=== PATIENT | female | born 1935 | race Asian ===

== ENCOUNTER 2016-04-20 20:03 | Inpatient (IN) | payer MEDICARE, OTHER ==
[~2016-04-20] VITALS: Ht 154.9 cm; Wt 69.8 kg
[~2016-04-20 20:03] MED LIST: ALLO100T PO; ASPI-664 PO; ATOR40TA68 PO; CALC667C PO; CARV25TA97 PO; DOXY100T2 PO; FURO-110 PO; ISOS30TA5 PO; LANT3I SC; LEVO250T35 PO; NIFE30TA60 PO
[2016-04-21] VITALS (13 sets, daily range): BP systolic 104–129; BP diastolic 53–80; PULSE 74–85; RESP 17–32; TEMP 98.5; Ht 154.9 cm; Wt 69.8 kg
[2016-04-21] MEDS ORDERED: ALBUTEROL 0.5% (NEB) 2.5 MG/0.5 ML AMP INH ONE (00:30)
[2016-04-21] MEDS ORDERED: IPRATROPIUM (NEB) 0.5 MG/2.5 ML AMP INH ONE (00:30)
--- NOTE | 2016-04-21 00:50 | RADRPT ---
PROCEDURE: XR Chest. CLINICAL INDICATION: Dyspnea. TECHNIQUE: Single frontal view of the chest was obtained COMPARISON: CT chest dated 01/10/2016 and plain film chest dated 01/09/2016. FINDINGS: Cardiomegaly with atherosclerotic calcifications in the thoracic aorta. New 38 mm mass density in the right mid lung with surrounding patchy air space disease, greater at t he right lung base. New bilateral small pleural effusions. Recommend CT examination of the chest for further evaluation, as findings are suspicious for interva l neoplasm. There is no pleural effusion or pneumothorax. IMPRESSION: 1. New 38 mm mass density in right mid lung is suspicious for neoplasm. 2. Recommend CT correlation. RPTAT: [facility] Physician Dory Date Time Electronically viewed and signed by Physician Dory on 04/21/2016 00:50 RS/
[2016-04-21 01:22] LABS: BASOPHILS % 0.2 % (0.0-2.0); EOSINOPHILS % 0.1 % (0.0-7.0); HEMOGLOBIN 9.6 g/dl (12.0-16.0); LYMPHOCYTES # 2.9 10^3/ul (0.8-2.9); LYMPHOCYTES % 19.7 % (15.0-51.0); MEAN CORPUSCULAR HEMOGLOBIN 30.3 pg (29.0-33.0); MEAN CORPUSCULAR HGB CONC 33.2 g/dl (32.0-37.0); MEAN CORPUSCULAR VOLUME 91.4 fl (82.0-101.0); MEAN PLATELET VOLUME 8.7 fl (7.4-10.4); MONOCYTE # 0.8 10^3/ul (0.3-0.9); MONOCYTES % 5.2 % (0.0-11.0); NEUTROPHILS % 74.8 % (39.0-77.0); PLATELET COUNT 255 10^3/UL (140-440); RED BLOOD COUNT 3.17 10^6/ul (4.20-5.40); RED CELL DISTRIBUTION WIDTH 17.1 % (11.5-14.5); UNCORRECTED WBC 14.8 10^3/ul (4.8-10.8); WHITE BLOOD COUNT 14.8 10^3/ul (4.8-10.8)
[2016-04-21 01:23] LABS: CONDITION 1; LH ANALYZER COMMENTS 1
[2016-04-21 01:26] LABS: ALBUMIN 4.4 g/dl (3.3-4.9); CHLORIDE 93 mmol/L (97-110)
[2016-04-21 01:27] LABS: POTASSIUM 4.2 mmol/L (3.5-5.1); SODIUM 132 mmol/L (135-144)
[2016-04-21 01:29] LABS: ANION GAP 23 (8-16); ASPARTATE AMINO TRANSFERASE 45 IU/L (15-46); BILIRUBIN,INDIRECT 0.4 mg/dl (0-1.1); BILIRUBIN,TOTAL 0.4 mg/dl (0.2-1.3); BLOOD UREA NITROGEN 52 mg/dl (7-20); CARBON DIOXIDE 20 mmol/L (21-31); CREATININE 4.39 mg/dl (0.44-1.00); TOTAL PROTEIN 8.4 g/dl (6.1-8.1)
[2016-04-21 01:30] LABS: ALANINE AMINOTRANSFERASE 52 IU/L (13-69); ALKALINE PHOSPHATASE 167 IU/L (42-121); CALCIUM 9.6 mg/dl (8.4-10.2); GLUCOSE 200 mg/dl (70-220)
[2016-04-21 01:38] LABS: B-TYPE NATRIURETIC PEPTIDE 7370 PG/ML (0-450)
[2016-04-21 01:47] LABS: TROPONIN-I < 0.012 ng/ml (0.00-0.12)
--- NOTE | 2016-04-21 02:24 | ERA ---
ER Documentation Chief Complaint Date/Time DATE: 04/21/16 TIME: 02:22 Chief Complaint shortness of breath x 2 days HPI This is a 81-year-old female comes in shortness of breath for 2 days. Shortness breath is progressively worse. No other current complaints. No nausea no vomiting. No other current complaints. No chest pain ROS All systems reviewed and are negative except as per history of present illness. Medications Home Meds Active Scripts Doxycycline* (Vibramycin*) 100 Mg Tab, 100 MG PO BID for 7 Days, #14 TAB Prov:TREMAINE RIOS MD 01/13/16 Levofloxacin* (Levaquin*) 250 Mg Tablet, 250 MG PO Q2D@06 for 7 Days, #4 TAB Prov:TREMAINE RIOS MD 01/13/16 Isosorbide Mononitrate* (Isosorbide Mononitrate*) 30 Mg Tab.er.24h, 30 MG PO DAILY for 30 Days, #30 TAB Prov:TREMAINE RIOS MD 01/13/16 Reported Medications Calcium Acetate* (Calcium Acetate*) 667 Mg Capsule, 667 MG PO WITH MEALS, #30 CAP 11/21/15 Nifedipine* (Nifedipine ER*) 30 Mg Tablet.sa, 30 MG PO DAILY, TAB.SA 11/21/15 Atorvastatin* (Atorvastatin*) 40 Mg Tablet, 40 MG PO QHS, #30 TAB 08/06/15 Aspirin* (Aspirin* EC) 81 Mg Tablet.dr, 81 MG PO DAILY, TAB 08/06/15 Insulin Glargine* (Lantus*) 100 Unit/Ml Soln, 10-12 UNIT SC QHS, #1 VIAL 08/06/15 Allopurinol* (Allopurinol*) 100 Mg Tablet, 100 MG PO QHS, TAB 04/27/14 Furosemide* (Lasix*) 20 Mg Tablet, 20 MG PO QAM, TAB 04/27/14 Carvedilol* (Coreg*) 25 Mg Tablet, 25 MG PO BID, TAB 04/27/14 Allergies Allergies: Coded Allergies: ranolazine (Verified Allergy, Intermediate, 01/08/16) entered as told by Dr. Olivares PMhx/Soc History of Surgery: Yes (Right kidney removal, bilateral cataract removal) Anesthesia Reaction: No Hx Neurological Disorder: No Hx Respiratory Disorders: Yes (Asthma) Hx Cardiac Disorders: Yes (CHF, cardiomegaly, HTN) Hx Psychiatric Problems: No Hx Miscellaneous Medical Probl: No Hx Alcohol Use: No Hx Substance Use: No Hx Tobacco Use: No Smoking Status: Never smoker Physical Exam Vitals Vital Signs Date Time Temp Pulse Resp B/P Pulse Ox O2 Delivery O2 Flow Rate FiO2 04/21/16 00:41 86 22 96 Nasal Cannula 3.0 04/21/16 00:31 68 19 124/66 99 Room Air 04/21/16 00:30 Nasal Cannula 2 04/20/16 20:12 99.3 89 20 124/57 90 Physical Exam Const: [] Head: Atraumatic Eyes: Normal Conjunctiva ENT: Normal External Ears, Nose and Mouth. Neck: Full range of motion..~ No meningismus. Resp: Clear to auscultation bilaterally Cardio: Regular rate and rhythm, no murmurs Abd: Soft, non tender, non distended. Normal bowel sounds Skin: No petechiae or rashes Back: No midline or flank tenderness Ext: No cyanosis, or edema Neur: Awake and alert Psych: Normal Mood and Affect Result Diagram: 04/21/162904/21/16 0030 Results 24 hrs Laboratory Tests Test 04/21/16 00:30 Alanine Aminotransferase (ALT/SGPT) 52IU/L Albumin 4.4g/dl Albumin/Globulin Ratio 1.10 Alkaline Phosphatase 167IU/L Anion Gap 23 Aspartate Amino Transf (AST/SGOT) 45IU/L B-Type Natriuretic Peptide 7370PG/ML Basophils # 0.010^3/ul Basophils % 0.2% Blood Morphology Comment Blood Urea Nitrogen 52mg/dl Calcium Level 9.6mg/dl Carbon Dioxide Level 20mmol/L Chloride Level 93mmol/L Creatinine 4.39mg/dl Direct Bilirubin 0.00mg/dl Eosinophils # 0.010^3/ul Eosinophils % 0.1% Globulin 4.00g/dl Glucose Level 200mg/dl Hematocrit 29.0% Hemoglobin 9.6g/dl Indirect Bilirubin 0.4mg/dl Lactic Acid Level 1.3mmol/L Lymphocytes # 2.910^3/ul Lymphocytes % 19.7% Mean Corpuscular Hemoglobin 30.3pg Mean Corpuscular Hemoglobin Concent 33.2g/dl Mean Corpuscular Volume 91.4fl Mean Platelet Volume 8.7fl Monocytes # 0.810^3/ul Monocytes % 5.2% Neutrophils # 11.010^3/ul Neutrophils % 74.8% Nucleated Red Blood Cells # 0.010^3/ul Nucleated Red Blood Cells % 0.0/100WBC Platelet Count 09312^3/UL Potassium Level 4.2mmol/L Red Blood Count 3.1710^6/ul Red Cell Distribution Width 17.1% Sodium Level 132mmol/L Total Bilirubin 0.4mg/dl Total Protein 8.4g/dl Troponin I < 0.012ng/ml White Blood Count 14.810^3/ul Current Medications Medications (Trade) Dose Ordered Sig/Nahun Route PRN Reason Start Time Stop Time Status Last Admin Dose Admin Albuterol (Proventil 0.5% (Neb)) 5 mg ONCE ONCE INH 04/21/16 00:30 04/21/16 00:31 DC 04/21/16 00:41 Ipratropium [place] (Atrovent 0.02% (Neb)) 0.5 mg ONCE ONCE INH 04/21/16 00:30 04/21/16 00:31 DC 04/21/16 00:41 Procedures/MDM EKG: Rate/Rhythm: Normal Sinus Rhythm QRS, ST, T-waves: No changes consistent w/ acute ischemia Impression: No evidence of ischemia or arrhythmia Chest x-ray reveals a new nodule. Please see radiology's full dictation for poor. Patient also has evidence of increase in interstitial fluid markings indicative of CHF. Patient's heart failure symptoms is concerning for acute decompensation and will require inpatient workup and monitoring. Further w/u for ischemia, arrhythmia, PE or dissection will be deferred to the inpatient team. Accepting Care Team: Current data and ongoing care discussed. Time: 220 Primary Provider: Patient will be admitted to Dr. Rowley per Dr. Lamas who is on-call for the patient's primary care physician Consulting: [XOXOXO] Outstanding Data: none Departure Diagnosis: Primary Impression: CHF (congestive heart failure) Qualified Code: I50.9 - Congestive heart failure, unspecified congestive heart failure chronicity, unspecified congestive heart failure type SAURAV SON Apr 21, 2016 02:24
[2016-04-21] MEDS ORDERED: GLUCAGON 1 MG INJ IM PRN (05:30)
[2016-04-21] MEDS ORDERED: GLUCOSE GEL 15 GRAM TUBE BUCCAL PRN (05:30)
[2016-04-21] MEDS ORDERED: DEXTROSE 50% 50 ML SYRINGE IV PRN ×2 (05:30)
[2016-04-21] MEDS ORDERED: GLUCOSE GEL 15 GRAM TUBE PO PRN ×2 (05:30)
[2016-04-21] MEDS: LEVALBUTEROL (NEB) 0.63 MG/3 ML AMP HHN PRN ×2 (05:38→08:54)
[2016-04-21] MEDS ORDERED: FUROSEMIDE 20 MG INJ IV SCH (06:00)
[2016-04-21] MEDS: DOXYCYCLINE 100 MG TAB PO SCH ×2 (06:22→17:20)
[2016-04-21] MEDS: ALBUTEROL/IPRATROPIUM (NEB) 3 ML AMP HHN SCH ×8 (07:00→21:00)
[2016-04-21] MEDS ORDERED: METHYLPREDNISOLONE 40 MG INJ IV SCH (07:00)
[2016-04-21 07:54] LABS: AADO2 Arterial 305.3 mmHg (7.0-24.0); Allen Test ACCEPTAB; Arterial Base Excess -5.4 mmol/L (-3.0-3); Arterial COHb 0.3 % (0.0-3.0); Arterial Fraction of Oxyhgb 96.2 % (93.0-99.0); Arterial HCO3 18.5 mmol/L (22.0-26.0); Arterial MetHb 0.4 % (0.0-1.5); Arterial Total Hemglobin 9.7 g/dl (12.0-18.0); MODE MASK - SIMPLE
[2016-04-21] MEDS ORDERED: LEVALBUTEROL (NEB) 0.63 MG/3 ML AMP HHN SCH (08:00)
--- NOTE | 2016-04-21 08:03 | RADRPT ---
PROCEDURE: XR Chest. CLINICAL INDICATION: SOB TECHNIQUE: Single portable view of the chest was obtained COMPARISON: Chest 04/21/2016 , 1231 hours. FINDINGS: Again noted is cardiomegaly. There is atherosclerosis of the aorta. In the mid to lower right chitra hilar region is a ill-defined globular area of increased density that may represent consolidation fr om atelectasis and/or pneumonia however an underlying mass in this region cannot be excluded. Remai nder lungs are clear. No evidence of pulmonary vascular congestion pleural effusions and pneumothor ax. IMPRESSION: 1. Cardiomegaly without definite congestive heart failure. 2. Broad globular area of increased density in the right perihilar region may represent atelectasis and/or pneumonia though underlying mass in this region cannot be excluded. Recommend continued fol low up. RPTAT:AAJJ Physician Oumar Date Time Electronically viewed and signed by Physician Oumar on 04/21/2016 08:03 /
[2016-04-21] MEDS: CALCIUM ACETATE 667 MG CAP PO SCH ×3 (08:49→17:19)
[2016-04-21] MEDS: ASPIRIN (EC) 81 MG TAB PO SCH (08:50)
[2016-04-21] MEDS: NIFEdipine (XL) 30 MG TAB PO SCH (08:50)
[2016-04-21] MEDS: ISOSORBIDE MONONITRATE(SR)30 MG TAB PO SCH (08:50)
[2016-04-21] MEDS ORDERED: ENOXAPARIN 40 MG/0.4 ML SYG SC SCH (09:00)
[2016-04-21] MEDS ORDERED: POTASSIUM CHLORIDE (SR) 20 MEQ TAB PO SCH (09:00)
[2016-04-21] MEDS ORDERED: DOXYCYCLINE 100 MG TAB PO SCH (09:00)
--- NOTE | 2016-04-21 10:20 | CONS ---
Date/Time of Note Date/Time of Note DATE: 04/21/16 TIME: 10:13 Assessment/Plan Assessment/Plan Additional Assessment/Plan Chest x-ray was reviewed from earlier today which is showing changes consistent with congestive heart failure with pulmonary edema. There is an infiltrate/ mass in the right upper lobe area. Next EKG was reviewed showing sinus rhythm without any ischemic findings. Next Labs were reviewed as well patient does have a significant elevation in BNP level. Next Assessment and recommendations; next 1. Patient admitted with progressive shortness of breath over the last few days due to underlying cardiomyopathy/congestive heart failure. Next 2. Wheezing is likely from fluid overload. Next 3. Stable hypertension. Next 4. Diabetes. Next 5. History of right nephrectomy. 6. Currently findings are not consistent with asthma. Next 7. Possibly superimposed bronchitis. Continue current treatment . Discontinue Solu-Medrol as it will lead to further fluid retention. Increase Lasix to 40 mg IV every 12 hours. Obtain a 2D echocardiogram. Also need to have a cardiology consult done. Obtain a follow- up chest x-ray in 48 hours. The patient may need to have a CT scan of chest done for evaluation of right upper lobe density. Consultation Date/Type/Reason Admit Date/Time Apr 21, 2016 at 02:22 Date of Consultation: Apr 21, 2016 Type of Consultation: Pulmonary Reason for Consultation Patient admitted with shortness of breath. Pulmonary consultations requested for evaluation of that. Next History of present illness; patient is a very pleasant 81-year-old oriented lady who came into the emergency room early this morning with a 2 day history of increasing shortness of breath. Patient also has been complaining of some wheezing for the last few days only. There is a scant cough with scant yellow sputum production. Denies any chest pain. Any nausea vomiting. Upon evaluation a chest x-ray was done which is consistent with findings of congestive heart failure. However there is a right upper lobe lung mass is also visualized on chest x-ray. Significance of this is unclear at this point. She still complains of shortness of breath. According to her she was fine until 2 days ago and the symptoms gradually started. She does complain of chronic dyspnea on exertion dating back several months. Next Past medical history; 1. History of diabetes. 2. History of hypertension. 3. History of gout. 4. History of right nephrectomy. 5. There is no known coronary artery disease. 6. Patient denies any history of asthma. Medications; were reviewed. Both inpatient and outpatient. Allergies; ranolazine. Social history; never smoked no stable or drug abuse. Family history she is , has 6 children. Various family members of diabetes hypertension in the family. Occupational history; patient has been a housewife. Review of systems; patient denies any headache, any visual changes. Denies any seizures. Any sinus symptoms. Any sore throat. Any fever chills. Denies any chest pain. Complain of wheezing and shortness of breath. Comes of cough without any hemoptysis. Denies any abdominal pain, nausea. Denies any abdominal pain. Any urinary symptoms. Does complain of mild orthopnea. Does complain of chronic dyspnea on exertion. With significant interval worsening over the last 2 days. Has any edema. Any weight change. General examination; elderly lady currently in no distress. Awake and alert. Past Surgical History Past Surgical Hx: other Social History Smoking Status: Never smoker Exam/Review of Systems Vital Signs Vitals Vital Signs Date Time Temp Pulse Resp B/P Pulse Ox O2 Delivery O2 Flow Rate FiO2 04/21/16 08:57 63 20 91 Simple Mask 10.0 04/21/16 07:23 98.2 125/60 Intake and Output 04/20/16 04/20/16 04/21/16 15:00 23:00 07:00 Intake Total 100 ml Balance 100 ml Exam HEENT examination; supple neck. Positive JVD. Pharynx is clear. Patient has a right surgical pupil. There is a cataract in the left eye. Patient wears partial dentures in the upper jaw. No neck masses. No thyromegaly. No neck bruits. Chest examination; diminished breath sound bilaterally with mild expiratory wheezing bilaterally. S1-S2 audible, regular rhythm. Abdomen examination; soft, nontender. No organomegaly. Bowel sounds audible. Extremity examination; no peripheral edema. Pulses 2+ bilaterally. ONLINE MERCHANDISING COORDINATOR examination; cranial nerves are grossly intact there is no motor deficit. Results Result Diagram: 04/21/160 04/21/16 0030 Results 24 hrs Laboratory Tests Test 04/21/16 00:30 04/21/16 02:15 04/21/16 06:56 04/21/16 07:47 Alanine Aminotransferase (ALT/SGPT) 52 Albumin 4.4 Albumin/Globulin Ratio 1.10 Alkaline Phosphatase 167 H Anion Gap 23 H Aspartate Amino Transf (AST/SGOT) 45 B-Type Natriuretic Peptide 7370 H Basophils # 0.0 Basophils % 0.2 Blood Morphology Comment Blood Urea Nitrogen 52 H Calcium Level 9.6 Carbon Dioxide Level 20 L Chloride Level 93 L Creatinine 4.39 H Direct Bilirubin 0.00 Eosinophils # 0.0 Eosinophils % 0.1 Globulin 4.00 H Glucose Level 200 Hematocrit 29.0 L Hemoglobin 9.6 L Indirect Bilirubin 0.4 Lactic Acid Level 1.3 0.8 0.7 Lymphocytes # 2.9 Lymphocytes % 19.7 Mean Corpuscular Hemoglobin 30.3 Mean Corpuscular Hemoglobin Concent 33.2 Mean Corpuscular Volume 91.4 Mean Platelet Volume 8.7 Monocytes # 0.8 Monocytes % 5.2 Neutrophils # 11.0 H Neutrophils % 74.8 Nucleated Red Blood Cells # 0.0 Nucleated Red Blood Cells % 0.0 Platelet Count 255 # Potassium Level 4.2 Red Blood Count 3.17 L Red Cell Distribution Width 17.1 H Sodium Level 132 L Total Bilirubin 0.4 Total Protein 8.4 H Troponin I < 0.012 White Blood Count 14.8 #H Arterial Blood HCO3 18.5 L Arterial Blood Base Excess -5.4 L Arterial Blood Oxygen Saturation 96.9 Marquez Test ACCEPTAB Arterial Blood Gas Puncture Site Right Radial Arterial Blood Carboxyhemoglobin 0.3 Arterial Blood Date Drawn 04/21/2016 7:26:54 AM Arterial Blood Methemoglobin 0.4 Arterial Blood pCO2 (Temp correct) 30.7 L Arterial Blood pH (Temp corrected) 7.399 Arterial Blood pO2 (Temp corrected) 95.9 H Blood Gas A-a O2 Differential 305.3 H Blood Gas Modality MASK - SIMPLE Blood Gas Notified Time 04/21/2016 7:49:29 AM Blood Gas Notified Whom JLD Blood Gas Specimen Source Blood arterial Blood Gas Temperature 37.0 FiO2 61.0 Oxyhemoglobin Percent 96.2 Total Hemoglobin 9.7 L Test 04/21/16 08:06 Bedside Glucose 205 Medications Medications Current Medications Allopurinol (Zyloprim) 100 mg QHS PO ; Start 04/21/16 at 21:00 Aspirin (Halfprin) 81 mg DAILY PO Last administered on 04/21/16t 08:50; Admin Dose 81 MG; Start 04/21/16 at 09:00 Atorvastatin Calcium (Lipitor) 40 mg QHS PO ; Start 04/21/16 at 21:00 Carvedilol (Coreg) 25 mg BID PO Last administered on 04/21/16 08:50; Admin Dose 25 MG; Start 04/21/16 at 09:00 Isosorbide Mononitrate (Imdur) 30 mg DAILY PO Last administered on 04/21/16 08 :50; Admin Dose 30 MG; Start 04/21/16 at 09:00 Levofloxacin (Levaquin) 250 mg Q2D@06 PO ; Start 04/21/16 at 06:00 Nifedipine (Procardia Xl) 30 mg DAILY PO Last administered on 04/21/16 08:50; Admin Dose 30 MG; Start 04/21/16 at 09:00 Enoxaparin Sodium (Lovenox) 40 mg DAILY SC Last administered on 04/21/16 08:49 ; Admin Dose 40 MG; Start 04/21/16 at 09:00 Potassium Chloride (Klor-Con 20) 20 meq DAILY PO Last administered on 08:50; Admin Dose 20 MEQ; Start 04/21/16 at 09:00 Insulin Glargine (Lantus) 10 unit HS SC ; Start 04/21/16 at 21:00 Diagnostic Test (Pha) (Accucheck) 1 ea 02 XX ; Start 04/22/16 at 02:00 Miscellaneous Information 1 ea NOTE XX ; Start 04/21/16 at 05:30 Glucose (Glutose) 15 gm Q15M PRN PO DECREASED GLUCOSE; Start 04/21/16 at 05:30 Glucose (Glutose) 22.5 gm Q15M PRN PO DECREASED GLUCOSE; Start 04/21/16 at 05: 30 Dextrose (D50w Syringe) 25 ml Q15M PRN IV DECREASED GLUCOSE; Start 04/21/16 at 05:30 Dextrose (D50w Syringe) 50 ml Q15M PRN IV DECREASED GLUCOSE; Start 04/21/16 at 05:30 Glucagon (Glucagen) 1 mg Q15M PRN IM DECREASED GLUCOSE; Start 04/21/16 at 05:30 Glucose (Glutose) 15 gm Q15M PRN BUCCAL DECREASED GLUCOSE; Start 04/21/16 at 05 :30 Doxycycline Hyclate (Vibramycin) 100 mg BID@06,18 PO Last administered on t 06:22; Admin Dose 100 MG; Start 04/21/16 at 06:00 KIMBERLI WORKMAN Apr 21, 2016 10:20
[2016-04-21] MEDS: LEVOFLOXACIN 250 MG TAB PO SCH (10:31)
[2016-04-21] MEDS: INSULIN ASPART [NOVOLOG] 3 ML PEN SC SCH ×4 (10:33→21:06)
[2016-04-21 12:13] LABS: EOSINOPHILS % 0.1 % (0.0-7.0); HEMATOCRIT 24.5 % (37.0-47.0); HEMOGLOBIN 8.4 g/dl (12.0-16.0); LYMPHOCYTES # 1.3 10^3/ul (0.8-2.9); LYMPHOCYTES % 10.2 % (15.0-51.0); MEAN CORPUSCULAR HEMOGLOBIN 31.5 pg (29.0-33.0); MEAN CORPUSCULAR HGB CONC 34.3 g/dl (32.0-37.0); MEAN CORPUSCULAR VOLUME 91.8 fl (82.0-101.0); MEAN PLATELET VOLUME 8.6 fl (7.4-10.4); MONOCYTE # 0.5 10^3/ul (0.3-0.9); NEUTROPHIL # 10.8 10^3/ul (1.6-7.5); NEUTROPHILS % 85.7 % (39.0-77.0); PLATELET COUNT 215 10^3/UL (140-440); RED BLOOD COUNT 2.67 10^6/ul (4.20-5.40); RED CELL DISTRIBUTION WIDTH 17.3 % (11.5-14.5); UNCORRECTED WBC 12.6 10^3/ul (4.8-10.8); WHITE BLOOD COUNT 12.6 10^3/ul (4.8-10.8)
[2016-04-21 12:23] LABS: POTASSIUM 4.4 mmol/L (3.5-5.1)
[2016-04-21 12:25] LABS: CONDITION 1; CREATININE 4.41 mg/dl (0.44-1.00); LH ANALYZER COMMENTS 1
[2016-04-21 12:26] LABS: CALCIUM 8.9 mg/dl (8.4-10.2)
[2016-04-21 12:27] LABS: CHOL/HDL RATIO 3.2 RATIO
--- NOTE | 2016-04-21 16:59 | HP ---
DATE OF ADMISSION: 04/21/2016 CHIEF COMPLAINT: Shortness of breath over the last 2 days. HISTORY OF PRESENT ILLNESS: The patient is an 81-year-old pleasant female with past medical h istory positive for congestive heart failure, hypertension, mitral regurgitation, chronic kidney dis ease, diabetes mellitus type 2, and hypercholesterolemia. The patient presented to the emergency ro om from home with complaint of 2 days of shortness of breath that gets worse. Yesterday, the patie nt stated that she became tachypneic. Patient denies any fever or chills. Denies any nausea, vomit ing, denies diarrhea, denies constipation, denies any chest pain. Patient underwent chest x-ray in the emergency room which revealed cardiomegaly, and a broad globular area of increased density in th e right preauricular region, which may represent atelectasis or pneumonia, though underlying mass in this region cannot be excluded. The patient also had a leukocytosis on admission with white blood cells elevated to 14.8. The patient's influenza swab was negative. Troponin was negative. BNP was elevated to 7370. The patient also had a creatinine of 4.36 and BUN is 52 on admission. The prev ious admission, the patient's creatinine runs about 3 which is probably her baseline. In the emerge ncy room, the patient underwent a 12-lead EKG which showed normal sinus rhythm with no changes consi stent with ischemia. Patient was getting breathing treatment and was admitted for further evaluatio n and management to telemetry floor. PAST MEDICAL HISTORY: Per HPI. PAST SURGICAL HISTORY: Status post right nephrectomy and status post bilateral cataract surgery. FAMILY HISTORY: Noncontributory. SOCIAL HISTORY: Patient lives at home with the family, patient denies any tobacco use, denies any i llicit drug use, denies any alcohol use. ALLERGIES: PATIENT HAS ALLERGY TO RANEXA. HOME MEDICATIONS: 1. Calcium acetate. 2. Nifedipine. 3. Atorvastatin. 4. Aspirin. 5. Lantus. 6. Allopurinol. 7. Lasix. 8. Coreg. REVIEW OF SYSTEMS: A 12-point review of systems is negative unless mentioned in the HPI. PHYSICAL ASSESSMENT: GENERAL: Well-developed, well-nourished female currently on supplemental oxygen via mask. The jamir ent is awake, alert. VITAL SIGNS: Temperature is 98.2, pulse is 80, blood pressure is 110/54, respiratory rate is 20, ox ygen saturation is 96% on 2 liters mask. HEENT: Head is atraumatic, normocephalic. Pupils equal, round, reactive to light and accommodation . PERRLA. Oral mucosa is pink and moist. NECK: Supple, no cervical lymphadenopathy, no thyromegaly. JVD is present. LUNGS: Diminished at the bases. There are no wheezes and rales noted. The patient has mild rhonch i. CARDIOVASCULAR: Normal S1, S2. No murmurs, gallops, clicks, rubs noted. ABDOMEN: Protuberant, soft, nondistended, nontender. Bowel sounds present. There is no tenderness . EXTREMITIES: The patient has trace edema. No clubbing, cyanosis. Pulses equal bilaterally 2+. SKIN: There is no rash, petechiae noted. NEUROLOGIC: Patient is awake, alert and oriented x4. No focal deficits noted. Motor strength 5/5 in all extremities. LABORATORY DATA: On admission, CBC: White blood cells 14.8, hemoglobin 9.6, hematocrit 29.0, plate lets 265. Chemistry: Sodium is 130, potassium 4.0, chloride 95, carbon dioxide 19, anion gap 20, B UN is 60, creatinine 4.41, glucose 210. Troponin is 0.012. ASSESSMENT AND PLAN: 1. Acute respiratory distress secondary to congestive heart failure exacerbation, possible bronchit is. 2. Congestive heart failure. Continue Lasix, monitor electrolytes. Dr. Juarez will be following t he patient in cardiology recommendations. 3. Possible bronchitis. ____ is following in pulmonology consultation. 4. A 38 mm mass density in the right mid lung. Continue to follow up pulmonology recommendations. 5. Chronic kidney disease status post right nephrectomy. Dr. Mo will be following patient i n nephrology consultation. Continue to monitor BUN and creatinine. 6. Rule out acute coronary syndrome. We will obtain troponins x3 and a 12-lead EKG. 7. Hypertension. Continue patient on Coreg, Imdur and Procardia. 8. Hyperlipidemia. Continue Lipitor. 9. Diabetes mellitus type 2. Continue patient on Lantus and NovoLog. 10. Continue Lovenox for deep venous thrombosis prophylaxis and Pepcid for peptic ulcer disease pro phylaxis. Further recommendations based on clinical course. Plan of care discussed with Dr. Julio manning. Dictated By: GILBERT SCHNEIDER WATERPROOF COATING MACHINE TENDER for DOMINIC ROSAS MD SR/NTS Conf#: [id number] DID#: [id number]
[2016-04-21] MEDS: FUROSEMIDE 40 MG INJ IV SCH (17:19)
--- NOTE | 2016-04-21 19:11 | CONS ---
Date/Time of Note Date/Time of Note DATE: 04/21/16 TIME: 19:06 Assessment/Plan Assessment/Plan Additional Assessment/Plan Acute decompensated diastolic congestive heart failure Possible lung mass Hypertension Acute on chronic kidney injury Diabetes -Patient's diuretics have been adjusted to 40 mg IV twice daily. Continue as long as renal function and blood pressure permits. Blood pressure has been on the lower end, would have holding parameters on antihypertensives. Undergoing workup for possible lung mass. Consultation Date/Type/Reason Admit Date/Time Apr 21, 2016 at 02:22 Type of Consultation: cv Reason for Consultation Shortness of breath Hx of Present Illness This is an 81-year-old female who presents with progressive worsening shortness of breath over the past 2-3 days. Symptoms are worse with exertion and lying down flat. Patient also with cough which has been wet and minimally productive. She denies any fevers, chills, dizziness, palpitations, chest pain. She denies any abdominal pain, nausea or vomiting. 12 point review of systems was performed with all pertinent positives and negatives mentioned above and all else is negative Past Medical History Medical History: coronary artery disease, high cholesterol, hypertension, renal disease Past Surgical History Past Surgical Hx: other Family History Significant Family History: no pertinent family hx Social History Smoking Status: Never smoker Exam/Review of Systems Vital Signs Vitals Vital Signs Date Time Temp Pulse Resp B/P Pulse Ox O2 Delivery O2 Flow Rate FiO2 04/21/16 16:25 74 04/21/16 15:58 20 97 Simple Mask 10.0 04/21/16 15:39 98.0 104/54 Intake and Output 04/20/16 04/20/16 04/21/16 15:00 23:00 07:00 Intake Total 100 ml Balance 100 ml Exam Mild dyspnea with extensively speaking Constitutional: alert, obese, oriented Head: normocephalic Neck: supple Respiratory: other (Coarse breath sounds bilaterally with scattered crackles, minimal and expiratory wheezing) Cardiovascular: other (S1-S2 heard), regular rate and rhythm Gastrointestinal: bowel sounds, non-tender, other (No guarding), soft Extremities: edema, other (No cyanosis) Results Result Diagram: 04/21/16 1136 04/21/16 1136 Results 24 hrs Laboratory Tests Test 04/21/16 00:30 04/21/16 02:15 04/21/16 06:56 04/21/16 07:47 Alanine Aminotransferase (ALT/SGPT) 52 Albumin 4.4 Albumin/Globulin Ratio 1.10 Alkaline Phosphatase 167 H Anion Gap 23 H Aspartate Amino Transf (AST/SGOT) 45 B-Type Natriuretic Peptide 7370 H Basophils # 0.0 Basophils % 0.2 Blood Morphology Comment Blood Urea Nitrogen 52 H Calcium Level 9.6 Carbon Dioxide Level 20 L Chloride Level 93 L Creatinine 4.39 H Direct Bilirubin 0.00 Eosinophils # 0.0 Eosinophils % 0.1 Globulin 4.00 H Glucose Level 200 Hematocrit 29.0 L Hemoglobin 9.6 L Indirect Bilirubin 0.4 Lactic Acid Level 1.3 0.8 0.7 Lymphocytes # 2.9 Lymphocytes % 19.7 Mean Corpuscular Hemoglobin 30.3 Mean Corpuscular Hemoglobin Concent 33.2 Mean Corpuscular Volume 91.4 Mean Platelet Volume 8.7 Monocytes # 0.8 Monocytes % 5.2 Neutrophils # 11.0 H Neutrophils % 74.8 Nucleated Red Blood Cells # 0.0 Nucleated Red Blood Cells % 0.0 Platelet Count 255 # Potassium Level 4.2 Red Blood Count 3.17 L Red Cell Distribution Width 17.1 H Sodium Level 132 L Total Bilirubin 0.4 Total Protein 8.4 H Troponin I < 0.012 White Blood Count 14.8 #H Arterial Blood HCO3 18.5 L Arterial Blood Base Excess -5.4 L Arterial Blood Oxygen Saturation 96.9 Marquez Test ACCEPTAB Arterial Blood Gas Puncture Site Right Radial Arterial Blood Carboxyhemoglobin 0.3 Arterial Blood Date Drawn 04/21/2016 7:26:54 AM Arterial Blood Methemoglobin 0.4 Arterial Blood pCO2 (Temp correct) 30.7 L Arterial Blood pH (Temp corrected) 7.399 Arterial Blood pO2 (Temp corrected) 95.9 H Blood Gas A-a O2 Differential 305.3 H Blood Gas Modality MASK - SIMPLE Blood Gas Notified Time 04/21/2016 7:49:29 AM Blood Gas Notified Whom JLD Blood Gas Specimen Source Blood arterial Blood Gas Temperature 37.0 FiO2 61.0 Oxyhemoglobin Percent 96.2 Total Hemoglobin 9.7 L Test 04/21/16 08:06 04/21/16 11:36 04/21/16 12:03 04/21/16 17:01 Bedside Glucose 205 208 143 Anion Gap 20 H Basophils # 0.0 Basophils % 0.0 Blood Morphology Comment Blood Urea Nitrogen 60 H Calcium Level 8.9 Carbon Dioxide Level 19 L Chloride Level 95 L Cholesterol Level 116 Cholesterol/HDL Ratio 3.2 Creatinine 4.41 H Eosinophils # 0.0 Eosinophils % 0.1 Glucose Level 210 HDL Cholesterol 36 Hematocrit 24.5 L Hemoglobin 8.4 L LDL Cholesterol, Calculated 62 Lymphocytes # 1.3 Lymphocytes % 10.2 L Mean Corpuscular Hemoglobin 31.5 Mean Corpuscular Hemoglobin Concent 34.3 Mean Corpuscular Volume 91.8 Mean Platelet Volume 8.6 Monocytes # 0.5 Monocytes % 4.0 Neutrophils # 10.8 H Neutrophils % 85.7 H Nucleated Red Blood Cells # 0.0 Nucleated Red Blood Cells % 0.0 Platelet Count 215 Potassium Level 4.4 Red Blood Count 2.67 L Red Cell Distribution Width 17.3 H Sodium Level 130 L Triglycerides Level 89 Troponin I 0.023 White Blood Count 12.6 H Medications Medications Current Medications Allopurinol (Zyloprim) 100 mg QHS PO ; Start 04/21/16 at 21:00 Aspirin (Halfprin) 81 mg DAILY PO Last administered on 04/21/16 08:50; Admin Dose 81 MG; Start 04/21/16 at 09:00 Atorvastatin Calcium (Lipitor) 40 mg QHS PO ; Start 04/21/16 at 21:00 Carvedilol (Coreg) 25 mg BID PO Last administered on 04/21/16 08:50; Admin Dose 25 MG; Start 04/21/16 at 09:00 Isosorbide Mononitrate (Imdur) 30 mg DAILY PO Last administered on 04/21/16 08 :50; Admin Dose 30 MG; Start 04/21/16 at 09:00 Levofloxacin (Levaquin) 250 mg Q2D@06 PO Last administered on 04/21/16 10:31; Admin Dose 250 MG; Start 04/21/16 at 06:00 Nifedipine (Procardia Xl) 30 mg DAILY PO Last administered on 04/21/16 08:50; Admin Dose 30 MG; Start 04/21/16 at 09:00 Insulin Glargine (Lantus) 10 unit HS SC ; Start 04/21/16 at 21:00 Diagnostic Test (Pha) (Accucheck) 1 ea 02 XX ; Start 04/22/16 at 02:00 Miscellaneous Information 1 ea NOTE XX ; Start 04/21/16 at 05:30 Glucose (Glutose) 15 gm Q15M PRN PO DECREASED GLUCOSE; Start 04/21/16 at 05:30 Glucose (Glutose) 22.5 gm Q15M PRN PO DECREASED GLUCOSE; Start 04/21/16 at 05: 30 Dextrose (D50w Syringe) 25 ml Q15M PRN IV DECREASED GLUCOSE; Start 04/21/16 at 05:30 Dextrose (D50w Syringe) 50 ml Q15M PRN IV DECREASED GLUCOSE; Start 04/21/16 at 05:30 Glucagon (Glucagen) 1 mg Q15M PRN IM DECREASED GLUCOSE; Start 04/21/16 at 05:30 Glucose (Glutose) 15 gm Q15M PRN BUCCAL DECREASED GLUCOSE; Start 04/21/16 at 05 :30 Doxycycline Hyclate (Vibramycin) 100 mg BID@06,18 PO Last administered on t 17:20; Admin Dose 100 MG; Start 04/21/16 at 06:00 Procedures Procedures ECG demonstrates sinus rhythm, QRS 68 ms, anterior Q waves, nonspecific STT wave abnormalities Dariel Juarez DO Apr 21, 2016 19:11
--- NOTE | 2016-04-21 20:35 | CONS ---
DATE OF ADMISSION: 04/21/2016 DATE OF CONSULTATION: TYPE OF CONSULTATION: Renal. Thank you, Dr. Espino and Dr. Gan, for asking me to participate in medical management of this pat ient. REASON FOR CONSULTATION: Chronic kidney disease. HISTORY OF PRESENT ILLNESS: This 81-year-old female is being seen now because of renal failure. Th is patient is well known to me. I have seen this patient previously, first in 07/2015 when I was as ked by Dr. Gan to see the patient because of renal failure. I have seen the patient in my office, and she was last seen on 02/12/2016. The patient does have chronic kidney disease. She has a histo ry of having a right nephrectomy. Her left kidney shows a thinned and echogenic renal cortex consis tent with chronic kidney disease. This last renal ultrasound was done in 07/2015. The patient, whe n she was last seen by me on 02/12/2016, had a serum creatinine of 2.6, BUN 39. Her hemoglobin was 10.3. The patient was getting Procrit in my office for anemia of chronic kidney disease. The patie nt does have a history of insulin-dependent diabetes mellitus. In addition to having an absent righ t kidney, I think that she does have diabetic nephropathy in the remaining left kidney. The patient was admitted this time because of several days of shortness of breath and was found to have congest laureen heart failure on her chest x-ray and also has a right perihilar density on chest x-ray which cou ld be atelectasis and/or pneumonia. It is also possible that this is an underlying mass; however, t his was not present on previous x-rays that were done on her last admission in 12/2015. The patient 's serum creatinine today was 4.41, BUN 60, and her hemoglobin was 8.4. PAST MEDICAL HISTORY: Remarkable for insulin-dependent diabetes mellitus, hypertension, hyperlipide saman, thyroid disease, gout, possible coronary artery disease. 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 FAMILY HISTORY: Father is from hypertension. Mother is from diabetes. Siblings . Brother had diabetes. SOCIAL HISTORY: The patient does not smoke nor drink alcohol. CURRENT MEDICATIONS: Include the followin. Allopurinol 100 mg a day. 2. Atorvastatin 40 mg a day. 3. Lantus insulin 10 units at bedtime. 4. Furosemide 40 mg IV twice a day. 5. Aspirin 81 mg a day. 6. Carvedilol 25 mg twice a day. 7. Isosorbide mononitrate 30 mg a day. 8. Nifedipine XL 30 mg a day. 9. Calcium acetate 667 mg 3 times a day with meals. 10. NovoLog insulin sliding scale. 11. DuoNeb respiratory therapy. 12. Levaquin 250 mg every other day. 13. Doxycycline 100 mg twice a day. 14. Lovenox 40 mg a day. 15. Potassium chloride 20 mEq a day. PHYSICAL EXAMINATION: GENERAL: At this time reveals a well-developed elderly female. No apparent distress. VITAL SIGNS: Temperature 98, pulse is 73, respirations 20, O2 saturation 97% on 10 L simple mask. HEAD: Normocephalic. EYES: Extraocular muscles intact. NOSE AND MOUTH: Normal. NECK: Supple. No neck vein distention. LUNGS: There were bibasilar rales, right greater than left. HEART: Regular rhythm. No murmurs, gallops or rubs. ABDOMEN: Soft, nontender. No masses or megaly. EXTREMITIES: +1 to +2 pretibial edema. LABORATORY TESTS: White blood count 12,600, hemoglobin 8.4, hematocrit 24.5. Sodium 130, potassium 4.4, chloride 95, CO2 19, BUN 60, creatinine 4.41. Urinalysis pending. IMPRESSION: This patient has chronic kidney disease with some component of acute renal failure. He r renal function has decreased from the last time I saw her. On 02/12/2016, her serum creatinine wa s 2.6. It has now risen to 4.41. She was on furosemide before admission, and this was something th at I had restarted on her when I last saw her in January of last year. At that time, I had increas ed her furosemide to 80 mg a day. I did this because of some weight gain and increasing leg edema. The patient has chronic kidney disease both from a right nephrectomy and diabetic nephropathy with proteinuria. Her renal function has decreased, and it will remain to be seen if she recovers renal function or if she is now left with decreased renal function. If she does not recover, then we will need to discuss other treatments such as dialysis. I did discuss this some with her granddaughter, who is a supervisor public health nursing and was visiting the patient. PLAN: 1. Discontinue Lovenox and potassium chloride. 2. Start heparin for DVT prophylaxis. 3. Order a urinalysis. 4. Follow renal function daily. 5. Continue current medication including furosemide. I will follow the patient along with you. Dictated By: HOPE DOW MD, ND/ELENI Conf#: [id number] DID#: [id number]
[2016-04-21] MEDS: ALLOPURINOL 100 MG TAB PO SCH (20:44)
[2016-04-21] MEDS: ATORVASTATIN 40 MG TAB PO SCH (20:44)
[2016-04-21] MEDS: HEPARIN 5,000 UNIT/0.5 ML SYG SC SCH (20:50)
[2016-04-21] MEDS: INSULIN GLARGINE [LANtus] 3 ML PEN SC SCH (20:51)
[2016-04-21 23:16] LABS: ADD UMIC YES; URINE BILIRUBIN (Dip) 1+ (NEGATIVE); URINE BLOOD (Dip) 3+ (NEGATIVE); URINE COLOR BROWN (YELLOW); URINE GLUCOSE (Dip) NEGATIVE (NEGATIVE); URINE KETONES (Dip) NEGATIVE (NEGATIVE); URINE LEUKOCYTE ESTERASE (Dip) 1+ (NEGATIVE); URINE NITRITE (Dip) NEGATIVE (NEGATIVE); URINE TOTAL PROTEIN (Dip) 2+ (NEGATIVE); URINE UROBILINOGEN (Dip) 0.2 E.U./dL (0.1-1.0)
[2016-04-21 23:27] LABS: BACTERIA,URINE FEW; SQUAMOUS EPITHELIAL CELL,UR FEW; URINE RBCS >200 /HPF (0)
[2016-04-21 23:28] LABS: ICTOTEST NEGATIVE (NEGATIVE)
[2016-04-22] VITALS (12 sets, daily range): BP systolic 113–124; BP diastolic 56–58; PULSE 71–81; RESP 15–18
[2016-04-22] MEDS: ALBUTEROL/IPRATROPIUM (NEB) 3 ML AMP HHN SCH ×12 (00:45→21:31)
[2016-04-22] MEDS: ACCUCHECK XX SCH (02:00)
[2016-04-22] MEDS: DOXYCYCLINE 100 MG TAB PO SCH ×2 (06:20→17:37)
[2016-04-22] MEDS: FUROSEMIDE 40 MG INJ IV SCH (06:21)
[2016-04-22 08:41] LABS: POTASSIUM 4.7 mmol/L (3.5-5.1)
[2016-04-22 08:43] LABS: ALBUMIN 3.5 g/dl (3.3-4.9)
[2016-04-22 08:44] LABS: CREATININE 4.68 mg/dl (0.44-1.00); POTASSIUM 4.4 mmol/L (3.5-5.1)
[2016-04-22 08:46] LABS: BILIRUBIN,INDIRECT 0.1 mg/dl (0-1.1); BILIRUBIN,TOTAL 0.1 mg/dl (0.2-1.3); CREATININE 4.92 mg/dl (0.44-1.00)
[2016-04-22 08:47] LABS: ALBUMIN/GLOBULIN RATIO 1.02; CALCIUM 9.1 mg/dl (8.4-10.2); MAGNESIUM 2.1 mg/dl (1.7-2.5); PHOSPHORUS 5.6 mg/dl (2.5-4.9); TOTAL PROTEIN 6.9 g/dl (6.1-8.1)
--- NOTE | 2016-04-22 08:55 | CONS ---
Date/Time of Note Date/Time of Note DATE: 04/22/16 TIME: 08:48 Assessment/Plan Assessment/Plan Chief Complaint/Hosp Course 1. ARF on CKD . labs are pending for today . Her urine output is low . If renal function continues to decrease , then may need to stop diuretics . 2. anemia , Epogen ordered , will add iron studies and check stool for OB . 3. CHF 4. ? mass on CXR , CT scan of chest ordered . 4. DM Problems: Consultation Date/Type/Reason Admit Date/Time Apr 21, 2016 at 02:22 Initial Consult Date 04/21/16 Type of Consultation: renal 24 HR Interval Summary Free Text/Dictation She feels weak and has a congested cough . Poor appetite . Exam/Review of Systems Vital Signs Vitals Vital Signs Date Time Temp Pulse Resp B/P Pulse Ox O2 Delivery O2 Flow Rate FiO2 04/22/16 08:07 76 04/22/16 08:05 98.0 18 117/58 98 04/22/16 04:43 8.0 04/22/16 04:30 Simple Mask Intake and Output 04/21/16 04/21/16 04/22/16 15:00 23:00 07:00 Intake Total 500 ml 300 ml Output Total 100 ml 250 ml Balance 400 ml 50 ml Exam Constitutional: alert Respiratory: congested cough, crackles/rales, diminished breath sounds Cardiovascular: regular rate and rhythm Gastrointestinal: soft Extremities: edema Results Result Diagram: 04/21/16 1136 04/22/16 0730 Results 24 hrs Laboratory Tests Test 04/21/16 11:36 04/21/16 12:03 04/21/16 17:01 04/21/16 20:38 Anion Gap 20 H Basophils # 0.0 Basophils % 0.0 Blood Morphology Comment Blood Urea Nitrogen 60 H Calcium Level 8.9 Carbon Dioxide Level 19 L Chloride Level 95 L Cholesterol Level 116 Cholesterol/HDL Ratio 3.2 Creatinine 4.41 H Eosinophils # 0.0 Eosinophils % 0.1 Glucose Level 210 HDL Cholesterol 36 Hematocrit 24.5 L Hemoglobin 8.4 L LDL Cholesterol, Calculated 62 Lymphocytes # 1.3 Lymphocytes % 10.2 L Mean Corpuscular Hemoglobin 31.5 Mean Corpuscular Hemoglobin Concent 34.3 Mean Corpuscular Volume 91.8 Mean Platelet Volume 8.6 Monocytes # 0.5 Monocytes % 4.0 Neutrophils # 10.8 H Neutrophils % 85.7 H Nucleated Red Blood Cells # 0.0 Nucleated Red Blood Cells % 0.0 Platelet Count 215 Potassium Level 4.4 Red Blood Count 2.67 L Red Cell Distribution Width 17.3 H Sodium Level 130 L Triglycerides Level 89 Troponin I 0.023 White Blood Count 12.6 H Bedside Glucose 208 143 213 Test 04/21/16 22:15 04/22/16 02:06 04/22/16 07:30 04/22/16 07:33 Urine Bacteria FEW Urine Bilirubin 1+ H Urine Clarity CLOUDY Urine Color BROWN Urine Glucose NEGATIVE Urine Hemoglobin 3+ H Urine Ictotest NEGATIVE Urine Ketones NEGATIVE Urine Leukocyte Esterase 1+ H Urine Microscopic RBC >200 Urine Microscopic WBC 2-5 Urine Nitrite NEGATIVE Urine Specific [place] 1.020 Urine Squamous Epithelial Cells FEW Urine Total Protein 2+ H Urine Urobilinogen 0.2 E.U./dL Urine pH 5.0 Bedside Glucose 159 150 Alanine Aminotransferase (ALT/SGPT) Pending Albumin 3.5 Albumin/Globulin Ratio Pending Alkaline Phosphatase Pending Anion Gap Pending Aspartate Amino Transf (AST/SGOT) Pending Blood Urea Nitrogen Pending Calcium Level Pending Carbon Dioxide Level Pending Chloride Level 93 L Creatinine Pending Direct Bilirubin Pending Globulin Pending Glucose Level Pending Hemoglobin A1c 7.7 H Indirect Bilirubin Pending Magnesium Level Pending Parathyroid Hormone (Intact) Pending Phosphorus Level Pending Potassium Level Pending Sodium Level Pending Thyroid Stimulating Hormone (TSH) Pending Total Bilirubin Pending Total Protein Pending Medications Medications Current Medications Allopurinol (Zyloprim) 100 mg QHS PO Last administered on 04/21/16 20:44; Admin Dose 100 MG; Start 04/21/16 at 21:00 Aspirin (Halfprin) 81 mg DAILY PO Last administered on 04/21/16 08:50; Admin Dose 81 MG; Start 04/21/16 at 09:00 Atorvastatin Calcium (Lipitor) 40 mg QHS PO Last administered on 04/21/16 20: 44; Admin Dose 40 MG; Start 04/21/16 at 21:00 Carvedilol (Coreg) 25 mg BID PO Last administered on 04/21/16 20:44; Admin Dose 25 MG; Start 04/21/16 at 09:00 Isosorbide Mononitrate (Imdur) 30 mg DAILY PO Last administered on 04/21/16 08 :50; Admin Dose 30 MG; Start 04/21/16 at 09:00 Levofloxacin (Levaquin) 250 mg Q2D@06 PO Last administered on 04/21/16 10:31; Admin Dose 250 MG; Start 04/21/16 at 06:00 Nifedipine (Procardia Xl) 30 mg DAILY PO Last administered on 04/21/16 08:50; Admin Dose 30 MG; Start 04/21/16 at 09:00 Insulin Glargine (Lantus) 10 unit HS SC Last administered on 04/21/16 20:51; Admin Dose 10 UNIT; Start 04/21/16 at 21:00 Diagnostic Test (Pha) (Accucheck) 1 ea 02 XX ; Start 04/22/16 at 02:00 Miscellaneous Information 1 ea NOTE XX ; Start 04/21/16 at 05:30 Glucose (Glutose) 15 gm Q15M PRN PO DECREASED GLUCOSE; Start 04/21/16 at 05:30 Glucose (Glutose) 22.5 gm Q15M PRN PO DECREASED GLUCOSE; Start 04/21/16 at 05: 30 Dextrose (D50w Syringe) 25 ml Q15M PRN IV DECREASED GLUCOSE; Start 04/21/16 at 05:30 Dextrose (D50w Syringe) 50 ml Q15M PRN IV DECREASED GLUCOSE; Start 04/21/16 at 05:30 Glucagon (Glucagen) 1 mg Q15M PRN IM DECREASED GLUCOSE; Start 04/21/16 at 05:30 Glucose (Glutose) 15 gm Q15M PRN BUCCAL DECREASED GLUCOSE; Start 04/21/16 at 05 :30 Doxycycline Hyclate (Vibramycin) 100 mg BID@,18 PO Last administered on 06:20; Admin Dose 100 MG; Start 04/21/16 at 06:00 Heparin Sodium (Porcine) (Heparin (5000 Units/0.5 ml)) 5,000 unit BID SC Last administered on 04/21/16 20:50; Admin Dose 5,000 UNIT; Start 04/21/16 at 21:00 Epoetin Viet (Epogen (Esrd)) 10,000 units MoWeFr@17 SC ; Start 04/22/16 at 17:00 HOPE DOW MD Apr 22, 2016 08:55
[2016-04-22] MEDS: INSULIN ASPART [NOVOLOG] 3 ML PEN SC SCH ×4 (09:01→21:07)
[2016-04-22] MEDS: HEPARIN 5,000 UNIT/0.5 ML SYG SC SCH ×2 (09:01→21:07)
[2016-04-22] MEDS: ISOSORBIDE MONONITRATE(SR)30 MG TAB PO SCH (09:02)
[2016-04-22] MEDS: ASPIRIN (EC) 81 MG TAB PO SCH (09:02)
[2016-04-22] MEDS: CALCIUM ACETATE 667 MG CAP PO SCH ×3 (09:02→17:24)
[2016-04-22] MEDS: NIFEdipine (XL) 30 MG TAB PO SCH (09:05)
[2016-04-22 09:10] LABS: BASOPHILS % 0.3 % (0.0-2.0); EOSINOPHILS # 0.1 10^3/ul (0.0-0.5); EOSINOPHILS % 1.1 % (0.0-7.0); HEMATOCRIT 23.4 % (37.0-47.0); LYMPHOCYTES # 2.1 10^3/ul (0.8-2.9); LYMPHOCYTES % 20.2 % (15.0-51.0); MEAN CORPUSCULAR HEMOGLOBIN 31.7 pg (29.0-33.0); MEAN CORPUSCULAR HGB CONC 34.4 g/dl (32.0-37.0); MEAN CORPUSCULAR VOLUME 92.2 fl (82.0-101.0); MEAN PLATELET VOLUME 8.7 fl (7.4-10.4); MONOCYTE # 0.8 10^3/ul (0.3-0.9); MONOCYTES % 7.5 % (0.0-11.0); NEUTROPHIL # 7.5 10^3/ul (1.6-7.5); NEUTROPHILS % 70.9 % (39.0-77.0); PLATELET COUNT 216 10^3/UL (140-440); RED BLOOD COUNT 2.53 10^6/ul (4.20-5.40); RED CELL DISTRIBUTION WIDTH 16.6 % (11.5-14.5); UNCORRECTED WBC 10.5 10^3/ul (4.8-10.8); WHITE BLOOD COUNT 10.5 10^3/ul (4.8-10.8)
[2016-04-22 09:14] LABS: CONDITION 1; LH ANALYZER COMMENTS 1
[2016-04-22 12:10] LABS: THYROID STIMULATING HORMONE 2.92 MIU/L (0.465-4.680)
--- NOTE | 2016-04-22 13:23 | PN ---
Date/Time of Note Date/Time of Note DATE: 04/22/16 TIME: 13:22 Assessment/Plan VTE Prophylaxis VTE Prophylaxis Intervention: SCD's Lines/Catheters IV Catheter Type (from Nrs): Saline Lock Urinary Cath still in place: Yes Reason Cath still needed: urinary retention Assessment/Plan Assessment/Plan Acute decompensated diastolic congestive heart failure Possible lung mass Hypertension Acute on chronic kidney injury Diabetes -Patient's diuretics have been adjusted to 40 mg IV twice daily. Continue as long as renal function and blood pressure permits. Blood pressure has been on the lower end, would have holding parameters on antihypertensives. Undergoing workup for possible lung mass. Subjective 24 Hr Interval Summary Free Text/Dictation The patinet with no cahnge Exam/Review of Systems Vital Signs Vitals Vital Signs Date Time Temp Pulse Resp B/P Pulse Ox O2 Delivery O2 Flow Rate FiO2 04/22/16 12:34 98.0 73 18 119/56 98 04/22/16 10:00 Simple Mask 10.0 Intake and Output 04/21/16 04/21/16 04/22/16 15:00 23:00 07:00 Intake Total 500 ml 300 ml Output Total 100 ml 250 ml Balance 400 ml 50 ml Results Result Diagram: 04/22/16 0730 04/22/16 0730 Results 24 hrs Laboratory Tests Test 04/21/16 17:01 04/21/16 20:38 04/21/16 22:15 04/22/16 02:06 Bedside Glucose 143 213 159 Urine Bacteria FEW Urine Bilirubin 1+ H Urine Clarity CLOUDY Urine Color BROWN Urine Glucose NEGATIVE Urine Hemoglobin 3+ H Urine Ictotest NEGATIVE Urine Ketones NEGATIVE Urine Leukocyte Esterase 1+ H Urine Microscopic RBC >200 Urine Microscopic WBC 2-5 Urine Nitrite NEGATIVE Urine Specific [place] 1.020 Urine Squamous Epithelial Cells FEW Urine Total Protein 2+ H Urine Urobilinogen 0.2 E.U./dL Urine pH 5.0 Test 04/22/16 07:30 04/22/16 07:33 04/22/16 11:59 Alanine Aminotransferase (ALT/SGPT) 52 Albumin 3.5 Albumin/Globulin Ratio 1.02 Alkaline Phosphatase 191 H Anion Gap 20 H Aspartate Amino Transf (AST/SGOT) 38 Basophils # 0.0 Basophils % 0.3 Blood Morphology Comment Blood Urea Nitrogen 69 H Calcium Level 9.1 Carbon Dioxide Level 19 L Chloride Level 93 L Creatinine 4.92 H Direct Bilirubin 0.00 Eosinophils # 0.1 Eosinophils % 1.1 Globulin 3.40 H Glucose Level 130 Hematocrit 23.4 L Hemoglobin 8.0 L Hemoglobin A1c 7.7 H Indirect Bilirubin 0.1 Lymphocytes # 2.1 Lymphocytes % 20.2 Magnesium Level 2.1 Mean Corpuscular Hemoglobin 31.7 Mean Corpuscular Hemoglobin Concent 34.4 Mean Corpuscular Volume 92.2 Mean Platelet Volume 8.7 Monocytes # 0.8 Monocytes % 7.5 Neutrophils # 7.5 Neutrophils % 70.9 Nucleated Red Blood Cells # 0.0 Nucleated Red Blood Cells % 0.0 Parathyroid Hormone (Intact) Phosphorus Level 5.6 H Platelet Count 216 Potassium Level 4.4 Red Blood Count 2.53 L Red Cell Distribution Width 16.6 H Sodium Level 128 L Thyroid Stimulating Hormone (TSH) 2.920 Total Bilirubin 0.1 L Total Protein 6.9 # White Blood Count 10.5 Bedside Glucose 150 195 Medications Medications Current Medications Allopurinol (Zyloprim) 100 mg QHS PO Last administered on 04/21/16 20:44; Admin Dose 100 MG; Start 04/21/16 at 21:00 Aspirin (Halfprin) 81 mg DAILY PO Last administered on 04/22/16 09:02; Admin Dose 81 MG; Start 04/21/16 at 09:00 Atorvastatin Calcium (Lipitor) 40 mg QHS PO Last administered on 04/21/16 20: 44; Admin Dose 40 MG; Start 04/21/16 at 21:00 Carvedilol (Coreg) 25 mg BID PO Last administered on 04/22/16 09:03; Admin Dose 25 MG; Start 04/21/16 at 09:00 Isosorbide Mononitrate (Imdur) 30 mg DAILY PO Last administered on 04/22/16 09 :02; Admin Dose 30 MG; Start 04/21/16 at 09:00 Levofloxacin (Levaquin) 250 mg Q2D@06 PO Last administered on 04/21/16 10:31; Admin Dose 250 MG; Start 04/21/16 at 06:00 Nifedipine (Procardia Xl) 30 mg DAILY PO Last administered on 04/22/16 09:05; Admin Dose 30 MG; Start 04/21/16 at 09:00 Insulin Glargine (Lantus) 10 unit HS SC Last administered on 04/21/16 20:51; Admin Dose 10 UNIT; Start 04/21/16 at 21:00 Diagnostic Test (Pha) (Accucheck) 1 ea 02 XX ; Start 04/22/16 at 02:00 Miscellaneous Information 1 ea NOTE XX ; Start 04/21/16 at 05:30 Glucose (Glutose) 15 gm Q15M PRN PO DECREASED GLUCOSE; Start 04/21/16 at 05:30 Glucose (Glutose) 22.5 gm Q15M PRN PO DECREASED GLUCOSE; Start 04/21/16 at 05: 30 Dextrose (D50w Syringe) 25 ml Q15M PRN IV DECREASED GLUCOSE; Start 04/21/16 at 05:30 Dextrose (D50w Syringe) 50 ml Q15M PRN IV DECREASED GLUCOSE; Start 04/21/16 at 05:30 Glucagon (Glucagen) 1 mg Q15M PRN IM DECREASED GLUCOSE; Start 04/21/16 at 05:30 Glucose (Glutose) 15 gm Q15M PRN BUCCAL DECREASED GLUCOSE; Start 04/21/16 at 05 :30 Doxycycline Hyclate (Vibramycin) 100 mg BID@06,18 PO Last administered on 06:20; Admin Dose 100 MG; Start 04/21/16 at 06:00 Heparin Sodium (Porcine) (Heparin (5000 Units/0.5 ml)) 5,000 unit BID SC Last administered on 04/22/16 09:01; Admin Dose 5,000 UNIT; Start 04/21/16 at 21:00 Epoetin Viet (Epogen (Esrd)) 10,000 units MoWeFr@17 SC ; Start 04/22/16 at 17:00 AROLDO SPAULDING MD Apr 22, 2016 13:23
[2016-04-22] MEDS ORDERED: ACETAMINOPHEN 500 MG TAB PO PRN (17:00)
[2016-04-22] MEDS ORDERED: DIPHENHYDRAMINE 25 MG CAP PO PRN (17:00)
[2016-04-22] MEDS: EPOETIN 10000 UNITS/1 ML INJ (ESRD) SC SCH (17:25)
--- NOTE | 2016-04-22 17:55 | PN ---
DATE: 04/22/2016 SUBJECTIVE: The patient still feels quite short of breath. OBJECTIVE: VITAL SIGNS: Temperature 98.2, blood pressure 113/56, pulse of 75, respiration rate 18, O2 saturation is 95% on 10 liters simple mask. HEENT: Pupils equally round, reactive to light. Oropharynx clear. CHEST: Bilateral inspiratory and expiratory wheezing and bilateral basilar crackles. CARDIAC: Regular rate and rhythm. ABDOMEN: Active bowel sounds, soft, nondistended, nontender. EXTREMITIES: Trace ankle edema. LABORATORY DATA: WBC 10.5, hemoglobin 8.0, hematocrit 23.4, platelet count 216, 000. Sodium is 128, potassium 4.4, chloride 93, carbon dioxide 19, BUN 69, creatinine 4.92. Hemoglobin A1c 7.7. Liver enzymes are notable for elevated alkaline phosphatase of 191. Accu-Chek has been 150 to 200 throughout the day. Chest x-ray shows a new 38 mm mass density in the right mid lung that is new compared to a chest CT dated 12/2015. ASSESSMENT AND PLAN: 1. Acute respiratory distress with some wheezing suggestive of bronchial airway obstruction. Will continue nebulizer machine treatment and consider steroids IV once tuberculosis and fungal infections have been ruled out. 2. New lung mass. Will have to consider neoplasm, but this is very rapid growth for a lung mass. So, we will need to rule out for other possible infectious causes of pulmonary nodules. I will consult infectious disease for antibiotic management as well as evaluation for tuberculosis and fungal causes of pulmonary nodule. 3. Congestive heart failure. May be exacerbated by her severe anemia. We will transfuse 2 units of packed red blood for now and diuresis after first unit if okay with nephrology. 4. Hyponatremia. 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 Will check urine sodium and start fluid restriction. Dictated By: TREMAINE RIOS MD DP/NTS Conf#: [id number] DID#: [id number] CC: DOMINIC ROSAS MD;*EndCC* MTDD
[2016-04-22] MEDS: ATORVASTATIN 40 MG TAB PO SCH (20:57)
[2016-04-22] MEDS: ALLOPURINOL 100 MG TAB PO SCH (20:58)
[2016-04-22] MEDS: INSULIN GLARGINE [LANtus] 3 ML PEN SC SCH (21:07)
[2016-04-22 22:06] LABS: TIME 2150
[2016-04-23] VITALS (12 sets, daily range): BP systolic 111–134; BP diastolic 50–61; PULSE 72–92; RESP 15–20
[2016-04-23] MEDS: ALBUTEROL/IPRATROPIUM (NEB) 3 ML AMP HHN SCH ×9 (00:21→21:13)
--- NOTE | 2016-04-23 00:46 | RADRPT ---
PROCEDURE: CT chest without contrast CLINICAL INDICATION: Lung mass TECHNIQUE: CT scan of the chest with contrast was performed without intravenous contrast. Coronal and sagittal images were reformatted. The CTDIvol = 11.14 mGy and DLP = 452.06 mGycm. COMPARISON: Chest x-ray 04/21/2016. Chest CT 01/10/2016 FINDINGS: Lungs, airway and pleura: The trachea and bronchi are patent as well as normal in caliber. Right l ower lobe infiltrate cannot exclude pneumonia with air bronchograms present. There is no evidence o f mass lesion, changes in the right upper lobe consistent with fibrotic scarring in the sequela of p rior atypical infection are not significantly different than the prior CT. The superior segment lef t lower lobe pulmonary nodule is slightly larger increased from 10 mm to a current 13 x 11 mm estima tion (series 4 image 48). No new nodules are present. Changes in the posterior left lower lobe are most compatible with subsegmental atelectasis. A small dependent right pleural effusion is present , no left pleural effusion is seen. Mediastinum, dania and cardiovascular: The heart is enlarged in size. There is no evidence for chitra cardial effusion. The thoracic aorta is normal in caliber with moderate atherosclerotic calcificati on. Prominent paratracheal and prevascular lymph nodes are present measuring up to 1 cm in short ax is. There is likely prominence of the hilar lymph nodes bilaterally suboptimally visualized because of the lack of contrast media. The esophagus is normal in caliber. Mild thyromegaly with the right lobe larger than the left is again noted Osseous structures and musculoskeletal findings: Demineralization with mild to moderate multilevel thoracic spondylosis is present. There is no acute osseous abnormality, lytic or blastic lesion. N o chest wall abnormalities are present. The axillary regions are unremarkable. Visualized upper abdomen: Cholelithiasis is again seen without evidence of cholecystitis. The righ t kidney is not visualized possibly surgically removed. The adrenal glands are normal bilaterally. RPTAT:HJJR IMPRESSION: 1. Right lower lobe infiltrate concerning for pneumonia with a parapneumonic right pleural effusion . 2. Superior segment left lower lobe pulmonary nodule has enlarged in size compared to 01/10/2016 no w measuring 1.3 x 1.1 cm. Follow-up evaluation should be based upon Fleischner criteria. 3. Sequela of prior atypical infection and parenchymal scarring in the right upper lobe not signifi cantly changed. 4. Reactive type 1 cm short axis mediastinal and likely left hilar adenopathy slightly more promine nt than on the prior CT and of uncertain significance. Consider follow-up evaluation. 5. Stable cardiomegaly without congestive heart failure pattern. 6. Cholelithiasis and probable right nephrectomy changes again noted. Vicente Dawson Physician Date Time Electronically viewed and signed by Vicente Dawson Physician on 04/23/2016 00:45 JR/
[2016-04-23] MEDS: ACCUCHECK XX SCH (02:16)
[2016-04-23] MEDS: LEVOFLOXACIN 250 MG TAB PO SCH (06:10)
[2016-04-23] MEDS: DOXYCYCLINE 100 MG TAB PO SCH ×2 (06:10→17:27)
[2016-04-23 07:23] LABS: POTASSIUM 4.6 mmol/L (3.5-5.1)
[2016-04-23 07:26] LABS: CREATININE 5.17 mg/dl (0.44-1.00)
[2016-04-23 07:27] LABS: CALCIUM 9.5 mg/dl (8.4-10.2)
[2016-04-23 08:02] LABS: BASOPHILS % 0.1 % (0.0-2.0); EOSINOPHILS # 0.1 10^3/ul (0.0-0.5); EOSINOPHILS % 1.2 % (0.0-7.0); HEMATOCRIT 21.4 % (37.0-47.0); HEMOGLOBIN 7.5 g/dl (12.0-16.0); LYMPHOCYTES # 1.8 10^3/ul (0.8-2.9); LYMPHOCYTES % 18.5 % (15.0-51.0); MEAN CORPUSCULAR HEMOGLOBIN 30.6 pg (29.0-33.0); MEAN CORPUSCULAR VOLUME 87.3 fl (82.0-101.0); MEAN PLATELET VOLUME 10.5 fl (7.4-10.4); MONOCYTE # 0.7 10^3/ul (0.3-0.9); MONOCYTES % 7.1 % (0.0-11.0); NEUTROPHIL # 7.1 10^3/ul (1.6-7.5); NEUTROPHILS % 72.2 % (39.0-77.0); NUCLEATED RED BLOOD CELLS% 0.4 /100WBC (0.0-0.0); PLATELET COUNT 236 10^3/UL (140-415); RED BLOOD COUNT 2.45 10^6/ul (4.20-5.40); RED CELL DISTRIBUTION WIDTH 14.4 % (11.5-14.5); WHITE BLOOD COUNT 9.8 10^3/ul (4.8-10.8)
[2016-04-23] MEDS: ASPIRIN (EC) 81 MG TAB PO SCH (08:36)
[2016-04-23] MEDS: CALCIUM ACETATE 667 MG CAP PO SCH ×3 (08:36→17:27)
[2016-04-23] MEDS: INSULIN ASPART [NOVOLOG] 3 ML PEN SC SCH ×5 (08:37→22:43)
[2016-04-23] MEDS: ISOSORBIDE MONONITRATE(SR)30 MG TAB PO SCH (08:37)
[2016-04-23] MEDS: NIFEdipine (XL) 30 MG TAB PO SCH (08:37)
[2016-04-23] MEDS: HEPARIN 5,000 UNIT/0.5 ML SYG SC SCH ×2 (08:38→21:14)
--- NOTE | 2016-04-23 08:44 | CONS ---
Date/Time of Note Date/Time of Note DATE: 04/23/16 TIME: 08:16 Assessment/Plan Assessment/Plan Chief Complaint/Hosp Course 1. ARF on CKD . Her urine output is increased ; however , renal function has decreased . If current trend continues then she will need dialysis . 2. anemia , Epogen given ; however her H/H is lower today . I agree with blood transfusion . I did discuss this with her daughter . 3. CHF , CT scan does not show CHF ; therefore , can leave off diuretics for now . 4. ? mass on CXR , CT scan of chest done and R lung mass more likely pneumonia . 4. DM Problems: Consultation Date/Type/Reason Admit Date/Time Apr 21, 2016 at 02:22 Initial Consult Date 04/21/16 Type of Consultation: renal 24 HR Interval Summary Free Text/Dictation Patient is awake and alert .She is still coughing . Constitutional: no complaints Exam/Review of Systems Vital Signs Vitals Vital Signs Date Time Temp Pulse Resp B/P Pulse Ox O2 Delivery O2 Flow Rate FiO2 04/23/16 08:13 78 04/23/16 07:58 Nasal Cannula 6.0 04/23/16 07:45 97.8 18 117/53 93 Intake and Output 04/22/16 04/22/16 04/23/16 15:00 23:00 07:00 Intake Total 700 ml 360 ml Output Total 900 ml 550 ml Balance -200 ml -190 ml Exam Constitutional: alert Psych: no complaints Respiratory: crackles/rales, diminished breath sounds Cardiovascular: regular rate and rhythm Gastrointestinal: soft Musculoskeletal: nl extremities to inspection Results Result Diagram: 04/23/16 0653 04/23/16 0653 Results 24 hrs Laboratory Tests Test 04/22/16 11:59 04/22/16 17:23 04/22/16 20:42 04/22/16 21:50 Bedside Glucose 195 209 227 H TB Skin Test Administer Date 04-22-2016 TB Skin Test Administer Time 0 TB Skin Test Induration Pending TB Skin Test Injection Site Left Upper Forearm Test 04/23/16 02:14 04/23/16 06:30 04/23/16 06:53 04/23/16 07:35 Bedside Glucose 144 149 Urine Random Sodium < 13 L Anion Gap 21 H Basophils # 0.0 Basophils % 0.1 Blood Urea Nitrogen 81 H Calcium Level 9.5 Carbon Dioxide Level 19 L Chloride Level 93 L Creatinine 5.17 H Eosinophils # 0.1 Eosinophils % 1.2 Glucose Level 138 Hematocrit 21.4 L Hemoglobin 7.5 L Lymphocytes # 1.8 Lymphocytes % 18.5 Mean Corpuscular Hemoglobin 30.6 Mean Corpuscular Hemoglobin Concent 35.0 Mean Corpuscular Volume 87.3 Mean Platelet Volume 10.5 #H Monocytes # 0.7 Monocytes % 7.1 Neutrophils # 7.1 Neutrophils % 72.2 Nucleated Red Blood Cells # 0.0 Nucleated Red Blood Cells % 0.4 H Platelet Count 236 Potassium Level 4.6 Red Blood Count 2.45 L Red Cell Distribution Width 14.4 Sodium Level 128 L White Blood Count 9.8 Medications Medications Current Medications Allopurinol (Zyloprim) 100 mg QHS PO Last administered on 04/22/16 20:58; Admin Dose 100 MG; Start 04/21/16 at 21:00 Aspirin (Halfprin) 81 mg DAILY PO Last administered on 04/22/16 09:02; Admin Dose 81 MG; Start 04/21/16 at 09:00 Atorvastatin Calcium (Lipitor) 40 mg QHS PO Last administered on 04/22/16 20: 57; Admin Dose 40 MG; Start 04/21/16 at 21:00 Carvedilol (Coreg) 25 mg BID PO Last administered on 04/22/16 20:59; Admin Dose 25 MG; Start 04/21/16 at 09:00 Isosorbide Mononitrate (Imdur) 30 mg DAILY PO Last administered on 04/22/16 09 :02; Admin Dose 30 MG; Start 04/21/16 at 09:00 Levofloxacin (Levaquin) 250 mg Q2D@06 PO Last administered on 04/23/16 06:10; Admin Dose 250 MG; Start 04/21/16 at 06:00 Nifedipine (Procardia Xl) 30 mg DAILY PO Last administered on 04/22/16 09:05; Admin Dose 30 MG; Start 04/21/16 at 09:00 Insulin Glargine (Lantus) 10 unit HS SC Last administered on 04/22/16 21:07; Admin Dose 10 UNIT; Start 04/21/16 at 21:00 Diagnostic Test (Pha) (Accucheck) 1 ea 02 XX Last administered on 04/23/16 02: 16; Admin Dose 1 EA; Start 04/22/16 at 02:00 Miscellaneous Information 1 ea NOTE XX ; Start 04/21/16 at 05:30 Glucose (Glutose) 15 gm Q15M PRN PO DECREASED GLUCOSE; Start 04/21/16 at 05:30 Glucose (Glutose) 22.5 gm Q15M PRN PO DECREASED GLUCOSE; Start 04/21/16 at 05: 30 Dextrose (D50w Syringe) 25 ml Q15M PRN IV DECREASED GLUCOSE; Start 04/21/16 at 05:30 Dextrose (D50w Syringe) 50 ml Q15M PRN IV DECREASED GLUCOSE; Start 04/21/16 at 05:30 Glucagon (Glucagen) 1 mg Q15M PRN IM DECREASED GLUCOSE; Start 04/21/16 at 05:30 Glucose (Glutose) 15 gm Q15M PRN BUCCAL DECREASED GLUCOSE; Start 04/21/16 at 05 :30 Doxycycline Hyclate (Vibramycin) 100 mg BID@18 PO Last administered on 06:10; Admin Dose 100 MG; Start 04/21/16 at 06:00 Heparin Sodium (Porcine) (Heparin (5000 Units/0.5 ml)) 5,000 unit BID SC Last administered on 04/22/16 21:07; Admin Dose 5,000 UNIT; Start 04/21/16 at 21:00 Epoetin Viet (Epogen (Esrd)) 10,000 units MoWeFr@17 SC Last administered on 17:25; Admin Dose 10,000 UNITS; Start 04/22/16 at 17:00 Acetaminophen (Tylenol Tab) 500 mg ONCE PRN PO before transfusion; Start at 17:00; Stop 04/23/16 at 16:59 Diphenhydramine HCl (Benadryl) 25 mg ONCE PRN PO before transfusion; Start at 17:00; Stop 04/23/16 at 16:59 HOPE DOW MD Apr 23, 2016 08:27
[2016-04-23 09:38] LABS: IRON 24 ug/dl (35-150)
[2016-04-23 09:47] LABS: TOTAL IRON BINDING CAPACITY 174 ug/dl (241-421)
--- NOTE | 2016-04-23 10:13 | RADRPT ---
PROCEDURE: XR Chest. CLINICAL INDICATION: Cough; CHF TECHNIQUE: Single frontal chest x-ray. COMPARISON: Chest x-ray dated 04/21/2016; CT scan chest dated 04/22/2016 FINDINGS: Dense opacification and consolidation is seen in the right mid to lower lung zone. This is stable w hen compared to the prior study. Small layering right pleural effusion is present as well, also sta ble. Benign chronic changes are seen elsewhere scattered throughout the lungs. Heart size is mildl y enlarged. Mediastinal silhouette is unremarkable. There is no pneumothorax and the surrounding o sseous structures are unremarkable. IMPRESSION: 1. Stable persistent dense opacification and consolidation in the right mid to lower lung zone. 2. Small layering right pleural effusion, also stable over time. RPTAT: HMJB .Sanjeev Espinal MD, Date Time Electronically viewed and signed by .Sanjeev Espinal MD, on 04/23/2016 10:13 .B/
--- NOTE | 2016-04-23 11:32 | CONS ---
Date/Time of Note Date/Time of Note DATE: 04/23/16 TIME: 11:29 Assessment/Plan Assessment/Plan Additional Assessment/Plan Chest x-ray was reviewed from today which is showing improvement in pulmonary edema. CT scan of chest was reviewed from yesterday which is showing what appears to be significant chronic fibronodular changes in lower lobes bilaterally more pronounced in the right lower lobe with pleural thickening. Superimposed mass lesion cannot be excluded. Assessment recommendations; 1. Patient admitted with congestive heart failure exacerbation and pleural effusion with significant clinical improvement after started on Lasix. 2. Possibly superimposed asthma. Next 3. Prior history of severe pneumonia with fibronodular changes in both lungs. Next 4. Superimposed mass lesion cannot be excluded in the right lower lobe area. 5. Hypertension. Next 6. Diabetes. Add Solu Medrol 40 mg every 6 hours at least for 4 doses. Meanwhile continue current antibiotic and bronchodilator regimen . Patient will need to have a PET scan done on an outpatient basis. Further workup to be done once the PET scan is done. Consultation Date/Type/Reason Admit Date/Time Apr 21, 2016 at 02:22 Initial Consult Date 04/21/16 Type of Consultation: Pulmonary 24 HR Interval Summary Free Text/Dictation Patient condition is stable. Shortness of breath has improved but the patient is still complaining of some wheezing. Denies any cough, chest pain, fever, chills or any sputum production. General examination; elderly lady, currently in no distress. Awake and alert. Exam/Review of Systems Vital Signs Vitals Vital Signs Date Time Temp Pulse Resp B/P Pulse Ox O2 Delivery O2 Flow Rate FiO2 04/23/16 09:59 91 5.0 04/23/16 09:54 95 26 Nasal Cannula 04/23/16 07:45 97.8 117/53 Intake and Output 04/22/16 04/22/16 04/23/16 15:00 23:00 07:00 Intake Total 700 ml 360 ml Output Total 900 ml 550 ml Balance -200 ml -190 ml Exam H EENT examination; supple neck, no JVD. No lymphadenopathy. Midline trachea. Pharynx is clear. Pupils are small bilaterally. No neck masses. Chest examination; diminished breath sounds bilaterally with mild expiratory wheezing. S1-S2 audible, no murmurs. Regular rhythm. Abdomen examination; soft, nondistended. Nontender. Bowel sounds audible. No organomegaly. Extremity examination; no peripheral edema. 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 Results Result Diagram: 04/23/16 0653 04/23/16 0653 Results 24 hrs Laboratory Tests Test 04/22/16 11:59 04/22/16 17:23 04/22/16 20:42 04/22/16 21:50 Bedside Glucose 195 209 227 H TB Skin Test Administer Date 04-22-2016 TB Skin Test Administer Time 2149 TB Skin Test Induration Pending TB Skin Test Injection Site Left Upper Forearm Test 04/23/16 02:14 04/23/16 06:30 04/23/16 06:53 04/23/16 07:35 Bedside Glucose 144 149 Urine Random Sodium < 13 L Anion Gap 21 H Basophils # 0.0 Basophils % 0.1 Blood Urea Nitrogen 81 H Calcium Level 9.5 Carbon Dioxide Level 19 L Chloride Level 93 L Creatinine 5.17 H Eosinophils # 0.1 Eosinophils % 1.2 Erythrocyte Sedimentation Rate 130.0 H Glucose Level 138 Hematocrit 21.4 L Hemoglobin 7.5 L Iron Level 24 L Lymphocytes # 1.8 Lymphocytes % 18.5 Mean Corpuscular Hemoglobin 30.6 Mean Corpuscular Hemoglobin Concent 35.0 Mean Corpuscular Volume 87.3 Mean Platelet Volume 10.5 #H Monocytes # 0.7 Monocytes % 7.1 Neutrophils # 7.1 Neutrophils % 72.2 Nucleated Red Blood Cells # 0.0 Nucleated Red Blood Cells % 0.4 H Percent Iron Saturation 14 L Platelet Count 236 Potassium Level 4.6 Red Blood Count 2.45 L Red Cell Distribution Width 14.4 Sodium Level 128 L Total Iron Binding Capacity 174 L White Blood Count 9.8 Medications Medications Current Medications Allopurinol (Zyloprim) 100 mg QHS PO Last administered on 04/22/16 20:58; Admin Dose 100 MG; Start 04/21/16 at 21:00 Aspirin (Halfprin) 81 mg DAILY PO Last administered on 04/23/16 08:36; Admin Dose 81 MG; Start 04/21/16 at 09:00 Atorvastatin Calcium (Lipitor) 40 mg QHS PO Last administered on 04/22/16 20: 57; Admin Dose 40 MG; Start 04/21/16 at 21:00 Carvedilol (Coreg) 25 mg BID PO Last administered on 04/23/16 08:43; Admin Dose 25 MG; Start 04/21/16 at 09:00 Isosorbide Mononitrate (Imdur) 30 mg DAILY PO Last administered on 04/23/16 08 :37; Admin Dose 30 MG; Start 04/21/16 at 09:00 Levofloxacin (Levaquin) 250 mg Q2D@06 PO Last administered on 04/23/16 06:10; Admin Dose 250 MG; Start 04/21/16 at 06:00 Nifedipine (Procardia Xl) 30 mg DAILY PO Last administered on 04/23/16 08:37; Admin Dose 30 MG; Start 04/21/16 at 09:00 Insulin Glargine (Lantus) 10 unit HS SC Last administered on 04/22/16 21:07; Admin Dose 10 UNIT; Start 04/21/16 at 21:00 Diagnostic Test (Pha) (Accucheck) 1 ea 02 XX Last administered on 04/23/16 02: 16; Admin Dose 1 EA; Start 04/22/16 at 02:00 Miscellaneous Information 1 ea NOTE XX ; Start 04/21/16 at 05:30 Glucose (Glutose) 15 gm Q15M PRN PO DECREASED GLUCOSE; Start 04/21/16 at 05:30 Glucose (Glutose) 22.5 gm Q15M PRN PO DECREASED GLUCOSE; Start 04/21/16 at 05: 30 Dextrose (D50w Syringe) 25 ml Q15M PRN IV DECREASED GLUCOSE; Start 04/21/16 at 05:30 Dextrose (D50w Syringe) 50 ml Q15M PRN IV DECREASED GLUCOSE; Start 04/21/16 at 05:30 Glucagon (Glucagen) 1 mg Q15M PRN IM DECREASED GLUCOSE; Start 04/21/16 at 05:30 Glucose (Glutose) 15 gm Q15M PRN BUCCAL DECREASED GLUCOSE; Start 04/21/16 at 05 :30 Doxycycline Hyclate (Vibramycin) 100 mg BID@,18 PO Last administered on 06:10; Admin Dose 100 MG; Start 04/21/16 at 06:00 Heparin Sodium (Porcine) (Heparin (5000 Units/0.5 ml)) 5,000 unit BID SC Last administered on 04/23/16 08:38; Admin Dose 5,000 UNIT; Start 04/21/16 at 21:00 Epoetin Viet (Epogen (Esrd)) 10,000 units MoWeFr@17 SC Last administered on t 17:25; Admin Dose 10,000 UNITS; Start 04/22/16 at 17:00 Acetaminophen (Tylenol Tab) 500 mg ONCE PRN PO before transfusion; Start at 17:00; Stop 04/23/16 at 16:59 Diphenhydramine HCl (Benadryl) 25 mg ONCE PRN PO before transfusion; Start at 17:00; Stop 04/23/16 at 16:59 KIMBERLI WORKMAN Apr 23, 2016 11:32
--- NOTE | 2016-04-23 12:17 | CONS ---
Date/Time of Note Date/Time of Note DATE: 04/23/16 TIME: 12:15 Assessment/Plan Assessment/Plan Additional Assessment/Plan Acute decompensated diastolic congestive heart failure Possible lung mass Hypertension Acute on chronic kidney injury Diabetes -Patient with worsening anemia. Plan for blood transfusion. Patient currently off diuretics, would give a dose in between the blood transfusions. Consultation Date/Type/Reason Admit Date/Time Apr 21, 2016 at 02:22 Initial Consult Date 04/21/16 Type of Consultation: Pulmonary 24 HR Interval Summary Free Text/Dictation Still with shortness of breath, slightly better Exam/Review of Systems Vital Signs Vitals Vital Signs Date Time Temp Pulse Resp B/P Pulse Ox O2 Delivery O2 Flow Rate FiO2 04/23/16 12:10 76 04/23/16 09:59 91 5.0 04/23/16 09:54 26 Nasal Cannula 04/23/16 07:45 97.8 117/53 Intake and Output 04/22/16 04/22/16 04/23/16 15:00 23:00 07:00 Intake Total 700 ml 360 ml Output Total 900 ml 550 ml Balance -200 ml -190 ml Exam No apparent distress Constitutional: alert, oriented Head: normocephalic Neck: supple Respiratory: other (Coarse breath sounds bilaterally, no wheezing) Cardiovascular: other (S1-S2 heard), regular rate and rhythm Gastrointestinal: bowel sounds, non-tender, soft Extremities: edema (X-rays) Results Result Diagram: 04/23/16 0653 04/23/16 0653 Results 24 hrs Laboratory Tests Test 04/22/16 17:23 04/22/16 20:42 04/22/16 21:50 04/23/16 02:14 Bedside Glucose 209 227 H 144 TB Skin Test Administer Date 04-22-2016 TB Skin Test Administer Time 0 TB Skin Test Induration Pending TB Skin Test Injection Site Left Upper Forearm Test 04/23/16 06:30 04/23/16 06:53 04/23/16 07:35 04/23/16 11:29 Urine Random Sodium < 13 L Anion Gap 21 H Basophils # 0.0 Basophils % 0.1 Blood Urea Nitrogen 81 H Calcium Level 9.5 Carbon Dioxide Level 19 L Chloride Level 93 L Creatinine 5.17 H Eosinophils # 0.1 Eosinophils % 1.2 Erythrocyte Sedimentation Rate 130.0 H Glucose Level 138 Hematocrit 21.4 L Hemoglobin 7.5 L Iron Level 24 L Lymphocytes # 1.8 Lymphocytes % 18.5 Mean Corpuscular Hemoglobin 30.6 Mean Corpuscular Hemoglobin Concent 35.0 Mean Corpuscular Volume 87.3 Mean Platelet Volume 10.5 #H Monocytes # 0.7 Monocytes % 7.1 Neutrophils # 7.1 Neutrophils % 72.2 Nucleated Red Blood Cells # 0.0 Nucleated Red Blood Cells % 0.4 H Percent Iron Saturation 14 L Platelet Count 236 Potassium Level 4.6 Red Blood Count 2.45 L Red Cell Distribution Width 14.4 Sodium Level 128 L Total Iron Binding Capacity 174 L White Blood Count 9.8 Bedside Glucose 149 184 Medications Medications Current Medications Allopurinol (Zyloprim) 100 mg QHS PO Last administered on 04/22/16 20:58; Admin Dose 100 MG; Start 04/21/16 at 21:00 Aspirin (Halfprin) 81 mg DAILY PO Last administered on 04/23/16 08:36; Admin Dose 81 MG; Start 04/21/16 at 09:00 Atorvastatin Calcium (Lipitor) 40 mg QHS PO Last administered on 04/22/16 20: 57; Admin Dose 40 MG; Start 04/21/16 at 21:00 Carvedilol (Coreg) 25 mg BID PO Last administered on 04/23/16 08:43; Admin Dose 25 MG; Start 04/21/16 at 09:00 Isosorbide Mononitrate (Imdur) 30 mg DAILY PO Last administered on 04/23/16 08 :37; Admin Dose 30 MG; Start 04/21/16 at 09:00 Levofloxacin (Levaquin) 250 mg Q2D@06 PO Last administered on 04/23/16 06:10; Admin Dose 250 MG; Start 04/21/16 at 06:00 Nifedipine (Procardia Xl) 30 mg DAILY PO Last administered on 04/23/16 08:37; Admin Dose 30 MG; Start 04/21/16 at 09:00 Insulin Glargine (Lantus) 10 unit HS SC Last administered on 04/22/16 21:07; Admin Dose 10 UNIT; Start 04/21/16 at 21:00 Diagnostic Test (Pha) (Accucheck) 1 ea 02 XX Last administered on 04/23/16 02: 16; Admin Dose 1 EA; Start 04/22/16 at 02:00 Miscellaneous Information 1 ea NOTE XX ; Start 04/21/16 at 05:30 Glucose (Glutose) 15 gm Q15M PRN PO DECREASED GLUCOSE; Start 04/21/16 at 05:30 Glucose (Glutose) 22.5 gm Q15M PRN PO DECREASED GLUCOSE; Start 04/21/16 at 05: 30 Dextrose (D50w Syringe) 25 ml Q15M PRN IV DECREASED GLUCOSE; Start 04/21/16 at 05:30 Dextrose (D50w Syringe) 50 ml Q15M PRN IV DECREASED GLUCOSE; Start 04/21/16 at 05:30 Glucagon (Glucagen) 1 mg Q15M PRN IM DECREASED GLUCOSE; Start 04/21/16 at 05:30 Glucose (Glutose) 15 gm Q15M PRN BUCCAL DECREASED GLUCOSE; Start 04/21/16 at 05 :30 Doxycycline Hyclate (Vibramycin) 100 mg BID@06,18 PO Last administered on 06:10; Admin Dose 100 MG; Start 04/21/16 at 06:00 Heparin Sodium (Porcine) (Heparin (5000 Units/0.5 ml)) 5,000 unit BID SC Last administered on 04/23/16 08:38; Admin Dose 5,000 UNIT; Start 04/21/16 at 21:00 Epoetin Viet (Epogen (Esrd)) 10,000 units MoWeFr@17 SC Last administered on 17:25; Admin Dose 10,000 UNITS; Start 04/22/16 at 17:00 Acetaminophen (Tylenol Tab) 500 mg ONCE PRN PO before transfusion; Start at 17:00; Stop 04/23/16 at 16:59 Diphenhydramine HCl (Benadryl) 25 mg ONCE PRN PO before transfusion; Start at 17:00; Stop 04/23/16 at 16:59 Methylprednisolone Sodium Succinate (Solu-Medrol) 40 mg Q6 IV ; Start 04/23/16 at 12:00 Dariel Juarez DO Apr 23, 2016 12:17
--- NOTE | 2016-04-23 13:12 | PN ---
DATE: 04/23/2016 SUBJECTIVE: The patient is lying comfortably in bed, complaining of short of breath. She is on 5 l iters nasal cannula, in no distress, afebrile. WBC 9.8 with platelets 236, no shift, no bands. BUN 81, creatinine 5.17. MICROBIOLOGY: Blood cultures have been negative. Influenza swab negative. Urine culture negative. DIAGNOSTICS: CT of the chest on admission revealed right lower lobe infiltrate concerning for pneum onia with parapneumonic right pleural effusion. She also has left lower pulmonary nodule, cholelith iasis, probable right nephrectomy changes noted. ANTIMICROBIALS: The patient is on Levaquin and doxycycline. PHYSICAL EXAMINATION: GENERAL: This is well-developed, fragile, elderly woman who is lying comfortably in bed. HEENT: Head atraumatic, normocephalic. Sclerae anicteric. Buccal mucosa dry. NECK: Supple, trachea midline. CHEST: Rise symmetrical. Breath sounds diminished to bases with expiratory wheezes. HEART: S1, S2. ABDOMEN: Soft. Bowel tones present. EXTREMITIES: Without cyanosis. ASSESSMENT: 1. Acute respiratory failure secondary to fluid overload and evidence of pneumonia per CT of the est that revealed right lower lobe infiltrate with parapneumonic effusion. 2. Acute on chronic kidney disease. 3. Congestive heart failure exacerbation. 4. Diabetes. 5. Hypertension. PLAN: The patient remains clinically stable. She is being seen by multiple consultants. She was s tarted on steroids today. There is no radiographic evidence of TB and also per discussion with Dr. Rose sanchez, we will continue treating her with current antimicrobials. Follow recommendations of naveed chery. Dictated By: LIZZY CARPENTER NP for CAPO MATIAS/ELENI Conf#: [id number] DID#: [id number]
[2016-04-23] MEDS: METHYLPREDNISOLONE 40 MG INJ IV SCH ×2 (13:28→20:56)
[2016-04-23] MEDS: FUROSEMIDE 20 MG INJ IV ONE ×2 (13:33→20:56)
[2016-04-23] MEDS ORDERED: FUROSEMIDE 40 MG INJ IV PRN ×2 (18:00)
--- NOTE | 2016-04-23 18:33 | PN ---
DATE: 04/23/2016 SUBJECTIVE: The patient feels a little bit better today but still short of breath. OBJECTIVE: VITAL SIGNS: Temperature 97.8, blood pressure 134/57, pulse of 75, respiration rate 18, O2 saturati on 91% to 94% on 5 L nasal cannula. INTAKE AND OUTPUT: Intake total of 1060, output total 1450 for a negative fluid balance of 390 mL. HEENT: Pupils equally round, reactive to light. Oropharynx clear. LUNGS: Bilateral end expiratory wheezing, bibasilar crackles. CARDIAC: Regular rate and rhythm. Normal S1, S2. ABDOMEN: Active bowel sounds. Soft, nondistended, nontender. EXTREMITIES: No clubbing, cyanosis or edema. LABORATORY DATA: WBC 9.8, hemoglobin 7.5, hematocrit 21.4, platelet count 236,000. ESR 130. Sodiu m 128, potassium 4.6, chloride 93, bicarbonate 19, BUN 81, creatinine 5.17. Iron is 24, TIBC 174, 1 4% saturation. Random urine sodium is less than 13. Blood cultures are negative after 2 days. Uri ne culture also no growth after 48 hours. IMAGING: Chest CT done yesterday showed right lower lobe infiltrate concerning for pneumonia with a parapneumonic right pleural effusion. There is also superior segment of the left lower lobe pulmon miller nodule which has enlarged in size compared to 12/2015 and now measuring 1.3 to 1.1 cm. There is reactive-type 1 cm mediastinal and left hilar adenopathy which is slightly more prominent on the pr ior CT. Also noted are cholelithiasis and changes of previous right nephrectomy. There are also se quelae of prior atypical infections and parenchymal scarring in the right upper lobe which have not changed since last CT scan. Chest x-ray today shows stable persistent dense opacification and consolidation in the right mid and lower lung zone and small layering right pleural effusion. ASSESSMENT AND PLAN: 1. Acute respiratory distress, most likely due to dense pneumonitis. The patient is currently on a ntibiotics with doxycycline oral and Levaquin oral. She has been started on Solu-Medrol in addition to the DuoNeb nebulizer treatment. She appears to be mildly improved from a respiratory point of v iew. Will continue current course of treatment. 2. Severe anemia. The rapid drop in hemoglobin, hematocrit is unusual, particularly since patient was supposed to have gotten 1 unit of packed red blood cells yesterday. I will go ahead and transfu se 2 more units of packed red blood cells and check the stool for any evidence of intestinal blood l oss. She could also use some iron supplements since her iron and percent saturation are low, althou gh the most likely cause of her anemia is still renal failure. 3. Acute on chronic renal failure. Appreciate nephrology consultation. Will continue to monitor h er BUN, creatinine and consider dialysis if needed. 4. Congestive heart failure. Will have to be very gentle with diuresis given her rising BUN and cr eatinine, but I will need to give her some IV Lasix after packed red blood cell transfusion. Dictated By: TREMAINE RIOS MD DP/NTS Conf#: [id number] DID#: [id number]
[2016-04-23] MEDS: ATORVASTATIN 40 MG TAB PO SCH (20:56)
[2016-04-23] MEDS: ALLOPURINOL 100 MG TAB PO SCH (21:02)
[2016-04-23] MEDS: INSULIN GLARGINE [LANtus] 3 ML PEN SC SCH (21:14)
[2016-04-24] VITALS (23 sets, daily range): BP systolic 122–150; BP diastolic 53–85; PULSE 76–89; RESP 16–22
[2016-04-24] MEDS: METHYLPREDNISOLONE 40 MG INJ IV SCH ×4 (00:59→18:00)
[2016-04-24] MEDS: ACETAMINOPHEN 325 MG TAB PO PRN (01:00)
[2016-04-24] MEDS: DIPHENHYDRAMINE 25 MG CAP PO PRN ×2 (01:00→21:35)
[2016-04-24] MEDS: ALBUTEROL/IPRATROPIUM (NEB) 3 ML AMP HHN SCH ×6 (01:36→21:45)
[2016-04-24] MEDS: ACCUCHECK XX SCH (02:13)
[2016-04-24] MEDS: DOXYCYCLINE 100 MG TAB PO SCH ×2 (05:36→18:00)
[2016-04-24 06:20] LABS: ADD SCAN DIFF NO
[2016-04-24 06:45] LABS: HEMATOCRIT 28.7 % (37.0-47.0); HEMOGLOBIN 10.2 g/dl (12.0-16.0); MEAN CORPUSCULAR HEMOGLOBIN 30.4 pg (29.0-33.0); MEAN CORPUSCULAR HGB CONC 35.5 g/dl (32.0-37.0); MEAN CORPUSCULAR VOLUME 85.4 fl (82.0-101.0); MEAN PLATELET VOLUME 10.8 fl (7.4-10.4); PLATELET COUNT 270 10^3/UL (140-415); RED BLOOD COUNT 3.36 10^6/ul (4.20-5.40); RED CELL DISTRIBUTION WIDTH 13.5 % (11.5-14.5)
[2016-04-24 06:49] LABS: ALBUMIN 3.8 g/dl (3.3-4.9)
[2016-04-24 06:52] LABS: BILIRUBIN,INDIRECT 0.1 mg/dl (0-1.1); BILIRUBIN,TOTAL 0.1 mg/dl (0.2-1.3); CREATININE 5.33 mg/dl (0.44-1.00)
[2016-04-24 06:53] LABS: ALBUMIN/GLOBULIN RATIO 1.15; MAGNESIUM 2.2 mg/dl (1.7-2.5); PHOSPHORUS 7.9 mg/dl (2.5-4.9); TOTAL PROTEIN 7.1 g/dl (6.1-8.1)
--- NOTE | 2016-04-24 08:04 | CONS ---
DATE OF ADMISSION: 04/23/2016 DATE OF CONSULTATION: 04/22/2016 TYPE OF CONSULTATION: Infectious Disease. REASON FOR CONSULTATION: Antibiotic management. HISTORY OF PRESENT ILLNESS: Estela Mason is an 81-year-old female who comes in with shortness of breath over the last 2 days. She is a pleasant 81-year-old, female with congestive heart padma lure, hypertension, mitral regurgitation, chronic renal disease, diabetes mellitus and hypercholeste rolemia. She presents to the emergency room with shortness of breath and tachypnea. She had no fev er or chills. A chest x-ray showed cardiomegaly with a broad globular area of increased density in the right preauricular region, which may represent atelectasis or pneumonia, though underlying mass in this region cannot be excluded. The patient had a white count of 14.8., influenzal swab was nega tive. She also had a BUN and creatinine of 52/4.36. She had normal sinus rhythm. PAST SURGICAL HISTORY: Status post right nephrectomy, status post bilateral cataract surgery. ALLERGIES: RANEXA. MEDICATIONS: Per chart. REVIEW OF SYSTEMS: As per HPI. PHYSICAL EXAMINATION GENERAL: The patient is a well-developed, well-nourished female who is awake, responsive, in no acu te distress. VITAL SIGNS: Stable. She is afebrile. SKIN: Without generalized rash. HEENT: Within normal limits. NECK: Supple. LYMPHATIC: Lymph nodes: None palpable. CHEST: Decreased breath sounds at the bases. HEART: Without murmur or gallop. ABDOMEN: Soft, nontender, without organosplenomegaly or masses. EXTREMITIES: Without cyanosis, clubbing, or edema. RECTAL: Deferred. GENITAL: Deferred. NEUROLOGIC: No focal neurological abnormality. ANCILLARY LABORATORY DATA: White count is 14.8; H and H 9.6 and 29; platelet count 265,000. BUN an d creatinine 60/4.41 consistent with renal failure. IMPRESSION AND PLAN: In summary, the patient comes in with acute respiratory distress secondary to congestive heart failure. Dr. Juarez was called for this. Dr. Mo was called for nephrology . Blood cultures so far are negative. Influenza A and B are negative. Urine culture is negative. Chest x-ray from today shows small persistent dense opacification/consolidation in the right mid to lower lung zone, small layering with right pleural effusion also stable over time. Patient was beg un on Levaquin. She is comfortable currently in bed. CT scan revealed right lower lobe infiltrate consistent with pneumonia and parapneumonic right pleural effusion. She has left lower lobe pulmona ry nodule, cholelithiasis, probable right nephrectomy. She is on Levaquin and also on doxycycline. We will continue her on this regimen. She has acute respiratory failure secondary to volume overlo ad. She has right lower lobe infiltrate and parapneumonic effusion. I will continue her on current therapy. She was started on steroids and no radiographic evidence of tuberculosis. We will contin ue to follow her while in the hospital. Dictated By: CAPO ORTEGA MD, JD/ELENI Conf#: [id number] DID#: [id number]
--- NOTE | 2016-04-24 08:18 | CONS ---
Date/Time of Note Date/Time of Note DATE: 04/24/16 TIME: 08:14 Assessment/Plan Assessment/Plan Chief Complaint/Hosp Course 1. ARF on CKD , renal function has decreased . I recommend that she have hemodialysis now to correct abnormal labs . I told patient this and I will speak to daughter . 2. anemia , Epogen given ; however her H/H is higher today after blood transfusion yesterday . 3. CHF , CT scan does not show CHF ; therefore , can leave off diuretics for now . 4. ? mass on CXR , CT scan of chest done and R lung mass more likely pneumonia . 4. DM Problems: Consultation Date/Type/Reason Admit Date/Time Apr 23, 2016 at 15:06 Initial Consult Date 04/21/16 Type of Consultation: Pulmonary 24 HR Interval Summary Free Text/Dictation She is awake and responsive . She seems to short of breath . Constitutional: no complaints Exam/Review of Systems Vital Signs Vitals Vital Signs Date Time Temp Pulse Resp B/P Pulse Ox O2 Delivery O2 Flow Rate FiO2 04/24/16 08:07 82 04/24/16 07:58 98.2 22 125/58 92 04/24/16 05:11 5.0 04/24/16 05:11 Nasal Cannula Intake and Output 04/23/16 04/23/16 04/24/16 15:00 23:00 07:00 Intake Total 400 ml 1100 ml Output Total 250 ml 400 ml Balance 150 ml 700 ml Exam Constitutional: alert, oriented Respiratory: congested cough, crackles/rales, diminished breath sounds Cardiovascular: regular rate and rhythm Gastrointestinal: soft Musculoskeletal: nl extremities to inspection Results Result Diagram: 04/24/16 0600 04/24/16 0600 Results 24 hrs Laboratory Tests Test 04/23/16 11:29 04/23/16 17:04 04/23/16 20:50 04/24/16 02:13 Bedside Glucose 184 221 H 272 H 243 H Test 04/24/16 06:00 04/24/16 07:37 Alanine Aminotransferase (ALT/SGPT) 55 Albumin 3.8 Albumin/Globulin Ratio 1.15 Alkaline Phosphatase 226 H Anion Gap 23 H Aspartate Amino Transf (AST/SGOT) 41 Blood Urea Nitrogen 98 H Calcium Level 10.0 Carbon Dioxide Level 19 L Chloride Level 92 L Creatinine 5.33 H Direct Bilirubin 0.00 Globulin 3.30 H Glucose Level 249 #H Hematocrit 28.7 #L Hemoglobin 10.2 #L Indirect Bilirubin 0.1 Lymphocytes # Lymphocytes % Magnesium Level 2.2 Mean Corpuscular Hemoglobin 30.4 Mean Corpuscular Hemoglobin Concent 35.5 Mean Corpuscular Volume 85.4 Mean Platelet Volume 10.8 H Monocytes # Monocytes % Neutrophils # Neutrophils % Phosphorus Level 7.9 #H Platelet Count 270 Potassium Level 5.0 Red Blood Count 3.36 #L Red Cell Distribution Width 13.5 Sodium Level 129 L Total Bilirubin 0.1 L Total Protein 7.1 White Blood Count 7.0 # Bedside Glucose 252 H Medications Medications Current Medications Allopurinol (Zyloprim) 100 mg QHS PO Last administered on 04/23/16 21:02; Admin Dose 100 MG; Start 04/21/16 at 21:00 Aspirin (Halfprin) 81 mg DAILY PO Last administered on 04/23/16 08:36; Admin Dose 81 MG; Start 04/21/16 at 09:00 Atorvastatin Calcium (Lipitor) 40 mg QHS PO Last administered on 04/23/16 20: 56; Admin Dose 40 MG; Start 04/21/16 at 21:00 Carvedilol (Coreg) 25 mg BID PO Last administered on 04/23/16 22:54; Admin Dose 25 MG; Start 04/21/16 at 09:00 Isosorbide Mononitrate (Imdur) 30 mg DAILY PO Last administered on 04/23/16 08 :37; Admin Dose 30 MG; Start 04/21/16 at 09:00 Levofloxacin (Levaquin) 250 mg Q2D@06 PO Last administered on 04/23/16 06:10; Admin Dose 250 MG; Start 04/21/16 at 06:00 Nifedipine (Procardia Xl) 30 mg DAILY PO Last administered on 04/23/16 08:37; Admin Dose 30 MG; Start 04/21/16 at 09:00 Insulin Glargine (Lantus) 10 unit HS SC Last administered on 04/23/16 21:14; Admin Dose 10 UNIT; Start 04/21/16 at 21:00 Diagnostic Test (Pha) (Accucheck) 1 ea 02 XX Last administered on 04/24/16 02: 13; Admin Dose 1 EA; Start 04/22/16 at 02:00 Miscellaneous Information 1 ea NOTE XX ; Start 04/21/16 at 05:30 Glucose (Glutose) 15 gm Q15M PRN PO DECREASED GLUCOSE; Start 04/21/16 at 05:30 Glucose (Glutose) 22.5 gm Q15M PRN PO DECREASED GLUCOSE; Start 04/21/16 at 05: 30 Dextrose (D50w Syringe) 25 ml Q15M PRN IV DECREASED GLUCOSE; Start 04/21/16 at 05:30 Dextrose (D50w Syringe) 50 ml Q15M PRN IV DECREASED GLUCOSE; Start 04/21/16 at 05:30 Glucagon (Glucagen) 1 mg Q15M PRN IM DECREASED GLUCOSE; Start 04/21/16 at 05:30 Glucose (Glutose) 15 gm Q15M PRN BUCCAL DECREASED GLUCOSE; Start 04/21/16 at 05 :30 Doxycycline Hyclate (Vibramycin) 100 mg BID@,18 PO Last administered on 05:36; Admin Dose 100 MG; Start 04/21/16 at 06:00 Heparin Sodium (Porcine) (Heparin (5000 Units/0.5 ml)) 5,000 unit BID SC Last administered on 04/23/16 21:14; Admin Dose 5,000 UNIT; Start 04/21/16 at 21:00 Epoetin Viet (Epogen (Esrd)) 10,000 units MoWeFr@17 SC Last administered on 17:25; Admin Dose 10,000 UNITS; Start 04/22/16 at 17:00 Methylprednisolone Sodium Succinate (Solu-Medrol) 40 mg Q6 IV Last administered on 04/24/16 05:36; Admin Dose 40 MG; Start 04/23/16 at 12:00 Diphenhydramine HCl (Benadryl) 25 mg Q6H PRN PO before each unit of prbc Last administered on 04/24/16 01:00; Admin Dose 25 MG; Start 04/23/16 at 18:00 Acetaminophen (Tylenol Tab) 325 mg Q6H PRN PO before each unit of prbc Last administered on 04/24/16 01:00; Admin Dose 325 MG; Start 04/23/16 at 18:00 Furosemide 40 mg 40 mg ONCE PRN IV after first unit of prbc; Start 04/23/16 at 18:00; Stop 04/30/16 at 17:59 Ferric Sodium Gluconate Complex/ Sodium Chloride (Ferrlecit/NS) 110 ml @ 110 mls/hr Q24H IVPB ; Start 04/24/16 at 10:00; Stop 04/28/16 at 10:59 HOPE DOW MD Apr 24, 2016 08:18
[2016-04-24] MEDS: CALCIUM ACETATE 667 MG CAP PO SCH ×3 (08:41→18:00)
[2016-04-24] MEDS: ASPIRIN (EC) 81 MG TAB PO SCH (08:43)
[2016-04-24] MEDS: NIFEdipine (XL) 30 MG TAB PO SCH (08:49)
[2016-04-24] MEDS: ISOSORBIDE MONONITRATE(SR)30 MG TAB PO SCH (08:49)
[2016-04-24] MEDS: INSULIN ASPART [NOVOLOG] 3 ML PEN SC SCH ×4 (08:54→21:36)
[2016-04-24] MEDS: HEPARIN 5,000 UNIT/0.5 ML SYG SC SCH (08:55)
[2016-04-24] MEDS ORDERED: FUROSEMIDE 40 MG INJ IV ONE (09:00)
[2016-04-24 10:06] LABS: LYMPHOCYTES # 1.5 10^3/ul (0.8-2.9); MONOCYTE # 0.2 10^3/ul (0.3-0.9); NEUTROPHIL # 5.3 10^3/ul (1.6-7.5)
[2016-04-24] MEDS: SOD FERRIC GLUC COMPLX 125 MG in SOD CHLORIDE 0.9% 100 ML IVPB SCH (10:57)
[2016-04-24] MEDS ORDERED: HEPARIN 1000 UNITS/ML 10 ML INJ ONE (13:54)
--- NOTE | 2016-04-24 13:58 | PN ---
DATE: 04/24/2016 SUBJECTIVE: No acute events overnight. The patient is alert. Still significantly hypoxemic and ta chypneic with conversation. She is on 6 liters nasal cannula, saturating 5 liters nasal cannula sat ting 94%. No fevers. WBC 7, no shift, no bands. BUN 98, creatinine 5.33. ANTIMICROBIALS: 1. Doxycycline. 2. Levaquin. PHYSICAL EXAMINATION: GENERAL: This is a fragile, elderly woman who is alert, in no distress. HEENT: Head atraumatic, normocephalic. Sclerae anicteric. Buccal mucosa dry. NECK: Supple, trachea midline. CHEST: Rise symmetrical. Breath sounds clear, with expiratory wheezes and diminished at the bases. HEART: S1, S2. ABDOMEN: Soft. Bowel tones present. EXTREMITIES: No cyanosis. ASSESSMENT: 1. Acute hypoxemic respiratory failure secondary to fluid overload and possible underlying pneumoni a. 2. Acute on chronic kidney disease. 3. Hypertension. 4. Diabetes. PLAN: The patient remains unchanged. She is being followed by multiple consultants, patient to be started on hemodialysis per nephrology recommendations. Dictated By: LIZZY CARPENTER FIELD RECRUITER for CAPO MATIAS/ELENI Conf#: [id number] DID#: [id number]
--- NOTE | 2016-04-24 15:27 | CONS ---
Date/Time of Note Date/Time of Note DATE: 04/24/16 TIME: 15:25 Assessment/Plan Assessment/Plan Additional Assessment/Plan Acute decompensated diastolic congestive heart failure Possible lung mass Hypertension Acute on chronic kidney injury Diabetes -Patient with worsening renal function, being considered by our nephrology colleagues for hemodialysis. Blood pressure trend remains stable. Consultation Date/Type/Reason Admit Date/Time Apr 23, 2016 at 15:06 Initial Consult Date 04/21/16 Type of Consultation: cv 24 HR Interval Summary Free Text/Dictation Denies shortness of breath, complaining of intermittent nausea Exam/Review of Systems Vital Signs Vitals Vital Signs Date Time Temp Pulse Resp B/P Pulse Ox O2 Delivery O2 Flow Rate FiO2 04/24/16 15:22 98.6 85 20 130/53 95 04/24/16 12:13 Nasal Cannula 5.0 Intake and Output 04/23/16 04/23/16 04/24/16 15:00 23:00 07:00 Intake Total 400 ml 1100 ml Output Total 250 ml 400 ml Balance 150 ml 700 ml Exam No apparent distress, alert, follows commands Head: normocephalic Neck: supple Respiratory: other (Coarse breath sounds bilaterally with minimal scattered crackles, no wheezing) Cardiovascular: other (S1-S2 heard), regular rate and rhythm Gastrointestinal: bowel sounds, non-tender, soft Extremities: edema Results Result Diagram: 04/24/16 0600 04/24/16 0600 Results 24 hrs Laboratory Tests Test 04/23/16 17:04 04/23/16 20:50 04/24/16 02:13 04/24/16 06:00 Bedside Glucose 221 H 272 H 243 H Alanine Aminotransferase (ALT/SGPT) 55 Albumin 3.8 Albumin/Globulin Ratio 1.15 Alkaline Phosphatase 226 H Anion Gap 23 H Aspartate Amino Transf (AST/SGOT) 41 Blood Urea Nitrogen 98 H Calcium Level 10.0 Carbon Dioxide Level 19 L Chloride Level 92 L Creatinine 5.33 H Direct Bilirubin 0.00 Globulin 3.30 H Glucose Level 249 #H Hematocrit 28.7 #L Hemoglobin 10.2 #L Indirect Bilirubin 0.1 Lymphocytes # 1.5 Lymphocytes % 21.0 Magnesium Level 2.2 Mean Corpuscular Hemoglobin 30.4 Mean Corpuscular Hemoglobin Concent 35.5 Mean Corpuscular Volume 85.4 Mean Platelet Volume 10.8 H Monocytes # 0.2 L Monocytes % 3.0 Neutrophils # 5.3 Neutrophils % 76.0 Nucleated Red Blood Cells % 1.0 H Phosphorus Level 7.9 #H Platelet Count 270 Potassium Level 5.0 Red Blood Count 3.36 #L Red Cell Distribution Width 13.5 Sodium Level 129 L Total Bilirubin 0.1 L Total Protein 7.1 White Blood Count 7.0 # Test 04/24/16 07:37 04/24/16 11:18 Bedside Glucose 252 H 245 H Medications Medications Current Medications Allopurinol (Zyloprim) 100 mg QHS PO Last administered on 04/23/16 21:02; Admin Dose 100 MG; Start 04/21/16 at 21:00 Aspirin (Halfprin) 81 mg DAILY PO Last administered on 04/24/16 08:43; Admin Dose 81 MG; Start 04/21/16 at 09:00 Atorvastatin Calcium (Lipitor) 40 mg QHS PO Last administered on 04/23/16 20: 56; Admin Dose 40 MG; Start 04/21/16 at 21:00 Carvedilol (Coreg) 25 mg BID PO Last administered on 04/24/16 08:42; Admin Dose 25 MG; Start 04/21/16 at 09:00 Isosorbide Mononitrate (Imdur) 30 mg DAILY PO Last administered on 04/24/16 08 :49; Admin Dose 30 MG; Start 04/21/16 at 09:00 Levofloxacin (Levaquin) 250 mg Q2D@06 PO Last administered on 04/23/16 06:10; Admin Dose 250 MG; Start 04/21/16 at 06:00 Nifedipine (Procardia Xl) 30 mg DAILY PO Last administered on 04/24/16 08:49; Admin Dose 30 MG; Start 04/21/16 at 09:00 Insulin Glargine (Lantus) 10 unit HS SC Last administered on 04/23/16 21:14; Admin Dose 10 UNIT; Start 04/21/16 at 21:00 Diagnostic Test (Pha) (Accucheck) 1 ea 02 XX Last administered on 04/24/16 02: 13; Admin Dose 1 EA; Start 04/22/16 at 02:00 Miscellaneous Information 1 ea NOTE XX ; Start 04/21/16 at 05:30 Glucose (Glutose) 15 gm Q15M PRN PO DECREASED GLUCOSE; Start 04/21/16 at 05:30 Glucose (Glutose) 22.5 gm Q15M PRN PO DECREASED GLUCOSE; Start 04/21/16 at 05: 30 Dextrose (D50w Syringe) 25 ml Q15M PRN IV DECREASED GLUCOSE; Start 04/21/16 at 05:30 Dextrose (D50w Syringe) 50 ml Q15M PRN IV DECREASED GLUCOSE; Start 04/21/16 at 05:30 Glucagon (Glucagen) 1 mg Q15M PRN IM DECREASED GLUCOSE; Start 04/21/16 at 05:30 Glucose (Glutose) 15 gm Q15M PRN BUCCAL DECREASED GLUCOSE; Start 04/21/16 at 05 :30 Doxycycline Hyclate (Vibramycin) 100 mg BID@06,18 PO Last administered on 05:36; Admin Dose 100 MG; Start 04/21/16 at 06:00 Heparin Sodium (Porcine) (Heparin (5000 Units/0.5 ml)) 5,000 unit BID SC Last administered on 04/24/16 08:55; Admin Dose 5,000 UNIT; Start 04/21/16 at 21:00 Epoetin Viet (Epogen (Esrd)) 10,000 units MoWeFr@17 SC Last administered on 17:25; Admin Dose 10,000 UNITS; Start 04/22/16 at 17:00 Methylprednisolone Sodium Succinate (Solu-Medrol) 40 mg Q6 IV Last administered on 04/24/16 11:27; Admin Dose 40 MG; Start 04/23/16 at 12:00 Diphenhydramine HCl (Benadryl) 25 mg Q6H PRN PO before each unit of prbc Last administered on 04/24/16 01:00; Admin Dose 25 MG; Start 04/23/16 at 18:00 Acetaminophen (Tylenol Tab) 325 mg Q6H PRN PO before each unit of prbc Last administered on 04/24/16 01:00; Admin Dose 325 MG; Start 04/23/16 at 18:00 Furosemide 40 mg 40 mg ONCE PRN IV after first unit of prbc; Start 04/23/16 at 18:00; Stop 04/30/16 at 17:59; Status Future Hold Ferric Sodium Gluconate Complex/ Sodium Chloride (Ferrlecit/NS) 110 ml @ 110 mls/hr Q24H IVPB Last administered on 04/24/16t 10:57; Admin Dose 110 MLS/HR; Start 04/24/16 at 10:00; Stop 04/28/16 at 10:59 Dariel Juarez DO Apr 24, 2016 15:27
--- NOTE | 2016-04-24 15:42 | SP ---
DATE OF PROCEDURE: PREOPERATIVE DIAGNOSIS: Renal failure. POSTOPERATIVE DIAGNOSIS: Renal failure. OPERATION PERFORMED: Right femoral hemodialysis catheter placement. SURGEON: Zhane Asher MD ANESTHESIA: Local. CONSENT: Risks, benefits, complications, alternative therapies explained to the patient, consent ob tained. OPERATIVE TECHNIQUE: The patient was placed in supine position, prepped and draped in usual sterile fashion, 1% lidocaine was used throughout the operation for local anesthesia. Access was gained in the right common femoral vein. Guidewire was advanced through without any difficulties. Guidewire was advanced through without any difficulties. Subcutaneous tissues were dilated. Dialysis cathet er 16 cm dialysis catheter advanced over guidewire, secured to skin using silk sutures. Both ports of the catheter were aspirated and injected using heparinized saline solution. Patient tolerated pr ocedure well. Dictated By: ZHANE HUGGINS/ELENI Conf#: [id number] DID#: [id number]
[2016-04-24 17:13] LABS: ADD UMIC YES; URINE BILIRUBIN (Dip) NEGATIVE (NEGATIVE); URINE BLOOD (Dip) 3+ (NEGATIVE); URINE COLOR RED (YELLOW); URINE GLUCOSE (Dip) NEGATIVE (NEGATIVE); URINE KETONES (Dip) NEGATIVE (NEGATIVE); URINE LEUKOCYTE ESTERASE (Dip) TRACE (NEGATIVE); URINE NITRITE (Dip) NEGATIVE (NEGATIVE); URINE TOTAL PROTEIN (Dip) 2+ (NEGATIVE); URINE UROBILINOGEN (Dip) 0.2 E.U./dL (0.1-1.0)
--- NOTE | 2016-04-24 17:30 | PN ---
DATE: 04/24/2016 SUBJECTIVE: The patient still feels short of breath, and appears to be inhaling and exhaling food while she was eating. OBJECTIVE: VITAL SIGNS: Temperature 98.6, blood pressure 130/53, pulse 85, respiration rate 20, O2 saturation 95% on 5 liters nasal cannula. I's and O's: Intake of 1500 mL, output of 650 mL for a fluid balance of positive 850 mL. HEENT: Pupils equally round, reactive to light. Oropharynx clear. LUNGS: Minimal expiratory wheezing, scattered right greater than left bilateral basilar crackles. CARDIAC: Regular rate and rhythm, normal S1, S2. ABDOMEN: Active bowel sounds, soft, nondistended, nontender. EXTREMITIES: No clubbing, cyanosis, or edema. LABORATORY DATA: WBC 7.0, hemoglobin 10.2, hematocrit 28.7, platelet count 270, 000. Sodium 129, potassium 5.0, chloride 92, bicarbonate 19, BUN 98, creatinine 5.33. Glucose has been running 243 to 272 all day. Liver enzymes within normal limits. ASSESSMENT AND PLAN: 1. Pneumonitis. Improving slowly on oral antibiotics, bronchodilator treatments and steroids. The patient was also admitted in December for bronchiolitis/bronchitis. We will obtain a video swallow study today to rule out possibility of recurrent aspiration bronchitis and pneumonitis. 2. Congestive heart failure/fluid overload. Agree with emergency dialysis per nephrology recommendation. 3. Anemia, mildly improved after 2 units of transfusion. Stool OB pending. Continue Procrit injections. 4. Diabetes, poorly controlled on Lantus 10 units. We will increase baseline Lantus to 12 units subcutaneous q.a.m. Dictated By: TREMAINE RIOS MD DP/ELENI Conf#: [id number] DID#: [id number]
[2016-04-24 17:38] LABS: URINE RBCS >200 /HPF (0)
[2016-04-24 17:39] LABS: BACTERIA,URINE MODERATE
[2016-04-24] MEDS: EPOETIN 10000 UNITS/1 ML INJ (ESRD) SC SCH (18:00)
[2016-04-24] MEDS: ATORVASTATIN 40 MG TAB PO SCH (21:34)
[2016-04-24] MEDS: ALLOPURINOL 100 MG TAB PO SCH (21:35)
[2016-04-24 22:43] LABS: FORTY EIGHT HOUR READING 0 mm (0-9)
[2016-04-25] VITALS (17 sets, daily range): BP systolic 117–138; BP diastolic 58–76; PULSE 77–86; RESP 15–20
[2016-04-25] MEDS: METHYLPREDNISOLONE 40 MG INJ IV SCH ×4 (01:57→17:47)
[2016-04-25] MEDS: ACETAMINOPHEN 325 MG TAB PO PRN ×2 (01:57→14:07)
[2016-04-25] MEDS: ACCUCHECK XX SCH (02:00)
[2016-04-25] MEDS: ALBUTEROL/IPRATROPIUM (NEB) 3 ML AMP HHN SCH ×6 (02:16→20:21)
[2016-04-25] MEDS: LEVOFLOXACIN 250 MG TAB PO SCH (05:53)
[2016-04-25] MEDS: DOXYCYCLINE 100 MG TAB PO SCH ×2 (05:53→17:47)
[2016-04-25 07:05] LABS: ADD SCAN DIFF NO
[2016-04-25 07:07] LABS: BASOPHILS % 0.1 % (0.0-2.0); HEMATOCRIT 28.9 % (37.0-47.0); HEMOGLOBIN 10.3 g/dl (12.0-16.0); LYMPHOCYTES # 1.2 10^3/ul (0.8-2.9); LYMPHOCYTES % 12.7 % (15.0-51.0); MEAN CORPUSCULAR HEMOGLOBIN 30.6 pg (29.0-33.0); MEAN CORPUSCULAR HGB CONC 35.6 g/dl (32.0-37.0); MEAN CORPUSCULAR VOLUME 85.8 fl (82.0-101.0); MEAN PLATELET VOLUME 10.4 fl (7.4-10.4); MONOCYTE # 0.1 10^3/ul (0.3-0.9); MONOCYTES % 1.5 % (0.0-11.0); NEUTROPHIL # 7.7 10^3/ul (1.6-7.5); NEUTROPHILS % 83.7 % (39.0-77.0); NUCLEATED RED BLOOD CELLS # 0.1 10^3/ul (0.0-0.0); NUCLEATED RED BLOOD CELLS% 0.9 /100WBC (0.0-0.0); PLATELET COUNT 291 10^3/UL (140-415); RED BLOOD COUNT 3.37 10^6/ul (4.20-5.40); RED CELL DISTRIBUTION WIDTH 14.3 % (11.5-14.5); WHITE BLOOD COUNT 9.2 10^3/ul (4.8-10.8)
--- NOTE | 2016-04-25 07:49 | CONS ---
Date/Time of Note Date/Time of Note DATE: 04/25/16 TIME: 07:45 Assessment/Plan Assessment/Plan Problems: (1) ESRD (end stage renal disease) on dialysis Comment: s/p HD last lupillo... unfortunately pulled out Irineo... will alert dr Wilder..await f/u labs this am (2) Anemia in chronic kidney disease Comment: on EPO (3) CHF (congestive heart failure) Status: Acute Comment: inactive now Qualifiers: Congestive heart failure type: unspecified congestive heart failure type Congestive heart failure chronicity: unspecified congestive heart failure chronicity Qualified Code: I50.9 - Congestive heart failure, unspecified congestive heart failure chronicity, unspecified congestive heart failure type Consultation Date/Type/Reason Admit Date/Time Apr 23, 2016 at 15:06 Initial Consult Date 04/21/16 Type of Consultation: neph 24 HR Interval Summary Free Text/Dictation pt pulled out Irineo cath post HD earlier this am Exam/Review of Systems Vital Signs Vitals Vital Signs Date Time Temp Pulse Resp B/P Pulse Ox O2 Delivery O2 Flow Rate FiO2 04/25/16 04:37 85 04/25/16 04:00 97.8 20 123/60 97 04/25/16 02:17 Nasal Cannula 6.0 Intake and Output 04/24/16 04/24/16 04/25/16 15:00 23:00 07:00 Intake Total 980 ml 200 ml Output Total 2900 ml 400 ml Balance -1920 ml -200 ml Exam Neck: supple Respiratory: clear to auscultation Extremities: normal pulses (sl confused... asking for her daughter) Results Result Diagram: 04/25/16 0608 04/24/16 0600 Results 24 hrs Laboratory Tests Test 04/24/16 11:18 04/24/16 16:20 04/24/16 18:03 04/24/16 21:15 Bedside Glucose 245 H 223 H 183 Urine Bacteria MODERATE Urine Bilirubin NEGATIVE Urine Clarity TURBID Urine Color RED Urine Epithelial Cells MODERATE Urine Glucose NEGATIVE Urine Hemoglobin 3+ H Urine Ketones NEGATIVE Urine Leukocyte Esterase TRACE H Urine Microscopic RBC >200 Urine Microscopic WBC 5-10 Urine Nitrite NEGATIVE Urine Specific [place] 1.015 Urine Total Protein 2+ H Urine Urobilinogen 0.2 E.U./dL Urine pH 5.0 Test 04/25/16 02:22 04/25/16 06:08 Bedside Glucose 212 Basophils # 0.0 Basophils % 0.1 Eosinophils # 0.0 Eosinophils % 0.0 Hematocrit 28.9 L Hemoglobin 10.3 L Lymphocytes # 1.2 Lymphocytes % 12.7 L Mean Corpuscular Hemoglobin 30.6 Mean Corpuscular Hemoglobin Concent 35.6 Mean Corpuscular Volume 85.8 Mean Platelet Volume 10.4 Monocytes # 0.1 L Monocytes % 1.5 Neutrophils # 7.7 H Neutrophils % 83.7 H Nucleated Red Blood Cells # 0.1 H Nucleated Red Blood Cells % 0.9 H Platelet Count 291 Red Blood Count 3.37 L Red Cell Distribution Width 14.3 White Blood Count 9.2 # Medications Medications Current Medications Allopurinol (Zyloprim) 100 mg QHS PO Last administered on 04/24/16 21:35; Admin Dose 100 MG; Start 04/21/16 at 21:00 Aspirin (Halfprin) 81 mg DAILY PO Last administered on 04/24/16 08:43; Admin Dose 81 MG; Start 04/21/16 at 09:00 Atorvastatin Calcium (Lipitor) 40 mg QHS PO Last administered on 04/24/16 21: 34; Admin Dose 40 MG; Start 04/21/16 at 21:00 Carvedilol (Coreg) 25 mg BID PO Last administered on 04/24/16 21:34; Admin Dose 25 MG; Start 04/21/16 at 09:00 Isosorbide Mononitrate (Imdur) 30 mg DAILY PO Last administered on 04/24/16 08 :49; Admin Dose 30 MG; Start 04/21/16 at 09:00 Levofloxacin (Levaquin) 250 mg Q2D@06 PO Last administered on 04/25/16 05:53; Admin Dose 250 MG; Start 04/21/16 at 06:00 Nifedipine (Procardia Xl) 30 mg DAILY PO Last administered on 04/24/16 08:49; Admin Dose 30 MG; Start 04/21/16 at 09:00 Diagnostic Test (Pha) (Accucheck) 1 ea 02 XX Last administered on 04/25/16 02: 00; Admin Dose 1 EA; Start 04/22/16 at 02:00 Miscellaneous Information 1 ea NOTE XX ; Start 04/21/16 at 05:30 Glucose (Glutose) 15 gm Q15M PRN PO DECREASED GLUCOSE; Start 04/21/16 at 05:30 Glucose (Glutose) 22.5 gm Q15M PRN PO DECREASED GLUCOSE; Start 04/21/16 at 05: 30 Dextrose (D50w Syringe) 25 ml Q15M PRN IV DECREASED GLUCOSE; Start 04/21/16 at 05:30 Dextrose (D50w Syringe) 50 ml Q15M PRN IV DECREASED GLUCOSE; Start 04/21/16 at 05:30 Glucagon (Glucagen) 1 mg Q15M PRN IM DECREASED GLUCOSE; Start 04/21/16 at 05:30 Glucose (Glutose) 15 gm Q15M PRN BUCCAL DECREASED GLUCOSE; Start 04/21/16 at 05 :30 Doxycycline Hyclate (Vibramycin) 100 mg BID@06,18 PO Last administered on 05:53; Admin Dose 100 MG; Start 04/21/16 at 06:00 Epoetin Viet (Epogen (Esrd)) 10,000 units MoWeFr@17 SC Last administered on 18:00; Admin Dose 10,000 UNITS; Start 04/22/16 at 17:00 Methylprednisolone Sodium Succinate (Solu-Medrol) 40 mg Q6 IV Last administered on 04/25/16 05:53; Admin Dose 40 MG; Start 04/23/16 at 12:00 Diphenhydramine HCl (Benadryl) 25 mg Q6H PRN PO before each unit of prbc Last administered on 04/24/16 21:35; Admin Dose 25 MG; Start 04/23/16 at 18:00 Acetaminophen (Tylenol Tab) 325 mg Q6H PRN PO before each unit of prbc Last administered on 04/25/16 01:57; Admin Dose 325 MG; Start 04/23/16 at 18:00 Furosemide 40 mg 40 mg ONCE PRN IV after first unit of prbc; Start 04/23/16 at 18:00; Stop 04/30/16 at 17:59; Status Future hold Ferric Sodium Gluconate Complex/ Sodium Chloride (Ferrlecit/NS) 110 ml @ 110 mls/hr Q24H IVPB Last administered on 04/24/16 10:57; Admin Dose 110 MLS/HR; Start 04/24/16 at 10:00; Stop 04/28/16 at 10:59 Insulin Glargine (Lantus) 12 unit AM SC ; Start 04/25/16 at 09:00 WAI HERNANDEZ MD Apr 25, 2016 07:49
[2016-04-25 08:07] LABS: ALBUMIN 3.7 g/dl (3.3-4.9)
[2016-04-25 08:08] LABS: POTASSIUM 4.4 mmol/L (3.5-5.1)
[2016-04-25 08:10] LABS: ALBUMIN/GLOBULIN RATIO 1.15; CREATININE 3.89 mg/dl (0.44-1.00); TOTAL PROTEIN 6.9 g/dl (6.1-8.1)
[2016-04-25 08:11] LABS: CALCIUM 9.5 mg/dl (8.4-10.2)
[2016-04-25] MEDS: CALCIUM ACETATE 667 MG CAP PO SCH ×3 (08:27→17:47)
[2016-04-25] MEDS: ASPIRIN (EC) 81 MG TAB PO SCH (08:27)
[2016-04-25] MEDS: NIFEdipine (XL) 30 MG TAB PO SCH (08:27)
[2016-04-25] MEDS: ISOSORBIDE MONONITRATE(SR)30 MG TAB PO SCH (08:27)
[2016-04-25] MEDS: INSULIN ASPART [NOVOLOG] 3 ML PEN SC SCH ×4 (08:35→21:49)
[2016-04-25] MEDS: INSULIN GLARGINE [LANtus] 3 ML PEN SC SCH (08:38)
--- NOTE | 2016-04-25 08:40 | CONS ---
Date/Time of Note Date/Time of Note DATE: 04/25/16 TIME: 08:40 Assessment/Plan Assessment/Plan Chief Complaint/Hosp Course D PROGRESS NOTE CURRENT ABX=> Doxy #5 + Levaquin #5 24H INTERVAL SUMMARY * Confused 81 yo F, pulled out new HD catheter -- now pending replacement new HD access * Afebrile, VSS, NAD * 03/23/16 CXR: IMPRESSION: 1. Stable persistent dense opacification and consolidation in the right mid to lower lung zone. 2. Small layering right pleural effusion, also stable over time. PHYSICAL EXAMINATION: GENERAL: VSS, NAD HEENT: Unremarkable -- supplemental O2 via NC NECK: Supple, trachea midline. CHEST: Rise symmetrical, without dyspnea on observation HEART: Pulse RRR ABDOMEN: Soft, benign EXTREMITIES: Warm ID ASSESSMENT 81 yo admit with: 1. Acute hypoxemic respiratory failure secondary to fluid overload and possible underlying pneumonia. * CT with RLL infiltrate and parapneumonic effusion * (-)Influenza A/B 2. Acute on chronic kidney disease=>Started on HD 3. Hypertension. 4. Diabetes. 5. Anemia ( )MRSA Nares INVASIVES: PIV, ABX ALLERGY: KNDA CURRENT ABX: => Doxy #5 + Levaquin #5 + Steroids s/p ID RECOMMENDATIONS 1. Continue current ABX 2. PPD reading pending -- pt in process new HD Line, was not able to view PPD placement site myself today . Problems: Consultation Date/Type/Reason Admit Date/Time Apr 23, 2016 at 15:06 Initial Consult Date 04/21/16 Type of Consultation: ID Exam/Review of Systems Vital Signs Vitals Vital Signs Date Time Temp Pulse Resp B/P Pulse Ox O2 Delivery O2 Flow Rate FiO2 04/25/16 08:15 82 20 92 Nasal Cannula 6.0 04/25/16 04:00 97.8 123/60 Intake and Output 04/24/16 04/24/16 04/25/16 15:00 23:00 07:00 Intake Total 980 ml 200 ml Output Total 2900 ml 400 ml Balance -1920 ml -200 ml Results Result Diagram: 04/25/16 0608 04/25/16 0608 Results 24 hrs Laboratory Tests Test 04/24/16 11:18 04/24/16 16:20 04/24/16 18:03 04/24/16 21:15 Bedside Glucose 245 H 223 H 183 Urine Bacteria MODERATE Urine Bilirubin NEGATIVE Urine Clarity TURBID Urine Color RED Urine Epithelial Cells MODERATE Urine Glucose NEGATIVE Urine Hemoglobin 3+ H Urine Ketones NEGATIVE Urine Leukocyte Esterase TRACE H Urine Microscopic RBC >200 Urine Microscopic WBC 5-10 Urine Nitrite NEGATIVE Urine Specific [place] 1.015 Urine Total Protein 2+ H Urine Urobilinogen 0.2 E.U./dL Urine pH 5.0 Test 04/25/16 02:22 04/25/16 06:08 04/25/16 08:06 Bedside Glucose 212 249 H Alanine Aminotransferase (ALT/SGPT) 52 Albumin 3.7 Albumin/Globulin Ratio 1.15 Alkaline Phosphatase 222 H Anion Gap 20 H Aspartate Amino Transf (AST/SGOT) 43 Basophils # 0.0 Basophils % 0.1 Blood Urea Nitrogen 76 H Calcium Level 9.5 Carbon Dioxide Level 22 Chloride Level 97 Creatinine 3.89 #H Direct Bilirubin 0.00 Eosinophils # 0.0 Eosinophils % 0.0 Globulin 3.20 Glucose Level 232 H Hematocrit 28.9 L Hemoglobin 10.3 L Indirect Bilirubin 0.0 Lymphocytes # 1.2 Lymphocytes % 12.7 L Mean Corpuscular Hemoglobin 30.6 Mean Corpuscular Hemoglobin Concent 35.6 Mean Corpuscular Volume 85.8 Mean Platelet Volume 10.4 Monocytes # 0.1 L Monocytes % 1.5 Neutrophils # 7.7 H Neutrophils % 83.7 H Nucleated Red Blood Cells # 0.1 H Nucleated Red Blood Cells % 0.9 H Platelet Count 291 Potassium Level 4.4 Red Blood Count 3.37 L Red Cell Distribution Width 14.3 Sodium Level 135 Total Bilirubin 0.0 L Total Protein 6.9 White Blood Count 9.2 # Medications Medications Current Medications Allopurinol (Zyloprim) 100 mg QHS PO Last administered on 04/24/16 21:35; Admin Dose 100 MG; Start 04/21/16 at 21:00 Aspirin (Halfprin) 81 mg DAILY PO Last administered on 04/24/16 08:43; Admin Dose 81 MG; Start 04/21/16 at 09:00 Atorvastatin Calcium (Lipitor) 40 mg QHS PO Last administered on 04/24/16 21: 34; Admin Dose 40 MG; Start 04/21/16 at 21:00 Carvedilol (Coreg) 25 mg BID PO Last administered on 04/24/16 21:34; Admin Dose 25 MG; Start 04/21/16 at 09:00 Isosorbide Mononitrate (Imdur) 30 mg DAILY PO Last administered on 04/24/16 08 :49; Admin Dose 30 MG; Start 04/21/16 at 09:00 Levofloxacin (Levaquin) 250 mg Q2D@06 PO Last administered on 04/25/16 05:53; Admin Dose 250 MG; Start 04/21/16 at 06:00 Nifedipine (Procardia Xl) 30 mg DAILY PO Last administered on 04/24/16 08:49; Admin Dose 30 MG; Start 04/21/16 at 09:00 Diagnostic Test (Pha) (Accucheck) 1 ea 02 XX Last administered on 04/25/16 02: 00; Admin Dose 1 EA; Start 04/22/16 at 02:00 Miscellaneous Information 1 ea NOTE XX ; Start 04/21/16 at 05:30 Glucose (Glutose) 15 gm Q15M PRN PO DECREASED GLUCOSE; Start 04/21/16 at 05:30 Glucose (Glutose) 22.5 gm Q15M PRN PO DECREASED GLUCOSE; Start 04/21/16 at 05: 30 Dextrose (D50w Syringe) 25 ml Q15M PRN IV DECREASED GLUCOSE; Start 04/21/16 at 05:30 Dextrose (D50w Syringe) 50 ml Q15M PRN IV DECREASED GLUCOSE; Start 04/21/16 at 05:30 Glucagon (Glucagen) 1 mg Q15M PRN IM DECREASED GLUCOSE; Start 04/21/16 at 05:30 Glucose (Glutose) 15 gm Q15M PRN BUCCAL DECREASED GLUCOSE; Start 04/21/16 at 05 :30 Doxycycline Hyclate (Vibramycin) 100 mg BID@,18 PO Last administered on 05:53; Admin Dose 100 MG; Start 04/21/16 at 06:00 Epoetin Viet (Epogen (Esrd)) 10,000 units MoWeFr@17 SC Last administered on 18:00; Admin Dose 10,000 UNITS; Start 04/22/16 at 17:00 Methylprednisolone Sodium Succinate (Solu-Medrol) 40 mg Q6 IV Last administered on 04/25/16 05:53; Admin Dose 40 MG; Start 04/23/16 at 12:00 Diphenhydramine HCl (Benadryl) 25 mg Q6H PRN PO before each unit of prbc Last administered on 04/24/16 21:35; Admin Dose 25 MG; Start 04/23/16 at 18:00 Acetaminophen (Tylenol Tab) 325 mg Q6H PRN PO before each unit of prbc Last administered on 04/25/16 01:57; Admin Dose 325 MG; Start 04/23/16 at 18:00 Furosemide 40 mg 40 mg ONCE PRN IV after first unit of prbc; Start 04/23/16 at 18:00; Stop 04/30/16 at 17:59; Status Future hold Ferric Sodium Gluconate Complex/ Sodium Chloride (Ferrlecit/NS) 110 ml @ 110 mls/hr Q24H IVPB Last administered on 04/24/16 10:57; Admin Dose 110 MLS/HR; Start 04/24/16 at 10:00; Stop 04/28/16 at 10:59 Insulin Glargine (Lantus) 12 unit AM SC ; Start 04/25/16 at 09:00 JAVAD MCDONALD NP Apr 25, 2016 08:40
--- NOTE | 2016-04-25 08:53 | CONS ---
Date/Time of Note Date/Time of Note DATE: 04/25/16 TIME: 08:50 Assessment/Plan Assessment/Plan Chief Complaint/Hosp Course Acute decompensated diastolic congestive heart failure Possible lung mass Hypertension Acute on chronic kidney injury Diabetes Problems: Additional Assessment/Plan 1) HD 2) continue current meds 3) may consider pulmonary jay Consultation Date/Type/Reason Admit Date/Time Apr 23, 2016 at 15:06 Initial Consult Date 04/21/16 Type of Consultation: cv 24 HR Interval Summary Free Text/Dictation weak, no chest pain, no sob, no palpitations Detailed Summary Respiratory: no complaints Cardiovascular: no complaints Gastrointestinal: no complaints Genitourinary: no complaints Musculoskeletal: no complaints Skin: no complaints Neurologic: no complaints Exam/Review of Systems Vital Signs Vitals Vital Signs Date Time Temp Pulse Resp B/P Pulse Ox O2 Delivery O2 Flow Rate FiO2 04/25/16 08:42 98.0 89 18 138/65 98 04/25/16 08:15 Nasal Cannula 6.0 Intake and Output 04/24/16 04/24/16 04/25/16 15:00 23:00 07:00 Intake Total 980 ml 200 ml Output Total 2900 ml 400 ml Balance -1920 ml -200 ml Exam Constitutional: alert, oriented Head: atraumatic, normocephalic Neck: jvd Respiratory: diminished breath sounds Cardiovascular: regular rate and rhythm Gastrointestinal: soft Musculoskeletal: nl extremities to inspection Results Result Diagram: 04/25/16 0608 04/25/16 0608 Results 24 hrs Laboratory Tests Test 04/24/16 11:18 04/24/16 16:20 04/24/16 18:03 04/24/16 21:15 Bedside Glucose 245 H 223 H 183 Urine Bacteria MODERATE Urine Bilirubin NEGATIVE Urine Clarity TURBID Urine Color RED Urine Epithelial Cells MODERATE Urine Glucose NEGATIVE Urine Hemoglobin 3+ H Urine Ketones NEGATIVE Urine Leukocyte Esterase TRACE H Urine Microscopic RBC >200 Urine Microscopic WBC 5-10 Urine Nitrite NEGATIVE Urine Specific [place] 1.015 Urine Total Protein 2+ H Urine Urobilinogen 0.2 E.U./dL Urine pH 5.0 Test 04/25/16 02:22 04/25/16 06:08 04/25/16 08:06 Bedside Glucose 212 249 H Alanine Aminotransferase (ALT/SGPT) 52 Albumin 3.7 Albumin/Globulin Ratio 1.15 Alkaline Phosphatase 222 H Anion Gap 20 H Aspartate Amino Transf (AST/SGOT) 43 Basophils # 0.0 Basophils % 0.1 Blood Urea Nitrogen 76 H Calcium Level 9.5 Carbon Dioxide Level 22 Chloride Level 97 Creatinine 3.89 #H Direct Bilirubin 0.00 Eosinophils # 0.0 Eosinophils % 0.0 Globulin 3.20 Glucose Level 232 H Hematocrit 28.9 L Hemoglobin 10.3 L Indirect Bilirubin 0.0 Lymphocytes # 1.2 Lymphocytes % 12.7 L Mean Corpuscular Hemoglobin 30.6 Mean Corpuscular Hemoglobin Concent 35.6 Mean Corpuscular Volume 85.8 Mean Platelet Volume 10.4 Monocytes # 0.1 L Monocytes % 1.5 Neutrophils # 7.7 H Neutrophils % 83.7 H Nucleated Red Blood Cells # 0.1 H Nucleated Red Blood Cells % 0.9 H Platelet Count 291 Potassium Level 4.4 Red Blood Count 3.37 L Red Cell Distribution Width 14.3 Sodium Level 135 Total Bilirubin 0.0 L Total Protein 6.9 White Blood Count 9.2 # Medications Medications Current Medications Allopurinol (Zyloprim) 100 mg QHS PO Last administered on 04/24/16 21:35; Admin Dose 100 MG; Start 04/21/16 at 21:00 Aspirin (Halfprin) 81 mg DAILY PO Last administered on 04/24/16 08:43; Admin Dose 81 MG; Start 04/21/16 at 09:00 Atorvastatin Calcium (Lipitor) 40 mg QHS PO Last administered on 04/24/16 21: 34; Admin Dose 40 MG; Start 04/21/16 at 21:00 Carvedilol (Coreg) 25 mg BID PO Last administered on 04/24/16 21:34; Admin Dose 25 MG; Start 04/21/16 at 09:00 Isosorbide Mononitrate (Imdur) 30 mg DAILY PO Last administered on 04/24/16 08 :49; Admin Dose 30 MG; Start 04/21/16 at 09:00 Levofloxacin (Levaquin) 250 mg Q2D@06 PO Last administered on 04/25/16 05:53; Admin Dose 250 MG; Start 04/21/16 at 06:00 Nifedipine (Procardia Xl) 30 mg DAILY PO Last administered on 04/24/16 08:49; Admin Dose 30 MG; Start 04/21/16 at 09:00 Diagnostic Test (Pha) (Accucheck) 1 ea 02 XX Last administered on 04/25/16 02: 00; Admin Dose 1 EA; Start 04/22/16 at 02:00 Miscellaneous Information 1 ea NOTE XX ; Start 04/21/16 at 05:30 Glucose (Glutose) 15 gm Q15M PRN PO DECREASED GLUCOSE; Start 04/21/16 at 05:30 Glucose (Glutose) 22.5 gm Q15M PRN PO DECREASED GLUCOSE; Start 04/21/16 at 05: 30 Dextrose (D50w Syringe) 25 ml Q15M PRN IV DECREASED GLUCOSE; Start 04/21/16 at 05:30 Dextrose (D50w Syringe) 50 ml Q15M PRN IV DECREASED GLUCOSE; Start 04/21/16 at 05:30 Glucagon (Glucagen) 1 mg Q15M PRN IM DECREASED GLUCOSE; Start 04/21/16 at 05:30 Glucose (Glutose) 15 gm Q15M PRN BUCCAL DECREASED GLUCOSE; Start 04/21/16 at 05 :30 Doxycycline Hyclate (Vibramycin) 100 mg BID@,18 PO Last administered on 05:53; Admin Dose 100 MG; Start 04/21/16 at 06:00 Epoetin Viet (Epogen (Esrd)) 10,000 units MoWeFr@17 SC Last administered on 18:00; Admin Dose 10,000 UNITS; Start 04/22/16 at 17:00 Methylprednisolone Sodium Succinate (Solu-Medrol) 40 mg Q6 IV Last administered on 04/25/16 05:53; Admin Dose 40 MG; Start 04/23/16 at 12:00 Diphenhydramine HCl (Benadryl) 25 mg Q6H PRN PO before each unit of prbc Last administered on 04/24/16 21:35; Admin Dose 25 MG; Start 04/23/16 at 18:00 Acetaminophen (Tylenol Tab) 325 mg Q6H PRN PO before each unit of prbc Last administered on 04/25/16 01:57; Admin Dose 325 MG; Start 04/23/16 at 18:00 Furosemide 40 mg 40 mg ONCE PRN IV after first unit of prbc; Start 04/23/16 at 18:00; Stop 04/30/16 at 17:59; Status Future hold Ferric Sodium Gluconate Complex/ Sodium Chloride (Ferrlecit/NS) 110 ml @ 110 mls/hr Q24H IVPB Last administered on 04/24/16t 10:57; Admin Dose 110 MLS/HR; Start 04/24/16 at 10:00; Stop 04/28/16 at 10:59 Insulin Glargine (Lantus) 12 unit AM SC ; Start 04/25/16 at 09:00 PRINCESS KNAPP MD Apr 25, 2016 08:53
[2016-04-25] MEDS: SOD FERRIC GLUC COMPLX 125 MG in SOD CHLORIDE 0.9% 100 ML IVPB SCH (09:17)
[2016-04-25] MEDS ORDERED: HEPARIN 1000 UNITS/ML 10 ML INJ CATHETER ONE (13:00)
--- NOTE | 2016-04-25 13:31 | OPR ---
DATE OF OPERATION: PREOPERATIVE DIAGNOSIS: Renal failure. POSTOPERATIVE DIAGNOSIS: Renal failure. OPERATION PERFORMED: Right femoral hemodialysis catheter placement. SURGEON: Zhane Asher MD ANESTHESIA: Local. CONSENT: Risks, benefits, complications, alternative therapies were explained to the patient and th e family, and consent obtained. OPERATIVE TECHNIQUE: The patient was placed in the supine position, prepped and draped in the usual sterile fashion. 1% lidocaine was used throughout the operation for local anesthesia. Access was g ained in the right femoral vein. The guidewire was advanced through without any difficulty. The sparks bcutaneous tissues were dilated. The 25 cm dialysis catheter was advanced over the guidewire, secur ed to the skin using silk sutures. All ports of the catheter were aspirated and injected using hepa rinized saline solution. The patient tolerated the procedure well. Dictated By: ZHANE HUGGINS/ELENI Conf#: [id number] DID#: [id number]
[2016-04-25] MEDS: ALLOPURINOL 100 MG TAB PO SCH (21:47)
[2016-04-25] MEDS: ATORVASTATIN 40 MG TAB PO SCH (21:48)
[2016-04-25 21:52] LABS: SEVENTY TWO HOUR READING 0 mm (0-9)
[2016-04-26] VITALS (12 sets, daily range): BP systolic 110–153; BP diastolic 69–83; PULSE 80–85; RESP 15–20
[2016-04-26] MEDS: ALBUTEROL/IPRATROPIUM (NEB) 3 ML AMP HHN SCH ×6 (01:16→21:54)
[2016-04-26] MEDS: ACCUCHECK XX SCH (02:00)
--- NOTE | 2016-04-26 03:41 | PN ---
DATE: 04/25/2016 SUBJECTIVE: Follow up on acute decompensated diastolic heart failure, questionable lung mass, hyper tension, acute on chronic kidney disease, and diabetes. The patient was slightly confused early thi s morning and pulled out his dialysis catheter. Denies any chest pain. The patient gets short of b reath with mild exertion. No active wheezing. No reported vomiting. No reported abdominal pain. The patient did not have any fever or chills. The patient has significant improvement in leg edema. No reported fever or chills. OBJECTIVE: GENERAL: The patient is conscious, awake, alert. VITAL SIGNS: Temperature is 98, pulse is 78, respirations 18, blood pressure 124/60, O2 saturation 98% on 6 liters nasal cannula. HEENT: Atraumatic, normocephalic. Conjunctivae and lids normal. Oropharynx clear. Nose and ears normal. NECK: Supple, no thyromegaly. CHEST: Revealed diminished air entry at bases. No use of accessory muscles. CARDIOVASCULAR: Regular rate and rhythm. S1, S2 normal. No murmur. ABDOMEN: Soft, nondistended, nontender. Bowel sounds present. EXTREMITIES: No leg edema. No clubbing or cyanosis. Pedal pulses palpable. SKIN: Without acute rash. NEUROLOGIC: The patient is awake, alert, fairly oriented with no gross focal deficit. LABORATORY DATA: WBC 9.2, hemoglobin 10.3, platelets 291. Sodium 130, potassium 4.4, BUN 70, creat inine 3.8. IMPRESSION: 1. Acute decompensated diastolic heart failure complicated by acute on chronic kidney disease. The patient was started on hemodialysis to remove fluid. Dr. Asher will be called to replace dialy sis catheter. 2. Hypertension. Blood pressure reasonably controlled with Coreg, Procardia, and Imdur. 3. Questionable pneumonia. Continue Levaquin and doxycycline. The patient was on those 2 antibiot ics prior to admission. 4. Diabetes. The patient has been started on Lantus. In addition, continue sliding scale insulin. Most likely the worsening of diabetes is due to IV steroids which will be reduced to 40 every day. 5. Anemia. Continue IV Ferrlecit. 6. Dyslipidemia. Continue Lipitor. 7. Anemia of chronic kidney disease. Continue Procrit. Plan of care discussed with nursing staff. Further recommendations will depend upon the patient's h ospital course and recommendations from palletizer and junior software developer. We will do followup labs. P shelby of care discussed with the patient's daughter. Dictated By: DOMINIC COOPER/ELENI Conf#: [id number] DID#: [id number]
[2016-04-26 06:17] LABS: ADD SCAN DIFF NO
[2016-04-26 06:21] LABS: BASOPHILS % 0.1 % (0.0-2.0); HEMATOCRIT 32.2 % (37.0-47.0); LYMPHOCYTES # 1.2 10^3/ul (0.8-2.9); LYMPHOCYTES % 8.6 % (15.0-51.0); MEAN CORPUSCULAR HEMOGLOBIN 29.8 pg (29.0-33.0); MEAN CORPUSCULAR HGB CONC 34.2 g/dl (32.0-37.0); MEAN CORPUSCULAR VOLUME 87.3 fl (82.0-101.0); MEAN PLATELET VOLUME 10.3 fl (7.4-10.4); MONOCYTE # 0.5 10^3/ul (0.3-0.9); NEUTROPHIL # 11.5 10^3/ul (1.6-7.5); NEUTROPHILS % 85.2 % (39.0-77.0); NUCLEATED RED BLOOD CELLS # 0.2 10^3/ul (0.0-0.0); NUCLEATED RED BLOOD CELLS% 1.6 /100WBC (0.0-0.0); PLATELET COUNT 287 10^3/UL (140-415); RED BLOOD COUNT 3.69 10^6/ul (4.20-5.40); RED CELL DISTRIBUTION WIDTH 14.2 % (11.5-14.5); WHITE BLOOD COUNT 13.5 10^3/ul (4.8-10.8)
[2016-04-26] MEDS: DOXYCYCLINE 100 MG TAB PO SCH ×2 (06:28→17:50)
[2016-04-26 06:39] LABS: POTASSIUM 4.7 mmol/L (3.5-5.1)
[2016-04-26 06:41] LABS: CREATININE 2.63 mg/dl (0.44-1.00)
[2016-04-26 06:42] LABS: CALCIUM 9.1 mg/dl (8.4-10.2)
--- NOTE | 2016-04-26 08:09 | CONS ---
Date/Time of Note Date/Time of Note DATE: 04/26/16 TIME: 08:07 Assessment/Plan Assessment/Plan Problems: (1) ESRD (end stage renal disease) on dialysis Comment: s/p placement of new Rt Irineo cath yesterday, with well [facility] dialysis.. will plan to do in am (2) Anemia in chronic kidney disease Comment: on Rx Consultation Date/Type/Reason Admit Date/Time Apr 23, 2016 at 15:06 Initial Consult Date 04/21/16 Type of Consultation: neph 24 HR Interval Summary Free Text/Dictation resting comfortably Exam/Review of Systems Vital Signs Vitals Vital Signs Date Time Temp Pulse Resp B/P Pulse Ox O2 Delivery O2 Flow Rate FiO2 04/26/16 07:47 97.6 87 18 148/72 98 04/26/16 01:19 Nasal Cannula 4.0 Intake and Output 04/25/16 04/25/16 04/26/16 15:00 23:00 07:00 Intake Total 1100 ml Output Total 3500 ml Balance -2400 ml Exam Head: atraumatic, normocephalic Neck: supple Respiratory: clear to auscultation Cardiovascular: regular rate and rhythm Extremities: normal pulses (new fem cath Rt groin) Results Result Diagram: 04/26/16 0550 04/26/16 0550 Results 24 hrs Laboratory Tests Test 04/25/16 11:25 04/25/16 20:45 04/26/16 02:01 04/26/16 05:50 Bedside Glucose 298 H 246 H 273 H Anion Gap 17 H Basophils # 0.0 Basophils % 0.1 Blood Urea Nitrogen 55 H Calcium Level 9.1 Carbon Dioxide Level 28 Chloride Level 98 Creatinine 2.63 #H Eosinophils # 0.0 Eosinophils % 0.0 Glucose Level 287 H Hematocrit 32.2 L Hemoglobin 11.0 L Lymphocytes # 1.2 Lymphocytes % 8.6 L Mean Corpuscular Hemoglobin 29.8 Mean Corpuscular Hemoglobin Concent 34.2 Mean Corpuscular Volume 87.3 Mean Platelet Volume 10.3 Monocytes # 0.5 Monocytes % 4.0 Neutrophils # 11.5 H Neutrophils % 85.2 H Nucleated Red Blood Cells # 0.2 H Nucleated Red Blood Cells % 1.6 H Platelet Count 287 Potassium Level 4.7 Red Blood Count 3.69 L Red Cell Distribution Width 14.2 Sodium Level 138 White Blood Count 13.5 #H Medications Medications Current Medications Allopurinol (Zyloprim) 100 mg QHS PO Last administered on 04/25/16 21:47; Admin Dose 100 MG; Start 04/21/16 at 21:00 Aspirin (Halfprin) 81 mg DAILY PO Last administered on 04/25/16 08:27; Admin Dose 81 MG; Start 04/21/16 at 09:00 Atorvastatin Calcium (Lipitor) 40 mg QHS PO Last administered on 04/25/16 21: 48; Admin Dose 40 MG; Start 04/21/16 at 21:00 Carvedilol (Coreg) 25 mg BID PO Last administered on 04/25/16 21:48; Admin Dose 25 MG; Start 04/21/16 at 09:00 Isosorbide Mononitrate (Imdur) 30 mg DAILY PO Last administered on 04/25/16 08 :27; Admin Dose 30 MG; Start 04/21/16 at 09:00 Levofloxacin (Levaquin) 250 mg Q2D@06 PO Last administered on 04/25/16 05:53; Admin Dose 250 MG; Start 04/21/16 at 06:00 Nifedipine (Procardia Xl) 30 mg DAILY PO Last administered on 04/25/16 08:27; Admin Dose 30 MG; Start 04/21/16 at 09:00 Diagnostic Test (Pha) (Accucheck) 1 ea 02 XX Last administered on 04/26/16 02: 00; Admin Dose 1 EA; Start 04/22/16 at 02:00 Miscellaneous Information 1 ea NOTE XX ; Start 04/21/16 at 05:30 Glucose (Glutose) 15 gm Q15M PRN PO DECREASED GLUCOSE; Start 04/21/16 at 05:30 Glucose (Glutose) 22.5 gm Q15M PRN PO DECREASED GLUCOSE; Start 04/21/16 at 05: 30 Dextrose (D50w Syringe) 25 ml Q15M PRN IV DECREASED GLUCOSE; Start 04/21/16 at 05:30 Dextrose (D50w Syringe) 50 ml Q15M PRN IV DECREASED GLUCOSE; Start 04/21/16 at 05:30 Glucagon (Glucagen) 1 mg Q15M PRN IM DECREASED GLUCOSE; Start 04/21/16 at 05:30 Glucose (Glutose) 15 gm Q15M PRN BUCCAL DECREASED GLUCOSE; Start 04/21/16 at 05 :30 Doxycycline Hyclate (Vibramycin) 100 mg BID@06,18 PO Last administered on 06:28; Admin Dose 100 MG; Start 04/21/16 at 06:00 Epoetin Viet (Epogen (Esrd)) 10,000 units MoWeFr@17 SC Last administered on 18:00; Admin Dose 10,000 UNITS; Start 04/22/16 at 17:00 Diphenhydramine HCl (Benadryl) 25 mg Q6H PRN PO before each unit of prbc Last administered on 04/24/16 21:35; Admin Dose 25 MG; Start 04/23/16 at 18:00 Acetaminophen (Tylenol Tab) 325 mg Q6H PRN PO before each unit of prbc Last administered on 04/25/16 14:07; Admin Dose 325 MG; Start 04/23/16 at 18:00 Furosemide 40 mg 40 mg ONCE PRN IV after first unit of prbc; Start 04/23/16 at 18:00; Stop 04/30/16 at 17:59; Status Future hold Ferric Sodium Gluconate Complex/ Sodium Chloride (Ferrlecit/NS) 110 ml @ 110 mls/hr Q24H IVPB Last administered on 04/25/16 09:17; Admin Dose 110 MLS/HR; Start 04/24/16 at 10:00; Stop 04/28/16 at 10:59 Insulin Glargine (Lantus) 12 unit AM SC Last administered on 04/25/16 08:38; Admin Dose 12 UNIT; Start 04/25/16 at 09:00 Methylprednisolone Sodium Succinate (Solu-Medrol) 40 mg QAM IV ; Start 04/26/16 at 09:00 WAI HERNANDEZ MD Apr 26, 2016 08:09
[2016-04-26] MEDS: ASPIRIN (EC) 81 MG TAB PO SCH (08:38)
[2016-04-26] MEDS: ISOSORBIDE MONONITRATE(SR)30 MG TAB PO SCH (08:38)
[2016-04-26] MEDS: CALCIUM ACETATE 667 MG CAP PO SCH ×3 (08:38→17:50)
[2016-04-26] MEDS: METHYLPREDNISOLONE 40 MG INJ IV SCH (08:39)
[2016-04-26] MEDS: NIFEdipine (XL) 30 MG TAB PO SCH (08:39)
[2016-04-26] MEDS: INSULIN ASPART [NOVOLOG] 3 ML PEN SC SCH ×5 (08:40→21:50)
[2016-04-26] MEDS: INSULIN GLARGINE [LANtus] 3 ML PEN SC SCH (08:52)
[2016-04-26] MEDS: SOD FERRIC GLUC COMPLX 125 MG in SOD CHLORIDE 0.9% 100 ML IVPB SCH (10:48)
--- NOTE | 2016-04-26 12:12 | RADRPT ---
PROCEDURE: XR Chest. CLINICAL INDICATION: Cough. TECHNIQUE: Two views. Frontal and lateral. COMPARISON: 04/23/2016. FINDINGS: Patchy air space disease in the right mid and lower lung zone is improved. There is mild left basil ar atelectasis. The lungs are otherwise clear. The heart is mildly enlarged. There is calcification in the aorta consistent with atherosclerosis. There is no pleural effusion. There is no pneumothorax. IMPRESSION: 1. Improved right mid and lower lung zone pneumonia. 2. Mild left basilar atelectasis. 3. Mild cardiomegaly and atherosclerosis. RPTAT: QQ .Soren Das MD, MD Date Time Electronically viewed and signed by .Soren Das MD, MD on 04/26/2016 12:12 .R/
--- NOTE | 2016-04-26 12:30 | CONS ---
Date/Time of Note Date/Time of Note DATE: 04/26/16 TIME: 12:29 Assessment/Plan Assessment/Plan Additional Assessment/Plan Acute decompensated diastolic congestive heart failure Possible lung mass Hypertension Acute on chronic kidney injury Diabetes -Patient with significant improvement in volume status after initiation of hemodialysis. Volume management via hemodialysis as per our nephrology colleagues. Blood pressure trend overall remained stable. Less pulmonary vascular congestion seen on chest x-ray today. Consultation Date/Type/Reason Admit Date/Time Apr 23, 2016 at 15:06 Initial Consult Date 04/21/16 Type of Consultation: cv 24 HR Interval Summary Free Text/Dictation Significant improvement in shortness of breath after initiation of hemodialysis , denies chest pain or palpitations Exam/Review of Systems Vital Signs Vitals Vital Signs Date Time Temp Pulse Resp B/P Pulse Ox O2 Delivery O2 Flow Rate FiO2 04/26/16 11:30 98.2 82 18 153/69 98 04/26/16 10:18 Nasal Cannula 4.0 Intake and Output 04/25/16 04/25/16 04/26/16 15:00 23:00 07:00 Intake Total 1100 ml Output Total 3500 ml Balance -2400 ml Exam No apparent distress Constitutional: alert, obese, oriented Head: normocephalic Neck: supple Respiratory: other (Coarse breath sounds bilaterally, no wheezing) Cardiovascular: other (S1-S2 heard), regular rate and rhythm Gastrointestinal: bowel sounds, non-tender, other (No guarding), soft Extremities: edema (Trace) Results Result Diagram: 04/26/16 0550 04/26/16 0550 Results 24 hrs Laboratory Tests Test 04/25/16 20:45 04/26/16 02:01 04/26/16 05:50 04/26/16 08:13 Bedside Glucose 246 H 273 H 294 H Anion Gap 17 H Basophils # 0.0 Basophils % 0.1 Blood Urea Nitrogen 55 H Calcium Level 9.1 Carbon Dioxide Level 28 Chloride Level 98 Creatinine 2.63 #H Eosinophils # 0.0 Eosinophils % 0.0 Glucose Level 287 H Hematocrit 32.2 L Hemoglobin 11.0 L Lymphocytes # 1.2 Lymphocytes % 8.6 L Mean Corpuscular Hemoglobin 29.8 Mean Corpuscular Hemoglobin Concent 34.2 Mean Corpuscular Volume 87.3 Mean Platelet Volume 10.3 Monocytes # 0.5 Monocytes % 4.0 Neutrophils # 11.5 H Neutrophils % 85.2 H Nucleated Red Blood Cells # 0.2 H Nucleated Red Blood Cells % 1.6 H Platelet Count 287 Potassium Level 4.7 Red Blood Count 3.69 L Red Cell Distribution Width 14.2 Sodium Level 138 White Blood Count 13.5 #H Medications Medications Current Medications Allopurinol (Zyloprim) 100 mg QHS PO Last administered on 04/25/16 21:47; Admin Dose 100 MG; Start 04/21/16 at 21:00 Aspirin (Halfprin) 81 mg DAILY PO Last administered on 04/26/16 08:38; Admin Dose 81 MG; Start 04/21/16 at 09:00 Atorvastatin Calcium (Lipitor) 40 mg QHS PO Last administered on 04/25/16 21: 48; Admin Dose 40 MG; Start 04/21/16 at 21:00 Carvedilol (Coreg) 25 mg BID PO Last administered on 04/26/16 08:38; Admin Dose 25 MG; Start 04/21/16 at 09:00 Isosorbide Mononitrate (Imdur) 30 mg DAILY PO Last administered on 04/26/16 08 :38; Admin Dose 30 MG; Start 04/21/16 at 09:00 Levofloxacin (Levaquin) 250 mg Q2D@06 PO Last administered on 04/25/16 05:53; Admin Dose 250 MG; Start 04/21/16 at 06:00 Nifedipine (Procardia Xl) 30 mg DAILY PO Last administered on 04/26/16 08:39; Admin Dose 30 MG; Start 04/21/16 at 09:00 Diagnostic Test (Pha) (Accucheck) 1 ea 02 XX Last administered on 04/26/16 02: 00; Admin Dose 1 EA; Start 04/22/16 at 02:00 Miscellaneous Information 1 ea NOTE XX ; Start 04/21/16 at 05:30 Glucose (Glutose) 15 gm Q15M PRN PO DECREASED GLUCOSE; Start 04/21/16 at 05:30 Glucose (Glutose) 22.5 gm Q15M PRN PO DECREASED GLUCOSE; Start 04/21/16 at 05: 30 Dextrose (D50w Syringe) 25 ml Q15M PRN IV DECREASED GLUCOSE; Start 04/21/16 at 05:30 Dextrose (D50w Syringe) 50 ml Q15M PRN IV DECREASED GLUCOSE; Start 04/21/16 at 05:30 Glucagon (Glucagen) 1 mg Q15M PRN IM DECREASED GLUCOSE; Start 04/21/16 at 05:30 Glucose (Glutose) 15 gm Q15M PRN BUCCAL DECREASED GLUCOSE; Start 04/21/16 at 05 :30 Doxycycline Hyclate (Vibramycin) 100 mg BID@06,18 PO Last administered on 06:28; Admin Dose 100 MG; Start 04/21/16 at 06:00 Epoetin Viet (Epogen (Esrd)) 10,000 units MoWeFr@17 SC Last administered on 18:00; Admin Dose 10,000 UNITS; Start 04/22/16 at 17:00 Diphenhydramine HCl (Benadryl) 25 mg Q6H PRN PO before each unit of prbc Last administered on 04/24/16 21:35; Admin Dose 25 MG; Start 04/23/16 at 18:00 Acetaminophen (Tylenol Tab) 325 mg Q6H PRN PO before each unit of prbc Last administered on 04/25/16 14:07; Admin Dose 325 MG; Start 04/23/16 at 18:00 Furosemide 40 mg 40 mg ONCE PRN IV after first unit of prbc; Start 04/23/16 at 18:00; Stop 04/30/16 at 17:59; Status Future hold Ferric Sodium Gluconate Complex/ Sodium Chloride (Ferrlecit/NS) 110 ml @ 110 mls/hr Q24H IVPB Last administered on 04/26/16 10:48; Admin Dose 110 MLS/HR; Start 04/24/16 at 10:00; Stop 04/28/16 at 10:59 Insulin Glargine (Lantus) 12 unit AM SC Last administered on 04/26/16 08:52; Admin Dose 12 UNIT; Start 04/25/16 at 09:00 Methylprednisolone Sodium Succinate (Solu-Medrol) 40 mg QAM IV Last administered on 04/26/16 08:39; Admin Dose 40 MG; Start 04/26/16 at 09:00 aDriel Juarez DO Apr 26, 2016 12:30
[2016-04-26] MEDS ORDERED: ENOXAPARIN 30 MG/0.3 ML SYG SC SCH (13:00)
[2016-04-26] MEDS: GUAIFENESIN/DM (SR) TAB PO SCH ×2 (14:27→21:43)
[2016-04-26] MEDS: HEPARIN 5,000 UNIT/0.5 ML SYG SC SCH ×2 (15:28→21:46)
--- NOTE | 2016-04-26 16:03 | PN ---
DATE: 04/26/2016 SUBJECTIVE: Follow up on acute decompensated diastolic heart failure, hypertension, possible lung m ass, acute on chronic kidney disease, and acute respiratory failure. The patient remains with adequ ate oxygenation on 4 liters nasal cannula. The patient underwent hemodialysis yesterday. No report ed chest pain. No reported fever or chills. Patient does have a dry cough and is unable to expecto rate. Patient has not had any bleeding from any site. No reported fever or chills. No reported an y focal weakness. PHYSICAL EXAMINATION: GENERAL: The patient is conscious, awake, alert. VITAL SIGNS: Temperature 98.2, pulse 81, respirations 18, blood pressure 153/69, O2 saturation 98% on 4 liters nasal cannula. HEENT: Atraumatic, normocephalic. Conjunctivae and lids normal. Oropharynx clear. NECK: No mass, no JVD. CHEST: Revealed diminished air entry at bases. No use of accessory muscles. CARDIOVASCULAR: S1, S2 normal. Irregular rate and rhythm. No murmur, gallop, or rub. ABDOMEN: Soft, nondistended, nontender. EXTREMITIES: No clubbing, cyanosis, or edema. NEUROLOGIC: The patient is awake, alert, fairly oriented with no gross focal deficit. LABORATORY DATA: Done this morning, WBC 13.5, hemoglobin 11, platelets 287. Sodium 138, potassium 4.7, BUN 55, creatinine 2.6, glucose 287. Chest x-ray done this morning revealed improved right mid and lower lung zone pneumonia,. IMPRESSION: 1. Acute respiratory failure due to acute decompensated diastolic heart failure as well as pneumoni a. Continue Levaquin and hemodialysis to remove fluid. 2. Iron deficiency anemia. The patient is currently getting IV Ferrlecit. 3. Diabetes. Continue Lantus. Blood sugars are not well controlled due to recent use of steroids, which has been tapered. Will add premeal insulin. 4. Acute on chronic kidney disease. Continue hemodialysis as per Nephrology. PLAN: Will add Lovenox for DVT prophylaxis. The patient does not have any history of active bleedi ng from any site. We will also add Mucinex and will request PT eval. Dictated By: DOMINIC COOPER/ELENI Conf#: [id number] DID#: [id number]
--- NOTE | 2016-04-26 16:40 | CONS ---
Date/Time of Note Date/Time of Note DATE: 04/26/16 TIME: 16:34 Assessment/Plan Assessment/Plan Chief Complaint/Hosp Course D PROGRESS NOTE CURRENT ABX=> Doxy #6 + Levaquin #6 24H INTERVAL SUMMARY * Clinically improved + radiographically improved HCAP * (-)PPD * WBC elevated today = reflecting IV Steroids demargination * Confused 81 yo F-> s/p new HD cath placed yesterday after she pulled out the 1st one * Afebrile, VSS, NAD * 03/26/16 CXR: IMPRESSION: 1. Improved right mid and lower lung zone pneumonia. 2. Mild left basilar atelectasis. 3. Mild cardiomegaly and atherosclerosis. PHYSICAL EXAMINATION: GENERAL: VSS, NAD HEENT: Unremarkable -- supplemental O2 via NC NECK: Supple, trachea midline. CHEST: Rise symmetrical, without dyspnea on observation HEART: Pulse RRR ABDOMEN: Soft, benign EXTREMITIES: Warm ID ASSESSMENT 81 yo admit with: 1. Acute hypoxemic respiratory failure secondary to fluid overload and possible underlying pneumonia=> MUCH IMPROVED * CT with RLL infiltrate and parapneumonic effusion on admission => CXR 04/26/16 much improved PNA * (-)Influenza A/B * (-)PPD screen 2. Acute on chronic kidney disease=>Started on HD 3. Hypertension. 4. Diabetes. 5. Anemia 6. Leukocytosis => reflecting IV Steroids demargination as clinically PNA has improved ( )MRSA Nares ?not screened INVASIVES: PIV, New HD-Irineo ABX ALLERGY: KNDA CURRENT ABX: => Doxy #6 + Levaquin #6 + Steroids s/p ID RECOMMENDATIONS 1. Continue current ABX total 7-10 days per clinical response 2. OK DC on PO ABX when cleared by primary and consultants . . Problems: Consultation Date/Type/Reason Admit Date/Time Apr 23, 2016 at 15:06 Initial Consult Date 04/21/16 Type of Consultation: ID Exam/Review of Systems Vital Signs Vitals Vital Signs Date Time Temp Pulse Resp B/P Pulse Ox O2 Delivery O2 Flow Rate FiO2 04/26/16 16:25 3.0 04/26/16 16:15 97.6 78 18 147/73 98 04/26/16 13:21 Nasal Cannula Intake and Output 04/25/16 04/25/16 04/26/16 15:00 23:00 07:00 Intake Total 1100 ml Output Total 3500 ml Balance -2400 ml Results Result Diagram: 04/26/16 0550 04/26/16 0550 Results 24 hrs Laboratory Tests Test 04/25/16 20:45 04/26/16 02:01 04/26/16 05:50 04/26/16 08:13 Bedside Glucose 246 H 273 H 294 H Anion Gap 17 H Basophils # 0.0 Basophils % 0.1 Blood Urea Nitrogen 55 H Calcium Level 9.1 Carbon Dioxide Level 28 Chloride Level 98 Creatinine 2.63 #H Eosinophils # 0.0 Eosinophils % 0.0 Glucose Level 287 H Hematocrit 32.2 L Hemoglobin 11.0 L Lymphocytes # 1.2 Lymphocytes % 8.6 L Mean Corpuscular Hemoglobin 29.8 Mean Corpuscular Hemoglobin Concent 34.2 Mean Corpuscular Volume 87.3 Mean Platelet Volume 10.3 Monocytes # 0.5 Monocytes % 4.0 Neutrophils # 11.5 H Neutrophils % 85.2 H Nucleated Red Blood Cells # 0.2 H Nucleated Red Blood Cells % 1.6 H Platelet Count 287 Potassium Level 4.7 Red Blood Count 3.69 L Red Cell Distribution Width 14.2 Sodium Level 138 White Blood Count 13.5 #H Test 04/26/16 12:36 Bedside Glucose 221 H Medications Medications Current Medications Allopurinol (Zyloprim) 100 mg QHS PO Last administered on 04/25/16 21:47; Admin Dose 100 MG; Start 04/21/16 at 21:00 Aspirin (Halfprin) 81 mg DAILY PO Last administered on 04/26/16 08:38; Admin Dose 81 MG; Start 04/21/16 at 09:00 Atorvastatin Calcium (Lipitor) 40 mg QHS PO Last administered on 04/25/16 21: 48; Admin Dose 40 MG; Start 04/21/16 at 21:00 Carvedilol (Coreg) 25 mg BID PO Last administered on 04/26/16 08:38; Admin Dose 25 MG; Start 04/21/16 at 09:00 Isosorbide Mononitrate (Imdur) 30 mg DAILY PO Last administered on 04/26/16 08 :38; Admin Dose 30 MG; Start 04/21/16 at 09:00 Levofloxacin (Levaquin) 250 mg Q2D@06 PO Last administered on 04/25/16 05:53; Admin Dose 250 MG; Start 04/21/16 at 06:00 Nifedipine (Procardia Xl) 30 mg DAILY PO Last administered on 04/26/16 08:39; Admin Dose 30 MG; Start 04/21/16 at 09:00 Diagnostic Test (Pha) (Accucheck) 1 ea 02 XX Last administered on 04/26/16 02: 00; Admin Dose 1 EA; Start 04/22/16 at 02:00 Miscellaneous Information 1 ea NOTE XX ; Start 04/21/16 at 05:30 Glucose (Glutose) 15 gm Q15M PRN PO DECREASED GLUCOSE; Start 04/21/16 at 05:30 Glucose (Glutose) 22.5 gm Q15M PRN PO DECREASED GLUCOSE; Start 04/21/16 at 05: 30 Dextrose (D50w Syringe) 25 ml Q15M PRN IV DECREASED GLUCOSE; Start 04/21/16 at 05:30 Dextrose (D50w Syringe) 50 ml Q15M PRN IV DECREASED GLUCOSE; Start 04/21/16 at 05:30 Glucagon (Glucagen) 1 mg Q15M PRN IM DECREASED GLUCOSE; Start 04/21/16 at 05:30 Glucose (Glutose) 15 gm Q15M PRN BUCCAL DECREASED GLUCOSE; Start 04/21/16 at 05 :30 Doxycycline Hyclate (Vibramycin) 100 mg BID@,18 PO Last administered on 06:28; Admin Dose 100 MG; Start 04/21/16 at 06:00 Epoetin Viet (Epogen (Esrd)) 10,000 units MoWeFr@17 SC Last administered on 18:00; Admin Dose 10,000 UNITS; Start 04/22/16 at 17:00 Diphenhydramine HCl (Benadryl) 25 mg Q6H PRN PO before each unit of prbc Last administered on 04/24/16 21:35; Admin Dose 25 MG; Start 04/23/16 at 18:00 Acetaminophen (Tylenol Tab) 325 mg Q6H PRN PO before each unit of prbc Last administered on 04/25/16 14:07; Admin Dose 325 MG; Start 04/23/16 at 18:00 Furosemide 40 mg 40 mg ONCE PRN IV after first unit of prbc; Start 04/23/16 at 18:00; Stop 04/30/16 at 17:59; Status Future hold Ferric Sodium Gluconate Complex/ Sodium Chloride (Ferrlecit/NS) 110 ml @ 110 mls/hr Q24H IVPB Last administered on 04/26/16 10:48; Admin Dose 110 MLS/HR; Start 04/24/16 at 10:00; Stop 04/28/16 at 10:59 Insulin Glargine (Lantus) 12 unit AM SC Last administered on 04/26/16 08:52; Admin Dose 12 UNIT; Start 04/25/16 at 09:00 Methylprednisolone Sodium Succinate (Solu-Medrol) 40 mg QAM IV Last administered on 04/26/16 08:39; Admin Dose 40 MG; Start 04/26/16 at 09:00 Guaifenesin/ Dextromethorphan (Mucinex Dm) 1 tab BID PO Last administered on 14:27; Admin Dose 1 TAB; Start 04/26/16 at 13:00 Heparin Sodium (Porcine) (Heparin (5000 Units/0.5 ml)) 5,000 unit Q12 SC Last administered on 04/26/16 15:28; Admin Dose 5,000 UNIT; Start 04/26/16 at 14:30 JAVAD MCDONALD RN ANGIOGRAPHY Apr 26, 2016 16:40
[2016-04-26] MEDS: ATORVASTATIN 40 MG TAB PO SCH (21:42)
[2016-04-26] MEDS: ALLOPURINOL 100 MG TAB PO SCH (21:43)
[2016-04-27] VITALS (20 sets, daily range): BP systolic 100–157; BP diastolic 50–75; PULSE 68–87; RESP 15–20
[2016-04-27] MEDS: ALBUTEROL/IPRATROPIUM (NEB) 3 ML AMP HHN SCH ×6 (01:26→20:49)
[2016-04-27] MEDS: ACCUCHECK XX SCH (02:00)
[2016-04-27] MEDS: DOXYCYCLINE 100 MG TAB PO SCH ×2 (05:55→18:01)
[2016-04-27 06:52] LABS: ADD SCAN DIFF NO
[2016-04-27 07:07] LABS: BASOPHILS % 0.1 % (0.0-2.0); HEMOGLOBIN 11.2 g/dl (12.0-16.0); LYMPHOCYTES # 1.7 10^3/ul (0.8-2.9); LYMPHOCYTES % 9.5 % (15.0-51.0); MEAN CORPUSCULAR HGB CONC 33.9 g/dl (32.0-37.0); MEAN CORPUSCULAR VOLUME 88.5 fl (82.0-101.0); MEAN PLATELET VOLUME 10.3 fl (7.4-10.4); MONOCYTE # 1.2 10^3/ul (0.3-0.9); MONOCYTES % 6.9 % (0.0-11.0); NEUTROPHIL # 14.2 10^3/ul (1.6-7.5); NEUTROPHILS % 80.8 % (39.0-77.0); NUCLEATED RED BLOOD CELLS # 0.3 10^3/ul (0.0-0.0); NUCLEATED RED BLOOD CELLS% 1.9 /100WBC (0.0-0.0); PLATELET COUNT 279 10^3/UL (140-415); RED BLOOD COUNT 3.73 10^6/ul (4.20-5.40); WHITE BLOOD COUNT 17.5 10^3/ul (4.8-10.8)
[2016-04-27 07:16] LABS: POTASSIUM 4.4 mmol/L (3.5-5.1)
[2016-04-27 07:18] LABS: CREATININE 2.65 mg/dl (0.44-1.00)
[2016-04-27 07:19] LABS: CALCIUM 8.9 mg/dl (8.4-10.2)
[2016-04-27] MEDS: INSULIN ASPART [NOVOLOG] 3 ML PEN SC SCH ×7 (07:55→21:00)
--- NOTE | 2016-04-27 08:23 | CONS ---
Date/Time of Note Date/Time of Note DATE: 04/27/16 TIME: 08:17 Assessment/Plan Assessment/Plan Chief Complaint/Hosp Course 1. ARF on CKD , she has had 2 hemodialysis treatments and is due for third treatment today .Check labs in am , monitor I & O 's 2. anemia , . 3. CHF , improved 4. Pneumonia , improved on CXR done yesterday . 4. DM Problems: Consultation Date/Type/Reason Admit Date/Time Apr 23, 2016 at 15:06 Initial Consult Date 04/21/16 Type of Consultation: renal 24 HR Interval Summary Free Text/Dictation She is feeling better since starting hemodialysis treatments . Constitutional: improved, no complaints Exam/Review of Systems Vital Signs Vitals Vital Signs Date Time Temp Pulse Resp B/P Pulse Ox O2 Delivery O2 Flow Rate FiO2 04/27/16 06:03 84 20 95 Nasal Cannula 04/27/16 04:00 98.3 138/67 04/27/16 01:29 3.0 Intake and Output 04/26/16 04/26/16 04/27/16 15:00 23:00 07:00 Intake Total 700 ml 300 ml Balance 700 ml 300 ml Exam Constitutional: alert, oriented Respiratory: clear to auscultation Cardiovascular: regular rate and rhythm Gastrointestinal: soft Musculoskeletal: nl extremities to inspection Results Result Diagram: 04/27/1615 04/27/1615 Results 24 hrs Laboratory Tests Test 04/26/16 12:36 04/26/16 17:48 04/26/16 21:08 04/27/16 06:15 Bedside Glucose 221 H 296 H 240 H Anion Gap 12 Basophils # 0.0 Basophils % 0.1 Blood Urea Nitrogen 65 H Calcium Level 8.9 Carbon Dioxide Level 29 Chloride Level 103 Creatinine 2.65 H Eosinophils # 0.0 Eosinophils % 0.0 Glucose Level 194 Hematocrit 33.0 L Hemoglobin 11.2 L Lymphocytes # 1.7 Lymphocytes % 9.5 L Mean Corpuscular Hemoglobin 30.0 Mean Corpuscular Hemoglobin Concent 33.9 Mean Corpuscular Volume 88.5 Mean Platelet Volume 10.3 Monocytes # 1.2 H Monocytes % 6.9 Neutrophils # 14.2 H Neutrophils % 80.8 H Nucleated Red Blood Cells # 0.3 H Nucleated Red Blood Cells % 1.9 H Platelet Count 279 Potassium Level 4.4 Red Blood Count 3.73 L Red Cell Distribution Width 14.0 Sodium Level 140 White Blood Count 17.5 #H Test 04/27/16 07:56 Bedside Glucose 186 Medications Medications Current Medications Allopurinol (Zyloprim) 100 mg QHS PO Last administered on 04/26/16 21:43; Admin Dose 100 MG; Start 04/21/16 at 21:00 Aspirin (Halfprin) 81 mg DAILY PO Last administered on 04/26/16 08:38; Admin Dose 81 MG; Start 04/21/16 at 09:00 Atorvastatin Calcium (Lipitor) 40 mg QHS PO Last administered on 04/26/16 21: 42; Admin Dose 40 MG; Start 04/21/16 at 21:00 Carvedilol (Coreg) 25 mg BID PO Last administered on 04/26/16 21:42; Admin Dose 25 MG; Start 04/21/16 at 09:00 Isosorbide Mononitrate (Imdur) 30 mg DAILY PO Last administered on 04/26/16 08 :38; Admin Dose 30 MG; Start 04/21/16 at 09:00 Levofloxacin (Levaquin) 250 mg Q2D@06 PO Last administered on 04/25/16 05:53; Admin Dose 250 MG; Start 04/21/16 at 06:00 Nifedipine (Procardia Xl) 30 mg DAILY PO Last administered on 04/26/16 08:39; Admin Dose 30 MG; Start 04/21/16 at 09:00 Diagnostic Test (Pha) (Accucheck) 1 ea 02 XX Last administered on 04/26/16 02: 00; Admin Dose 1 EA; Start 04/22/16 at 02:00 Miscellaneous Information 1 ea NOTE XX ; Start 04/21/16 at 05:30 Glucose (Glutose) 15 gm Q15M PRN PO DECREASED GLUCOSE; Start 04/21/16 at 05:30 Glucose (Glutose) 22.5 gm Q15M PRN PO DECREASED GLUCOSE; Start 04/21/16 at 05: 30 Dextrose (D50w Syringe) 25 ml Q15M PRN IV DECREASED GLUCOSE; Start 04/21/16 at 05:30 Dextrose (D50w Syringe) 50 ml Q15M PRN IV DECREASED GLUCOSE; Start 04/21/16 at 05:30 Glucagon (Glucagen) 1 mg Q15M PRN IM DECREASED GLUCOSE; Start 04/21/16 at 05:30 Glucose (Glutose) 15 gm Q15M PRN BUCCAL DECREASED GLUCOSE; Start 04/21/16 at 05 :30 Doxycycline Hyclate (Vibramycin) 100 mg BID@06,18 PO Last administered on 05:55; Admin Dose 100 MG; Start 04/21/16 at 06:00 Epoetin Viet (Epogen (Esrd)) 10,000 units MoWeFr@17 SC Last administered on 18:00; Admin Dose 10,000 UNITS; Start 04/22/16 at 17:00 Diphenhydramine HCl (Benadryl) 25 mg Q6H PRN PO before each unit of prbc Last administered on 04/24/16 21:35; Admin Dose 25 MG; Start 04/23/16 at 18:00 Acetaminophen (Tylenol Tab) 325 mg Q6H PRN PO before each unit of prbc Last administered on 04/25/16 14:07; Admin Dose 325 MG; Start 04/23/16 at 18:00 Furosemide 40 mg 40 mg ONCE PRN IV after first unit of prbc; Start 04/23/16 at 18:00; Stop 04/30/16 at 17:59; Status Future hold Ferric Sodium Gluconate Complex/ Sodium Chloride (Ferrlecit/NS) 110 ml @ 110 mls/hr Q24H IVPB Last administered on 04/26/16 10:48; Admin Dose 110 MLS/HR; Start 04/24/16 at 10:00; Stop 04/28/16 at 10:59 Insulin Glargine (Lantus) 12 unit AM SC Last administered on 04/26/16 08:52; Admin Dose 12 UNIT; Start 04/25/16 at 09:00 Methylprednisolone Sodium Succinate (Solu-Medrol) 40 mg QAM IV Last administered on 04/26/16 08:39; Admin Dose 40 MG; Start 04/26/16 at 09:00 Guaifenesin/ Dextromethorphan (Mucinex Dm) 1 tab BID PO Last administered on 21:43; Admin Dose 1 TAB; Start 04/26/16 at 13:00 Heparin Sodium (Porcine) (Heparin (5000 Units/0.5 ml)) 5,000 unit Q12 SC Last administered on 04/26/16t 21:46; Admin Dose 5,000 UNIT; Start 04/26/16 at 14:30 HOPE DOW MD Apr 27, 2016 08:23
[2016-04-27] MEDS: NIFEdipine (XL) 30 MG TAB PO SCH (09:02)
[2016-04-27] MEDS: CALCIUM ACETATE 667 MG CAP PO SCH ×3 (09:02→18:01)
[2016-04-27] MEDS: LEVOFLOXACIN 250 MG TAB PO SCH (09:02)
[2016-04-27] MEDS: ASPIRIN (EC) 81 MG TAB PO SCH (09:03)
[2016-04-27] MEDS: ISOSORBIDE MONONITRATE(SR)30 MG TAB PO SCH (09:03)
[2016-04-27] MEDS: INSULIN GLARGINE [LANtus] 3 ML PEN SC SCH (09:07)
[2016-04-27] MEDS: METHYLPREDNISOLONE 40 MG INJ IV SCH (11:14)
[2016-04-27] MEDS: HEPARIN 5,000 UNIT/0.5 ML SYG SC SCH ×2 (11:15→21:56)
[2016-04-27] MEDS: GUAIFENESIN/DM (SR) TAB PO SCH ×2 (12:55→20:29)
[2016-04-27] MEDS: SOD FERRIC GLUC COMPLX 125 MG in SOD CHLORIDE 0.9% 100 ML IVPB SCH (12:55)
--- NOTE | 2016-04-27 15:01 | CONS ---
Date/Time of Note Date/Time of Note DATE: 04/27/16 TIME: 14:58 Assessment/Plan Assessment/Plan Additional Assessment/Plan Acute decompensated diastolic congestive heart failure Hypertension Acute on chronic kidney injury Diabetes -Volume status continues to improve after initiation of hemodialysis. Occasional episodes of hypertension, if the trend of blood pressure remains elevated, would increase Procardia to twice daily Consultation Date/Type/Reason Admit Date/Time Apr 23, 2016 at 15:06 Initial Consult Date 04/21/16 Type of Consultation: cv 24 HR Interval Summary Free Text/Dictation Shortness of breath continues to improve, denies chest pain or palpitations Exam/Review of Systems Vital Signs Vitals Vital Signs Date Time Temp Pulse Resp B/P Pulse Ox O2 Delivery O2 Flow Rate FiO2 04/27/16 14:30 68 04/27/16 13:00 15 04/27/16 12:47 99 3.0 04/27/16 12:47 Nasal Cannula 04/27/16 12:05 98.6 157/72 Intake and Output 04/26/16 04/26/16 04/27/16 15:00 23:00 07:00 Intake Total 700 ml 300 ml Balance 700 ml 300 ml Exam No apparent distress Constitutional: alert, obese, oriented Head: normocephalic Neck: supple Respiratory: other (Course breath sounds bilaterally, no wheezing) Cardiovascular: other (S1-S2 heard), regular rate and rhythm Gastrointestinal: bowel sounds, non-tender, soft Extremities: edema Results Result Diagram: 04/27/1615 04/27/16 0615 Results 24 hrs Laboratory Tests Test 04/26/16 17:48 04/26/16 21:08 04/27/16 06:15 04/27/16 07:56 Bedside Glucose 296 H 240 H 186 Anion Gap 12 Basophils # 0.0 Basophils % 0.1 Blood Urea Nitrogen 65 H Calcium Level 8.9 Carbon Dioxide Level 29 Chloride Level 103 Creatinine 2.65 H Eosinophils # 0.0 Eosinophils % 0.0 Glucose Level 194 Hematocrit 33.0 L Hemoglobin 11.2 L Lymphocytes # 1.7 Lymphocytes % 9.5 L Mean Corpuscular Hemoglobin 30.0 Mean Corpuscular Hemoglobin Concent 33.9 Mean Corpuscular Volume 88.5 Mean Platelet Volume 10.3 Monocytes # 1.2 H Monocytes % 6.9 Neutrophils # 14.2 H Neutrophils % 80.8 H Nucleated Red Blood Cells # 0.3 H Nucleated Red Blood Cells % 1.9 H Platelet Count 279 Potassium Level 4.4 Red Blood Count 3.73 L Red Cell Distribution Width 14.0 Sodium Level 140 White Blood Count 17.5 #H Test 04/27/16 12:27 Bedside Glucose 237 H Medications Medications Current Medications Allopurinol (Zyloprim) 100 mg QHS PO Last administered on 04/26/16 21:43; Admin Dose 100 MG; Start 04/21/16 at 21:00 Aspirin (Halfprin) 81 mg DAILY PO Last administered on 04/27/16 09:03; Admin Dose 81 MG; Start 04/21/16 at 09:00 Atorvastatin Calcium (Lipitor) 40 mg QHS PO Last administered on 04/26/16 21: 42; Admin Dose 40 MG; Start 04/21/16 at 21:00 Carvedilol (Coreg) 25 mg BID PO Last administered on 04/27/16 09:03; Admin Dose 25 MG; Start 04/21/16 at 09:00 Isosorbide Mononitrate (Imdur) 30 mg DAILY PO Last administered on 04/27/16 09 :03; Admin Dose 30 MG; Start 04/21/16 at 09:00 Levofloxacin (Levaquin) 250 mg Q2D@06 PO Last administered on 04/27/16 09:02; Admin Dose 250 MG; Start 04/21/16 at 06:00 Nifedipine (Procardia Xl) 30 mg DAILY PO Last administered on 04/27/16 09:02; Admin Dose 30 MG; Start 04/21/16 at 09:00 Diagnostic Test (Pha) (Accucheck) 1 ea 02 XX Last administered on 04/26/16 02: 00; Admin Dose 1 EA; Start 04/22/16 at 02:00 Miscellaneous Information 1 ea NOTE XX ; Start 04/21/16 at 05:30 Glucose (Glutose) 15 gm Q15M PRN PO DECREASED GLUCOSE; Start 04/21/16 at 05:30 Glucose (Glutose) 22.5 gm Q15M PRN PO DECREASED GLUCOSE; Start 04/21/16 at 05: 30 Dextrose (D50w Syringe) 25 ml Q15M PRN IV DECREASED GLUCOSE; Start 04/21/16 at 05:30 Dextrose (D50w Syringe) 50 ml Q15M PRN IV DECREASED GLUCOSE; Start 04/21/16 at 05:30 Glucagon (Glucagen) 1 mg Q15M PRN IM DECREASED GLUCOSE; Start 04/21/16 at 05:30 Glucose (Glutose) 15 gm Q15M PRN BUCCAL DECREASED GLUCOSE; Start 04/21/16 at 05 :30 Doxycycline Hyclate (Vibramycin) 100 mg BID@06,18 PO Last administered on 05:55; Admin Dose 100 MG; Start 04/21/16 at 06:00 Epoetin Viet (Epogen (Esrd)) 10,000 units MoWeFr@17 SC Last administered on 18:00; Admin Dose 10,000 UNITS; Start 04/22/16 at 17:00 Diphenhydramine HCl (Benadryl) 25 mg Q6H PRN PO before each unit of prbc Last administered on 04/24/16 21:35; Admin Dose 25 MG; Start 04/23/16 at 18:00 Acetaminophen (Tylenol Tab) 325 mg Q6H PRN PO before each unit of prbc Last administered on 04/25/16 14:07; Admin Dose 325 MG; Start 04/23/16 at 18:00 Furosemide 40 mg 40 mg ONCE PRN IV after first unit of prbc; Start 04/23/16 at 18:00; Stop 04/30/16 at 17:59; Status Future hold Ferric Sodium Gluconate Complex/ Sodium Chloride (Ferrlecit/NS) 110 ml @ 110 mls/hr Q24H IVPB Last administered on 04/27/16 12:55; Admin Dose 110 MLS/HR; Start 04/24/16 at 10:00; Stop 04/28/16 at 10:59 Insulin Glargine (Lantus) 12 unit AM SC Last administered on 04/27/16 09:07; Admin Dose 12 UNIT; Start 04/25/16 at 09:00 Methylprednisolone Sodium Succinate (Solu-Medrol) 40 mg QAM IV Last administered on 04/27/16 11:14; Admin Dose 40 MG; Start 04/26/16 at 09:00 Guaifenesin/ Dextromethorphan (Mucinex Dm) 1 tab BID PO Last administered on 12:55; Admin Dose 1 TAB; Start 04/26/16 at 13:00 Heparin Sodium (Porcine) (Heparin (5000 Units/0.5 ml)) 5,000 unit Q12 SC Last administered on 04/27/16t 11:15; Admin Dose 5,000 UNIT; Start 04/26/16 at 14:30 Dariel Juarez DO Apr 27, 2016 15:01
--- NOTE | 2016-04-27 17:02 | PN ---
DATE: 04/27/2016 SUBJECTIVE: The patient is lying comfortably in bed. She is awake, feels better. No shortness of breath. She is comfortable on 3 liters nasal cannula. She has a right femoral Irineo catheter. W BC today 17.5, neutrophils 80.8, BUN 65, creatinine 2.65. ANTIMICROBIALS: Patient was started on Solu-Medrol. She is also on Levaquin and doxycycline day #7 . PHYSICAL EXAMINATION: GENERAL: This is a fragile, elderly [place] woman, who is alert, in no distress. HEENT: Head atraumatic, normocephalic. Sclerae anicteric. Buccal mucosa pink. NECK: Supple. Trachea midline. CHEST: Rise symmetrical. Breath sounds clear. Diminished to bases. HEART: S1, S2. ABDOMEN: Soft, bowel tones present. EXTREMITIES: Without cyanosis. ASSESSMENT: 1. Status post acute hypoxemic respiratory failure. 2. Congestive heart failure exacerbation. 3. Pneumonia. 4. Acute on chronic kidney disease, hemodialysis dependent. 5. Diabetes. 6. Hypertension. 7. Leukocytosis, steroid induced. PLAN: The patient remains stable, completing antibiotics. Continue present care, anti-aspiration m easures. Dictated By: LIZZY CARPENTER DIABETOLOGIST for CAPO ORTEGA MD NI/NTS Conf#: [id number] DID#: [id number]
[2016-04-27] MEDS: ATORVASTATIN 40 MG TAB PO SCH (20:29)
[2016-04-27] MEDS: ALLOPURINOL 100 MG TAB PO SCH (20:29)
[2016-04-27] MEDS: EPOETIN 10000 UNITS/1 ML INJ (ESRD) SC SCH (21:12)
--- NOTE | 2016-04-27 21:40 | PN ---
DATE: 04/27/2016 SUBJECTIVE: The patient reports feeling a little bit better but still very short of breath. OBJECTIVE: VITAL SIGNS: Temperature 98.0, blood pressure 115/56, pulse of 75, respiration rate 20, O2 saturation 97% on 2 L. HEENT: Pupils equally round, reactive to light. Oropharynx clear. CHEST: Bibasilar crackle jail up. CARDIAC: Distant heart sounds but regular rate and rhythm. ABDOMEN: Active bowel sounds. Soft, nondistended, nontender. EXTREMITIES: No clubbing, cyanosis or edema. LABORATORY DATA: WBC 17.5, hemoglobin 11.2, hematocrit 33.0, platelet count 279 ,000. Sodium 140, potassium 4.4, chloride 103, carbon dioxide 29, BUN 65, creatinine 2.65, glucose 194. IMAGING: Chest x-ray done yesterday showed improved right mid and lower lung zone pneumonia. There is mild left basilar atelectasis as well as mild cardiomegaly and atherosclerosis. ASSESSMENT AND PLAN: 1. Respiratory distress secondary to right lobe pneumonia, improving clinically on Levaquin and doxycycline as well as nebulizer treatments and Solu- Medrol. 2. Congestive heart failure and acute on chronic kidney disease, status post hemodialysis with improvement in BUN and creatinine as well as pulmonary edema. 3. Anemia, status post intravenous Ferrlecit and 2 units packed red blood cells with marked improvement in hemoglobin and hematocrit. 4. Diabetes. Continue Lantus but expect poor control due to Solu-Medrol, which should be tapering down at this time. We have already added premeal insulin. 5. Renal failure. Further treatment per Nephrology. Dictated By: TREMAINE RIOS MD DP/ELENI Conf#: [id number] DID#: [id number] MTDD
[2016-04-28] VITALS (11 sets, daily range): BP systolic 131–163; BP diastolic 61–74; PULSE 74–80; RESP 16–18
[2016-04-28] MEDS: ALBUTEROL/IPRATROPIUM (NEB) 3 ML AMP HHN SCH ×6 (01:39→19:59)
[2016-04-28] MEDS: ACCUCHECK XX SCH (02:00)
[2016-04-28] MEDS: DOXYCYCLINE 100 MG TAB PO SCH ×2 (05:55→17:52)
[2016-04-28 07:05] LABS: ADD SCAN DIFF NO
[2016-04-28 07:12] LABS: BASOPHILS % 0.2 % (0.0-2.0); HEMATOCRIT 32.5 % (37.0-47.0); HEMOGLOBIN 11.1 g/dl (12.0-16.0); LYMPHOCYTES # 1.5 10^3/ul (0.8-2.9); LYMPHOCYTES % 9.3 % (15.0-51.0); MEAN CORPUSCULAR HEMOGLOBIN 30.4 pg (29.0-33.0); MEAN CORPUSCULAR HGB CONC 34.2 g/dl (32.0-37.0); MEAN PLATELET VOLUME 10.5 fl (7.4-10.4); MONOCYTE # 0.7 10^3/ul (0.3-0.9); MONOCYTES % 4.6 % (0.0-11.0); NEUTROPHIL # 13.1 10^3/ul (1.6-7.5); NEUTROPHILS % 83.1 % (39.0-77.0); NUCLEATED RED BLOOD CELLS # 0.4 10^3/ul (0.0-0.0); NUCLEATED RED BLOOD CELLS% 2.3 /100WBC (0.0-0.0); PLATELET COUNT 246 10^3/UL (140-415); RED BLOOD COUNT 3.65 10^6/ul (4.20-5.40); RED CELL DISTRIBUTION WIDTH 14.1 % (11.5-14.5); WHITE BLOOD COUNT 15.7 10^3/ul (4.8-10.8)
[2016-04-28 07:25] LABS: CREATININE 1.92 mg/dl (0.44-1.00)
[2016-04-28 07:26] LABS: CALCIUM 8.5 mg/dl (8.4-10.2)
--- NOTE | 2016-04-28 08:22 | CONS ---
Date/Time of Note Date/Time of Note DATE: 04/28/16 TIME: 08:17 Assessment/Plan Assessment/Plan Chief Complaint/Hosp Course 1. ARF on CKD , she has had 3 hemodialysis treatments .Check labs in am , monitor I & O 's , will check labs in am to determine need for next dialysis . If she requires further dialysis then I would recommend placement of an IJ permacath . 2. anemia , . 3. CHF , improved 4. Pneumonia , improved on CXR done 04/26/16. 4. DM Problems: Consultation Date/Type/Reason Admit Date/Time Apr 23, 2016 at 15:06 Initial Consult Date 04/21/16 Type of Consultation: cv 24 HR Interval Summary Free Text/Dictation She is awake and responsive . No complaints . Constitutional: improved, no complaints Exam/Review of Systems Vital Signs Vitals Vital Signs Date Time Temp Pulse Resp B/P Pulse Ox O2 Delivery O2 Flow Rate FiO2 04/28/16 07:20 97.9 80 16 159/74 98 04/28/16 05:37 Nasal Cannula 2.0 Intake and Output 04/27/16 04/27/16 04/28/16 15:00 23:00 07:00 Intake Total 250 ml 500 ml Output Total 1500 ml Balance 250 ml -1000 ml Exam Constitutional: alert, oriented Respiratory: clear to auscultation, normal air movement Cardiovascular: regular rate and rhythm Gastrointestinal: soft Musculoskeletal: nl extremities to inspection Results Result Diagram: 04/28/16 0602 04/28/16 0602 Results 24 hrs Laboratory Tests Test 04/27/16 12:27 04/27/16 17:10 04/27/16 21:13 04/28/16 01:50 Bedside Glucose 237 H 165 209 186 Test 04/28/16 06:02 04/28/16 07:42 Anion Gap 12 Basophils # 0.0 Basophils % 0.2 Blood Urea Nitrogen 45 #H Calcium Level 8.5 Carbon Dioxide Level 30 Chloride Level 99 Creatinine 1.92 H Eosinophils # 0.0 Eosinophils % 0.0 Glucose Level 166 Hematocrit 32.5 L Hemoglobin 11.1 L Lymphocytes # 1.5 Lymphocytes % 9.3 L Mean Corpuscular Hemoglobin 30.4 Mean Corpuscular Hemoglobin Concent 34.2 Mean Corpuscular Volume 89.0 Mean Platelet Volume 10.5 H Monocytes # 0.7 Monocytes % 4.6 Neutrophils # 13.1 H Neutrophils % 83.1 H Nucleated Red Blood Cells # 0.4 H Nucleated Red Blood Cells % 2.3 H Platelet Count 246 Potassium Level 4.0 Red Blood Count 3.65 L Red Cell Distribution Width 14.1 Sodium Level 137 White Blood Count 15.7 H Bedside Glucose 162 Medications Medications Current Medications Allopurinol (Zyloprim) 100 mg QHS PO Last administered on 04/27/16 20:29; Admin Dose 100 MG; Start 04/21/16 at 21:00 Aspirin (Halfprin) 81 mg DAILY PO Last administered on 04/27/16 09:03; Admin Dose 81 MG; Start 04/21/16 at 09:00 Atorvastatin Calcium (Lipitor) 40 mg QHS PO Last administered on 04/27/16 20: 29; Admin Dose 40 MG; Start 04/21/16 at 21:00 Carvedilol (Coreg) 25 mg BID PO Last administered on 04/27/16 20:29; Admin Dose 25 MG; Start 04/21/16 at 09:00 Isosorbide Mononitrate (Imdur) 30 mg DAILY PO Last administered on 04/27/16 09 :03; Admin Dose 30 MG; Start 04/21/16 at 09:00 Levofloxacin (Levaquin) 250 mg Q2D@06 PO Last administered on 04/27/16 09:02; Admin Dose 250 MG; Start 04/21/16 at 06:00 Nifedipine (Procardia Xl) 30 mg DAILY PO Last administered on 04/27/16 09:02; Admin Dose 30 MG; Start 04/21/16 at 09:00 Diagnostic Test (Pha) (Accucheck) 1 ea 02 XX Last administered on 04/28/16 02: 00; Admin Dose 1 EA; Start 04/22/16 at 02:00 Miscellaneous Information 1 ea NOTE XX ; Start 04/21/16 at 05:30 Glucose (Glutose) 15 gm Q15M PRN PO DECREASED GLUCOSE; Start 04/21/16 at 05:30 Glucose (Glutose) 22.5 gm Q15M PRN PO DECREASED GLUCOSE; Start 04/21/16 at 05: 30 Dextrose (D50w Syringe) 25 ml Q15M PRN IV DECREASED GLUCOSE; Start 04/21/16 at 05:30 Dextrose (D50w Syringe) 50 ml Q15M PRN IV DECREASED GLUCOSE; Start 04/21/16 at 05:30 Glucagon (Glucagen) 1 mg Q15M PRN IM DECREASED GLUCOSE; Start 04/21/16 at 05:30 Glucose (Glutose) 15 gm Q15M PRN BUCCAL DECREASED GLUCOSE; Start 04/21/16 at 05 :30 Doxycycline Hyclate (Vibramycin) 100 mg BID@06,18 PO Last administered on 05:55; Admin Dose 100 MG; Start 04/21/16 at 06:00 Epoetin Viet (Epogen (Esrd)) 10,000 units MoWeFr@17 SC Last administered on 21:12; Admin Dose 10,000 UNITS; Start 04/22/16 at 17:00 Diphenhydramine HCl (Benadryl) 25 mg Q6H PRN PO before each unit of prbc Last administered on 04/24/16 21:35; Admin Dose 25 MG; Start 04/23/16 at 18:00 Acetaminophen (Tylenol Tab) 325 mg Q6H PRN PO before each unit of prbc Last administered on 04/25/16 14:07; Admin Dose 325 MG; Start 04/23/16 at 18:00 Furosemide 40 mg 40 mg ONCE PRN IV after first unit of prbc; Start 04/23/16 at 18:00; Stop 04/30/16 at 17:59; Status Future hold Ferric Sodium Gluconate Complex/ Sodium Chloride (Ferrlecit/NS) 110 ml @ 110 mls/hr Q24H IVPB Last administered on 04/27/16 12:55; Admin Dose 110 MLS/HR; Start 04/24/16 at 10:00; Stop 04/28/16 at 10:59 Methylprednisolone Sodium Succinate (Solu-Medrol) 40 mg QAM IV Last administered on 04/27/16 11:14; Admin Dose 40 MG; Start 04/26/16 at 09:00 Guaifenesin/ Dextromethorphan (Mucinex Dm) 1 tab BID PO Last administered on 20:29; Admin Dose 1 TAB; Start 04/26/16 at 13:00 Heparin Sodium (Porcine) (Heparin (5000 Units/0.5 ml)) 5,000 unit Q12 SC Last administered on 2/27/17at 21:56; Admin Dose 5,000 UNIT; Start 04/26/16 at 14:30 Insulin Glargine (Lantus) 15 unit AM SC ; Start 04/28/16 at 09:00 HOPE DOW MD Apr 28, 2016 08:22
[2016-04-28] MEDS: CALCIUM ACETATE 667 MG CAP PO SCH ×3 (09:52→17:52)
[2016-04-28] MEDS: ISOSORBIDE MONONITRATE(SR)30 MG TAB PO SCH (09:52)
[2016-04-28] MEDS: ASPIRIN (EC) 81 MG TAB PO SCH (09:52)
[2016-04-28] MEDS: GUAIFENESIN/DM (SR) TAB PO SCH ×2 (09:52→20:51)
[2016-04-28] MEDS: NIFEdipine (XL) 30 MG TAB PO SCH ×2 (09:53→20:51)
[2016-04-28] MEDS: METHYLPREDNISOLONE 40 MG INJ IV SCH (09:53)
[2016-04-28] MEDS: INSULIN ASPART [NOVOLOG] 3 ML PEN SC SCH ×7 (09:56→21:00)
[2016-04-28] MEDS: INSULIN GLARGINE [LANtus] 3 ML PEN SC SCH (09:56)
[2016-04-28] MEDS: HEPARIN 5,000 UNIT/0.5 ML SYG SC SCH ×2 (09:56→21:00)
[2016-04-28] MEDS: SOD FERRIC GLUC COMPLX 125 MG in SOD CHLORIDE 0.9% 100 ML IVPB SCH (11:14)
--- NOTE | 2016-04-28 13:37 | PN ---
DATE: 04/28/2016 SUBJECTIVE: No acute changes. The patient is resting comfortably on 1 liter nasal cannula. No manuel rtness of breath, no fevers. WBC today 15.7, platelets 246, neutrophils 83.1. INDWELLINGS: Right femoral Irineo. ANTIMICROBIALS: Doxycycline and Levaquin, day #8. PHYSICAL EXAMINATION: GENERAL: Fragile, elderly woman who is in no distress. HEENT: Head atraumatic, normocephalic. Sclerae anicteric. Buccal mucosa pink, dry. NECK: Supple. CHEST: Rise symmetrical. Breath sounds clear. HEART: S1, S2. ABDOMEN: Soft, bowel tones present. EXTREMITIES: Without cyanosis. ASSESSMENT: 1. Status post-acute hypoxemic respiratory failure secondary to fluid overload. 2. Resolving pneumonia. 3. Acute on chronic kidney disease, on hemodialysis. 4. Hypertension. 5. Diabetes. 6. Leukocytosis secondary to steroids. PLAN: The patient remains stable, overall improving. Continue on current antibiotics for a couple more days. Follow recommendations of consultants. Dictated By: LIZZY CARPENTER REED FIXER for CAPO MATIAS/ELENI Conf#: [id number] DID#: [id number]
--- NOTE | 2016-04-28 14:52 | CONS ---
Date/Time of Note Date/Time of Note DATE: 04/28/16 TIME: 14:50 Assessment/Plan Assessment/Plan Additional Assessment/Plan Acute decompensated diastolic congestive heart failure Hypertension Acute on chronic kidney injury Diabetes -Volume status continues to improve with hemodialysis. Blood pressure remains elevated, would increase Procardia to twice daily. Consultation Date/Type/Reason Admit Date/Time Apr 23, 2016 at 15:06 Initial Consult Date 04/21/16 Type of Consultation: cv 24 HR Interval Summary Free Text/Dictation Shortness of breath continues to improve, denies chest pain Exam/Review of Systems Vital Signs Vitals Vital Signs Date Time Temp Pulse Resp B/P Pulse Ox O2 Delivery O2 Flow Rate FiO2 04/28/16 12:22 76 16 96 Nasal Cannula 2.0 04/28/16 11:02 98.2 152/69 Intake and Output 04/27/16 04/27/16 04/28/16 15:00 23:00 07:00 Intake Total 250 ml 500 ml Output Total 1500 ml Balance 250 ml -1000 ml Exam No apparent distress, eating lunch Constitutional: alert, obese, oriented Head: normocephalic Neck: supple Respiratory: other (Coarse breath sounds bilaterally, no wheezing) Cardiovascular: other (S1-S2 heard), regular rate and rhythm Gastrointestinal: bowel sounds, non-tender, other (No guarding), soft Extremities: edema Results Result Diagram: 04/28/16 0602 04/28/16 0602 Results 24 hrs Laboratory Tests Test 04/27/16 17:10 04/27/16 21:13 04/28/16 01:50 04/28/16 06:02 Bedside Glucose 165 209 186 Anion Gap 12 Basophils # 0.0 Basophils % 0.2 Blood Urea Nitrogen 45 #H Calcium Level 8.5 Carbon Dioxide Level 30 Chloride Level 99 Creatinine 1.92 H Eosinophils # 0.0 Eosinophils % 0.0 Glucose Level 166 Hematocrit 32.5 L Hemoglobin 11.1 L Lymphocytes # 1.5 Lymphocytes % 9.3 L Mean Corpuscular Hemoglobin 30.4 Mean Corpuscular Hemoglobin Concent 34.2 Mean Corpuscular Volume 89.0 Mean Platelet Volume 10.5 H Monocytes # 0.7 Monocytes % 4.6 Neutrophils # 13.1 H Neutrophils % 83.1 H Nucleated Red Blood Cells # 0.4 H Nucleated Red Blood Cells % 2.3 H Platelet Count 246 Potassium Level 4.0 Red Blood Count 3.65 L Red Cell Distribution Width 14.1 Sodium Level 137 White Blood Count 15.7 H Test 04/28/16 07:42 04/28/16 08:27 04/28/16 11:40 Bedside Glucose 162 188 Lab Scanned Report REFERENCE LAB Medications Medications Current Medications Allopurinol (Zyloprim) 100 mg QHS PO Last administered on 04/27/16 20:29; Admin Dose 100 MG; Start 04/21/16 at 21:00 Aspirin (Halfprin) 81 mg DAILY PO Last administered on 04/28/16 09:52; Admin Dose 81 MG; Start 04/21/16 at 09:00 Atorvastatin Calcium (Lipitor) 40 mg QHS PO Last administered on 04/27/16 20: 29; Admin Dose 40 MG; Start 04/21/16 at 21:00 Carvedilol (Coreg) 25 mg BID PO Last administered on 04/28/16 09:52; Admin Dose 25 MG; Start 04/21/16 at 09:00 Isosorbide Mononitrate (Imdur) 30 mg DAILY PO Last administered on 04/28/16 09 :52; Admin Dose 30 MG; Start 04/21/16 at 09:00 Levofloxacin (Levaquin) 250 mg Q2D@06 PO Last administered on 04/27/16 09:02; Admin Dose 250 MG; Start 04/21/16 at 06:00 Nifedipine (Procardia Xl) 30 mg DAILY PO Last administered on 04/28/16 09:53; Admin Dose 30 MG; Start 04/21/16 at 09:00 Diagnostic Test (Pha) (Accucheck) 1 ea 02 XX Last administered on 04/28/16 02: 00; Admin Dose 1 EA; Start 04/22/16 at 02:00 Miscellaneous Information 1 ea NOTE XX ; Start 04/21/16 at 05:30 Glucose (Glutose) 15 gm Q15M PRN PO DECREASED GLUCOSE; Start 04/21/16 at 05:30 Glucose (Glutose) 22.5 gm Q15M PRN PO DECREASED GLUCOSE; Start 04/21/16 at 05: 30 Dextrose (D50w Syringe) 25 ml Q15M PRN IV DECREASED GLUCOSE; Start 04/21/16 at 05:30 Dextrose (D50w Syringe) 50 ml Q15M PRN IV DECREASED GLUCOSE; Start 04/21/16 at 05:30 Glucagon (Glucagen) 1 mg Q15M PRN IM DECREASED GLUCOSE; Start 04/21/16 at 05:30 Glucose (Glutose) 15 gm Q15M PRN BUCCAL DECREASED GLUCOSE; Start 04/21/16 at 05 :30 Doxycycline Hyclate (Vibramycin) 100 mg BID@06,18 PO Last administered on 05:55; Admin Dose 100 MG; Start 04/21/16 at 06:00 Epoetin Viet (Epogen (Esrd)) 10,000 units MoWeFr@17 SC Last administered on 21:12; Admin Dose 10,000 UNITS; Start 04/22/16 at 17:00 Diphenhydramine HCl (Benadryl) 25 mg Q6H PRN PO before each unit of prbc Last administered on 04/24/16 21:35; Admin Dose 25 MG; Start 04/23/16 at 18:00 Acetaminophen (Tylenol Tab) 325 mg Q6H PRN PO before each unit of prbc Last administered on 04/25/16 14:07; Admin Dose 325 MG; Start 04/23/16 at 18:00 Furosemide (Lasix) 40 mg ONCE PRN IV after first unit of prbc; Start 04/23/16 at 18:00; Stop 04/30/16 at 17:59; Status Future hold Methylprednisolone Sodium Succinate (Solu-Medrol) 40 mg QAM IV Last administered on 04/28/16 09:53; Admin Dose 40 MG; Start 04/26/16 at 09:00 Guaifenesin/ Dextromethorphan (Mucinex Dm) 1 tab BID PO Last administered on 09:52; Admin Dose 1 TAB; Start 04/26/16 at 13:00 Heparin Sodium (Porcine) (Heparin (5000 Units/0.5 ml)) 5,000 unit Q12 SC Last administered on 04/28/16 09:56; Admin Dose 5,000 UNIT; Start 04/26/16 at 14:30 Insulin Glargine (Lantus) 15 unit AM SC Last administered on 04/28/16 09:56; Admin Dose 15 UNIT; Start 04/28/16 at 09:00 Dariel Juarez 28, 2017 14:52
--- NOTE | 2016-04-28 19:03 | PN ---
DATE: 04/28/2016 SUBJECTIVE: Patient is awake, alert, appears much more comfortable on nasal cannula oxygen alone. OBJECTIVE: VITAL SIGNS: Temperature 98.4, blood pressure 137/63, pulse of 73, respiration rate 18, O2 saturati on 97% on 2 liter nasal cannula. HEENT: Pupils equally round, reactive to light. Oropharynx clear. CHEST: Bibasilar crackles, right greater than left. CARDIAC: Regular rate and rhythm, normal S1, S2. ABDOMEN: Active bowel sounds, soft, nondistended, nontender. EXTREMITIES: No clubbing, cyanosis, or edema. LABORATORY DATA: WBC 15.7, hemoglobin 11.1, hematocrit 32.5, platelet count 246,000. Sodium 137, p otassium 4.0, chloride 99, bicarbonate 30, BUN 45, creatinine 1.9, glucose 166. ASSESSMENT AND PLAN: 1. Acute respiratory distress due to left basilar pneumonia as well as fluid overload from CHF and renal failure. The patient is status post hemodialysis x3 and appears much better clinically. Cont inue current antibiotic and a slow taper down on the Solu-Medrol. Further nephrology intervention p er Dr. Mo. 2. Diabetes mellitus. Increase due to Solu-Medrol, but is relatively controlled on increased Lantu s dosing and pre-meal NovoLog. 3. Hypertension, controlled on nifedipine and carvedilol. 4. Anemia, stable on Epogen injections, status post 2 units packed blood cells. Dictated By: TREMAINE RIOS MD DP/NTS Conf#: [id number] DID#: [id number]
[2016-04-28] MEDS: ATORVASTATIN 40 MG TAB PO SCH (20:50)
[2016-04-28] MEDS: ALLOPURINOL 100 MG TAB PO SCH (20:50)
[2016-04-28] MEDS: SENNA TAB PO SCH (20:50)
[2016-04-28] MEDS: DOCUSATE SODIUM 100 MG CAP PO SCH (20:51)
[2016-04-29] VITALS (12 sets, daily range): BP systolic 125–153; BP diastolic 59–70; PULSE 73–82; RESP 18–19
[2016-04-29] MEDS: ACCUCHECK XX SCH (02:00)
[2016-04-29] MEDS: ALBUTEROL/IPRATROPIUM (NEB) 3 ML AMP HHN SCH ×6 (02:19→21:06)
[2016-04-29] MEDS: DOXYCYCLINE 100 MG TAB PO SCH (06:22)
[2016-04-29 07:32] LABS: ADD SCAN DIFF NO
[2016-04-29 07:43] LABS: BASOPHILS % 0.1 % (0.0-2.0); EOSINOPHILS % 0.1 % (0.0-7.0); HEMATOCRIT 33.1 % (37.0-47.0); LYMPHOCYTES # 2.4 10^3/ul (0.8-2.9); LYMPHOCYTES % 16.4 % (15.0-51.0); MEAN CORPUSCULAR HEMOGLOBIN 29.5 pg (29.0-33.0); MEAN CORPUSCULAR HGB CONC 33.2 g/dl (32.0-37.0); MEAN CORPUSCULAR VOLUME 88.7 fl (82.0-101.0); MEAN PLATELET VOLUME 10.2 fl (7.4-10.4); MONOCYTE # 0.8 10^3/ul (0.3-0.9); MONOCYTES % 5.3 % (0.0-11.0); NEUTROPHILS % 74.1 % (39.0-77.0); NUCLEATED RED BLOOD CELLS # 0.3 10^3/ul (0.0-0.0); NUCLEATED RED BLOOD CELLS% 2.2 /100WBC (0.0-0.0); PLATELET COUNT 246 10^3/UL (140-415); RED BLOOD COUNT 3.73 10^6/ul (4.20-5.40); RED CELL DISTRIBUTION WIDTH 14.3 % (11.5-14.5); WHITE BLOOD COUNT 14.9 10^3/ul (4.8-10.8)
[2016-04-29 07:49] LABS: BILIRUBIN,INDIRECT 0.2 mg/dl (0-1.1); BILIRUBIN,TOTAL 0.2 mg/dl (0.2-1.3); CREATININE 2.14 mg/dl (0.44-1.00)
[2016-04-29 07:50] LABS: ALBUMIN/GLOBULIN RATIO 0.83; TOTAL PROTEIN 6.6 g/dl (6.1-8.1)
[2016-04-29 07:51] LABS: CALCIUM 8.9 mg/dl (8.4-10.2)
[2016-04-29] MEDS: INSULIN ASPART [NOVOLOG] 3 ML PEN SC SCH ×7 (08:03→20:39)
[2016-04-29] MEDS: ASPIRIN (EC) 81 MG TAB PO SCH (08:25)
[2016-04-29] MEDS: SENNA TAB PO SCH ×2 (08:25→20:20)
[2016-04-29] MEDS: DOCUSATE SODIUM 100 MG CAP PO SCH ×2 (08:25→20:20)
[2016-04-29] MEDS: GUAIFENESIN/DM (SR) TAB PO SCH ×2 (08:25→20:22)
[2016-04-29] MEDS: ISOSORBIDE MONONITRATE(SR)30 MG TAB PO SCH (08:26)
[2016-04-29] MEDS: NIFEdipine (XL) 30 MG TAB PO SCH ×2 (08:26→20:21)
[2016-04-29] MEDS: CALCIUM ACETATE 667 MG CAP PO SCH ×3 (08:26→17:20)
[2016-04-29] MEDS: predniSONE 20 MG TAB PO SCH (08:26)
[2016-04-29] MEDS: INSULIN GLARGINE [LANtus] 3 ML PEN SC SCH (08:28)
[2016-04-29] MEDS: HEPARIN 5,000 UNIT/0.5 ML SYG SC SCH ×2 (08:28→20:40)
[2016-04-29] MEDS: LEVOFLOXACIN 250 MG TAB PO SCH (09:40)
--- NOTE | 2016-04-29 13:34 | CONS ---
Date/Time of Note Date/Time of Note DATE: 04/29/16 TIME: 13:31 Assessment/Plan Assessment/Plan Chief Complaint/Hosp Course 1. ARF on CKD , she has had 3 hemodialysis treatments . , will check labs in am to determine need for next dialysis . If she requires further dialysis then I would recommend placement of an IJ permacath . 2. anemia , improved 3. CHF , improved 4. Pneumonia , improved on CXR done 04/26/16. 4. DM Problems: Consultation Date/Type/Reason Admit Date/Time Apr 23, 2016 at 15:06 Initial Consult Date 04/21/16 Type of Consultation: renal 24 HR Interval Summary Free Text/Dictation she awake and responsive . she denies SOB . Constitutional: improved, no complaints Exam/Review of Systems Vital Signs Vitals Vital Signs Date Time Temp Pulse Resp B/P Pulse Ox O2 Delivery O2 Flow Rate FiO2 04/29/16 13:11 2.0 04/29/16 13:10 90 20 97 Nasal Cannula 04/29/16 11:07 98.2 125/60 Intake and Output 04/28/16 04/28/16 04/29/16 15:00 23:00 07:00 Intake Total 650 ml 300 ml Balance 650 ml 300 ml Exam Constitutional: alert, oriented Psych: no complaints Respiratory: clear to auscultation, normal air movement Cardiovascular: regular rate and rhythm Gastrointestinal: soft Musculoskeletal: nl extremities to inspection Results Result Diagram: 04/29/16 0710 04/29/16 0710 Results 24 hrs Laboratory Tests Test 04/28/16 16:55 04/28/16 20:34 04/29/16 03:38 04/29/16 07:10 Bedside Glucose 206 249 H 144 Alanine Aminotransferase (ALT/SGPT) 37 Albumin 3.0 L Albumin/Globulin Ratio 0.83 Alkaline Phosphatase 141 H Anion Gap 13 Aspartate Amino Transf (AST/SGOT) 25 Basophils # 0.0 Basophils % 0.1 Blood Urea Nitrogen 56 H Calcium Level 8.9 Carbon Dioxide Level 29 Chloride Level 100 Creatinine 2.14 H Direct Bilirubin 0.00 Eosinophils # 0.0 Eosinophils % 0.1 Globulin 3.60 H Glucose Level 154 Hematocrit 33.1 L Hemoglobin 11.0 L Indirect Bilirubin 0.2 Lymphocytes # 2.4 Lymphocytes % 16.4 Mean Corpuscular Hemoglobin 29.5 Mean Corpuscular Hemoglobin Concent 33.2 Mean Corpuscular Volume 88.7 Mean Platelet Volume 10.2 Monocytes # 0.8 Monocytes % 5.3 Neutrophils # 11.0 H Neutrophils % 74.1 Nucleated Red Blood Cells # 0.3 H Nucleated Red Blood Cells % 2.2 H Platelet Count 246 Potassium Level 4.0 Red Blood Count 3.73 L Red Cell Distribution Width 14.3 Sodium Level 138 Total Bilirubin 0.2 Total Protein 6.6 White Blood Count 14.9 H Test 04/29/16 07:57 04/29/16 11:54 Bedside Glucose 144 287 H Medications Medications Current Medications Allopurinol (Zyloprim) 100 mg QHS PO Last administered on 04/28/16 20:50; Admin Dose 100 MG; Start 04/21/16 at 21:00 Aspirin (Halfprin) 81 mg DAILY PO Last administered on 04/29/16 08:25; Admin Dose 81 MG; Start 04/21/16 at 09:00 Atorvastatin Calcium (Lipitor) 40 mg QHS PO Last administered on 04/28/16 20: 50; Admin Dose 40 MG; Start 04/21/16 at 21:00 Carvedilol (Coreg) 25 mg BID PO Last administered on 04/29/16 08:25; Admin Dose 25 MG; Start 04/21/16 at 09:00 Isosorbide Mononitrate (Imdur) 30 mg DAILY PO Last administered on 04/29/16 08: 26; Admin Dose 30 MG; Start 04/21/16 at 09:00 Levofloxacin (Levaquin) 250 mg Q2D@06 PO Last administered on 04/29/16 09:40; Admin Dose 250 MG; Start 04/21/16 at 06:00 Diagnostic Test (Pha) (Accucheck) 1 ea 02 XX Last administered on 04/29/16 02: 00; Admin Dose 1 EA; Start 04/22/16 at 02:00 Miscellaneous Information 1 ea NOTE XX ; Start 04/21/16 at 05:30 Glucose (Glutose) 15 gm Q15M PRN PO DECREASED GLUCOSE; Start 04/21/16 at 05:30 Glucose (Glutose) 22.5 gm Q15M PRN PO DECREASED GLUCOSE; Start 04/21/16 at 05: 30 Dextrose (D50w Syringe) 25 ml Q15M PRN IV DECREASED GLUCOSE; Start 04/21/16 at 05:30 Dextrose (D50w Syringe) 50 ml Q15M PRN IV DECREASED GLUCOSE; Start 04/21/16 at 05:30 Glucagon (Glucagen) 1 mg Q15M PRN IM DECREASED GLUCOSE; Start 04/21/16 at 05:30 Glucose (Glutose) 15 gm Q15M PRN BUCCAL DECREASED GLUCOSE; Start 04/21/16 at 05 :30 Doxycycline Hyclate (Vibramycin) 100 mg BID@06,18 PO Last administered on 06:22; Admin Dose 100 MG; Start 04/21/16 at 06:00 Epoetin Viet (Epogen (Esrd)) 10,000 units MoWeFr@17 SC Last administered on 21:12; Admin Dose 10,000 UNITS; Start 04/22/16 at 17:00 Diphenhydramine HCl (Benadryl) 25 mg Q6H PRN PO before each unit of prbc Last administered on 04/24/16 21:35; Admin Dose 25 MG; Start 04/23/16 at 18:00 Acetaminophen (Tylenol Tab) 325 mg Q6H PRN PO before each unit of prbc Last administered on 04/25/16 14:07; Admin Dose 325 MG; Start 04/23/16 at 18:00 Furosemide (Lasix) 40 mg ONCE PRN IV after first unit of prbc; Start 04/23/16 at 18:00; Stop 04/30/16 at 17:59; Status Future hold Guaifenesin/ Dextromethorphan (Mucinex Dm) 1 tab BID PO Last administered on 08:25; Admin Dose 1 TAB; Start 04/26/16 at 13:00 Heparin Sodium (Porcine) (Heparin (5000 Units/0.5 ml)) 5,000 unit Q12 SC Last administered on 04/29/16 08:28; Admin Dose 5,000 UNIT; Start 04/26/16 at 14:30 Insulin Glargine (Lantus) 15 unit AM SC Last administered on 04/29/16 08:28; Admin Dose 15 UNIT; Start 04/28/16 at 09:00 Nifedipine (Procardia Xl) 30 mg BID PO Last administered on 04/29/16 08:26; Admin Dose 30 MG; Start 04/28/16 at 21:00 Prednisone (Prednisone) 40 mg DAILY PO Last administered on 04/29/16 08:26; Admin Dose 40 MG; Start 04/29/16 at 09:00 Docusate Sodium (Colace) 100 mg BID PO Last administered on 04/29/16 08:25; Admin Dose 100 MG; Start 04/28/16 at 21:00 Senna (Senokot) 1 tab BID PO Last administered on 04/29/16 08:25; Admin Dose 1 TAB; Start 04/28/16 at 21:00 HOPE DOW MD Apr 29, 2016 13:34
--- NOTE | 2016-04-29 14:17 | CONS ---
Date/Time of Note Date/Time of Note DATE: 04/29/16 TIME: 14:15 Assessment/Plan Assessment/Plan Additional Assessment/Plan Acute decompensated diastolic congestive heart failure Hypertension Acute on chronic kidney injury Diabetes -Volume status continues to improve with hemodialysis. Blood pressure has improved since increasing frequency of Procardia. No new cardiac orders at the current time. Consultation Date/Type/Reason Admit Date/Time Apr 23, 2016 at 15:06 Initial Consult Date 04/21/16 Type of Consultation: cv 24 HR Interval Summary Free Text/Dictation Denies shortness of breath, chest pain or palpitations Exam/Review of Systems Vital Signs Vitals Vital Signs Date Time Temp Pulse Resp B/P Pulse Ox O2 Delivery O2 Flow Rate FiO2 04/29/16 13:11 2.0 04/29/16 13:10 90 20 97 Nasal Cannula 04/29/16 11:07 98.2 125/60 Intake and Output 04/28/16 04/28/16 04/29/16 15:00 23:00 07:00 Intake Total 650 ml 300 ml Balance 650 ml 300 ml Exam No apparent distress Constitutional: alert, obese, oriented Head: normocephalic Neck: supple Respiratory: other (Coarse breath sounds bilaterally, no wheezing) Cardiovascular: other (S1-S2 heard), regular rate and rhythm Gastrointestinal: bowel sounds, non-tender, other (No guarding), soft Extremities: edema (Trace) Results Result Diagram: 04/29/16 0710 04/29/16 0710 Results 24 hrs Laboratory Tests Test 04/28/16 16:55 04/28/16 20:34 04/29/16 03:38 04/29/16 07:10 Bedside Glucose 206 249 H 144 Alanine Aminotransferase (ALT/SGPT) 37 Albumin 3.0 L Albumin/Globulin Ratio 0.83 Alkaline Phosphatase 141 H Anion Gap 13 Aspartate Amino Transf (AST/SGOT) 25 Basophils # 0.0 Basophils % 0.1 Blood Urea Nitrogen 56 H Calcium Level 8.9 Carbon Dioxide Level 29 Chloride Level 100 Creatinine 2.14 H Direct Bilirubin 0.00 Eosinophils # 0.0 Eosinophils % 0.1 Globulin 3.60 H Glucose Level 154 Hematocrit 33.1 L Hemoglobin 11.0 L Indirect Bilirubin 0.2 Lymphocytes # 2.4 Lymphocytes % 16.4 Mean Corpuscular Hemoglobin 29.5 Mean Corpuscular Hemoglobin Concent 33.2 Mean Corpuscular Volume 88.7 Mean Platelet Volume 10.2 Monocytes # 0.8 Monocytes % 5.3 Neutrophils # 11.0 H Neutrophils % 74.1 Nucleated Red Blood Cells # 0.3 H Nucleated Red Blood Cells % 2.2 H Platelet Count 246 Potassium Level 4.0 Red Blood Count 3.73 L Red Cell Distribution Width 14.3 Sodium Level 138 Total Bilirubin 0.2 Total Protein 6.6 White Blood Count 14.9 H Test 04/29/16 07:57 04/29/16 11:54 Bedside Glucose 144 287 H Medications Medications Current Medications Allopurinol (Zyloprim) 100 mg QHS PO Last administered on 04/28/16 20:50; Admin Dose 100 MG; Start 04/21/16 at 21:00 Aspirin (Halfprin) 81 mg DAILY PO Last administered on 04/29/16 08:25; Admin Dose 81 MG; Start 04/21/16 at 09:00 Atorvastatin Calcium (Lipitor) 40 mg QHS PO Last administered on 04/28/16 20: 50; Admin Dose 40 MG; Start 04/21/16 at 21:00 Carvedilol (Coreg) 25 mg BID PO Last administered on 04/29/16 08:25; Admin Dose 25 MG; Start 04/21/16 at 09:00 Isosorbide Mononitrate (Imdur) 30 mg DAILY PO Last administered on 04/29/16 08: 26; Admin Dose 30 MG; Start 04/21/16 at 09:00 Levofloxacin (Levaquin) 250 mg Q2D@06 PO Last administered on 04/29/16 09:40; Admin Dose 250 MG; Start 04/21/16 at 06:00 Diagnostic Test (Pha) (Accucheck) 1 ea 02 XX Last administered on 04/29/16 02: 00; Admin Dose 1 EA; Start 04/22/16 at 02:00 Miscellaneous Information 1 ea NOTE XX ; Start 04/21/16 at 05:30 Glucose (Glutose) 15 gm Q15M PRN PO DECREASED GLUCOSE; Start 04/21/16 at 05:30 Glucose (Glutose) 22.5 gm Q15M PRN PO DECREASED GLUCOSE; Start 04/21/16 at 05: 30 Dextrose (D50w Syringe) 25 ml Q15M PRN IV DECREASED GLUCOSE; Start 04/21/16 at 05:30 Dextrose (D50w Syringe) 50 ml Q15M PRN IV DECREASED GLUCOSE; Start 04/21/16 at 05:30 Glucagon (Glucagen) 1 mg Q15M PRN IM DECREASED GLUCOSE; Start 04/21/16 at 05:30 Glucose (Glutose) 15 gm Q15M PRN BUCCAL DECREASED GLUCOSE; Start 04/21/16 at 05 :30 Doxycycline Hyclate (Vibramycin) 100 mg BID@06,18 PO Last administered on 06:22; Admin Dose 100 MG; Start 04/21/16 at 06:00 Epoetin Viet (Epogen (Esrd)) 10,000 units MoWeFr@17 SC Last administered on 21:12; Admin Dose 10,000 UNITS; Start 04/22/16 at 17:00 Diphenhydramine HCl (Benadryl) 25 mg Q6H PRN PO before each unit of prbc Last administered on 04/24/16 21:35; Admin Dose 25 MG; Start 04/23/16 at 18:00 Acetaminophen (Tylenol Tab) 325 mg Q6H PRN PO before each unit of prbc Last administered on 04/25/16 14:07; Admin Dose 325 MG; Start 04/23/16 at 18:00 Furosemide (Lasix) 40 mg ONCE PRN IV after first unit of prbc; Start 04/23/16 at 18:00; Stop 04/30/16 at 17:59; Status Future hold Guaifenesin/ Dextromethorphan (Mucinex Dm) 1 tab BID PO Last administered on 08:25; Admin Dose 1 TAB; Start 04/26/16 at 13:00 Heparin Sodium (Porcine) (Heparin (5000 Units/0.5 ml)) 5,000 unit Q12 SC Last administered on 04/29/16 08:28; Admin Dose 5,000 UNIT; Start 04/26/16 at 14:30 Insulin Glargine (Lantus) 15 unit AM SC Last administered on 04/29/16 08:28; Admin Dose 15 UNIT; Start 04/28/16 at 09:00 Nifedipine (Procardia Xl) 30 mg BID PO Last administered on 04/29/16 08:26; Admin Dose 30 MG; Start 04/28/16 at 21:00 Prednisone (Prednisone) 40 mg DAILY PO Last administered on 04/29/16 08:26; Admin Dose 40 MG; Start 04/29/16 at 09:00 Docusate Sodium (Colace) 100 mg BID PO Last administered on 04/29/16 08:25; Admin Dose 100 MG; Start 04/28/16 at 21:00 Senna (Senokot) 1 tab BID PO Last administered on 04/29/16 08:25; Admin Dose 1 TAB; Start 04/28/16 at 21:00 Dariel Juarez DO Apr 29, 2016 14:17
--- NOTE | 2016-04-29 16:08 | CONS ---
Date/Time of Note Date/Time of Note DATE: 04/29/16 TIME: 16:07 Assessment/Plan Assessment/Plan Chief Complaint/Hosp Course SUBJECTIVE: No acute changes. The patient is resting comfortably, no fevers. INDWELLINGS: Right femoral Irineo. ANTIMICROBIALS: Doxycycline and Levaquin, day #9. PHYSICAL EXAMINATION: GENERAL: Fragile, elderly woman who is in no distress. HEENT: Head atraumatic, normocephalic. Sclerae anicteric. Buccal mucosa pink , dry. NECK: Supple. CHEST: Rise symmetrical. Breath sounds clear. HEART: S1, S2. ABDOMEN: Soft, bowel tones present. EXTREMITIES: Without cyanosis. ASSESSMENT: 1. Status post-acute hypoxemic respiratory failure secondary to fluid overload. 2. Resolving pneumonia. 3. Acute on chronic kidney disease, on hemodialysis. 4. Hypertension. 5. Diabetes. 6. Leukocytosis secondary to steroids. PLAN: Improving, dc abx in am. Follow recommendations of consultants. DW staff/pt Problems: Consultation Date/Type/Reason Admit Date/Time Apr 23, 2016 at 15:06 Initial Consult Date 04/21/16 Type of Consultation: ID Exam/Review of Systems Vital Signs Vitals Vital Signs Date Time Temp Pulse Resp B/P Pulse Ox O2 Delivery O2 Flow Rate FiO2 04/29/16 15:13 98.2 77 18 140/67 98 04/29/16 13:11 2.0 04/29/16 13:10 Nasal Cannula Intake and Output 04/28/16 04/28/16 04/29/16 15:00 23:00 07:00 Intake Total 650 ml 300 ml Balance 650 ml 300 ml Results Result Diagram: 04/29/16 0710 04/29/16 0710 Results 24 hrs Laboratory Tests Test 04/28/16 16:55 04/28/16 20:34 04/29/16 03:38 04/29/16 07:10 Bedside Glucose 206 249 H 144 Alanine Aminotransferase (ALT/SGPT) 37 Albumin 3.0 L Albumin/Globulin Ratio 0.83 Alkaline Phosphatase 141 H Anion Gap 13 Aspartate Amino Transf (AST/SGOT) 25 Basophils # 0.0 Basophils % 0.1 Blood Urea Nitrogen 56 H Calcium Level 8.9 Carbon Dioxide Level 29 Chloride Level 100 Creatinine 2.14 H Direct Bilirubin 0.00 Eosinophils # 0.0 Eosinophils % 0.1 Globulin 3.60 H Glucose Level 154 Hematocrit 33.1 L Hemoglobin 11.0 L Indirect Bilirubin 0.2 Lymphocytes # 2.4 Lymphocytes % 16.4 Mean Corpuscular Hemoglobin 29.5 Mean Corpuscular Hemoglobin Concent 33.2 Mean Corpuscular Volume 88.7 Mean Platelet Volume 10.2 Monocytes # 0.8 Monocytes % 5.3 Neutrophils # 11.0 H Neutrophils % 74.1 Nucleated Red Blood Cells # 0.3 H Nucleated Red Blood Cells % 2.2 H Platelet Count 246 Potassium Level 4.0 Red Blood Count 3.73 L Red Cell Distribution Width 14.3 Sodium Level 138 Total Bilirubin 0.2 Total Protein 6.6 White Blood Count 14.9 H Test 04/29/16 07:57 04/29/16 11:54 Bedside Glucose 144 287 H Medications Medications Current Medications Allopurinol (Zyloprim) 100 mg QHS PO Last administered on 04/28/16 20:50; Admin Dose 100 MG; Start 04/21/16 at 21:00 Aspirin (Halfprin) 81 mg DAILY PO Last administered on 04/29/16 08:25; Admin Dose 81 MG; Start 04/21/16 at 09:00 Atorvastatin Calcium (Lipitor) 40 mg QHS PO Last administered on 04/28/16 20: 50; Admin Dose 40 MG; Start 04/21/16 at 21:00 Carvedilol (Coreg) 25 mg BID PO Last administered on 04/29/16 08:25; Admin Dose 25 MG; Start 04/21/16 at 09:00 Isosorbide Mononitrate (Imdur) 30 mg DAILY PO Last administered on 04/29/16 08: 26; Admin Dose 30 MG; Start 04/21/16 at 09:00 Levofloxacin (Levaquin) 250 mg Q2D@06 PO Last administered on 04/29/16 09:40; Admin Dose 250 MG; Start 04/21/16 at 06:00 Diagnostic Test (Pha) (Accucheck) 1 ea 02 XX Last administered on 04/29/16 02: 00; Admin Dose 1 EA; Start 04/22/16 at 02:00 Miscellaneous Information 1 ea NOTE XX ; Start 04/21/16 at 05:30 Glucose (Glutose) 15 gm Q15M PRN PO DECREASED GLUCOSE; Start 04/21/16 at 05:30 Glucose (Glutose) 22.5 gm Q15M PRN PO DECREASED GLUCOSE; Start 04/21/16 at 05: 30 Dextrose (D50w Syringe) 25 ml Q15M PRN IV DECREASED GLUCOSE; Start 04/21/16 at 05:30 Dextrose (D50w Syringe) 50 ml Q15M PRN IV DECREASED GLUCOSE; Start 04/21/16 at 05:30 Glucagon (Glucagen) 1 mg Q15M PRN IM DECREASED GLUCOSE; Start 04/21/16 at 05:30 Glucose (Glutose) 15 gm Q15M PRN BUCCAL DECREASED GLUCOSE; Start 04/21/16 at 05 :30 Doxycycline Hyclate (Vibramycin) 100 mg BID@06,18 PO Last administered on 06:22; Admin Dose 100 MG; Start 04/21/16 at 06:00 Epoetin Viet (Epogen (Esrd)) 10,000 units MoWeFr@17 SC Last administered on 21:12; Admin Dose 10,000 UNITS; Start 04/22/16 at 17:00 Diphenhydramine HCl (Benadryl) 25 mg Q6H PRN PO before each unit of prbc Last administered on 04/24/16 21:35; Admin Dose 25 MG; Start 04/23/16 at 18:00 Acetaminophen (Tylenol Tab) 325 mg Q6H PRN PO before each unit of prbc Last administered on 04/25/16 14:07; Admin Dose 325 MG; Start 04/23/16 at 18:00 Furosemide (Lasix) 40 mg ONCE PRN IV after first unit of prbc; Start 04/23/16 at 18:00; Stop 04/30/16 at 17:59; Status Future hold Guaifenesin/ Dextromethorphan (Mucinex Dm) 1 tab BID PO Last administered on 08:25; Admin Dose 1 TAB; Start 04/26/16 at 13:00 Heparin Sodium (Porcine) (Heparin (5000 Units/0.5 ml)) 5,000 unit Q12 SC Last administered on 04/29/16 08:28; Admin Dose 5,000 UNIT; Start 04/26/16 at 14:30 Insulin Glargine (Lantus) 15 unit AM SC Last administered on 04/29/16 08:28; Admin Dose 15 UNIT; Start 04/28/16 at 09:00 Nifedipine (Procardia Xl) 30 mg BID PO Last administered on 04/29/16 08:26; Admin Dose 30 MG; Start 04/28/16 at 21:00 Prednisone (Prednisone) 40 mg DAILY PO Last administered on 04/29/16 08:26; Admin Dose 40 MG; Start 04/29/16 at 09:00 Docusate Sodium (Colace) 100 mg BID PO Last administered on 04/29/16 08:25; Admin Dose 100 MG; Start 04/28/16 at 21:00 Senna (Senokot) 1 tab BID PO Last administered on 04/29/16 08:25; Admin Dose 1 TAB; Start 04/28/16 at 21:00 LIZZY CARPENTER NP Apr 29, 2016 16:08
--- NOTE | 2016-04-29 16:50 | PN ---
DATE: 04/29/2016 SUBJECTIVE: The patient is awake, alert and has no acute complaints. OBJECTIVE: VITAL SIGNS: Temperature 98.2, blood pressure 140/67, pulse of 77, respiration rate of 18, O2 saturation is 98% on 2 liter nasal cannula. HEENT: Pupils equally round, reactive to light. Oropharynx clear. LUNGS: Minimal right basilar crackles, left basilar crackles about a third way up. CARDIAC: Regular rate and rhythm, normal S1, S2. ABDOMEN: Active bowel sounds, soft, nondistended, nontender. EXTREMITIES: No clubbing, cyanosis, or edema. LABORATORY DATA: His WBC 14.9, hemoglobin 11.0, hematocrit 33.1, platelet count 246,000. Sodium 138, potassium 4.0, BUN 56, creatinine 2.14, glucose 154. ASSESSMENT AND PLAN: 1. Acute pneumonitis. The patient is improving very slowly with persistent elevated WBC. Will recheck chest x-ray for improvement radiologically. Her WBC is elevated due to steroid use. Will continue tapering steroids from current dose of 40 mg prednisone every day if chest x-ray shows improvement. 2. Congestive heart failure, improving clinically, especially after hemodialysis. 3. Acute on chronic renal failure. Discussed with Dr. Mo who feels that the patient will probably need to start on outpatient hemodialysis . I will discuss this with the patient's daughter. If this is agreeable with the family, we will request vascular consult for permanent dialysis catheter placement. Dictated By: TREMAINE RIOS MD DP/NTS Conf#: [id number] DID#: [id number] JHONATHAN
[2016-04-29] MEDS: EPOETIN 10000 UNITS/1 ML INJ (ESRD) SC SCH (17:40)
--- NOTE | 2016-04-29 19:25 | RADRPT ---
PROCEDURE: XR Chest. CLINICAL INDICATION: Pneumonia. TECHNIQUE: PA and Lateral views of the chest were obtained. COMPARISON: Chest x-ray 04/23/2078 09:10 a.m. FINDINGS: There is subsegmental atelectasis in the left lower lobe. The heart is improved in size. There are persistent areas of atelectasis and infiltrate lateral to the right hilum and in the right lower lo be which also show interval improvement. There are osteophytes in the thoracic spine. There are va scular calcifications in the aortic arch. The left costophrenic angle is blunted. IMPRESSION: 1. The heart is not upper limits of normal for size. 2. Atherosclerosis with ectasia of the thoracic aorta. 3. Interval improvement of the right perihilar and right lower lobe infiltrates previously identifi ed residual areas of atelectasis and infiltrate noted lateral to the right hilum and in the right lo wer lobe. 4. Interval development of bronchiolitis and atelectasis in the medial aspect of the left lower lob e since the prior exam. 5. Spondylosis of the thoracic spine. 6. Left pleural effusion. RPTAT:AAJJ Physician Paulino Date Time Electronically viewed and signed by Physician Paulino on 04/29/2016 19:25 CHRISTIANO/
[2016-04-29] MEDS: ATORVASTATIN 40 MG TAB PO SCH (20:22)
[2016-04-29] MEDS: ALLOPURINOL 100 MG TAB PO SCH (20:22)
[2016-04-30] VITALS (17 sets, daily range): BP systolic 109–152; BP diastolic 57–71; PULSE 16–81; RESP 17–19
[2016-04-30] MEDS: ALBUTEROL/IPRATROPIUM (NEB) 3 ML AMP HHN SCH ×6 (00:56→21:00)
[2016-04-30] MEDS: ACCUCHECK XX SCH (02:00)
[2016-04-30 07:41] LABS: ALBUMIN 2.9 g/dl (3.3-4.9)
[2016-04-30 07:42] LABS: POTASSIUM 4.5 mmol/L (3.5-5.1)
[2016-04-30 07:44] LABS: ALBUMIN/GLOBULIN RATIO 0.85; BILIRUBIN,INDIRECT 0.2 mg/dl (0-1.1); BILIRUBIN,TOTAL 0.2 mg/dl (0.2-1.3); CREATININE 2.19 mg/dl (0.44-1.00); TOTAL PROTEIN 6.3 g/dl (6.1-8.1)
[2016-04-30 07:45] LABS: CALCIUM 8.9 mg/dl (8.4-10.2)
[2016-04-30] MEDS: CALCIUM ACETATE 667 MG CAP PO SCH ×3 (08:45→17:33)
[2016-04-30] MEDS: GUAIFENESIN/DM (SR) TAB PO SCH ×2 (08:46→21:12)
[2016-04-30] MEDS: predniSONE 20 MG TAB PO SCH (08:47)
[2016-04-30] MEDS: DOCUSATE SODIUM 100 MG CAP PO SCH ×2 (08:47→21:12)
[2016-04-30] MEDS: SENNA TAB PO SCH ×2 (08:47→21:13)
[2016-04-30] MEDS: ASPIRIN (EC) 81 MG TAB PO SCH (08:47)
[2016-04-30] MEDS: ISOSORBIDE MONONITRATE(SR)30 MG TAB PO SCH (08:48)
[2016-04-30] MEDS: NIFEdipine (XL) 30 MG TAB PO SCH ×2 (08:49→21:13)
[2016-04-30] MEDS: HEPARIN 5,000 UNIT/0.5 ML SYG SC SCH ×2 (08:52→21:19)
[2016-04-30] MEDS: INSULIN ASPART [NOVOLOG] 3 ML PEN SC SCH ×7 (08:53→21:23)
[2016-04-30] MEDS: INSULIN GLARGINE [LANtus] 3 ML PEN SC SCH (08:54)
--- NOTE | 2016-04-30 10:42 | CONS ---
Date/Time of Note Date/Time of Note DATE: 04/30/16 TIME: 10:38 Assessment/Plan Assessment/Plan Chief Complaint/Hosp Course 1. ARF on CKD , she has had 3 hemodialysis treatments .She has a rising BUN and low urine output . I will dialyze her today and have placement of an IJ permacath tomorrow by Dr Asher . 2. anemia , improved 3. CHF , improved 4. Pneumonia , improved on CXR done 04/26/16. 4. DM Problems: Consultation Date/Type/Reason Admit Date/Time Apr 23, 2016 at 15:06 Initial Consult Date 04/21/16 Type of Consultation: ID [id number] HR Interval Summary Free Text/Dictation she is awake and alert . Constitutional: improved, no complaints Exam/Review of Systems Vital Signs Vitals Vital Signs Date Time Temp Pulse Resp B/P Pulse Ox O2 Delivery O2 Flow Rate FiO2 04/30/16 09:45 79 18 99 Nasal Cannula 2.0 04/30/16 07:52 98.0 128/64 Intake and Output 04/29/16 04/29/16 04/30/16 15:00 23:00 07:00 Intake Total 450 ml 300 ml Balance 450 ml 300 ml Exam Constitutional: alert Psych: no complaints Respiratory: clear to auscultation, normal air movement Cardiovascular: regular rate and rhythm Gastrointestinal: soft Musculoskeletal: nl extremities to inspection Results Result Diagram: 04/29/16 0710 04/30/16 0705 Results 24 hrs Laboratory Tests Test 04/29/16 11:54 04/29/16 17:15 04/29/16 20:07 04/30/16 03:46 Bedside Glucose 287 H 234 H 224 H 185 Test 04/30/16 07:05 04/30/16 07:47 Alanine Aminotransferase (ALT/SGPT) 40 Albumin 2.9 L Albumin/Globulin Ratio 0.85 Alkaline Phosphatase 128 H Anion Gap 14 Aspartate Amino Transf (AST/SGOT) 25 Blood Urea Nitrogen 63 H Calcium Level 8.9 Carbon Dioxide Level 28 Chloride Level 101 Creatinine 2.19 H Direct Bilirubin 0.00 Globulin 3.40 H Glucose Level 175 Indirect Bilirubin 0.2 Potassium Level 4.5 Sodium Level 138 Total Bilirubin 0.2 Total Protein 6.3 Bedside Glucose 175 Medications Medications Current Medications Allopurinol (Zyloprim) 100 mg QHS PO Last administered on 04/29/16 20:22; Admin Dose 100 MG; Start 04/21/16 at 21:00 Aspirin (Halfprin) 81 mg DAILY PO Last administered on 04/30/16 08:47; Admin Dose 81 MG; Start 04/21/16 at 09:00 Atorvastatin Calcium (Lipitor) 40 mg QHS PO Last administered on 04/29/16 20:22 ; Admin Dose 40 MG; Start 04/21/16 at 21:00 Carvedilol (Coreg) 25 mg BID PO Last administered on 04/30/16 08:48; Admin Dose 25 MG; Start 04/21/16 at 09:00 Isosorbide Mononitrate (Imdur) 30 mg DAILY PO Last administered on 04/30/16 08: 48; Admin Dose 30 MG; Start 04/21/16 at 09:00 Diagnostic Test (Pha) (Accucheck) 1 ea 02 XX Last administered on 04/29/16 02: 00; Admin Dose 1 EA; Start 04/22/16 at 02:00 Miscellaneous Information 1 ea NOTE XX ; Start 04/21/16 at 05:30 Glucose (Glutose) 15 gm Q15M PRN PO DECREASED GLUCOSE; Start 04/21/16 at 05:30 Glucose (Glutose) 22.5 gm Q15M PRN PO DECREASED GLUCOSE; Start 04/21/16 at 05: 30 Dextrose (D50w Syringe) 25 ml Q15M PRN IV DECREASED GLUCOSE; Start 04/21/16 at 05:30 Dextrose (D50w Syringe) 50 ml Q15M PRN IV DECREASED GLUCOSE; Start 04/21/16 at 05:30 Glucagon (Glucagen) 1 mg Q15M PRN IM DECREASED GLUCOSE; Start 04/21/16 at 05:30 Glucose (Glutose) 15 gm Q15M PRN BUCCAL DECREASED GLUCOSE; Start 04/21/16 at 05 :30 Epoetin Viet (Epogen (Esrd)) 10,000 units MoWeFr@17 SC Last administered on 04/29 17:40; Admin Dose 10,000 UNITS; Start 04/22/16 at 17:00 Diphenhydramine HCl (Benadryl) 25 mg Q6H PRN PO before each unit of prbc Last administered on 04/24/16 21:35; Admin Dose 25 MG; Start 04/23/16 at 18:00 Acetaminophen (Tylenol Tab) 325 mg Q6H PRN PO before each unit of prbc Last administered on 04/25/16 14:07; Admin Dose 325 MG; Start 04/23/16 at 18:00 Furosemide (Lasix) 40 mg ONCE PRN IV after first unit of prbc; Start 04/23/16 at 18:00; Stop 04/30/16 at 17:59; Status Future hold Guaifenesin/ Dextromethorphan (Mucinex Dm) 1 tab BID PO Last administered on 08:46; Admin Dose 1 TAB; Start 04/26/16 at 13:00 Heparin Sodium (Porcine) (Heparin (5000 Units/0.5 ml)) 5,000 unit Q12 SC Last administered on 04/30/16 08:52; Admin Dose 5,000 UNIT; Start 04/26/16 at 14:30 Insulin Glargine (Lantus) 15 unit AM SC Last administered on 04/30/16 08:54; Admin Dose 15 UNIT; Start 04/28/16 at 09:00 Nifedipine (Procardia Xl) 30 mg BID PO Last administered on 04/30/16 08:49; Admin Dose 30 MG; Start 04/28/16 at 21:00 Prednisone (Prednisone) 40 mg DAILY PO Last administered on 04/30/16 08:47; Admin Dose 40 MG; Start 04/29/16 at 09:00 Docusate Sodium (Colace) 100 mg BID PO Last administered on 04/30/16 08:47; Admin Dose 100 MG; Start 04/28/16 at 21:00 Senna (Senokot) 1 tab BID PO Last administered on 04/30/16 08:47; Admin Dose 1 TAB; Start 04/28/16 at 21:00 HOPE DOW MD Apr 30, 2016 10:41
--- NOTE | 2016-04-30 12:25 | CONS ---
Date/Time of Note Date/Time of Note DATE: 04/30/16 TIME: 12:23 Assessment/Plan Assessment/Plan Chief Complaint/Hosp Course SUBJECTIVE: No acute changes. The patient is comfortable on nc, no fevers. INDWELLINGS: Right femoral Irineo. PHYSICAL EXAMINATION: GENERAL: Fragile, elderly woman who is in no distress. HEENT: Head atraumatic, normocephalic. Sclerae anicteric. Buccal mucosa pink , dry. NECK: Supple. CHEST: Rise symmetrical. Breath sounds clear. HEART: S1, S2. ABDOMEN: Soft, bowel tones present. EXTREMITIES: Without cyanosis. ASSESSMENT: 1. Status post-acute hypoxemic respiratory failure secondary to fluid overload. 2. S/p pneumonia. 3. Acute on chronic kidney disease, on hemodialysis. 4. Hypertension. 5. Diabetes. 6. Leukocytosis==> s/p steroids. PLAN: Stable, abx dc'd, continue present care, encourage incentive spirometry. Follow recommendations of consultants. DW staff/pt Problems: Consultation Date/Type/Reason Admit Date/Time Apr 23, 2016 at 15:06 Initial Consult Date 04/21/16 Type of Consultation: ID Exam/Review of Systems Vital Signs Vitals Vital Signs Date Time Temp Pulse Resp B/P Pulse Ox O2 Delivery O2 Flow Rate FiO2 04/30/16 12:12 98.0 75 18 131/68 98 04/30/16 09:45 Nasal Cannula 2.0 Intake and Output 04/29/16 04/29/16 04/30/16 15:00 23:00 07:00 Intake Total 450 ml 300 ml Balance 450 ml 300 ml Results Result Diagram: 04/29/16 0710 04/30/16 0705 Results 24 hrs Laboratory Tests Test 04/29/16 17:15 04/29/16 20:07 04/30/16 03:46 04/30/16 07:05 Bedside Glucose 234 H 224 H 185 Alanine Aminotransferase (ALT/SGPT) 40 Albumin 2.9 L Albumin/Globulin Ratio 0.85 Alkaline Phosphatase 128 H Anion Gap 14 Aspartate Amino Transf (AST/SGOT) 25 Blood Urea Nitrogen 63 H Calcium Level 8.9 Carbon Dioxide Level 28 Chloride Level 101 Creatinine 2.19 H Direct Bilirubin 0.00 Globulin 3.40 H Glucose Level 175 Indirect Bilirubin 0.2 Potassium Level 4.5 Sodium Level 138 Total Bilirubin 0.2 Total Protein 6.3 Test 04/30/16 07:47 04/30/16 12:06 Bedside Glucose 175 195 Medications Medications Current Medications Allopurinol (Zyloprim) 100 mg QHS PO Last administered on 04/29/16 20:22; Admin Dose 100 MG; Start 04/21/16 at 21:00 Aspirin (Halfprin) 81 mg DAILY PO Last administered on 04/30/16 08:47; Admin Dose 81 MG; Start 04/21/16 at 09:00 Atorvastatin Calcium (Lipitor) 40 mg QHS PO Last administered on 04/29/16 20:22 ; Admin Dose 40 MG; Start 04/21/16 at 21:00 Carvedilol (Coreg) 25 mg BID PO Last administered on 04/30/16 08:48; Admin Dose 25 MG; Start 04/21/16 at 09:00 Isosorbide Mononitrate (Imdur) 30 mg DAILY PO Last administered on 04/30/16 08: 48; Admin Dose 30 MG; Start 04/21/16 at 09:00 Diagnostic Test (Pha) (Accucheck) 1 ea 02 XX Last administered on 04/29/16 02: 00; Admin Dose 1 EA; Start 04/22/16 at 02:00 Miscellaneous Information 1 ea NOTE XX ; Start 04/21/16 at 05:30 Glucose (Glutose) 15 gm Q15M PRN PO DECREASED GLUCOSE; Start 04/21/16 at 05:30 Glucose (Glutose) 22.5 gm Q15M PRN PO DECREASED GLUCOSE; Start 04/21/16 at 05: 30 Dextrose (D50w Syringe) 25 ml Q15M PRN IV DECREASED GLUCOSE; Start 04/21/16 at 05:30 Dextrose (D50w Syringe) 50 ml Q15M PRN IV DECREASED GLUCOSE; Start 04/21/16 at 05:30 Glucagon (Glucagen) 1 mg Q15M PRN IM DECREASED GLUCOSE; Start 04/21/16 at 05:30 Glucose (Glutose) 15 gm Q15M PRN BUCCAL DECREASED GLUCOSE; Start 04/21/16 at 05 :30 Epoetin Viet (Epogen (Esrd)) 10,000 units MoWeFr@17 SC Last administered on 04/29 17:40; Admin Dose 10,000 UNITS; Start 04/22/16 at 17:00 Diphenhydramine HCl (Benadryl) 25 mg Q6H PRN PO before each unit of prbc Last administered on 04/24/16 21:35; Admin Dose 25 MG; Start 04/23/16 at 18:00 Acetaminophen (Tylenol Tab) 325 mg Q6H PRN PO before each unit of prbc Last administered on 04/25/16 14:07; Admin Dose 325 MG; Start 04/23/16 at 18:00 Furosemide (Lasix) 40 mg ONCE PRN IV after first unit of prbc; Start 04/23/16 at 18:00; Stop 04/30/16 at 17:59; Status Future hold Guaifenesin/ Dextromethorphan (Mucinex Dm) 1 tab BID PO Last administered on 08:46; Admin Dose 1 TAB; Start 04/26/16 at 13:00 Heparin Sodium (Porcine) (Heparin (5000 Units/0.5 ml)) 5,000 unit Q12 SC Last administered on 04/30/16 08:52; Admin Dose 5,000 UNIT; Start 04/26/16 at 14:30 Insulin Glargine (Lantus) 15 unit AM SC Last administered on 04/30/16 08:54; Admin Dose 15 UNIT; Start 04/28/16 at 09:00 Nifedipine (Procardia Xl) 30 mg BID PO Last administered on 04/30/16 08:49; Admin Dose 30 MG; Start 04/28/16 at 21:00 Prednisone (Prednisone) 40 mg DAILY PO Last administered on 04/30/16 08:47; Admin Dose 40 MG; Start 04/29/16 at 09:00 Docusate Sodium (Colace) 100 mg BID PO Last administered on 04/30/16 08:47; Admin Dose 100 MG; Start 04/28/16 at 21:00 Senna (Senokot) 1 tab BID PO Last administered on 04/30/16 08:47; Admin Dose 1 TAB; Start 04/28/16 at 21:00 LIZZY CARPENTER NP Apr 30, 2016 12:25
--- NOTE | 2016-04-30 13:16 | CONS ---
Date/Time of Note Date/Time of Note DATE: 04/30/16 TIME: 13:14 Assessment/Plan Assessment/Plan Additional Assessment/Plan Acute decompensated diastolic congestive heart failure Hypertension Acute on chronic kidney injury, no hemodialysis Diabetes -Volume status continues to improve with hemodialysis. Blood pressure trend has remained stable. Fluid management via hemodialysis as per our nephrology colleagues. Consultation Date/Type/Reason Admit Date/Time Apr 23, 2016 at 15:06 Initial Consult Date 04/21/16 Type of Consultation: cv 24 HR Interval Summary Free Text/Dictation Denies shortness of breath, dizziness or chest pain. Undergoing hemodialysis Exam/Review of Systems Vital Signs Vitals Vital Signs Date Time Temp Pulse Resp B/P Pulse Ox O2 Delivery O2 Flow Rate FiO2 04/30/16 12:12 98.0 75 18 131/68 98 04/30/16 09:45 Nasal Cannula 2.0 Intake and Output 04/29/16 04/29/16 04/30/16 15:00 23:00 07:00 Intake Total 450 ml 300 ml Balance 450 ml 300 ml Exam No apparent distress Constitutional: alert, obese, oriented Head: normocephalic Neck: supple Respiratory: other (Coarse breath sounds bilaterally, no wheezing) Cardiovascular: other (S1-S2 heard), regular rate and rhythm Gastrointestinal: bowel sounds, non-tender, soft Extremities: edema Results Result Diagram: 04/29/16 0710 04/30/16 0705 Results 24 hrs Laboratory Tests Test 04/29/16 17:15 04/29/16 20:07 04/30/16 03:46 04/30/16 07:05 Bedside Glucose 234 H 224 H 185 Alanine Aminotransferase (ALT/SGPT) 40 Albumin 2.9 L Albumin/Globulin Ratio 0.85 Alkaline Phosphatase 128 H Anion Gap 14 Aspartate Amino Transf (AST/SGOT) 25 Blood Urea Nitrogen 63 H Calcium Level 8.9 Carbon Dioxide Level 28 Chloride Level 101 Creatinine 2.19 H Direct Bilirubin 0.00 Globulin 3.40 H Glucose Level 175 Indirect Bilirubin 0.2 Potassium Level 4.5 Sodium Level 138 Total Bilirubin 0.2 Total Protein 6.3 Test 04/30/16 07:47 04/30/16 12:06 Bedside Glucose 175 195 Medications Medications Current Medications Allopurinol (Zyloprim) 100 mg QHS PO Last administered on 04/29/16t 20:22; Admin Dose 100 MG; Start 04/21/16 at 21:00 Aspirin (Halfprin) 81 mg DAILY PO Last administered on 04/30/16 08:47; Admin Dose 81 MG; Start 04/21/16 at 09:00 Atorvastatin Calcium (Lipitor) 40 mg QHS PO Last administered on 04/29/16 20:22 ; Admin Dose 40 MG; Start 04/21/16 at 21:00 Carvedilol (Coreg) 25 mg BID PO Last administered on 04/30/16 08:48; Admin Dose 25 MG; Start 04/21/16 at 09:00 Isosorbide Mononitrate (Imdur) 30 mg DAILY PO Last administered on 04/30/16 08: 48; Admin Dose 30 MG; Start 04/21/16 at 09:00 Diagnostic Test (Pha) (Accucheck) 1 ea 02 XX Last administered on 04/29/16 02: 00; Admin Dose 1 EA; Start 04/22/16 at 02:00 Miscellaneous Information 1 ea NOTE XX ; Start 04/21/16 at 05:30 Glucose (Glutose) 15 gm Q15M PRN PO DECREASED GLUCOSE; Start 04/21/16 at 05:30 Glucose (Glutose) 22.5 gm Q15M PRN PO DECREASED GLUCOSE; Start 04/21/16 at 05: 30 Dextrose (D50w Syringe) 25 ml Q15M PRN IV DECREASED GLUCOSE; Start 04/21/16 at 05:30 Dextrose (D50w Syringe) 50 ml Q15M PRN IV DECREASED GLUCOSE; Start 04/21/16 at 05:30 Glucagon (Glucagen) 1 mg Q15M PRN IM DECREASED GLUCOSE; Start 04/21/16 at 05:30 Glucose (Glutose) 15 gm Q15M PRN BUCCAL DECREASED GLUCOSE; Start 04/21/16 at 05 :30 Epoetin Viet (Epogen (Esrd)) 10,000 units MoWeFr@17 SC Last administered on 04/29 17:40; Admin Dose 10,000 UNITS; Start 04/22/16 at 17:00 Diphenhydramine HCl (Benadryl) 25 mg Q6H PRN PO before each unit of prbc Last administered on 04/24/16 21:35; Admin Dose 25 MG; Start 04/23/16 at 18:00 Acetaminophen (Tylenol Tab) 325 mg Q6H PRN PO before each unit of prbc Last administered on 04/25/16 14:07; Admin Dose 325 MG; Start 04/23/16 at 18:00 Furosemide (Lasix) 40 mg ONCE PRN IV after first unit of prbc; Start 04/23/16 at 18:00; Stop 04/30/16 at 17:59; Status Future hold Guaifenesin/ Dextromethorphan (Mucinex Dm) 1 tab BID PO Last administered on 08:46; Admin Dose 1 TAB; Start 04/26/16 at 13:00 Heparin Sodium (Porcine) (Heparin (5000 Units/0.5 ml)) 5,000 unit Q12 SC Last administered on 04/30/16 08:52; Admin Dose 5,000 UNIT; Start 04/26/16 at 14:30 Insulin Glargine (Lantus) 15 unit AM SC Last administered on 04/30/16 08:54; Admin Dose 15 UNIT; Start 04/28/16 at 09:00 Nifedipine (Procardia Xl) 30 mg BID PO Last administered on 04/30/16 08:49; Admin Dose 30 MG; Start 04/28/16 at 21:00 Prednisone (Prednisone) 40 mg DAILY PO Last administered on 04/30/16 08:47; Admin Dose 40 MG; Start 04/29/16 at 09:00 Docusate Sodium (Colace) 100 mg BID PO Last administered on 04/30/16 08:47; Admin Dose 100 MG; Start 04/28/16 at 21:00 Senna (Senokot) 1 tab BID PO Last administered on 04/30/16 08:47; Admin Dose 1 TAB; Start 04/28/16 at 21:00 Dariel Juarez DO Apr 30, 2016 13:16
--- NOTE | 2016-04-30 15:57 | PN ---
Date/Time of Note Date/Time of Note DATE: 04/30/16 TIME: 15:57 Assessment/Plan Lines/Catheters IV Catheter Type (from Nrsg): Saline Lock Urinary Cath still in place: No Subjective 24 Hr Interval Summary Free Text/Dictation nad, for [facility] placement, dw staff Exam/Review of Systems Vital Signs Vitals Vital Signs Date Time Temp Pulse Resp B/P Pulse Ox O2 Delivery O2 Flow Rate FiO2 04/30/16 13:32 88 20 98 Nasal Cannula 2.0 04/30/16 12:12 98.0 131/68 Intake and Output 04/29/16 04/29/16 04/30/16 15:00 23:00 07:00 Intake Total 450 ml 300 ml Balance 450 ml 300 ml Results Result Diagram: 04/29/16 0710 04/30/16 0705 Results 24 hrs Laboratory Tests Test 04/29/16 17:15 04/29/16 20:07 04/30/16 03:46 04/30/16 07:05 Bedside Glucose 234 H 224 H 185 Alanine Aminotransferase (ALT/SGPT) 40 Albumin 2.9 L Albumin/Globulin Ratio 0.85 Alkaline Phosphatase 128 H Anion Gap 14 Aspartate Amino Transf (AST/SGOT) 25 Blood Urea Nitrogen 63 H Calcium Level 8.9 Carbon Dioxide Level 28 Chloride Level 101 Creatinine 2.19 H Direct Bilirubin 0.00 Globulin 3.40 H Glucose Level 175 Indirect Bilirubin 0.2 Potassium Level 4.5 Sodium Level 138 Total Bilirubin 0.2 Total Protein 6.3 Test 04/30/16 07:47 04/30/16 12:06 Bedside Glucose 175 195 Medications Medications Current Medications Allopurinol (Zyloprim) 100 mg QHS PO Last administered on 04/29/16 20:22; Admin Dose 100 MG; Start 04/21/16 at 21:00 Aspirin (Halfprin) 81 mg DAILY PO Last administered on 04/30/16 08:47; Admin Dose 81 MG; Start 04/21/16 at 09:00 Atorvastatin Calcium (Lipitor) 40 mg QHS PO Last administered on 04/29/16 20:22 ; Admin Dose 40 MG; Start 04/21/16 at 21:00 Carvedilol (Coreg) 25 mg BID PO Last administered on 04/30/16 08:48; Admin Dose 25 MG; Start 04/21/16 at 09:00 Isosorbide Mononitrate (Imdur) 30 mg DAILY PO Last administered on 04/30/16 08: 48; Admin Dose 30 MG; Start 04/21/16 at 09:00 Diagnostic Test (Pha) (Accucheck) 1 ea 02 XX Last administered on 04/29/16 02: 00; Admin Dose 1 EA; Start 04/22/16 at 02:00 Miscellaneous Information 1 ea NOTE XX ; Start 04/21/16 at 05:30 Glucose (Glutose) 15 gm Q15M PRN PO DECREASED GLUCOSE; Start 04/21/16 at 05:30 Glucose (Glutose) 22.5 gm Q15M PRN PO DECREASED GLUCOSE; Start 04/21/16 at 05: 30 Dextrose (D50w Syringe) 25 ml Q15M PRN IV DECREASED GLUCOSE; Start 04/21/16 at 05:30 Dextrose (D50w Syringe) 50 ml Q15M PRN IV DECREASED GLUCOSE; Start 04/21/16 at 05:30 Glucagon (Glucagen) 1 mg Q15M PRN IM DECREASED GLUCOSE; Start 04/21/16 at 05:30 Glucose (Glutose) 15 gm Q15M PRN BUCCAL DECREASED GLUCOSE; Start 04/21/16 at 05 :30 Epoetin Viet (Epogen (Esrd)) 10,000 units MoWeFr@17 SC Last administered on 04/29 17:40; Admin Dose 10,000 UNITS; Start 04/22/16 at 17:00 Diphenhydramine HCl (Benadryl) 25 mg Q6H PRN PO before each unit of prbc Last administered on 04/24/16 21:35; Admin Dose 25 MG; Start 04/23/16 at 18:00 Acetaminophen (Tylenol Tab) 325 mg Q6H PRN PO before each unit of prbc Last administered on 04/25/16 14:07; Admin Dose 325 MG; Start 04/23/16 at 18:00 Furosemide (Lasix) 40 mg ONCE PRN IV after first unit of prbc; Start 04/23/16 at 18:00; Stop 04/30/16 at 17:59; Status Future hold Guaifenesin/ Dextromethorphan (Mucinex Dm) 1 tab BID PO Last administered on 08:46; Admin Dose 1 TAB; Start 04/26/16 at 13:00 Heparin Sodium (Porcine) (Heparin (5000 Units/0.5 ml)) 5,000 unit Q12 SC Last administered on 04/30/16 08:52; Admin Dose 5,000 UNIT; Start 04/26/16 at 14:30 Insulin Glargine (Lantus) 15 unit AM SC Last administered on 04/30/16 08:54; Admin Dose 15 UNIT; Start 04/28/16 at 09:00 Nifedipine (Procardia Xl) 30 mg BID PO Last administered on 04/30/16 08:49; Admin Dose 30 MG; Start 04/28/16 at 21:00 Prednisone (Prednisone) 40 mg DAILY PO Last administered on 04/30/16 08:47; Admin Dose 40 MG; Start 04/29/16 at 09:00 Docusate Sodium (Colace) 100 mg BID PO Last administered on 04/30/16 08:47; Admin Dose 100 MG; Start 04/28/16 at 21:00 Senna (Senokot) 1 tab BID PO Last administered on 04/30/16 08:47; Admin Dose 1 TAB; Start 04/28/16 at 21:00 BARBIE ALEGRE Apr 30, 2016 15:57
--- NOTE | 2016-04-30 19:05 | PN ---
DATE: 04/30/2016 SUBJECTIVE: The patient awake, alert. Reports no more shortness of breath but still very tired, es pecially after dialysis. OBJECTIVE: VITAL SIGNS: Temperature 98.0, blood pressure 129/68, pulse of 81, respiration rate 18, O2 saturati on is 98% on 2 liters nasal cannula. HEENT: Pupils equally round, reactive to light. Oropharynx clear. LUNGS: Clear to auscultation anteriorly. Right-sided scattered crackles usp up. No wheezing. CARDIAC: Regular rate and rhythm, normal S1, S2. ABDOMEN: Active bowel sounds, soft, nondistended, nontender. EXTREMITIES: No clubbing, cyanosis, or edema. LABORATORY DATA: WBC 14.9, hemoglobin 11.0, hematocrit 33.1, platelet count 246,000. Sodium 138, p otassium 4.5, chloride 101, bicarbonate 28, BUN 63, creatinine 2.19, glucose 175. Chest x-ray done yesterday shows interval improvement of right perihilar and lower lobe infiltrates. There are resid ual areas of atelectasis and infiltrate noted lateral to the right hilum and in the right lower lobe . There is, however, some development of bronchiolitis and atelectasis in the medial aspect of the left lower lobe as well as some left pleural effusion. ASSESSMENT AND PLAN: 1. Pneumonitis. The patient is status post 10 days of doxycycline and Levaquin. Antibiotic is dis continued today. We are continuing steroid taper and follow patient clinically for further developm ent of any respiratory symptoms. 2. Chronic kidney disease status post hemodialysis with improvement in congestive heart failure sym ptoms. There are plans for placement of permanent dialysis catheter for continuation of outpatient hemodialysis per nephrology. 3. Diabetes, increase blood sugar due to steroid use. Continue steroid taper and insulin coverage. Dictated By: TREMAINE RIOS MD DP/NTS Conf#: [id number] DID#: [id number]
[2016-04-30] MEDS: ALLOPURINOL 100 MG TAB PO SCH (21:12)
[2016-04-30] MEDS: ATORVASTATIN 40 MG TAB PO SCH (21:13)
[2016-05-01] VITALS (11 sets, daily range): BP systolic 126–148; BP diastolic 63–71; PULSE 70–81; RESP 17–20
[2016-05-01] MEDS: ALBUTEROL/IPRATROPIUM (NEB) 3 ML AMP HHN SCH ×6 (01:49→20:41)
[2016-05-01] MEDS: ACCUCHECK XX SCH (02:00)
[2016-05-01 07:57] LABS: ADD SCAN DIFF NO
[2016-05-01 07:58] LABS: BASOPHILS % 0.1 % (0.0-2.0); EOSINOPHILS # 0.1 10^3/ul (0.0-0.5); EOSINOPHILS % 0.3 % (0.0-7.0); HEMATOCRIT 33.5 % (37.0-47.0); HEMOGLOBIN 10.9 g/dl (12.0-16.0); LYMPHOCYTES # 2.5 10^3/ul (0.8-2.9); LYMPHOCYTES % 15.8 % (15.0-51.0); MEAN CORPUSCULAR HEMOGLOBIN 29.9 pg (29.0-33.0); MEAN CORPUSCULAR HGB CONC 32.5 g/dl (32.0-37.0); MEAN CORPUSCULAR VOLUME 91.8 fl (82.0-101.0); MEAN PLATELET VOLUME 11.1 fl (7.4-10.4); MONOCYTE # 1.1 10^3/ul (0.3-0.9); MONOCYTES % 6.9 % (0.0-11.0); NEUTROPHIL # 11.7 10^3/ul (1.6-7.5); NEUTROPHILS % 74.2 % (39.0-77.0); NUCLEATED RED BLOOD CELLS # 0.2 10^3/ul (0.0-0.0); NUCLEATED RED BLOOD CELLS% 1.3 /100WBC (0.0-0.0); PLATELET COUNT 200 10^3/UL (140-415); RED BLOOD COUNT 3.65 10^6/ul (4.20-5.40); RED CELL DISTRIBUTION WIDTH 15.4 % (11.5-14.5); WHITE BLOOD COUNT 15.7 10^3/ul (4.8-10.8)
[2016-05-01] MEDS: DOCUSATE SODIUM 100 MG CAP PO SCH ×2 (08:11→20:42)
[2016-05-01] MEDS: SENNA TAB PO SCH ×2 (08:11→20:43)
[2016-05-01] MEDS: GUAIFENESIN/DM (SR) TAB PO SCH ×2 (08:11→20:43)
[2016-05-01] MEDS: CALCIUM ACETATE 667 MG CAP PO SCH ×3 (08:11→17:07)
[2016-05-01] MEDS: ASPIRIN (EC) 81 MG TAB PO SCH (08:11)
[2016-05-01] MEDS: NIFEdipine (XL) 30 MG TAB PO SCH ×2 (08:12→20:43)
[2016-05-01] MEDS: HEPARIN 5,000 UNIT/0.5 ML SYG SC SCH ×2 (08:16→20:56)
[2016-05-01] MEDS: INSULIN ASPART [NOVOLOG] 3 ML PEN SC SCH ×7 (08:17→20:56)
[2016-05-01] MEDS: INSULIN GLARGINE [LANtus] 3 ML PEN SC SCH (08:19)
[2016-05-01] MEDS: ISOSORBIDE MONONITRATE(SR)30 MG TAB PO SCH (08:26)
[2016-05-01 08:47] LABS: POTASSIUM 4.1 mmol/L (3.5-5.1)
[2016-05-01 08:50] LABS: CREATININE 2.04 mg/dl (0.44-1.00)
[2016-05-01 08:51] LABS: CALCIUM 8.8 mg/dl (8.4-10.2)
[2016-05-01] MEDS ORDERED: predniSONE 20 MG TAB PO SCH (09:00)
--- NOTE | 2016-05-01 09:30 | CONS ---
Date/Time of Note Date/Time of Note DATE: 05/01/16 TIME: 09:25 Assessment/Plan Assessment/Plan Chief Complaint/Hosp Course 1. ARF on CKD , she had a hemodialysis treatment yesterday . She will have placement of an IJ permacath today by Dr Asher . will need to arrange hemodialysis for out patient . Probably will start with dialysis 2 days a week . 2. anemia , improved 3. CHF , improved 4. Pneumonia , improved on CXR done 04/26/16. 4. DM Problems: Consultation Date/Type/Reason Admit Date/Time Apr 23, 2016 at 15:06 Initial Consult Date 04/21/16 Type of Consultation: renal 24 HR Interval Summary Constitutional: improved, no complaints Exam/Review of Systems Vital Signs Vitals Vital Signs Date Time Temp Pulse Resp B/P Pulse Ox O2 Delivery O2 Flow Rate FiO2 05/01/16 08:35 70 05/01/16 07:44 98.5 20 133/64 98 05/01/16 05:51 Nasal Cannula 2.0 04/30/16 17:09 97 Intake and Output 04/30/16 04/30/16 05/01/16 15:00 23:00 07:00 Intake Total 200 ml 700 ml 350 ml Output Total 1200 ml Balance -1000 ml 700 ml 350 ml Exam Constitutional: alert, well developed Respiratory: clear to auscultation, normal air movement Cardiovascular: regular rate and rhythm Gastrointestinal: soft Musculoskeletal: nl extremities to inspection Results Result Diagram: 05/01/16 0645 05/01/16 0645 Results 24 hrs Laboratory Tests Test 04/30/16 12:06 04/30/16 17:02 04/30/16 21:11 05/01/16 05:17 Bedside Glucose 195 231 H 287 H 157 Test 05/01/16 06:45 05/01/16 07:30 Anion Gap 12 Basophils # 0.0 Basophils % 0.1 Blood Urea Nitrogen 48 #H Calcium Level 8.8 Carbon Dioxide Level 29 Chloride Level 103 Creatinine 2.04 H Eosinophils # 0.1 Eosinophils % 0.3 Glucose Level 145 Hematocrit 33.5 L Hemoglobin 10.9 L Lymphocytes # 2.5 Lymphocytes % 15.8 Mean Corpuscular Hemoglobin 29.9 Mean Corpuscular Hemoglobin Concent 32.5 Mean Corpuscular Volume 91.8 Mean Platelet Volume 11.1 H Monocytes # 1.1 H Monocytes % 6.9 Neutrophils # 11.7 H Neutrophils % 74.2 Nucleated Red Blood Cells # 0.2 H Nucleated Red Blood Cells % 1.3 H Platelet Count 200 Potassium Level 4.1 Red Blood Count 3.65 L Red Cell Distribution Width 15.4 H Sodium Level 140 White Blood Count 15.7 H Bedside Glucose 148 Medications Medications Current Medications Allopurinol (Zyloprim) 100 mg QHS PO Last administered on 04/30/16 21:12; Admin Dose 100 MG; Start 04/21/16 at 21:00 Aspirin (Halfprin) 81 mg DAILY PO Last administered on 05/01/16 08:11; Admin Dose 81 MG; Start 04/21/16 at 09:00 Atorvastatin Calcium (Lipitor) 40 mg QHS PO Last administered on 04/30/16 21:13 ; Admin Dose 40 MG; Start 04/21/16 at 21:00 Carvedilol (Coreg) 25 mg BID PO Last administered on 05/01/16 08:13; Admin Dose 25 MG; Start 04/21/16 at 09:00 Isosorbide Mononitrate (Imdur) 30 mg DAILY PO Last administered on 05/01/16 08: 26; Admin Dose 30 MG; Start 04/21/16 at 09:00 Diagnostic Test (Pha) (Accucheck) 1 ea 02 XX Last administered on 05/01/16 02: 00; Admin Dose 1 EA; Start 04/22/16 at 02:00 Miscellaneous Information 1 ea NOTE XX ; Start 04/21/16 at 05:30 Glucose (Glutose) 15 gm Q15M PRN PO DECREASED GLUCOSE; Start 04/21/16 at 05:30 Glucose (Glutose) 22.5 gm Q15M PRN PO DECREASED GLUCOSE; Start 04/21/16 at 05: 30 Dextrose (D50w Syringe) 25 ml Q15M PRN IV DECREASED GLUCOSE; Start 04/21/16 at 05:30 Dextrose (D50w Syringe) 50 ml Q15M PRN IV DECREASED GLUCOSE; Start 04/21/16 at 05:30 Glucagon (Glucagen) 1 mg Q15M PRN IM DECREASED GLUCOSE; Start 04/21/16 at 05:30 Glucose (Glutose) 15 gm Q15M PRN BUCCAL DECREASED GLUCOSE; Start 04/21/16 at 05 :30 Epoetin Viet (Epogen (Esrd)) 10,000 units MoWeFr@17 SC Last administered on 04/29 17:40; Admin Dose 10,000 UNITS; Start 04/22/16 at 17:00 Diphenhydramine HCl (Benadryl) 25 mg Q6H PRN PO before each unit of prbc Last administered on 04/24/16 21:35; Admin Dose 25 MG; Start 04/23/16 at 18:00 Acetaminophen (Tylenol Tab) 325 mg Q6H PRN PO before each unit of prbc Last administered on 04/25/16 14:07; Admin Dose 325 MG; Start 04/23/16 at 18:00 Guaifenesin/ Dextromethorphan (Mucinex Dm) 1 tab BID PO Last administered on 08:11; Admin Dose 1 TAB; Start 04/26/16 at 13:00 Heparin Sodium (Porcine) (Heparin (5000 Units/0.5 ml)) 5,000 unit Q12 SC Last administered on 05/01/16 08:16; Admin Dose 5,000 UNIT; Start 04/26/16 at 14:30 Insulin Glargine (Lantus) 15 unit AM SC Last administered on 05/01/16 08:19; Admin Dose 15 UNIT; Start 04/28/16 at 09:00 Nifedipine (Procardia Xl) 30 mg BID PO Last administered on 05/01/16 08:12; Admin Dose 30 MG; Start 04/28/16 at 21:00 Docusate Sodium (Colace) 100 mg BID PO Last administered on 05/01/16 08:11; Admin Dose 100 MG; Start 04/28/16 at 21:00 Senna (Senokot) 1 tab BID PO Last administered on 05/01/16 08:11; Admin Dose 1 TAB; Start 04/28/16 at 21:00 Prednisone (Prednisone) 20 mg DAILY PO Last administered on 05/01/16 08:11; Admin Dose 20 MG; Start 05/01/16 at 09:00 HOPE DOW MD May 01, 2016 09:30
--- NOTE | 2016-05-01 09:58 | CONS ---
Date/Time of Note Date/Time of Note DATE: 05/01/16 TIME: 09:56 Assessment/Plan Assessment/Plan Additional Assessment/Plan Acute decompensated diastolic congestive heart failure Hypertension Acute on chronic kidney injury, new hemodialysis Diabetes -Volume status continues to improve with hemodialysis. Mood management as per our renal colleagues via hemodialysis. Plan for dialysis catheter today. Blood pressure trend remains stable. Consultation Date/Type/Reason Admit Date/Time Apr 23, 2016 at 15:06 Initial Consult Date 04/21/16 Type of Consultation: cv 24 HR Interval Summary Free Text/Dictation Denies shortness of breath, chest pain or dizziness Exam/Review of Systems Vital Signs Vitals Vital Signs Date Time Temp Pulse Resp B/P Pulse Ox O2 Delivery O2 Flow Rate FiO2 05/01/16 09:41 75 18 99 Nasal Cannula 2.0 05/01/16 07:44 98.5 133/64 04/30/16 17:09 97 Intake and Output 04/30/16 04/30/16 05/01/16 15:00 23:00 07:00 Intake Total 200 ml 700 ml 350 ml Output Total 1200 ml Balance -1000 ml 700 ml 350 ml Exam No apparent distress Constitutional: alert, obese, oriented Head: normocephalic Neck: supple Respiratory: other (Coarse breath sounds bilaterally, no wheezing) Cardiovascular: other (S1-S2 heard), regular rate and rhythm Gastrointestinal: bowel sounds, non-tender, other (No guarding), soft Extremities: edema (Trace) Results Result Diagram: 05/01/16 0645 05/01/16 0645 Results 24 hrs Laboratory Tests Test 04/30/16 12:06 04/30/16 17:02 04/30/16 21:11 05/01/16 05:17 Bedside Glucose 195 231 H 287 H 157 Test 05/01/16 06:45 05/01/16 07:30 Anion Gap 12 Basophils # 0.0 Basophils % 0.1 Blood Urea Nitrogen 48 #H Calcium Level 8.8 Carbon Dioxide Level 29 Chloride Level 103 Creatinine 2.04 H Eosinophils # 0.1 Eosinophils % 0.3 Glucose Level 145 Hematocrit 33.5 L Hemoglobin 10.9 L Lymphocytes # 2.5 Lymphocytes % 15.8 Mean Corpuscular Hemoglobin 29.9 Mean Corpuscular Hemoglobin Concent 32.5 Mean Corpuscular Volume 91.8 Mean Platelet Volume 11.1 H Monocytes # 1.1 H Monocytes % 6.9 Neutrophils # 11.7 H Neutrophils % 74.2 Nucleated Red Blood Cells # 0.2 H Nucleated Red Blood Cells % 1.3 H Platelet Count 200 Potassium Level 4.1 Red Blood Count 3.65 L Red Cell Distribution Width 15.4 H Sodium Level 140 White Blood Count 15.7 H Bedside Glucose 148 Medications Medications Current Medications Allopurinol (Zyloprim) 100 mg QHS PO Last administered on 04/30/16 21:12; Admin Dose 100 MG; Start 04/21/16 at 21:00 Aspirin (Halfprin) 81 mg DAILY PO Last administered on 05/01/16 08:11; Admin Dose 81 MG; Start 04/21/16 at 09:00 Atorvastatin Calcium (Lipitor) 40 mg QHS PO Last administered on 04/30/16 21:13 ; Admin Dose 40 MG; Start 04/21/16 at 21:00 Carvedilol (Coreg) 25 mg BID PO Last administered on 05/01/16 08:13; Admin Dose 25 MG; Start 04/21/16 at 09:00 Isosorbide Mononitrate (Imdur) 30 mg DAILY PO Last administered on 05/01/16 08: 26; Admin Dose 30 MG; Start 04/21/16 at 09:00 Diagnostic Test (Pha) (Accucheck) 1 ea 02 XX Last administered on 05/01/16 02: 00; Admin Dose 1 EA; Start 04/22/16 at 02:00 Miscellaneous Information 1 ea NOTE XX ; Start 04/21/16 at 05:30 Glucose (Glutose) 15 gm Q15M PRN PO DECREASED GLUCOSE; Start 04/21/16 at 05:30 Glucose (Glutose) 22.5 gm Q15M PRN PO DECREASED GLUCOSE; Start 04/21/16 at 05: 30 Dextrose (D50w Syringe) 25 ml Q15M PRN IV DECREASED GLUCOSE; Start 04/21/16 at 05:30 Dextrose (D50w Syringe) 50 ml Q15M PRN IV DECREASED GLUCOSE; Start 04/21/16 at 05:30 Glucagon (Glucagen) 1 mg Q15M PRN IM DECREASED GLUCOSE; Start 04/21/16 at 05:30 Glucose (Glutose) 15 gm Q15M PRN BUCCAL DECREASED GLUCOSE; Start 04/21/16 at 05 :30 Epoetin Viet (Epogen (Esrd)) 10,000 units MoWeFr@17 SC Last administered on 04/29 17:40; Admin Dose 10,000 UNITS; Start 04/22/16 at 17:00 Diphenhydramine HCl (Benadryl) 25 mg Q6H PRN PO before each unit of prbc Last administered on 04/24/16 21:35; Admin Dose 25 MG; Start 04/23/16 at 18:00 Acetaminophen (Tylenol Tab) 325 mg Q6H PRN PO before each unit of prbc Last administered on 04/25/16 14:07; Admin Dose 325 MG; Start 04/23/16 at 18:00 Guaifenesin/ Dextromethorphan (Mucinex Dm) 1 tab BID PO Last administered on 08:11; Admin Dose 1 TAB; Start 04/26/16 at 13:00 Heparin Sodium (Porcine) (Heparin (5000 Units/0.5 ml)) 5,000 unit Q12 SC Last administered on 05/01/16 08:16; Admin Dose 5,000 UNIT; Start 04/26/16 at 14:30 Insulin Glargine (Lantus) 15 unit AM SC Last administered on 05/01/16 08:19; Admin Dose 15 UNIT; Start 04/28/16 at 09:00 Nifedipine (Procardia Xl) 30 mg BID PO Last administered on 05/01/16 08:12; Admin Dose 30 MG; Start 04/28/16 at 21:00 Docusate Sodium (Colace) 100 mg BID PO Last administered on 05/01/16 08:11; Admin Dose 100 MG; Start 04/28/16 at 21:00 Senna (Senokot) 1 tab BID PO Last administered on 05/01/16 08:11; Admin Dose 1 TAB; Start 04/28/16 at 21:00 Prednisone (Prednisone) 20 mg DAILY PO Last administered on 05/01/16 08:11; Admin Dose 20 MG; Start 05/01/16 at 09:00 Dariel Juarez DO May 01, 2016 09:58
--- NOTE | 2016-05-01 10:54 | RADRPT ---
PROCEDURE: XR Chest. CLINICAL INDICATION: Screening for tuberculosis TECHNIQUE: Chest AP portable COMPARISON: 04/29/2016 FINDINGS: The mediastinal structures are unremarkable. There is calcification of the thoracic aorta (consiste nt with atherosclerosis). The heart is normal in size and configuration. The pulmonary vascularity is normal. There is no change in the right perihilar, RLL and LLL subsegmental atelectasis. No co nsolidation is identified. There is a possible small left pleural effusion. The osseous structures are unremarkable. There is no radiographic evidence of tuberculosis. IMPRESSION: Calcification of the thoracic aorta (consistent with atherosclerosis). No change in right perihilar, RLL and LLL subsegmental atelectasis Possible small left pleural effusion RPTAT: [facility] .Emmanuel Troncoso MD, Date Time Electronically viewed and signed by .Emmanuel Troncoso MD, on 05/01/2016 10:53 .B/
--- NOTE | 2016-05-01 11:24 | CONS ---
Date/Time of Note Date/Time of Note DATE: 05/01/16 TIME: 11:23 Assessment/Plan Assessment/Plan Chief Complaint/Hosp Course SUBJECTIVE: Alert, feels good, no fevers, no SOB, looks comfortable on nc INDWELLINGS: Right femoral Irineo. PHYSICAL EXAMINATION: GENERAL: Fragile, elderly woman who is in no distress. HEENT: Head atraumatic, normocephalic. Sclerae anicteric. Buccal mucosa pink , dry. NECK: Supple. CHEST: Rise symmetrical. Breath sounds clear. HEART: S1, S2. ABDOMEN: Soft, bowel tones present. EXTREMITIES: Without cyanosis. ASSESSMENT: 1. Status post-acute hypoxemic respiratory failure secondary to fluid overload. 2. S/p pneumonia. 3. Acute on chronic kidney disease, on hemodialysis. 4. Hypertension. 5. Diabetes. 6. Leukocytosis==> s/p steroids. PLAN: Remains stable, off abx, continue present care, encourage incentive spirometry. Follow recommendations of consultants. DW staff/pt Problems: Consultation Date/Type/Reason Admit Date/Time Apr 23, 2016 at 15:06 Initial Consult Date 04/21/16 Type of Consultation: id Exam/Review of Systems Vital Signs Vitals Vital Signs Date Time Temp Pulse Resp B/P Pulse Ox O2 Delivery O2 Flow Rate FiO2 05/01/16 09:41 75 18 99 Nasal Cannula 2.0 05/01/16 07:44 98.5 133/64 04/30/16 17:09 97 Intake and Output 04/30/16 04/30/16 05/01/16 15:00 23:00 07:00 Intake Total 200 ml 700 ml 350 ml Output Total 1200 ml Balance -1000 ml 700 ml 350 ml Results Result Diagram: 05/01/16 0645 05/01/16 0645 Results 24 hrs Laboratory Tests Test 04/30/16 12:06 04/30/16 17:02 04/30/16 21:11 05/01/16 05:17 Bedside Glucose 195 231 H 287 H 157 Test 05/01/16 06:45 05/01/16 07:30 Anion Gap 12 Basophils # 0.0 Basophils % 0.1 Blood Urea Nitrogen 48 #H Calcium Level 8.8 Carbon Dioxide Level 29 Chloride Level 103 Creatinine 2.04 H Eosinophils # 0.1 Eosinophils % 0.3 Glucose Level 145 Hematocrit 33.5 L Hemoglobin 10.9 L Lymphocytes # 2.5 Lymphocytes % 15.8 Mean Corpuscular Hemoglobin 29.9 Mean Corpuscular Hemoglobin Concent 32.5 Mean Corpuscular Volume 91.8 Mean Platelet Volume 11.1 H Monocytes # 1.1 H Monocytes % 6.9 Neutrophils # 11.7 H Neutrophils % 74.2 Nucleated Red Blood Cells # 0.2 H Nucleated Red Blood Cells % 1.3 H Platelet Count 200 Potassium Level 4.1 Red Blood Count 3.65 L Red Cell Distribution Width 15.4 H Sodium Level 140 White Blood Count 15.7 H Bedside Glucose 148 Medications Medications Current Medications Allopurinol (Zyloprim) 100 mg QHS PO Last administered on 04/30/16 21:12; Admin Dose 100 MG; Start 04/21/16 at 21:00 Aspirin (Halfprin) 81 mg DAILY PO Last administered on 05/01/16 08:11; Admin Dose 81 MG; Start 04/21/16 at 09:00 Atorvastatin Calcium (Lipitor) 40 mg QHS PO Last administered on 04/30/16 21:13 ; Admin Dose 40 MG; Start 04/21/16 at 21:00 Carvedilol (Coreg) 25 mg BID PO Last administered on 05/01/16 08:13; Admin Dose 25 MG; Start 04/21/16 at 09:00 Isosorbide Mononitrate (Imdur) 30 mg DAILY PO Last administered on 05/01/16 08: 26; Admin Dose 30 MG; Start 04/21/16 at 09:00 Diagnostic Test (Pha) (Accucheck) 1 ea 02 XX Last administered on 05/01/16 02: 00; Admin Dose 1 EA; Start 04/22/16 at 02:00 Miscellaneous Information 1 ea NOTE XX ; Start 04/21/16 at 05:30 Glucose (Glutose) 15 gm Q15M PRN PO DECREASED GLUCOSE; Start 04/21/16 at 05:30 Glucose (Glutose) 22.5 gm Q15M PRN PO DECREASED GLUCOSE; Start 04/21/16 at 05: 30 Dextrose (D50w Syringe) 25 ml Q15M PRN IV DECREASED GLUCOSE; Start 04/21/16 at 05:30 Dextrose (D50w Syringe) 50 ml Q15M PRN IV DECREASED GLUCOSE; Start 04/21/16 at 05:30 Glucagon (Glucagen) 1 mg Q15M PRN IM DECREASED GLUCOSE; Start 04/21/16 at 05:30 Glucose (Glutose) 15 gm Q15M PRN BUCCAL DECREASED GLUCOSE; Start 04/21/16 at 05 :30 Epoetin Viet (Epogen (Esrd)) 10,000 units MoWeFr@17 SC Last administered on 04/29 17:40; Admin Dose 10,000 UNITS; Start 04/22/16 at 17:00 Diphenhydramine HCl (Benadryl) 25 mg Q6H PRN PO before each unit of prbc Last administered on 04/24/16 21:35; Admin Dose 25 MG; Start 04/23/16 at 18:00 Acetaminophen (Tylenol Tab) 325 mg Q6H PRN PO before each unit of prbc Last administered on 04/25/16 14:07; Admin Dose 325 MG; Start 04/23/16 at 18:00 Guaifenesin/ Dextromethorphan (Mucinex Dm) 1 tab BID PO Last administered on 08:11; Admin Dose 1 TAB; Start 04/26/16 at 13:00 Heparin Sodium (Porcine) (Heparin (5000 Units/0.5 ml)) 5,000 unit Q12 SC Last administered on 05/01/16 08:16; Admin Dose 5,000 UNIT; Start 04/26/16 at 14:30 Insulin Glargine (Lantus) 15 unit AM SC Last administered on 05/01/16 08:19; Admin Dose 15 UNIT; Start 04/28/16 at 09:00 Nifedipine (Procardia Xl) 30 mg BID PO Last administered on 05/01/16 08:12; Admin Dose 30 MG; Start 04/28/16 at 21:00 Docusate Sodium (Colace) 100 mg BID PO Last administered on 05/01/16 08:11; Admin Dose 100 MG; Start 04/28/16 at 21:00 Senna (Senokot) 1 tab BID PO Last administered on 05/01/16 08:11; Admin Dose 1 TAB; Start 04/28/16 at 21:00 Prednisone (Prednisone) 20 mg DAILY PO Last administered on 05/01/16 08:11; Admin Dose 20 MG; Start 05/01/16 at 09:00 LIZZY CARPENTER NP May 01, 2016 11:24
[2016-05-01 13:46] LABS: HAAIG REFLEX REFLEX FILED
[2016-05-01 14:51] LABS: HEPATITIS B CORE ANTIBODY REACTIVE (NEGATIVE)
--- NOTE | 2016-05-01 15:34 | PN ---
DATE: 05/01/2016 SUBJECTIVE: Patient awake, alert, appearing to be in no acute distress. Awaiting IJ catheter place ment. OBJECTIVE: VITAL SIGNS: Temperature 98.0, blood pressure 126/68, pulse 76, respiration rate 20, O2 saturation 98% on 2 liters. HEENT: Pupils equally round, reactive to light. Oropharynx clear. CHEST: Lungs are clear to auscultation anteriorly. CARDIAC: Regular rate and rhythm, normal S1, S2. ABDOMEN: Active bowel sounds, soft, nondistended, nontender. Right groin Irineo catheter clean an d dry. EXTREMITIES: No clubbing, cyanosis, or edema. LABORATORY DATA: WBC 15.7, hemoglobin 10.9, hematocrit 33.5, platelet count 200,000. Sodium 140, p otassium 4.1, BUN 48, creatinine 2.04, glucose 145. Chest x-ray shows no change in right perihilar right lower lobe and left lower lobe subsegmental atelectasis. There is a possible small left pleur al effusion and calcification of the thoracic aorta. ASSESSMENT AND PLAN: 1. Pneumonitis, status post course of antibiotic. Appears clinically improved, we are still contin uing the steroid taper. 2. Renal failure. Plan is for outpatient dialysis per Dr. Mo. The patient will be dischar ged after IJ catheter placement when cleared by surgeon. Dictated By: TREMAINE RIOS MD DP/NTS Conf#: [id number] DID#: [id number]
[2016-05-01] MEDS: EPOETIN 10000 UNITS/1 ML INJ (ESRD) SC SCH (17:07)
[2016-05-01] MEDS: ATORVASTATIN 40 MG TAB PO SCH (20:42)
[2016-05-01] MEDS: ALLOPURINOL 100 MG TAB PO SCH (20:59)
[2016-05-02] VITALS (21 sets, daily range): BP systolic 100–158; BP diastolic 55–74; PULSE 69–80; RESP 18–72
[2016-05-02] MEDS: ALBUTEROL/IPRATROPIUM (NEB) 3 ML AMP HHN SCH ×6 (01:03→20:44)
[2016-05-02] MEDS: ACCUCHECK XX SCH (02:22)
[2016-05-02] MEDS: CALCIUM ACETATE 667 MG CAP PO SCH ×3 (07:58→17:55)
[2016-05-02] MEDS: INSULIN ASPART [NOVOLOG] 3 ML PEN SC SCH ×7 (08:02→20:30)
[2016-05-02] MEDS: SENNA TAB PO SCH ×2 (08:40→20:13)
[2016-05-02] MEDS: ASPIRIN (EC) 81 MG TAB PO SCH (08:40)
[2016-05-02] MEDS: predniSONE 10 MG TAB PO SCH (08:40)
[2016-05-02] MEDS: GUAIFENESIN/DM (SR) TAB PO SCH ×2 (08:41→20:13)
[2016-05-02] MEDS: ISOSORBIDE MONONITRATE(SR)30 MG TAB PO SCH (08:41)
[2016-05-02] MEDS: NIFEdipine (XL) 30 MG TAB PO SCH ×2 (08:41→20:14)
[2016-05-02] MEDS: DOCUSATE SODIUM 100 MG CAP PO SCH ×2 (08:42→20:13)
[2016-05-02] MEDS: HEPARIN 5,000 UNIT/0.5 ML SYG SC SCH ×2 (08:45→20:31)
[2016-05-02] MEDS: INSULIN GLARGINE [LANtus] 3 ML PEN SC SCH (08:46)
--- NOTE | 2016-05-02 09:06 | CONS ---
Date/Time of Note Date/Time of Note DATE: 05/02/16 TIME: 09:02 Assessment/Plan Assessment/Plan Chief Complaint/Hosp Course Acute decompensated diastolic congestive heart failure Hypertension Acute on chronic kidney injury, new hemodialysis Diabetes Problems: Additional Assessment/Plan 1) improved fluid status 2) continue cardiac regimen Consultation Date/Type/Reason Admit Date/Time Apr 23, 2016 at 15:06 Initial Consult Date 04/21/16 Type of Consultation: cv 24 HR Interval Summary Free Text/Dictation no sob, no chest pain, no palpitations Detailed Summary Respiratory: no complaints Cardiovascular: no complaints Gastrointestinal: no complaints Musculoskeletal: no complaints Neurologic: no complaints Lymphatic: no complaints Exam/Review of Systems Vital Signs Vitals Vital Signs Date Time Temp Pulse Resp B/P Pulse Ox O2 Delivery O2 Flow Rate FiO2 05/02/16 08:07 71 05/02/16 07:33 98.0 18 138/69 100 05/02/16 05:10 Nasal Cannula 2.0 04/30/16 17:09 97 Intake and Output 05/01/16 05/01/16 05/02/16 15:00 23:00 07:00 Intake Total 300 ml Balance 300 ml Exam Head: atraumatic, normocephalic Neck: supple Respiratory: diminished breath sounds Cardiovascular: regular rate and rhythm Gastrointestinal: soft Musculoskeletal: nl extremities to inspection Extremities: normal pulses Results Result Diagram: 05/01/16 0645 05/01/16 0645 Results 24 hrs Laboratory Tests Test 05/01/16 11:35 05/01/16 17:02 05/01/16 20:50 05/02/16 02:20 Bedside Glucose 188 186 266 H 218 Test 05/02/16 07:56 Bedside Glucose 147 Medications Medications Current Medications Allopurinol (Zyloprim) 100 mg QHS PO Last administered on 05/01/16 20:59; Admin Dose 100 MG; Start 04/21/16 at 21:00 Aspirin (Halfprin) 81 mg DAILY PO Last administered on 05/02/16 08:40; Admin Dose 81 MG; Start 04/21/16 at 09:00 Atorvastatin Calcium (Lipitor) 40 mg QHS PO Last administered on 05/01/16 20:42 ; Admin Dose 40 MG; Start 04/21/16 at 21:00 Carvedilol (Coreg) 25 mg BID PO Last administered on 05/02/16 08:42; Admin Dose 25 MG; Start 04/21/16 at 09:00 Isosorbide Mononitrate (Imdur) 30 mg DAILY PO Last administered on 05/02/16 08: 41; Admin Dose 30 MG; Start 04/21/16 at 09:00 Diagnostic Test (Pha) (Accucheck) 1 ea 02 XX Last administered on 05/02/16 02: 22; Admin Dose 1 EA; Start 04/22/16 at 02:00 Miscellaneous Information 1 ea NOTE XX ; Start 04/21/16 at 05:30 Glucose (Glutose) 15 gm Q15M PRN PO DECREASED GLUCOSE; Start 04/21/16 at 05:30 Glucose (Glutose) 22.5 gm Q15M PRN PO DECREASED GLUCOSE; Start 04/21/16 at 05: 30 Dextrose (D50w Syringe) 25 ml Q15M PRN IV DECREASED GLUCOSE; Start 04/21/16 at 05:30 Dextrose (D50w Syringe) 50 ml Q15M PRN IV DECREASED GLUCOSE; Start 04/21/16 at 05:30 Glucagon (Glucagen) 1 mg Q15M PRN IM DECREASED GLUCOSE; Start 04/21/16 at 05:30 Glucose (Glutose) 15 gm Q15M PRN BUCCAL DECREASED GLUCOSE; Start 04/21/16 at 05 :30 Epoetin Viet (Epogen (Esrd)) 10,000 units MoWeFr@17 SC Last administered on 05/01 17:07; Admin Dose 10,000 UNITS; Start 04/22/16 at 17:00 Diphenhydramine HCl (Benadryl) 25 mg Q6H PRN PO before each unit of prbc Last administered on 04/24/16 21:35; Admin Dose 25 MG; Start 04/23/16 at 18:00 Acetaminophen (Tylenol Tab) 325 mg Q6H PRN PO before each unit of prbc Last administered on 04/25/16 14:07; Admin Dose 325 MG; Start 04/23/16 at 18:00 Guaifenesin/ Dextromethorphan (Mucinex Dm) 1 tab BID PO Last administered on 08:41; Admin Dose 1 TAB; Start 04/26/16 at 13:00 Heparin Sodium (Porcine) (Heparin (5000 Units/0.5 ml)) 5,000 unit Q12 SC Last administered on 05/02/16 08:45; Admin Dose 5,000 UNIT; Start 04/26/16 at 14:30 Insulin Glargine (Lantus) 15 unit AM SC Last administered on 05/02/16 08:46; Admin Dose 15 UNIT; Start 04/28/16 at 09:00 Nifedipine (Procardia Xl) 30 mg BID PO Last administered on 05/02/16 08:41; Admin Dose 30 MG; Start 04/28/16 at 21:00 Docusate Sodium (Colace) 100 mg BID PO Last administered on 05/02/16 08:42; Admin Dose 100 MG; Start 04/28/16 at 21:00 Senna (Senokot) 1 tab BID PO Last administered on 05/02/16 08:40; Admin Dose 1 TAB; Start 04/28/16 at 21:00 Prednisone (Prednisone) 10 mg DAILY PO Last administered on 05/02/16 08:40; Admin Dose 10 MG; Start 05/02/16 at 09:00 PRINCESS KNAPP MD May 02, 2016 09:05
[2016-05-02] MEDS ORDERED: HEPARIN 1000 UNITS/ML 10 ML INJ CATHETER ONE (11:30)
--- NOTE | 2016-05-02 12:59 | CONS ---
Date/Time of Note Date/Time of Note DATE: 05/02/16 TIME: 12:56 Assessment/Plan Assessment/Plan Additional Assessment/Plan 1. ARF on CKD. s/p dialysis today. Will monitor renal function. 2. anemia , improved 3. CHF , improved 4. Pneumonia , improved on CXR done 04/26/16. 4. DM: controlled Consultation Date/Type/Reason Admit Date/Time Apr 23, 2016 at 15:06 Initial Consult Date 04/21/16 Type of Consultation: Nephrology Exam/Review of Systems Vital Signs Vitals Vital Signs Date Time Temp Pulse Resp B/P Pulse Ox O2 Delivery O2 Flow Rate FiO2 05/02/16 12:11 77 05/02/16 12:00 18 05/02/16 11:39 98.3 101/62 98 05/02/16 11:34 Nasal Cannula 2.0 04/30/16 17:09 97 Intake and Output 05/01/16 05/01/16 05/02/16 15:00 23:00 07:00 Intake Total 300 ml Balance 300 ml Exam Constitutional: alert, No distress Head: atraumatic, normocephalic Neck: supple, No jvd Respiratory: clear to auscultation Cardiovascular: regular rate and rhythm Gastrointestinal: non-tender, soft Extremities: No edema Results Result Diagram: 05/01/16 0645 05/01/16 0645 Results 24 hrs Laboratory Tests Test 05/01/16 17:02 05/01/16 20:50 05/02/16 02:20 05/02/16 07:56 Bedside Glucose 186 266 H 218 147 Test 05/02/16 12:19 Bedside Glucose 187 Medications Medications Current Medications Allopurinol (Zyloprim) 100 mg QHS PO Last administered on 05/01/16 20:59; Admin Dose 100 MG; Start 04/21/16 at 21:00 Aspirin (Halfprin) 81 mg DAILY PO Last administered on 05/02/16 08:40; Admin Dose 81 MG; Start 04/21/16 at 09:00 Atorvastatin Calcium (Lipitor) 40 mg QHS PO Last administered on 05/01/16 20:42 ; Admin Dose 40 MG; Start 04/21/16 at 21:00 Carvedilol (Coreg) 25 mg BID PO Last administered on 05/02/16 08:42; Admin Dose 25 MG; Start 04/21/16 at 09:00 Isosorbide Mononitrate (Imdur) 30 mg DAILY PO Last administered on 05/02/16 08: 41; Admin Dose 30 MG; Start 04/21/16 at 09:00 Diagnostic Test (Pha) (Accucheck) 1 ea 02 XX Last administered on 05/02/16 02: 22; Admin Dose 1 EA; Start 04/22/16 at 02:00 Miscellaneous Information 1 ea NOTE XX ; Start 04/21/16 at 05:30 Glucose (Glutose) 15 gm Q15M PRN PO DECREASED GLUCOSE; Start 04/21/16 at 05:30 Glucose (Glutose) 22.5 gm Q15M PRN PO DECREASED GLUCOSE; Start 04/21/16 at 05: 30 Dextrose (D50w Syringe) 25 ml Q15M PRN IV DECREASED GLUCOSE; Start 04/21/16 at 05:30 Dextrose (D50w Syringe) 50 ml Q15M PRN IV DECREASED GLUCOSE; Start 04/21/16 at 05:30 Glucagon (Glucagen) 1 mg Q15M PRN IM DECREASED GLUCOSE; Start 04/21/16 at 05:30 Glucose (Glutose) 15 gm Q15M PRN BUCCAL DECREASED GLUCOSE; Start 04/21/16 at 05 :30 Epoetin Viet (Epogen (Esrd)) 10,000 units MoWeFr@17 SC Last administered on 05/01 17:07; Admin Dose 10,000 UNITS; Start 04/22/16 at 17:00 Diphenhydramine HCl (Benadryl) 25 mg Q6H PRN PO before each unit of prbc Last administered on 04/24/16 21:35; Admin Dose 25 MG; Start 04/23/16 at 18:00 Acetaminophen (Tylenol Tab) 325 mg Q6H PRN PO before each unit of prbc Last administered on 04/25/16 14:07; Admin Dose 325 MG; Start 04/23/16 at 18:00 Guaifenesin/ Dextromethorphan (Mucinex Dm) 1 tab BID PO Last administered on 08:41; Admin Dose 1 TAB; Start 04/26/16 at 13:00 Heparin Sodium (Porcine) (Heparin (5000 Units/0.5 ml)) 5,000 unit Q12 SC Last administered on 05/02/16 08:45; Admin Dose 5,000 UNIT; Start 04/26/16 at 14:30 Insulin Glargine (Lantus) 15 unit AM SC Last administered on 05/02/16 08:46; Admin Dose 15 UNIT; Start 04/28/16 at 09:00 Nifedipine (Procardia Xl) 30 mg BID PO Last administered on 05/02/16 08:41; Admin Dose 30 MG; Start 04/28/16 at 21:00 Docusate Sodium (Colace) 100 mg BID PO Last administered on 05/02/16 08:42; Admin Dose 100 MG; Start 04/28/16 at 21:00 Senna (Senokot) 1 tab BID PO Last administered on 05/02/16 08:40; Admin Dose 1 TAB; Start 04/28/16 at 21:00 Prednisone (Prednisone) 10 mg DAILY PO Last administered on 05/02/16 08:40; Admin Dose 10 MG; Start 05/02/16 at 09:00 LUCIANO MCCLENDON MD May 02, 2016 12:59
--- NOTE | 2016-05-02 14:01 | CONS ---
Date/Time of Note Date/Time of Note DATE: 05/02/16 TIME: 14:00 Assessment/Plan Assessment/Plan Chief Complaint/Hosp Course SUBJECTIVE: Alert, feels good, no fevers, no SOB, looks comfortable on nc INDWELLINGS: Right femoral Irineo. PHYSICAL EXAMINATION: GENERAL: Fragile, elderly woman who is in no distress. HEENT: Head atraumatic, normocephalic. Sclerae anicteric. Buccal mucosa pink , dry. NECK: Supple. CHEST: Rise symmetrical. Breath sounds clear. HEART: S1, S2. ABDOMEN: Soft, bowel tones present. EXTREMITIES: Without cyanosis. ASSESSMENT: 1. Status post-acute hypoxemic respiratory failure secondary to fluid overload. 2. S/p pneumonia. 3. Acute on chronic kidney disease, on hemodialysis. 4. Hypertension. 5. Diabetes. 6. Leukocytosis==> on PO steroids taper. PLAN: Remains stable, off abx, continue present care, encourage incentive spirometry. Follow recommendations of consultants. DW staff/pt Problems: Consultation Date/Type/Reason Admit Date/Time Apr 23, 2016 at 15:06 Initial Consult Date 04/21/16 Type of Consultation: ID Exam/Review of Systems Vital Signs Vitals Vital Signs Date Time Temp Pulse Resp B/P Pulse Ox O2 Delivery O2 Flow Rate FiO2 05/02/16 12:11 77 05/02/16 12:00 18 05/02/16 11:39 98.3 101/62 98 05/02/16 11:34 Nasal Cannula 2.0 04/30/16 17:09 97 Intake and Output 05/01/16 05/01/16 05/02/16 15:00 23:00 07:00 Intake Total 300 ml Balance 300 ml Results Result Diagram: 05/01/16 0645 05/01/16 0645 Results 24 hrs Laboratory Tests Test 05/01/16 17:02 05/01/16 20:50 05/02/16 02:20 05/02/16 07:56 Bedside Glucose 186 266 H 218 147 Test 05/02/16 12:19 Bedside Glucose 187 Medications Medications Current Medications Allopurinol (Zyloprim) 100 mg QHS PO Last administered on 05/01/16 20:59; Admin Dose 100 MG; Start 04/21/16 at 21:00 Aspirin (Halfprin) 81 mg DAILY PO Last administered on 05/02/16 08:40; Admin Dose 81 MG; Start 04/21/16 at 09:00 Atorvastatin Calcium (Lipitor) 40 mg QHS PO Last administered on 05/01/16 20:42 ; Admin Dose 40 MG; Start 04/21/16 at 21:00 Carvedilol (Coreg) 25 mg BID PO Last administered on 05/02/16 08:42; Admin Dose 25 MG; Start 04/21/16 at 09:00 Isosorbide Mononitrate (Imdur) 30 mg DAILY PO Last administered on 05/02/16 08: 41; Admin Dose 30 MG; Start 04/21/16 at 09:00 Diagnostic Test (Pha) (Accucheck) 1 ea 02 XX Last administered on 05/02/16 02: 22; Admin Dose 1 EA; Start 04/22/16 at 02:00 Miscellaneous Information 1 ea NOTE XX ; Start 04/21/16 at 05:30 Glucose (Glutose) 15 gm Q15M PRN PO DECREASED GLUCOSE; Start 04/21/16 at 05:30 Glucose (Glutose) 22.5 gm Q15M PRN PO DECREASED GLUCOSE; Start 04/21/16 at 05: 30 Dextrose (D50w Syringe) 25 ml Q15M PRN IV DECREASED GLUCOSE; Start 04/21/16 at 05:30 Dextrose (D50w Syringe) 50 ml Q15M PRN IV DECREASED GLUCOSE; Start 04/21/16 at 05:30 Glucagon (Glucagen) 1 mg Q15M PRN IM DECREASED GLUCOSE; Start 04/21/16 at 05:30 Glucose (Glutose) 15 gm Q15M PRN BUCCAL DECREASED GLUCOSE; Start 04/21/16 at 05 :30 Epoetin Viet (Epogen (Esrd)) 10,000 units MoWeFr@17 SC Last administered on 05/01 17:07; Admin Dose 10,000 UNITS; Start 04/22/16 at 17:00 Diphenhydramine HCl (Benadryl) 25 mg Q6H PRN PO before each unit of prbc Last administered on 04/24/16 21:35; Admin Dose 25 MG; Start 04/23/16 at 18:00 Acetaminophen (Tylenol Tab) 325 mg Q6H PRN PO before each unit of prbc Last administered on 04/25/16 14:07; Admin Dose 325 MG; Start 04/23/16 at 18:00 Guaifenesin/ Dextromethorphan (Mucinex Dm) 1 tab BID PO Last administered on 08:41; Admin Dose 1 TAB; Start 04/26/16 at 13:00 Heparin Sodium (Porcine) (Heparin (5000 Units/0.5 ml)) 5,000 unit Q12 SC Last administered on 05/02/16 08:45; Admin Dose 5,000 UNIT; Start 04/26/16 at 14:30 Insulin Glargine (Lantus) 15 unit AM SC Last administered on 05/02/16 08:46; Admin Dose 15 UNIT; Start 04/28/16 at 09:00 Nifedipine (Procardia Xl) 30 mg BID PO Last administered on 05/02/16 08:41; Admin Dose 30 MG; Start 04/28/16 at 21:00 Docusate Sodium (Colace) 100 mg BID PO Last administered on 05/02/16 08:42; Admin Dose 100 MG; Start 04/28/16 at 21:00 Senna (Senokot) 1 tab BID PO Last administered on 05/02/16 08:40; Admin Dose 1 TAB; Start 04/28/16 at 21:00 Prednisone (Prednisone) 10 mg DAILY PO Last administered on 05/02/16 08:40; Admin Dose 10 MG; Start 05/02/16 at 09:00 LIZZY CARPENTER NP May 02, 2016 14:01
[2016-05-02] MEDS: ATORVASTATIN 40 MG TAB PO SCH (20:13)
[2016-05-02] MEDS: ALLOPURINOL 100 MG TAB PO SCH (20:13)
[2016-05-03] VITALS (11 sets, daily range): BP systolic 122–142; BP diastolic 58–66; PULSE 71–83; RESP 18–20
[2016-05-03] MEDS: ALBUTEROL/IPRATROPIUM (NEB) 3 ML AMP HHN SCH ×6 (01:00→21:09)
--- NOTE | 2016-05-03 01:35 | PN ---
DATE: 05/02/2016 SUBJECTIVE: Patient awake, alert. No active complaints. Nursing reports that the patient's daught er is not willing to consent for the IJ catheter because she did not want her mom to be started on d ialysis yet and sending to outpatient. I tried to call the patient's daughter's phone at home, but no one answered. OBJECTIVE: VITAL SIGNS: Temperature 98.0, blood pressure 113/56, pulse of 70, respiration rate 20, O2 saturati on 99% on 2 liters nasal cannula. HEENT: Pupils equally round, reactive to light. Oropharynx clear. CHEST: Lungs are clear to auscultation anteriorly with bibasilar crackles posteriorly. CARDIAC: Regular rate and rhythm, normal S1, S2. ABDOMEN: Active bowel sounds, soft, nondistended, nontender. EXTREMITIES: No clubbing, cyanosis, or edema. LABORATORY DATA: WBC 15.7, hemoglobin 10.9, hematocrit 33.5, platelet count 200,000. ASSESSMENT AND PLAN: 1. Pneumonitis appears clinically stable off of antibiotics on very low dose of prednisone at this time. We will titrate off of prednisone completely for anticipation of discharge to home. 2. Congestive heart failure and fluid overload, improved after hemodialysis. 3. Acute on chronic renal failure. Will have patient's daughter call me when she comes in. If the patient's family is not willing to start patient on chronic hemodialysis, then we will have the ing uinal Mihai cath removed and patient will be discharged to home for outpatient followup. Dictated By: TREMAINE RIOS MD DP/ELENI Conf#: [id number] DID#: [id number]
[2016-05-03] MEDS: ACCUCHECK XX SCH (02:20)
[2016-05-03 06:02] LABS: ADD SCAN DIFF NO
[2016-05-03 06:15] LABS: BASOPHILS % 0.1 % (0.0-2.0); EOSINOPHILS # 0.1 10^3/ul (0.0-0.5); EOSINOPHILS % 0.6 % (0.0-7.0); HEMATOCRIT 32.8 % (37.0-47.0); HEMOGLOBIN 10.8 g/dl (12.0-16.0); LYMPHOCYTES # 2.3 10^3/ul (0.8-2.9); LYMPHOCYTES % 16.8 % (15.0-51.0); MEAN CORPUSCULAR HEMOGLOBIN 30.6 pg (29.0-33.0); MEAN CORPUSCULAR HGB CONC 32.9 g/dl (32.0-37.0); MEAN CORPUSCULAR VOLUME 92.9 fl (82.0-101.0); MEAN PLATELET VOLUME 10.4 fl (7.4-10.4); MONOCYTE # 1.1 10^3/ul (0.3-0.9); MONOCYTES % 8.3 % (0.0-11.0); NEUTROPHIL # 9.7 10^3/ul (1.6-7.5); NEUTROPHILS % 71.7 % (39.0-77.0); NUCLEATED RED BLOOD CELLS # 0.2 10^3/ul (0.0-0.0); NUCLEATED RED BLOOD CELLS% 1.2 /100WBC (0.0-0.0); PLATELET COUNT 194 10^3/UL (140-415); RED BLOOD COUNT 3.53 10^6/ul (4.20-5.40); RED CELL DISTRIBUTION WIDTH 16.2 % (11.5-14.5); WHITE BLOOD COUNT 13.6 10^3/ul (4.8-10.8)
[2016-05-03] MEDS: ASPIRIN (EC) 81 MG TAB PO SCH (08:09)
[2016-05-03] MEDS: DOCUSATE SODIUM 100 MG CAP PO SCH ×2 (08:09→20:40)
[2016-05-03] MEDS: predniSONE 10 MG TAB PO SCH (08:10)
[2016-05-03] MEDS: ISOSORBIDE MONONITRATE(SR)30 MG TAB PO SCH (08:10)
[2016-05-03] MEDS: GUAIFENESIN/DM (SR) TAB PO SCH ×2 (08:10→20:41)
[2016-05-03] MEDS: SENNA TAB PO SCH ×2 (08:10→20:40)
[2016-05-03] MEDS: NIFEdipine (XL) 30 MG TAB PO SCH ×2 (08:11→20:41)
[2016-05-03] MEDS: CALCIUM ACETATE 667 MG CAP PO SCH ×3 (08:11→16:48)
[2016-05-03] MEDS: HEPARIN 5,000 UNIT/0.5 ML SYG SC SCH ×2 (08:13→20:52)
[2016-05-03] MEDS: INSULIN GLARGINE [LANtus] 3 ML PEN SC SCH (08:13)
[2016-05-03] MEDS: INSULIN ASPART [NOVOLOG] 3 ML PEN SC SCH ×7 (08:14→20:52)
--- NOTE | 2016-05-03 12:43 | CONS ---
Date/Time of Note Date/Time of Note DATE: 05/03/16 TIME: 12:41 Assessment/Plan Assessment/Plan Additional Assessment/Plan 1. ARF on CKD. s/p dialysis yesterday. Will monitor renal function. Decided about further dialysis tomorrow 2. anemia , improved 3. CHF , improved 4. Pneumonia , improved on CXR done 04/26/16. 4. DM: controlled Consultation Date/Type/Reason Admit Date/Time Apr 23, 2016 at 15:06 Initial Consult Date 04/21/16 Type of Consultation: Nephrology 24 HR Interval Summary Free Text/Dictation Alert, no complaints. Incontinent of urine. Exam/Review of Systems Vital Signs Vitals Vital Signs Date Time Temp Pulse Resp B/P Pulse Ox O2 Delivery O2 Flow Rate FiO2 05/03/16 12:20 71 05/03/16 11:53 97.4 18 138/65 95 05/03/16 09:34 Nasal Cannula 2.0 04/30/16 17:09 97 Intake and Output 05/02/16 05/02/16 05/03/16 15:00 23:00 07:00 Intake Total 740 ml 560 ml 360 ml Output Total 1500 ml 1000 ml Balance -760 ml -440 ml 360 ml Exam Constitutional: alert, oriented Head: atraumatic, normocephalic Neck: supple, No jvd Cardiovascular: regular rate and rhythm Extremities: No edema Results Result Diagram: 05/03/16 0543 05/01/16 0645 Results 24 hrs Laboratory Tests Test 05/02/16 17:16 05/02/16 20:22 05/03/16 01:20 05/03/16 05:43 Bedside Glucose 343 H 231 H 137 Basophils # 0.0 Basophils % 0.1 Eosinophils # 0.1 Eosinophils % 0.6 Erythrocyte Sedimentation Rate 10 Hematocrit 32.8 L Hemoglobin 10.8 L Lymphocytes # 2.3 Lymphocytes % 16.8 Mean Corpuscular Hemoglobin 30.6 Mean Corpuscular Hemoglobin Concent 32.9 Mean Corpuscular Volume 92.9 Mean Platelet Volume 10.4 Monocytes # 1.1 H Monocytes % 8.3 Neutrophils # 9.7 H Neutrophils % 71.7 Nucleated Red Blood Cells # 0.2 H Nucleated Red Blood Cells % 1.2 H Platelet Count 194 Red Blood Count 3.53 L Red Cell Distribution Width 16.2 H White Blood Count 13.6 H Test 05/03/16 07:31 05/03/16 11:27 Bedside Glucose 150 225 H Medications Medications Current Medications Allopurinol (Zyloprim) 100 mg QHS PO Last administered on 05/02/16 20:13; Admin Dose 100 MG; Start 04/21/16 at 21:00 Aspirin (Halfprin) 81 mg DAILY PO Last administered on 05/03/16 08:09; Admin Dose 81 MG; Start 04/21/16 at 09:00 Atorvastatin Calcium (Lipitor) 40 mg QHS PO Last administered on 05/02/16 20:13 ; Admin Dose 40 MG; Start 04/21/16 at 21:00 Carvedilol (Coreg) 25 mg BID PO Last administered on 05/03/16 08:10; Admin Dose 25 MG; Start 04/21/16 at 09:00 Isosorbide Mononitrate (Imdur) 30 mg DAILY PO Last administered on 05/03/16 08: 10; Admin Dose 30 MG; Start 04/21/16 at 09:00 Diagnostic Test (Pha) (Accucheck) 1 ea 02 XX Last administered on 05/03/16 02: 20; Admin Dose 1 EA; Start 04/22/16 at 02:00 Miscellaneous Information 1 ea NOTE XX ; Start 04/21/16 at 05:30 Glucose (Glutose) 15 gm Q15M PRN PO DECREASED GLUCOSE; Start 04/21/16 at 05:30 Glucose (Glutose) 22.5 gm Q15M PRN PO DECREASED GLUCOSE; Start 04/21/16 at 05: 30 Dextrose (D50w Syringe) 25 ml Q15M PRN IV DECREASED GLUCOSE; Start 04/21/16 at 05:30 Dextrose (D50w Syringe) 50 ml Q15M PRN IV DECREASED GLUCOSE; Start 04/21/16 at 05:30 Glucagon (Glucagen) 1 mg Q15M PRN IM DECREASED GLUCOSE; Start 04/21/16 at 05:30 Glucose (Glutose) 15 gm Q15M PRN BUCCAL DECREASED GLUCOSE; Start 04/21/16 at 05 :30 Epoetin Viet (Epogen (Esrd)) 10,000 units MoWeFr@17 SC Last administered on 05/01 17:07; Admin Dose 10,000 UNITS; Start 04/22/16 at 17:00 Diphenhydramine HCl (Benadryl) 25 mg Q6H PRN PO before each unit of prbc Last administered on 04/24/16 21:35; Admin Dose 25 MG; Start 04/23/16 at 18:00 Acetaminophen (Tylenol Tab) 325 mg Q6H PRN PO before each unit of prbc Last administered on 04/25/16 14:07; Admin Dose 325 MG; Start 04/23/16 at 18:00 Guaifenesin/ Dextromethorphan (Mucinex Dm) 1 tab BID PO Last administered on 08:10; Admin Dose 1 TAB; Start 04/26/16 at 13:00 Heparin Sodium (Porcine) (Heparin (5000 Units/0.5 ml)) 5,000 unit Q12 SC Last administered on 05/03/16 08:13; Admin Dose 5,000 UNIT; Start 04/26/16 at 14:30 Insulin Glargine (Lantus) 15 unit AM SC Last administered on 05/03/16 08:13; Admin Dose 15 UNIT; Start 04/28/16 at 09:00 Nifedipine (Procardia Xl) 30 mg BID PO Last administered on 05/03/16 08:11; Admin Dose 30 MG; Start 04/28/16 at 21:00 Docusate Sodium (Colace) 100 mg BID PO Last administered on 05/03/16 08:09; Admin Dose 100 MG; Start 04/28/16 at 21:00 Senna (Senokot) 1 tab BID PO Last administered on 05/03/16 08:10; Admin Dose 1 TAB; Start 04/28/16 at 21:00 Prednisone (Prednisone) 10 mg DAILY PO Last administered on 05/03/16 08:10; Admin Dose 10 MG; Start 05/02/16 at 09:00 LUCIANO MCCLENDON MD May 03, 2016 12:43
--- NOTE | 2016-05-03 13:56 | CONS ---
Date/Time of Note Date/Time of Note DATE: 05/03/16 TIME: 13:55 Assessment/Plan Assessment/Plan Additional Assessment/Plan Acute decompensated diastolic congestive heart failure Hypertension Acute on chronic kidney injury, new hemodialysis Diabetes -Fluid management via hemodialysis as per our nephrology colleagues. Should trend overall remained stable. Consultation Date/Type/Reason Admit Date/Time Apr 23, 2016 at 15:06 Initial Consult Date 04/21/16 Type of Consultation: cv 24 HR Interval Summary Free Text/Dictation Denies shortness of breath, palpitations Exam/Review of Systems Vital Signs Vitals Vital Signs Date Time Temp Pulse Resp B/P Pulse Ox O2 Delivery O2 Flow Rate FiO2 05/03/16 13:30 78 16 97 Nasal Cannula 1.0 05/03/16 11:53 97.4 138/65 04/30/16 17:09 97 Intake and Output 05/02/16 05/02/16 05/03/16 15:00 23:00 07:00 Intake Total 740 ml 560 ml 360 ml Output Total 1500 ml 1000 ml Balance -760 ml -440 ml 360 ml Exam No apparent distress Constitutional: alert, obese, oriented Head: normocephalic Neck: supple Respiratory: other (Coarse breath sounds bilaterally, no wheezing) Cardiovascular: other (S1-S2 heard), regular rate and rhythm Gastrointestinal: bowel sounds, non-tender, other (No guarding), soft Extremities: edema (Trace), other (No cyanosis) Results Result Diagram: 05/03/16 0543 05/01/16 0645 Results 24 hrs Laboratory Tests Test 05/02/16 17:16 05/02/16 20:22 05/03/16 01:20 05/03/16 05:43 Bedside Glucose 343 H 231 H 137 Basophils # 0.0 Basophils % 0.1 Eosinophils # 0.1 Eosinophils % 0.6 Erythrocyte Sedimentation Rate 10 Hematocrit 32.8 L Hemoglobin 10.8 L Lymphocytes # 2.3 Lymphocytes % 16.8 Mean Corpuscular Hemoglobin 30.6 Mean Corpuscular Hemoglobin Concent 32.9 Mean Corpuscular Volume 92.9 Mean Platelet Volume 10.4 Monocytes # 1.1 H Monocytes % 8.3 Neutrophils # 9.7 H Neutrophils % 71.7 Nucleated Red Blood Cells # 0.2 H Nucleated Red Blood Cells % 1.2 H Platelet Count 194 Red Blood Count 3.53 L Red Cell Distribution Width 16.2 H White Blood Count 13.6 H Test 05/03/16 07:31 05/03/16 11:27 Bedside Glucose 150 225 H Medications Medications Current Medications Allopurinol (Zyloprim) 100 mg QHS PO Last administered on 05/02/16 20:13; Admin Dose 100 MG; Start 04/21/16 at 21:00 Aspirin (Halfprin) 81 mg DAILY PO Last administered on 05/03/16 08:09; Admin Dose 81 MG; Start 04/21/16 at 09:00 Atorvastatin Calcium (Lipitor) 40 mg QHS PO Last administered on 05/02/16 20:13 ; Admin Dose 40 MG; Start 04/21/16 at 21:00 Carvedilol (Coreg) 25 mg BID PO Last administered on 05/03/16 08:10; Admin Dose 25 MG; Start 04/21/16 at 09:00 Isosorbide Mononitrate (Imdur) 30 mg DAILY PO Last administered on 05/03/16 08: 10; Admin Dose 30 MG; Start 04/21/16 at 09:00 Diagnostic Test (Pha) (Accucheck) 1 ea 02 XX Last administered on 05/03/16 02: 20; Admin Dose 1 EA; Start 04/22/16 at 02:00 Miscellaneous Information 1 ea NOTE XX ; Start 04/21/16 at 05:30 Glucose (Glutose) 15 gm Q15M PRN PO DECREASED GLUCOSE; Start 04/21/16 at 05:30 Glucose (Glutose) 22.5 gm Q15M PRN PO DECREASED GLUCOSE; Start 04/21/16 at 05: 30 Dextrose (D50w Syringe) 25 ml Q15M PRN IV DECREASED GLUCOSE; Start 04/21/16 at 05:30 Dextrose (D50w Syringe) 50 ml Q15M PRN IV DECREASED GLUCOSE; Start 04/21/16 at 05:30 Glucagon (Glucagen) 1 mg Q15M PRN IM DECREASED GLUCOSE; Start 04/21/16 at 05:30 Glucose (Glutose) 15 gm Q15M PRN BUCCAL DECREASED GLUCOSE; Start 04/21/16 at 05 :30 Epoetin Viet (Epogen (Esrd)) 10,000 units MoWeFr@17 SC Last administered on 05/01 17:07; Admin Dose 10,000 UNITS; Start 04/22/16 at 17:00 Diphenhydramine HCl (Benadryl) 25 mg Q6H PRN PO before each unit of prbc Last administered on 04/24/16 21:35; Admin Dose 25 MG; Start 04/23/16 at 18:00 Acetaminophen (Tylenol Tab) 325 mg Q6H PRN PO before each unit of prbc Last administered on 04/25/16 14:07; Admin Dose 325 MG; Start 04/23/16 at 18:00 Guaifenesin/ Dextromethorphan (Mucinex Dm) 1 tab BID PO Last administered on 08:10; Admin Dose 1 TAB; Start 04/26/16 at 13:00 Heparin Sodium (Porcine) (Heparin (5000 Units/0.5 ml)) 5,000 unit Q12 SC Last administered on 05/03/16 08:13; Admin Dose 5,000 UNIT; Start 04/26/16 at 14:30 Insulin Glargine (Lantus) 15 unit AM SC Last administered on 05/03/16 08:13; Admin Dose 15 UNIT; Start 04/28/16 at 09:00 Nifedipine (Procardia Xl) 30 mg BID PO Last administered on 05/03/16 08:11; Admin Dose 30 MG; Start 04/28/16 at 21:00 Docusate Sodium (Colace) 100 mg BID PO Last administered on 05/03/16 08:09; Admin Dose 100 MG; Start 04/28/16 at 21:00 Senna (Senokot) 1 tab BID PO Last administered on 05/03/16 08:10; Admin Dose 1 TAB; Start 04/28/16 at 21:00 Prednisone (Prednisone) 10 mg DAILY PO Last administered on 05/03/16 08:10; Admin Dose 10 MG; Start 05/02/16 at 09:00 Dariel Juarez DO May 03, 2016 13:56
--- NOTE | 2016-05-03 15:06 | CONS ---
Date/Time of Note Date/Time of Note DATE: 05/03/16 TIME: 15:04 Assessment/Plan Assessment/Plan Chief Complaint/Hosp Course SUBJECTIVE: Alert, feels good, no fevers INDWELLINGS: Right femoral Irineo. PHYSICAL EXAMINATION: GENERAL: Fragile, elderly woman who is in no distress. HEENT: Head atraumatic, normocephalic. Sclerae anicteric. Buccal mucosa pink , dry. NECK: Supple. CHEST: Rise symmetrical. Breath sounds clear. HEART: S1, S2. ABDOMEN: Soft, bowel tones present. EXTREMITIES: Without cyanosis. ASSESSMENT: 1. Status post-acute hypoxemic respiratory failure secondary to fluid overload. 2. S/p pneumonia. 3. Acute on chronic kidney disease, on hemodialysis. 4. Hypertension. 5. Diabetes. 6. Leukocytosis==> on PO steroids taper. PLAN: Remains stable, off abx, continue present care, follow recommendations of consultants. DW staff/pt Problems: Consultation Date/Type/Reason Admit Date/Time Apr 23, 2016 at 15:06 Initial Consult Date 04/21/16 Type of Consultation: id Exam/Review of Systems Vital Signs Vitals Vital Signs Date Time Temp Pulse Resp B/P Pulse Ox O2 Delivery O2 Flow Rate FiO2 05/03/16 13:30 78 16 97 Nasal Cannula 1.0 05/03/16 11:53 97.4 138/65 04/30/16 17:09 97 Intake and Output 05/02/16 05/02/16 05/03/16 15:00 23:00 07:00 Intake Total 740 ml 560 ml 360 ml Output Total 1500 ml 1000 ml Balance -760 ml -440 ml 360 ml Results Result Diagram: 05/03/16 0543 05/01/16 0645 Results 24 hrs Laboratory Tests Test 05/02/16 17:16 05/02/16 20:22 05/03/16 01:20 05/03/16 05:43 Bedside Glucose 343 H 231 H 137 Basophils # 0.0 Basophils % 0.1 Eosinophils # 0.1 Eosinophils % 0.6 Erythrocyte Sedimentation Rate 10 Hematocrit 32.8 L Hemoglobin 10.8 L Lymphocytes # 2.3 Lymphocytes % 16.8 Mean Corpuscular Hemoglobin 30.6 Mean Corpuscular Hemoglobin Concent 32.9 Mean Corpuscular Volume 92.9 Mean Platelet Volume 10.4 Monocytes # 1.1 H Monocytes % 8.3 Neutrophils # 9.7 H Neutrophils % 71.7 Nucleated Red Blood Cells # 0.2 H Nucleated Red Blood Cells % 1.2 H Platelet Count 194 Red Blood Count 3.53 L Red Cell Distribution Width 16.2 H White Blood Count 13.6 H Test 05/03/16 07:31 05/03/16 11:27 Bedside Glucose 150 225 H Medications Medications Current Medications Allopurinol (Zyloprim) 100 mg QHS PO Last administered on 05/02/16 20:13; Admin Dose 100 MG; Start 04/21/16 at 21:00 Aspirin (Halfprin) 81 mg DAILY PO Last administered on 05/03/16 08:09; Admin Dose 81 MG; Start 04/21/16 at 09:00 Atorvastatin Calcium (Lipitor) 40 mg QHS PO Last administered on 05/02/16 20:13 ; Admin Dose 40 MG; Start 04/21/16 at 21:00 Carvedilol (Coreg) 25 mg BID PO Last administered on 05/03/16 08:10; Admin Dose 25 MG; Start 04/21/16 at 09:00 Isosorbide Mononitrate (Imdur) 30 mg DAILY PO Last administered on 05/03/16 08: 10; Admin Dose 30 MG; Start 04/21/16 at 09:00 Diagnostic Test (Pha) (Accucheck) 1 ea 02 XX Last administered on 05/03/16 02: 20; Admin Dose 1 EA; Start 04/22/16 at 02:00 Miscellaneous Information 1 ea NOTE XX ; Start 04/21/16 at 05:30 Glucose (Glutose) 15 gm Q15M PRN PO DECREASED GLUCOSE; Start 04/21/16 at 05:30 Glucose (Glutose) 22.5 gm Q15M PRN PO DECREASED GLUCOSE; Start 04/21/16 at 05: 30 Dextrose (D50w Syringe) 25 ml Q15M PRN IV DECREASED GLUCOSE; Start 04/21/16 at 05:30 Dextrose (D50w Syringe) 50 ml Q15M PRN IV DECREASED GLUCOSE; Start 04/21/16 at 05:30 Glucagon (Glucagen) 1 mg Q15M PRN IM DECREASED GLUCOSE; Start 04/21/16 at 05:30 Glucose (Glutose) 15 gm Q15M PRN BUCCAL DECREASED GLUCOSE; Start 04/21/16 at 05 :30 Epoetin Viet (Epogen (Esrd)) 10,000 units MoWeFr@17 SC Last administered on 05/01 17:07; Admin Dose 10,000 UNITS; Start 04/22/16 at 17:00 Diphenhydramine HCl (Benadryl) 25 mg Q6H PRN PO before each unit of prbc Last administered on 04/24/16 21:35; Admin Dose 25 MG; Start 04/23/16 at 18:00 Acetaminophen (Tylenol Tab) 325 mg Q6H PRN PO before each unit of prbc Last administered on 04/25/16 14:07; Admin Dose 325 MG; Start 04/23/16 at 18:00 Guaifenesin/ Dextromethorphan (Mucinex Dm) 1 tab BID PO Last administered on 08:10; Admin Dose 1 TAB; Start 04/26/16 at 13:00 Heparin Sodium (Porcine) (Heparin (5000 Units/0.5 ml)) 5,000 unit Q12 SC Last administered on 05/03/16 08:13; Admin Dose 5,000 UNIT; Start 04/26/16 at 14:30 Insulin Glargine (Lantus) 15 unit AM SC Last administered on 05/03/16 08:13; Admin Dose 15 UNIT; Start 04/28/16 at 09:00 Nifedipine (Procardia Xl) 30 mg BID PO Last administered on 05/03/16 08:11; Admin Dose 30 MG; Start 04/28/16 at 21:00 Docusate Sodium (Colace) 100 mg BID PO Last administered on 05/03/16 08:09; Admin Dose 100 MG; Start 04/28/16 at 21:00 Senna (Senokot) 1 tab BID PO Last administered on 05/03/16 08:10; Admin Dose 1 TAB; Start 04/28/16 at 21:00 Prednisone (Prednisone) 10 mg DAILY PO Last administered on 05/03/16 08:10; Admin Dose 10 MG; Start 05/02/16 at 09:00 LIZZY CARPENTER NP May 03, 2016 15:06
[2016-05-03] MEDS: ATORVASTATIN 40 MG TAB PO SCH (20:41)
[2016-05-03] MEDS: ALLOPURINOL 100 MG TAB PO SCH (20:41)
[2016-05-04] VITALS (8 sets, daily range): BP systolic 116–140; BP diastolic 60–68; PULSE 72–78; RESP 20
--- NOTE | 2016-05-04 | DS ---
DATE OF ADMISSION: 04/23/2016 DATE OF DISCHARGE: 05/03/2016 DISCHARGE DIAGNOSES: 1. Right lower lobe pneumonia. 2. Congestive heart failure. 3. Pulmonary edema. 4. Acute on chronic renal failure. HOSPITAL COURSE: This 81-year-old [place] with chronic renal failure and a history of congestive h eart failure was admitted with respiratory distress. Her chest x-ray was noted to have bilateral pu lmonary edema as well as right mid lung density. Chest CT was obtained that showed that the right l ower lobe infiltrate was consistent with pneumonia with a right parapneumonic right pleural effusion . She did also have a left lower lobe pulmonary nodule that had been getting larger in size compare d to 12/2015 CT scan and now is measuring 1.3 x 1.1 cm with reactive type mediastinal and left hilar adenopathy. There are also sequelae of prior atypical infection and parenchymal scarring in the ri ght upper lobe that was old and stable cardiomegaly without CHF pattern. The patient was started on oral antibiotic with low dose Levaquin and doxycycline, since her laboratory studies were remarkabl e for high white cell count, anemia, and acute renal failure with BUN and creatinine of 52 and 4.39 on admission. The patient's BUN and creatinine steadily grayson the next several days during hospital admission. Nephrology consultation recommended hemodialysis when her BUN reached 98 and the creatin ine was 5.3. Irineo catheter was placed and the patient underwent hemodialysis several times a wee k with improvement in the BUN, creatinine, so that on the day of discharge, her BUN was 48, creatini ne was 2.0. The patient continued to have mild respiratory distress despite the oral antibiotics an d the albuterol nebulizer treatment. We started her on Solu-Medrol, as suggested by pulmonary consu ltation. When patient improved gradually, we were able to taper patient down from Solu-Medrol to pr ednisone and then discontinue it on the day of discharge. Other complications during this hospital course include the fact the patient's anemia became progressively worse, so that her H and H came do wn to 7.5 and 21.4 two days after hospitalization requiring 2 units of packed red blood cells, when her H and H came up to be about 11 and 32 or 33, respectively, and this level continued throughout h er remainder of hospitalization course. Since patient has been having difficulty with CHF and bronc hiolitis as well as pneumonia, she also underwent a video swallow study to see if she had any aspira tion risk and this test was negative. The speech therapist noted that there was some coughing with dry solids, but overall swallow is within normal limits and no therapy was indicated. Nephrology di scussed with patient and family regarding the need for chronic outpatient hemodialysis, but the jamir ent and her family did not want to go ahead with this at this point in time because they are hoping that this is just an acute renal failure brought on by the pneumonia and they would like to put off outpatient hemodialysis as long as they can. The patient completed the course of antibiotic. She w ent off of antibiotic and prednisone and continues to have no respiratory distress, although her yimi st x-ray has not cleared yet. We will continue to follow her as an outpatient. DISPOSITION: The patient is discharged to home with home health nurse for followup as well as outpa tient followup with Dr. Kathy Gan and Dr. Mo. The patient has been evaluated by physical therapist and will continue to receive physical therapy at home via home health. DISCHARGE MEDICATIONS: The patient is discharged to home on the same medications she was hospitaliz ed with, which include: 1. Allopurinol. 2. Aspirin. 3. Atorvastatin. 4. Carvedilol. 5. Furosemide. 6. Insulin Lantus. 7. Isosorbide mononitrate. 8. Nifedipine. Dictated By: KATHY GAN MD DP/NTS Conf#: [id number] DID#: [id number] CC: DOMINIC ROSAS MD;*End*
[2016-05-04] MEDS: ALBUTEROL/IPRATROPIUM (NEB) 3 ML AMP HHN SCH ×3 (01:54→10:51)
[2016-05-04] MEDS: ACCUCHECK XX SCH (02:00)
[2016-05-04 06:41] LABS: ADD SCAN DIFF NO
[2016-05-04 06:46] LABS: BASOPHILS % 0.2 % (0.0-2.0); EOSINOPHILS # 0.1 10^3/ul (0.0-0.5); EOSINOPHILS % 0.7 % (0.0-7.0); HEMATOCRIT 32.1 % (37.0-47.0); HEMOGLOBIN 10.7 g/dl (12.0-16.0); LYMPHOCYTES # 2.5 10^3/ul (0.8-2.9); LYMPHOCYTES % 20.3 % (15.0-51.0); MEAN CORPUSCULAR HEMOGLOBIN 30.5 pg (29.0-33.0); MEAN CORPUSCULAR HGB CONC 33.3 g/dl (32.0-37.0); MEAN CORPUSCULAR VOLUME 91.5 fl (82.0-101.0); MEAN PLATELET VOLUME 10.5 fl (7.4-10.4); MONOCYTES % 8.1 % (0.0-11.0); NEUTROPHIL # 8.5 10^3/ul (1.6-7.5); NEUTROPHILS % 68.4 % (39.0-77.0); NUCLEATED RED BLOOD CELLS # 0.1 10^3/ul (0.0-0.0); NUCLEATED RED BLOOD CELLS% 1.1 /100WBC (0.0-0.0); PLATELET COUNT 203 10^3/UL (140-415); RED BLOOD COUNT 3.51 10^6/ul (4.20-5.40); RED CELL DISTRIBUTION WIDTH 16.4 % (11.5-14.5); WHITE BLOOD COUNT 12.4 10^3/ul (4.8-10.8)
[2016-05-04 06:59] LABS: ALBUMIN 2.6 g/dl (3.3-4.9)
[2016-05-04 07:02] LABS: ALBUMIN/GLOBULIN RATIO 1.04; BILIRUBIN,INDIRECT 0.3 mg/dl (0-1.1); BILIRUBIN,TOTAL 0.3 mg/dl (0.2-1.3); CALCIUM 8.4 mg/dl (8.4-10.2); CREATININE 1.95 mg/dl (0.44-1.00); TOTAL PROTEIN 5.1 g/dl (6.1-8.1)
[2016-05-04] MEDS: INSULIN ASPART [NOVOLOG] 3 ML PEN SC SCH ×4 (07:55→12:15)
[2016-05-04] MEDS: CALCIUM ACETATE 667 MG CAP PO SCH ×2 (08:17→12:11)
[2016-05-04] MEDS: GUAIFENESIN/DM (SR) TAB PO SCH (08:17)
[2016-05-04] MEDS: ISOSORBIDE MONONITRATE(SR)30 MG TAB PO SCH (08:18)
[2016-05-04] MEDS: NIFEdipine (XL) 30 MG TAB PO SCH (08:19)
[2016-05-04] MEDS: SENNA TAB PO SCH (08:20)
[2016-05-04] MEDS: ASPIRIN (EC) 81 MG TAB PO SCH (08:21)
[2016-05-04] MEDS: DOCUSATE SODIUM 100 MG CAP PO SCH (08:21)
[2016-05-04] MEDS: HEPARIN 5,000 UNIT/0.5 ML SYG SC SCH (08:22)
[2016-05-04] MEDS: INSULIN GLARGINE [LANtus] 3 ML PEN SC SCH (08:24)
--- NOTE | 2016-05-04 09:24 | CONS ---
Date/Time of Note Date/Time of Note DATE: 05/04/16 TIME: 09:20 Assessment/Plan Assessment/Plan Chief Complaint/Hosp Course 1. ARF on CKD , she had a hemodialysis treatment 2 days ago and her right femoral Vas-Cath was removed. The patient is being discharged to home today. She will be discharged on diuretics, furosemide, and will be followed by Dr. Gan. I recommended to the patient that she come and see me in my office in 1 week to see how she is doing. I can assess her renal function at that time. I did had a discussion with the patient's daughter about the need for future dialysis. I recommended that the patient have a internal jugular permacath placed; however, the daughter said that the patient was not ready for going on chronic hemodialysis treatment at this time. They wanted to see how she does off of dialysis and on medication. I will follow the patient as an outpatient. 2. anemia , improved 3. CHF , improved 4. Pneumonia , improved on CXR done 04/26/16. 4. DM Problems: Consultation Date/Type/Reason Admit Date/Time Apr 23, 2016 at 15:06 Initial Consult Date 04/21/16 Type of Consultation: id 24 HR Interval Summary Free Text/Dictation Patient feels well today. She seems comfortable. She tells me that she is going home today. Constitutional: improved, no complaints Exam/Review of Systems Vital Signs Vitals Vital Signs Date Time Temp Pulse Resp B/P Pulse Ox O2 Delivery O2 Flow Rate FiO2 05/04/16 08:41 76 05/04/16 07:30 98.4 20 130/60 98 05/04/16 05:29 21 05/04/16 03:59 Room Air 05/03/16 21:12 1.0 Intake and Output 05/03/16 05/03/16 05/04/16 15:00 23:00 07:00 Intake Total 560 ml 350 ml Balance 560 ml 350 ml Exam Constitutional: alert, oriented, well developed Respiratory: clear to auscultation, normal air movement Cardiovascular: regular rate and rhythm Gastrointestinal: soft Musculoskeletal: nl extremities to inspection Results Result Diagram: 05/04/16 0550 05/04/16 0550 Results 24 hrs Laboratory Tests Test 05/03/16 11:27 05/03/16 16:31 05/03/16 20:36 05/04/16 02:25 Bedside Glucose 225 H 277 H 237 H 119 Test 05/04/16 05:50 05/04/16 07:39 Alanine Aminotransferase (ALT/SGPT) 31 Albumin 2.6 L Albumin/Globulin Ratio 1.04 Alkaline Phosphatase 94 Anion Gap 11 Aspartate Amino Transf (AST/SGOT) 21 Basophils # 0.0 Basophils % 0.2 Blood Urea Nitrogen 39 H Calcium Level 8.4 Carbon Dioxide Level 28 Chloride Level 102 Creatinine 1.95 H Direct Bilirubin 0.00 Eosinophils # 0.1 Eosinophils % 0.7 Globulin 2.50 Glucose Level 92 Hematocrit 32.1 L Hemoglobin 10.7 L Indirect Bilirubin 0.3 Lymphocytes # 2.5 Lymphocytes % 20.3 Mean Corpuscular Hemoglobin 30.5 Mean Corpuscular Hemoglobin Concent 33.3 Mean Corpuscular Volume 91.5 Mean Platelet Volume 10.5 H Monocytes # 1.0 H Monocytes % 8.1 Neutrophils # 8.5 H Neutrophils % 68.4 Nucleated Red Blood Cells # 0.1 H Nucleated Red Blood Cells % 1.1 H Platelet Count 203 Potassium Level 4.0 Red Blood Count 3.51 L Red Cell Distribution Width 16.4 H Sodium Level 137 Total Bilirubin 0.3 Total Protein 5.1 L White Blood Count 12.4 H Bedside Glucose 103 Medications Medications Current Medications Allopurinol (Zyloprim) 100 mg QHS PO Last administered on 05/03/16 20:41; Admin Dose 100 MG; Start 04/21/16 at 21:00 Aspirin (Halfprin) 81 mg DAILY PO Last administered on 05/04/16 08:21; Admin Dose 81 MG; Start 04/21/16 at 09:00 Atorvastatin Calcium (Lipitor) 40 mg QHS PO Last administered on 05/03/16 20:41 ; Admin Dose 40 MG; Start 04/21/16 at 21:00 Carvedilol (Coreg) 25 mg BID PO Last administered on 05/04/16 08:20; Admin Dose 25 MG; Start 04/21/16 at 09:00 Isosorbide Mononitrate (Imdur) 30 mg DAILY PO Last administered on 05/04/16 08: 18; Admin Dose 30 MG; Start 04/21/16 at 09:00 Diagnostic Test (Pha) (Accucheck) 1 ea 02 XX Last administered on 3/6/17at 02: 00; Admin Dose 1 EA; Start 04/22/16 at 02:00 Miscellaneous Information 1 ea NOTE XX ; Start 04/21/16 at 05:30 Glucose (Glutose) 15 gm Q15M PRN PO DECREASED GLUCOSE; Start 04/21/16 at 05:30 Glucose (Glutose) 22.5 gm Q15M PRN PO DECREASED GLUCOSE; Start 04/21/16 at 05: 30 Dextrose (D50w Syringe) 25 ml Q15M PRN IV DECREASED GLUCOSE; Start 04/21/16 at 05:30 Dextrose (D50w Syringe) 50 ml Q15M PRN IV DECREASED GLUCOSE; Start 04/21/16 at 05:30 Glucagon (Glucagen) 1 mg Q15M PRN IM DECREASED GLUCOSE; Start 04/21/16 at 05:30 Glucose (Glutose) 15 gm Q15M PRN BUCCAL DECREASED GLUCOSE; Start 04/21/16 at 05 :30 Epoetin Viet (Epogen (Esrd)) 10,000 units MoWeFr@17 SC Last administered on 05/01 17:07; Admin Dose 10,000 UNITS; Start 04/22/16 at 17:00 Diphenhydramine HCl (Benadryl) 25 mg Q6H PRN PO before each unit of prbc Last administered on 04/24/16 21:35; Admin Dose 25 MG; Start 04/23/16 at 18:00 Acetaminophen (Tylenol Tab) 325 mg Q6H PRN PO before each unit of prbc Last administered on 04/25/16 14:07; Admin Dose 325 MG; Start 04/23/16 at 18:00 Guaifenesin/ Dextromethorphan (Mucinex Dm) 1 tab BID PO Last administered on 08:17; Admin Dose 1 TAB; Start 04/26/16 at 13:00 Heparin Sodium (Porcine) (Heparin (5000 Units/0.5 ml)) 5,000 unit Q12 SC Last administered on 05/04/16 08:22; Admin Dose 5,000 UNIT; Start 04/26/16 at 14:30 Insulin Glargine (Lantus) 15 unit AM SC Last administered on 05/04/16 08:24; Admin Dose 15 UNIT; Start 04/28/16 at 09:00 Nifedipine (Procardia Xl) 30 mg BID PO Last administered on 05/04/16 08:19; Admin Dose 30 MG; Start 04/28/16 at 21:00 Docusate Sodium (Colace) 100 mg BID PO Last administered on 05/04/16 08:21; Admin Dose 100 MG; Start 04/28/16 at 21:00 Senna (Senokot) 1 tab BID PO Last administered on 05/04/16 08:20; Admin Dose 1 TAB; Start 04/28/16 at 21:00 HOPE DOW MD May 04, 2016 09:23
--- NOTE | 2016-05-04 11:57 | CONS ---
Date/Time of Note Date/Time of Note DATE: 05/04/16 TIME: 11:57 Assessment/Plan Assessment/Plan Chief Complaint/Hosp Course SUBJECTIVE: Comfortable on RA INDWELLINGS: Right femoral Irineo. PHYSICAL EXAMINATION: GENERAL: Fragile, elderly woman who is in no distress. HEENT: Head atraumatic, normocephalic. Sclerae anicteric. Buccal mucosa pink , dry. NECK: Supple. CHEST: Rise symmetrical. Breath sounds clear. HEART: S1, S2. ABDOMEN: Soft, bowel tones present. EXTREMITIES: Without cyanosis. ASSESSMENT: 1. Status post-acute hypoxemic respiratory failure secondary to fluid overload. 2. S/p pneumonia. 3. Acute on chronic kidney disease, on hemodialysis. 4. Hypertension. 5. Diabetes. 6. Leukocytosis==> on PO steroids taper. PLAN: Remains stable, observe off abx DW staff/pt Problems: Consultation Date/Type/Reason Admit Date/Time Apr 23, 2016 at 15:06 Initial Consult Date 04/21/16 Type of Consultation: id Exam/Review of Systems Vital Signs Vitals Vital Signs Date Time Temp Pulse Resp B/P Pulse Ox O2 Delivery O2 Flow Rate FiO2 05/04/16 10:54 93 21 05/04/16 10:53 77 16 05/04/16 07:30 98.4 130/60 05/04/16 03:59 Room Air 05/03/16 21:12 1.0 Intake and Output 05/03/16 05/03/16 05/04/16 15:00 23:00 07:00 Intake Total 560 ml 350 ml Balance 560 ml 350 ml Results Result Diagram: 05/04/16 0550 05/04/16 0550 Results 24 hrs Laboratory Tests Test 05/03/16 16:31 05/03/16 20:36 05/04/16 02:25 05/04/16 05:50 Bedside Glucose 277 H 237 H 119 Alanine Aminotransferase (ALT/SGPT) 31 Albumin 2.6 L Albumin/Globulin Ratio 1.04 Alkaline Phosphatase 94 Anion Gap 11 Aspartate Amino Transf (AST/SGOT) 21 Basophils # 0.0 Basophils % 0.2 Blood Urea Nitrogen 39 H Calcium Level 8.4 Carbon Dioxide Level 28 Chloride Level 102 Creatinine 1.95 H Direct Bilirubin 0.00 Eosinophils # 0.1 Eosinophils % 0.7 Globulin 2.50 Glucose Level 92 Hematocrit 32.1 L Hemoglobin 10.7 L Indirect Bilirubin 0.3 Lymphocytes # 2.5 Lymphocytes % 20.3 Mean Corpuscular Hemoglobin 30.5 Mean Corpuscular Hemoglobin Concent 33.3 Mean Corpuscular Volume 91.5 Mean Platelet Volume 10.5 H Monocytes # 1.0 H Monocytes % 8.1 Neutrophils # 8.5 H Neutrophils % 68.4 Nucleated Red Blood Cells # 0.1 H Nucleated Red Blood Cells % 1.1 H Platelet Count 203 Potassium Level 4.0 Red Blood Count 3.51 L Red Cell Distribution Width 16.4 H Sodium Level 137 Total Bilirubin 0.3 Total Protein 5.1 L White Blood Count 12.4 H Test 05/04/16 07:39 Bedside Glucose 103 Medications Medications Current Medications Allopurinol (Zyloprim) 100 mg QHS PO Last administered on 05/03/16 20:41; Admin Dose 100 MG; Start 04/21/16 at 21:00 Aspirin (Halfprin) 81 mg DAILY PO Last administered on 05/04/16 08:21; Admin Dose 81 MG; Start 04/21/16 at 09:00 Atorvastatin Calcium (Lipitor) 40 mg QHS PO Last administered on 05/03/16 20:41 ; Admin Dose 40 MG; Start 04/21/16 at 21:00 Carvedilol (Coreg) 25 mg BID PO Last administered on 05/04/16 08:20; Admin Dose 25 MG; Start 04/21/16 at 09:00 Isosorbide Mononitrate (Imdur) 30 mg DAILY PO Last administered on 05/04/16 08: 18; Admin Dose 30 MG; Start 04/21/16 at 09:00 Diagnostic Test (Pha) (Accucheck) 1 ea 02 XX Last administered on 05/04/16 02: 00; Admin Dose 1 EA; Start 04/22/16 at 02:00 Miscellaneous Information 1 ea NOTE XX ; Start 04/21/16 at 05:30 Glucose (Glutose) 15 gm Q15M PRN PO DECREASED GLUCOSE; Start 04/21/16 at 05:30 Glucose (Glutose) 22.5 gm Q15M PRN PO DECREASED GLUCOSE; Start 04/21/16 at 05: 30 Dextrose (D50w Syringe) 25 ml Q15M PRN IV DECREASED GLUCOSE; Start 04/21/16 at 05:30 Dextrose (D50w Syringe) 50 ml Q15M PRN IV DECREASED GLUCOSE; Start 04/21/16 at 05:30 Glucagon (Glucagen) 1 mg Q15M PRN IM DECREASED GLUCOSE; Start 04/21/16 at 05:30 Glucose (Glutose) 15 gm Q15M PRN BUCCAL DECREASED GLUCOSE; Start 04/21/16 at 05 :30 Epoetin Viet (Epogen (Esrd)) 10,000 units MoWeFr@17 SC Last administered on 05/01 17:07; Admin Dose 10,000 UNITS; Start 04/22/16 at 17:00 Diphenhydramine HCl (Benadryl) 25 mg Q6H PRN PO before each unit of prbc Last administered on 04/24/16 21:35; Admin Dose 25 MG; Start 04/23/16 at 18:00 Acetaminophen (Tylenol Tab) 325 mg Q6H PRN PO before each unit of prbc Last administered on 04/25/16 14:07; Admin Dose 325 MG; Start 04/23/16 at 18:00 Guaifenesin/ Dextromethorphan (Mucinex Dm) 1 tab BID PO Last administered on 08:17; Admin Dose 1 TAB; Start 04/26/16 at 13:00 Heparin Sodium (Porcine) (Heparin (5000 Units/0.5 ml)) 5,000 unit Q12 SC Last administered on 05/04/16 08:22; Admin Dose 5,000 UNIT; Start 04/26/16 at 14:30 Insulin Glargine (Lantus) 15 unit AM SC Last administered on 05/04/16 08:24; Admin Dose 15 UNIT; Start 04/28/16 at 09:00 Nifedipine (Procardia Xl) 30 mg BID PO Last administered on 05/04/16 08:19; Admin Dose 30 MG; Start 04/28/16 at 21:00 Docusate Sodium (Colace) 100 mg BID PO Last administered on 05/04/16 08:21; Admin Dose 100 MG; Start 04/28/16 at 21:00 Senna (Senokot) 1 tab BID PO Last administered on 05/04/16 08:20; Admin Dose 1 TAB; Start 04/28/16 at 21:00 LIZZY CARPENTER NP May 04, 2016 11:57
== END 2016-05-04 15:10 | disposition home health service (06) | DRG 291 ==
LOC: E/R 20:03 → TEL 04-21 02:22 → OBSVTOIN 04-23 15:06 → TEL 04-25 20:56
PROVIDERS: ADMIT Internal Medicine; ATTEND Internal Medicine
PROC: 06HM33Z Insertion of Infusion Device into Right Femoral Vein, Percutaneous Approach (ICD-10-PCS; principal; 2016-04-24)
PROC: 5A1D60Z (ICD-10-PCS; 2016-04-24)
PROC: 06HM33Z Insertion of Infusion Device into Right Femoral Vein, Percutaneous Approach (ICD-10-PCS; 2016-04-25)
DX: I13.0 Hypertensive heart and chronic kidney disease with heart failure and stage 1 through stage 4 chronic kidney disease, or unspecified chronic kidney disease (principal); I50.33 Acute on chronic diastolic (congestive) heart failure; J96.01 Acute respiratory failure with hypoxia; J18.9 Pneumonia, unspecified organism; N17.9 Acute kidney failure, unspecified; E11.65 Type 2 diabetes mellitus with hyperglycemia; E11.22 Type 2 diabetes mellitus with diabetic chronic kidney disease; D63.1 Anemia in chronic kidney disease; E11.9 Type 2 diabetes mellitus without complications; E87.1 Hypo-osmolality and hyponatremia; E78.5 Hyperlipidemia, unspecified; R91.1 Solitary pulmonary nodule; N18.9 Chronic kidney disease, unspecified; Z90.5 Acquired absence of kidney; Z79.4 Long term (current) use of insulin
CPT/HCPCS: 36415; 36430; 36600; 71010; 71020; 71250; 80048; 80053; 80061; 81001; 81003; 82728; 82803; 82962; 83036; 83540; 83605; 83735; 83880; 83970; 84100; 84300; 84443; 84484; 85025; 85651; 86580; 86704; 86709; 86803; 86850; 86900; 86901; 86920; 87040; 87081; 87086; 87340; 87400; 90935; 92610; 93005; 94640; 94664; 97110; 97116; 97162; 97530; 99285; G0378; J1940; J0886; J1644; J1650; J1815; J2916; J2920; J7512; P9016

== ENCOUNTER 2017-01-12 15:01 | Inpatient (IN) | payer MEDICARE, OTHER ==
[~2017-01-12] VITALS: Ht 152.4 cm; Wt 68.2 kg
[~2017-01-12 15:01] MED LIST changes: -DOXY100T2 PO; -LEVO250T35 PO
[2017-01-12 15:09] VITALS: Ht 152.4 cm; Wt 68.2 kg
[2017-01-12] MEDS ORDERED: ALBUTEROL 0.083% (NEB) 2.5 MG/3 ML AMP NEB STA (19:30)
[2017-01-12 19:49] LABS: BASOPHILS % 0.4 % (0.0-2.0); EOSINOPHILS # 0.1 10^3/ul (0.0-0.5); EOSINOPHILS % 0.7 % (0.0-7.0); HEMATOCRIT 24.4 % (37.0-47.0); HEMOGLOBIN 8.5 g/dl (12.0-16.0); LYMPHOCYTES % 35.2 % (15.0-51.0); MEAN CORPUSCULAR HEMOGLOBIN 32.2 pg (29.0-33.0); MEAN CORPUSCULAR HGB CONC 34.8 g/dl (32.0-37.0); MEAN CORPUSCULAR VOLUME 92.4 fl (82.0-101.0); MEAN PLATELET VOLUME 10.3 fl (7.4-10.4); MONOCYTE # 0.4 10^3/ul (0.3-0.9); MONOCYTES % 4.1 % (0.0-11.0); NEUTROPHILS % 58.9 % (39.0-77.0); PLATELET COUNT 255 10^3/UL (140-415); RED BLOOD COUNT 2.64 10^6/ul (4.20-5.40); RED CELL DISTRIBUTION WIDTH 12.7 % (11.5-14.5); WHITE BLOOD COUNT 8.5 10^3/ul (4.8-10.8)
[2017-01-12 20:04] LABS: INR 0.97; PROTIME 12.9 Sec (12.2-14.2)
[2017-01-12 20:05] LABS: PARTIAL THROMBOPLASTIN TIME 31.9 Sec (25.0-35.0)
[2017-01-12 20:07] LABS: CALCIUM 9.4 mg/dl (8.4-10.2); CREATININE 5.59 mg/dl (0.44-1.00); POTASSIUM 4.7 mmol/L (3.5-5.1)
[2017-01-12 20:18] LABS: TROPONIN-I 0.015 ng/ml (0.00-0.12)
--- NOTE | 2017-01-12 20:43 | RADRPT ---
PROCEDURE: XR Chest. CLINICAL INDICATION: SOB TECHNIQUE: Frontal chest x-ray was obtained. COMPARISON: Chest x-ray May 01, 2016 FINDINGS: Ninth there is cardiomegaly. Mediastinum is not widened. Calcification is seen in the wall of the aorta. There is no hilar mass. Lungs are clear of any infiltrates. There are fine increased inter stitial markings in the lungs. Tiny effusions are present. There is no pneumothorax. IMPRESSION: Cardiomegaly. Increased fine interstitial lung markings with tiny effusions. Question mild failure . .Yaya Jiang MD, MD Date Time Electronically viewed and signed by .Yaya Jiang MD, on 01/12/2017 20:42 .A/
[2017-01-12] MEDS ORDERED: ACETAMINOPHEN 325 MG TAB PO PRN (22:00)
[2017-01-12] MEDS ORDERED: ONDANSETRON 4 MG INJ IV PRN (22:00)
--- NOTE | 2017-01-12 23:28 | ERD ---
ER Documentation Chief Complaint Chief Complaint SOB WITH BILAT LEG SWELLING, SENT BY PMD FOR POSS ADMISSION HPI 81 year old female with a history of CHF ,HTN, DM, CKD sent by her PCP, Dr. Rios , for evaluation. Patient has been increasingly short of breath for the past 3 days, even with minimal exertion. No associated chest pain, cough, fever, chills , or worsening leg swelling. Denies recent illness. ROS All systems reviewed and are negative except as per history of present illness. Medications Home Meds Active Scripts Isosorbide Mononitrate* (Isosorbide Mononitrate*) 30 Mg Tab.er.24h, 30 MG PO DAILY for 30 Days, #30 TAB Prov:TREMAINE RIOS MD 01/13/16 Reported Medications Calcium Acetate* (Calcium Acetate*) 667 Mg Capsule, 667 MG PO WITH MEALS, #30 CAP 11/21/15 Nifedipine* (Nifedipine ER*) 30 Mg Tablet.sa, 30 MG PO DAILY, TAB.SA 11/21/15 Atorvastatin* (Atorvastatin*) 40 Mg Tablet, 40 MG PO QHS, #30 TAB 08/06/15 Aspirin* (Aspirin* EC) 81 Mg Tablet.dr, 81 MG PO DAILY, TAB 08/06/15 Insulin Glargine* (Lantus*) 100 Unit/Ml Soln, 10-12 UNIT SC QHS, #1 VIAL 08/06/15 Allopurinol* (Allopurinol*) 100 Mg Tablet, 100 MG PO QHS, TAB 04/27/14 Furosemide* (Lasix*) 20 Mg Tablet, 20 MG PO QAM, TAB 04/27/14 Carvedilol* (Coreg*) 25 Mg Tablet, 25 MG PO BID, TAB 04/27/14 Allergies Allergies: Coded Allergies: ranolazine (Verified Allergy, Intermediate, 01/08/16) entered as told by Dr. Olivares PMhx/Soc History of Surgery: Yes (Right kidney removal, bilateral cataract removal) Anesthesia Reaction: No Hx Neurological Disorder: No Hx Respiratory Disorders: No Hx Cardiac Disorders: No Hx Psychiatric Problems: No Hx Miscellaneous Medical Probl: Yes (CHF, HTN, mitral regurgitation, CKD, DM, B cataract) Hx Alcohol Use: No Hx Substance Use: No Hx Tobacco Use: No Smoking Status: Never smoker FmHx Family History: No coronary disease Physical Exam Vitals Vital Signs Date Time Temp Pulse Resp B/P Pulse Ox O2 Delivery O2 Flow Rate FiO2 01/12/17 23:11 87 22 135/59 97 Nasal Cannula 4.0 01/12/17 21:28 Nasal Cannula 2 01/12/17 19:58 86 24 100 Nasal Cannula 4.0 01/12/17 19:21 88 24 100 Nasal Cannula 4.0 01/12/17 15:09 98.0 84 22 125/59 91 Physical Exam Const: appears to be in mild respiratory distress, nontoxic, fatigued Head: Atraumatic Eyes: Normal Conjunctiva ENT: Normal External Ears, Nose and Mouth.Nasal cannula in place Neck: Full range of motion..~ No meningismus. No JVD Resp: Diminished bilaterally with expiratory wheezing Cardio: Regular rate and rhythm, no murmurs Abd: Soft, non tender, non distended. Normal bowel sounds Skin: No petechiae or rashes Back: No midline or flank tenderness Ext: No cyanosis, 1+ bilateral lower extremity edema Neur: Awake and alert Psych: Normal Mood and Affect Result Diagram: 01/12/17192401/12/171924 Results 24 hrs Laboratory Tests Test 01/12/17 19:25 White Blood Count 8.510^3/ul Red Blood Count 2.6410^6/ul Hemoglobin 8.5g/dl Hematocrit 24.4% Mean Corpuscular Volume 92.4fl Mean Corpuscular Hemoglobin 32.2pg Mean Corpuscular Hemoglobin Concent 34.8g/dl Red Cell Distribution Width 12.7% Platelet Count 18446^3/UL Mean Platelet Volume 10.3fl Neutrophils % 58.9% Lymphocytes % 35.2% Monocytes % 4.1% Eosinophils % 0.7% Basophils % 0.4% Nucleated Red Blood Cells % 0.0/100WBC Neutrophils # 5.010^3/ul Lymphocytes # 3.010^3/ul Monocytes # 0.410^3/ul Eosinophils # 0.110^3/ul Basophils # 0.010^3/ul Nucleated Red Blood Cells # 0.010^3/ul Prothrombin Time 12.9Sec Prothrombin Time Ratio 1.0 INR International Normalized Ratio 0.97 Activated Partial Thromboplast Time 31.9Sec Sodium Level 136mmol/L Potassium Level 4.7mmol/L Chloride Level 103mmol/L Carbon Dioxide Level 19mmol/L Anion Gap 19 Blood Urea Nitrogen 56mg/dl Creatinine 5.59mg/dl Glucose Level 157mg/dl Calcium Level 9.4mg/dl Troponin I 0.015ng/ml B-Type Natriuretic Peptide 4860PG/ML Current Medications Medications (Trade) Dose Ordered Sig/Nahun Route PRN Reason Start Time Stop Time Status Last Admin Dose Admin Albuterol (Proventil 0.083% (Neb)) 5 mg ONCE STAT NEB 01/12/17 19:30 01/12/17 19:31 DC 01/12/17 19:58 Ondansetron HCl (Zofran Inj) 4 mg ER BRIDGE PRN IV NAUSEA AND/OR VOMITING 01/12/17 22:00 01/13/17 21:59 Acetaminophen (Tylenol Tab) 650 mg ER BRIDGE PRN PO MILD PAIN/FEVER 01/12/17 22:00 01/13/17 21:59 Levalbuterol (Xopenex Neb) 1.25 mg Q6H RESP THERAPY PRN HHN SHORTNESS OF BREATH 01/12/17 22:00 Epoetin Viet (Epogen (Esrd)) 10,000 units ONCE ONCE SC 01/12/17 23:30 01/12/17 23:41 DC Aspirin (Halfprin) 81 mg DAILY PO 01/13/17 09:00 UNV Atorvastatin Calcium (Lipitor) 40 mg QHS PO 01/13/17 21:00 UNV Carvedilol (Coreg) 25 mg BID PO 01/13/17 09:00 UNV Insulin Glargine (Lantus) 10 unit QHS SC 01/13/17 21:00 UNV Isosorbide Mononitrate (Imdur) 30 mg DAILY PO 01/13/17 09:00 UNV Nifedipine (Procardia Xl) 30 mg DAILY PO 01/13/17 09:00 UNV Furosemide (Lasix) 40 mg ONCE ONCE IV 01/13/17 00:00 01/13/17 00:01 DC Insulin Aspart (Novolog Insulin Pen) NOVOLOG *MILD* ALGORITHM WITH MEALS BEDTIME SC 01/13/17 08:00 UNV Furosemide (Lasix) 40 mg AM IV 01/13/17 09:00 UNV Procedures/MDM EMERGENT LABS AND DIAGNOSTIC STUDIES: Lab Results above were reviewed and interpreted by me. CBC: anemia, no e/o infection BMP: No evidence of electrolyte abnormality. Elevated BUN and Cr c/w MARKEL, mild acidosis Troponin within normal limits 12-lead EKG was interpreted by Ghanshyam Liriano MD: Normal Sinus Rhythm Normal axis Normal intervals poor R wave progression No acute ST or T wave changes suggestive of acute ischemia or STEMI. Radiology Results as interpreted by Radiology below were reviewed by Teri Liriano MD: Chest Xray: Cardiomegaly. Increased fine interstitial lung markings with tiny effusions. Question mild failure. .Yaya Jiang MD, MD Date Time Electronically viewed and signed by .Yaya Jiang MD, MD on 01/12/2017 20: 42 Initial Nursing notes reviewed. Previous Medical Records requested via the Electronic Health Record. EMERGENCY DEPARTMENT COURSE / MEDICAL DECISION MAKING: Patient is presenting with acute worsening of her shortness of breath, concerning for possible CHF exacerbation versus pneumonia versus acute coronary syndrome. Low suspicion for pulmonary embolism. Vitals were notable for mild hypoxia on room air, otherwise normal. Chest x-ray shows signs of mild failure. Her creatinine is significantly elevated to her last one done a few months ago here. There is no indication for emergent dialysis, however the patient will need admission for her dyspnea and for further workup for her acute renal injury. Critical Care Time: 35 minutes Treatments/Evaluations: Close monitoring and treatment of unstable vital signs, cardiorespiratory, and neurologic status, while maintaining tight balance of fluid, respiratory, and cardiac interventions. This time includes discussing the case with the patient and the patients family. This time does not include all procedures stated elsewhere in this record. This time also includes reviewing old records, labs and radiological studies. This time includes examining and re-examining the patient. Additionally, this time also includes arranging care with admitting and consulting physicians. Accepting Care Team: Current data and ongoing care discussed. Time: Time of admission Primary Provider: Dr. Lamas, transportation design engineer for Dr. Rios Consulting: none Outstanding Data: none Departure Diagnosis: Primary Impression: Acute exacerbation of CHF (congestive heart failure) Congestive heart failure type: unspecified congestive heart failure type Qualified Code: I50.9 - Acute on chronic congestive heart failure, unspecified congestive heart failure type Additional Impressions: Acute on chronic renal failure Acute renal failure type: unspecified Chronic kidney disease stage: unspecified stage Qualified Code: N17.9 - Acute renal failure superimposed on chronic kidney disease, unspecified CKD stage, unspecified acute renal failure type Anemia Anemia type: unspecified type Qualified Code: D64.9 - Anemia, unspecified type Condition: Serious AVIS LIRIANO MD Jan 12, 2017 23:27
[2017-01-12] MEDS ORDERED: EPOETIN 10000 UNITS/1 ML INJ (ESRD) SC ONE (23:30)
--- NOTE | 2017-01-12 23:52 | HP ---
Date/Time of Note Date/Time of Note DATE: 01/12/17 TIME: 23:39 Assessment/Plan VTE Prophylaxis VTE Prophylaxis Intervention: ambulation Lines/Catheters [facility]from [facility] Saline Lock Assessment/Plan Problems: (1) Shortness of breath Status: Acute Comment: most likely due to CHF. (2) Congestive heart failure Status: Acute Comment: change lasix to 40mg IV and watch potassium and renal function. Consult Cardiology. Qualifiers: Congestive heart failure type: diastolic Congestive heart failure chronicity: acute on chronic Qualified Code: I50.33 - Acute on chronic diastolic congestive heart failure (3) Diabetes mellitus Status: Chronic Comment: Continue Lantus , add Novolog sliding scale mild protocol, (4) Hypertension Status: Chronic (5) Chronic kidney disease (CKD) stage G4/A1, severely decreased glomerular filtration rate (GFR) between 15-29 mL/min/1.73 square meter and albuminuria creatinine ratio less than 30 mg/g Status: Chronic Comment: Worsened renal function than usual baseline which has creatinine around 2.0. Consult Renal. (6) Anemia in chronic kidney disease Status: Chronic Comment: Add Epogen (7) Hyperlipemia Status: Chronic Comment: continue statin (8) Gout Status: Chronic Comment: continue low dose allopurinol ,check uric acid levels HPI/ROS Admit Date/Time Admit Date/Time Hx of Present Illness Patient presents with progressive shortness of breath over the past 2 days, now having intermittent wheezing. No fever or chills. No cough or congestion. Mild increased edema. PMH/Family/Social Past Medical History Medical History: congestive heart failure, diabetes, high cholesterol, hypertension Past Surgical History Past Surgical Hx: other Family History Significant Family History: no pertinent family hx Social History Alcohol Use: none Smoking Status: Never smoker Drug Use: none Exam/Review of Systems Vital Signs Vitals Vital Signs Date Time Temp Pulse Resp B/P Pulse Ox O2 Delivery O2 Flow Rate FiO2 01/12/17 23:11 87 22 135/59 97 Nasal Cannula 4.0 01/12/17 15:09 98.0 Exam Constitutional: alert, oriented Psych: anxiety Head: atraumatic, normocephalic Eyes: nl conjunctiva, nl sclera ENMT: mucosa pink and moist, nl external ears & nose Neck: jvd, non-tender, supple Respiratory: crackles/rales, wheezing Cardiovascular: regular rate and rhythm, systolic murmur Gastrointestinal: non-tender, soft Extremities: pitting pedal edema Neurological: STOCK BLENDER II-XII intact, nl mental status Skin: nl turgor Labs Result Diagram: 01/12/17192401/12/171924 Medications Medications Current Medications Epoetin Viet (Epogen (Esrd)) 10,000 units ONCE ONCE SC ; Start 01/12/17 at 23: 30; Stop 01/12/17 at 23:31; Status UNV Aspirin (Halfprin) 81 mg DAILY PO ; Start 01/13/17 at 09:00; Status UNV Atorvastatin Calcium (Lipitor) 40 mg QHS PO ; Start 01/13/17 at 21:00; Status UNV Carvedilol (Coreg) 25 mg BID PO ; Start 01/13/17 at 09:00; Status UNV Insulin Glargine (Lantus) 10 unit QHS SC ; Start 01/13/17 at 21:00; Status UNV Isosorbide Mononitrate (Imdur) 30 mg DAILY PO ; Start 01/13/17 at 09:00; Status UNV Nifedipine (Procardia Xl) 30 mg DAILY PO ; Start 01/13/17 at 09:00; Status UNV TREMAINE RIOS MD Jan 12, 2017 23:52
[2017-01-13] VITALS (8 sets, daily range): BP systolic 121–155; BP diastolic 62–66; PULSE 69–84; RESP 22–24
[2017-01-13] MEDS ORDERED: DEXTROSE 50% 50 ML SYRINGE IV PRN ×2 (01:30)
[2017-01-13] MEDS ORDERED: GLUCAGON 1 MG INJ IM PRN (01:30)
[2017-01-13] MEDS ORDERED: GLUCOSE GEL 15 GRAM TUBE BUCCAL PRN (01:30)
[2017-01-13] MEDS ORDERED: GLUCOSE GEL 15 GRAM TUBE PO PRN ×2 (01:30)
[2017-01-13] MEDS: LEVALBUTEROL (NEB) 1.25 MG/0.5 ML AMP HHN PRN (01:54)
[2017-01-13 06:23] LABS: BASOPHILS % 0.4 % (0.0-2.0); EOSINOPHILS # 0.2 10^3/ul (0.0-0.5); EOSINOPHILS % 2.9 % (0.0-7.0); HEMATOCRIT 22.6 % (37.0-47.0); HEMOGLOBIN 7.7 g/dl (12.0-16.0); LYMPHOCYTES # 2.2 10^3/ul (0.8-2.9); LYMPHOCYTES % 30.8 % (15.0-51.0); MEAN CORPUSCULAR HGB CONC 34.1 g/dl (32.0-37.0); MEAN CORPUSCULAR VOLUME 93.8 fl (82.0-101.0); MONOCYTE # 0.4 10^3/ul (0.3-0.9); MONOCYTES % 5.9 % (0.0-11.0); NEUTROPHIL # 4.2 10^3/ul (1.6-7.5); NEUTROPHILS % 59.7 % (39.0-77.0); PLATELET COUNT 219 10^3/UL (140-415); RED BLOOD COUNT 2.41 10^6/ul (4.20-5.40); RED CELL DISTRIBUTION WIDTH 12.6 % (11.5-14.5)
[2017-01-13 06:52] LABS: ALBUMIN 3.8 g/dl (3.3-4.9); BILIRUBIN,INDIRECT 0.3 mg/dl (0-1.1); BILIRUBIN,TOTAL 0.3 mg/dl (0.2-1.3); CALCIUM 8.9 mg/dl (8.4-10.2); CREATININE 5.86 mg/dl (0.44-1.00); POTASSIUM 4.3 mmol/L (3.5-5.1); TOTAL PROTEIN 7.6 g/dl (6.1-8.1)
[2017-01-13] MEDS ORDERED: FUROSEMIDE 40 MG INJ IV SCH (09:00)
[2017-01-13] MEDS: INSULIN ASPART [NOVOLOG] 3 ML PEN SC SCH ×4 (10:42→21:00)
[2017-01-13] MEDS: NIFEdipine (XL) 30 MG TAB PO SCH (10:43)
[2017-01-13] MEDS: ISOSORBIDE MONONITRATE(SR)30 MG TAB PO SCH (10:44)
[2017-01-13] MEDS: ASPIRIN (EC) 81 MG TAB PO SCH (10:46)
--- NOTE | 2017-01-13 12:39 | CONS ---
Date/Time of Note Date/Time of Note DATE: 01/13/17 TIME: 12:35 Assessment/Plan Assessment/Plan Additional Assessment/Plan Acute decompensated diastolic congestive heart failure Preserved ejection fraction echocardiogram December 2015 CKD with history of hemodialysis in the past Hypertension Diabetes -Patient with improvement in symptoms with IV Lasix, would give additional dose afternoon, continue antihypertensive medication regimen and if needed, would adjust dosing based on blood pressure trend. Patient to be seen by our nephrology colleagues as well. Consultation Date/Type/Reason Admit Date/Time Type of Consultation: cv Reason for Consultation Shortness of breath Hx of Present Illness This is an 81-year-old female with history of diastolic congestive heart failure , chronic kidney disease who presents with progressive worsening shortness of breath over the past 2-3 days. She denies any chest pain or palpitations. Symptoms are worse with exertion. When asked regarding medications, she tells me she has not been taking her medicines regularly prior to this episode since she has been feeling better. He denies any fevers or chills, did have a mild cough which is improved. 12 point review of systems was performed with all pertinent positives and negatives mentioned above and all else is negative Psychological: anxiety Past Medical History Medical History: congestive heart failure, diabetes, high cholesterol, hypertension Past Surgical History Past Surgical Hx: other Family History Significant Family History: no pertinent family hx Social History Alcohol Use: none Smoking Status: Never smoker Drug Use: none Exam/Review of Systems Vital Signs Vitals Vital Signs Date Time Temp Pulse Resp B/P Pulse Ox O2 Delivery O2 Flow Rate FiO2 01/13/17 12:00 71 01/13/17 10:12 Nasal Cannula 3.0 01/13/17 06:50 98.4 22 155/65 95 Exam No apparent distress Constitutional: alert, obese, oriented Neck: supple Respiratory: other (Coarse breath sounds bilaterally and decreased at the bilateral bases) Cardiovascular: other (S1-S2 heard), regular rate and rhythm Gastrointestinal: bowel sounds, non-tender, soft Extremities: edema Results Result Diagram: 01/13/17 0553 01/13/17 0553 Results 24 hrs Laboratory Tests Test 01/12/17 19:25 01/13/17 05:53 01/13/17 09:01 White Blood Count 8.5 # 7.0 Red Blood Count 2.64 #L 2.41 L Hemoglobin 8.5 #L 7.7 L Hematocrit 24.4 #L 22.6 L Mean Corpuscular Volume 92.4 93.8 Mean Corpuscular Hemoglobin 32.2 32.0 Mean Corpuscular Hemoglobin Concent 34.8 34.1 Red Cell Distribution Width 12.7 # 12.6 Platelet Count 255 # 219 Mean Platelet Volume 10.3 10.0 Neutrophils % 58.9 59.7 Lymphocytes % 35.2 30.8 Monocytes % 4.1 5.9 Eosinophils % 0.7 2.9 Basophils % 0.4 0.4 Nucleated Red Blood Cells % 0.0 0.0 Neutrophils # 5.0 4.2 Lymphocytes # 3.0 H 2.2 Monocytes # 0.4 0.4 Eosinophils # 0.1 0.2 Basophils # 0.0 0.0 Nucleated Red Blood Cells # 0.0 0.0 Prothrombin Time 12.9 Prothrombin Time Ratio 1.0 INR International Normalized Ratio 0.97 Activated Partial Thromboplast Time 31.9 Sodium Level 136 140 Potassium Level 4.7 4.3 Chloride Level 103 106 Carbon Dioxide Level 19 L 20 L Anion Gap 19 H 18 H Blood Urea Nitrogen 56 H 56 H Creatinine 5.59 H 5.86 H Glucose Level 157 136 Calcium Level 9.4 8.9 Troponin I 0.015 B-Type Natriuretic Peptide 4860 H 6060 H Uric Acid 4.6 Total Bilirubin 0.3 Direct Bilirubin 0.00 Indirect Bilirubin 0.3 Aspartate Amino Transf (AST/SGOT) 28 Alanine Aminotransferase (ALT/SGPT) 33 Alkaline Phosphatase 83 Total Protein 7.6 Albumin 3.8 Globulin 3.80 H Albumin/Globulin Ratio 1.00 Bedside Glucose 120 Medications Medications Current Medications Aspirin (Halfprin) 81 mg DAILY PO Last administered on 01/13/17 10:46; Admin Dose 81 MG; Start 01/13/17 at 09:00 Atorvastatin Calcium (Lipitor) 40 mg QHS PO ; Start 01/13/17 at 21:00 Carvedilol (Coreg) 25 mg BID PO Last administered on 01/13/17 10:45; Admin Dose 25 MG; Start 01/13/17 at 09:00 Insulin Glargine (Lantus) 10 unit QHS SC ; Start 01/13/17 at 21:00 Isosorbide Mononitrate (Imdur) 30 mg DAILY PO Last administered on 01/13/17 10:44; Admin Dose 30 MG; Start 01/13/17 at 09:00 Nifedipine (Procardia Xl) 30 mg DAILY PO Last administered on 01/13/17 10:43 ; Admin Dose 30 MG; Start 01/13/17 at 09:00 Furosemide (Lasix) 40 mg AM IV Last administered on 01/13/17 10:46; Admin Dose 40 MG; Start 01/13/17 at 09:00 Miscellaneous Information 1 ea NOTE XX ; Start 01/13/17 at 01:30 Glucose (Glutose) 15 gm Q15M PRN PO DECREASED GLUCOSE; Start 01/13/17 at 01:30 Glucose (Glutose) 22.5 gm Q15M PRN PO DECREASED GLUCOSE; Start 01/13/17 at 01: 30 Dextrose (D50w Syringe) 25 ml Q15M PRN IV DECREASED GLUCOSE; Start 01/13/17 at 01:30 Dextrose (D50w Syringe) 50 ml Q15M PRN IV DECREASED GLUCOSE; Start 01/13/17 at 01:30 Glucagon (Glucagen) 1 mg Q15M PRN IM DECREASED GLUCOSE; Start 01/13/17 at 01: 30 Glucose (Glutose) 15 gm Q15M PRN BUCCAL DECREASED GLUCOSE; Start 01/13/17 at 01:30 Procedures Procedures ECG demonstrates sinus rhythm, normal QRS duration, septal Q waves, no significant ischemic ST abnormalities Dariel Juarez DO Jan 13, 2017 12:39
--- NOTE | 2017-01-13 17:50 | PN ---
Date/Time of Note Date/Time of Note DATE: 01/13/17 TIME: 17:50 Assessment/Plan VTE Prophylaxis VTE Prophylaxis Intervention: ambulation Lines/Catheters IV Catheter Type (from Nrs): Saline Lock Assessment/Plan Problems: (1) Acute exacerbation of CHF (congestive heart failure) Status: Acute Comment: increase lasix to 40mg IV bid, resume ISMN , beta blockers. Qualifiers: Congestive heart failure type: diastolic Qualified Code: I50.33 - Acute on chronic diastolic congestive heart failure (2) Acute on chronic renal failure Status: Acute Comment: history of improved renal function when CHF improves. Continue monitor for now, would not start dialysis unless renal function worsens. Qualifiers: Acute renal failure type: unspecified Chronic kidney disease stage: unspecified stage Qualified Code: N17.9 - Acute renal failure superimposed on chronic kidney disease, unspecified CKD stage, unspecified acute renal failure type (3) Anemia in chronic kidney disease Status: Chronic Comment: Patient got procrit yesterday. Recheck H/H tomorrow. Plan transfusion if hct still is less than 25. Subjective 24 Hr Interval Summary Free Text/Dictation Feels better after breathing treatment and lasix. Exam/Review of Systems Vital Signs Vitals Vital Signs Date Time Temp Pulse Resp B/P Pulse Ox O2 Delivery O2 Flow Rate FiO2 01/13/17 16:31 74 22 121/62 93 Nasal Cannula 3.0 01/13/17 06:50 98.4 Exam Constitutional: alert, oriented Head: atraumatic, normocephalic Eyes: nl conjunctiva, nl sclera Respiratory: crackles/rales, normal air movement Cardiovascular: regular rate and rhythm Gastrointestinal: non-tender, soft Extremities: edema Neurological: nl mental status, nl speech Results Result Diagram: 01/13/17 0553 01/13/17 0553 Results 24 hrs Laboratory Tests Test 01/12/17 19:25 01/13/17 05:53 01/13/17 09:01 01/13/17 13:38 White Blood Count 8.5 # 7.0 Red Blood Count 2.64 #L 2.41 L Hemoglobin 8.5 #L 7.7 L Hematocrit 24.4 #L 22.6 L Mean Corpuscular Volume 92.4 93.8 Mean Corpuscular Hemoglobin 32.2 32.0 Mean Corpuscular Hemoglobin Concent 34.8 34.1 Red Cell Distribution Width 12.7 # 12.6 Platelet Count 255 # 219 Mean Platelet Volume 10.3 10.0 Neutrophils % 58.9 59.7 Lymphocytes % 35.2 30.8 Monocytes % 4.1 5.9 Eosinophils % 0.7 2.9 Basophils % 0.4 0.4 Nucleated Red Blood Cells % 0.0 0.0 Neutrophils # 5.0 4.2 Lymphocytes # 3.0 H 2.2 Monocytes # 0.4 0.4 Eosinophils # 0.1 0.2 Basophils # 0.0 0.0 Nucleated Red Blood Cells # 0.0 0.0 Prothrombin Time 12.9 Prothrombin Time Ratio 1.0 INR International Normalized Ratio 0.97 Activated Partial Thromboplast Time 31.9 Sodium Level 136 140 Potassium Level 4.7 4.3 Chloride Level 103 106 Carbon Dioxide Level 19 L 20 L Anion Gap 19 H 18 H Blood Urea Nitrogen 56 H 56 H Creatinine 5.59 H 5.86 H Glucose Level 157 136 Calcium Level 9.4 8.9 Troponin I 0.015 B-Type Natriuretic Peptide 4860 H 6060 H Uric Acid 4.6 Total Bilirubin 0.3 Direct Bilirubin 0.00 Indirect Bilirubin 0.3 Aspartate Amino Transf (AST/SGOT) 28 Alanine Aminotransferase (ALT/SGPT) 33 Alkaline Phosphatase 83 Total Protein 7.6 Albumin 3.8 Globulin 3.80 H Albumin/Globulin Ratio 1.00 Bedside Glucose 120 145 Medications Medications Current Medications Aspirin (Halfprin) 81 mg DAILY PO Last administered on 01/13/17 10:46; Admin Dose 81 MG; Start 01/13/17 at 09:00 Atorvastatin Calcium (Lipitor) 40 mg QHS PO ; Start 01/13/17 at 21:00 Carvedilol (Coreg) 25 mg BID PO Last administered on 01/13/17 10:45; Admin Dose 25 MG; Start 01/13/17 at 09:00 Insulin Glargine (Lantus) 10 unit QHS SC ; Start 01/13/17 at 21:00 Isosorbide Mononitrate (Imdur) 30 mg DAILY PO Last administered on 01/13/17 10:44; Admin Dose 30 MG; Start 01/13/17 at 09:00 Nifedipine (Procardia Xl) 30 mg DAILY PO Last administered on 01/13/17 10:43 ; Admin Dose 30 MG; Start 01/13/17 at 09:00 Furosemide (Lasix) 40 mg AM IV Last administered on 01/13/17t 10:46; Admin Dose 40 MG; Start 01/13/17 at 09:00 Miscellaneous Information 1 ea NOTE XX ; Start 01/13/17 at 01:30 Glucose (Glutose) 15 gm Q15M PRN PO DECREASED GLUCOSE; Start 01/13/17 at 01:30 Glucose (Glutose) 22.5 gm Q15M PRN PO DECREASED GLUCOSE; Start 01/13/17 at 01: 30 Dextrose (D50w Syringe) 25 ml Q15M PRN IV DECREASED GLUCOSE; Start 01/13/17 at 01:30 Dextrose (D50w Syringe) 50 ml Q15M PRN IV DECREASED GLUCOSE; Start 01/13/17 at 01:30 Glucagon (Glucagen) 1 mg Q15M PRN IM DECREASED GLUCOSE; Start 01/13/17 at 01: 30 Glucose (Glutose) 15 gm Q15M PRN BUCCAL DECREASED GLUCOSE; Start 01/13/17 at 01:30 Furosemide (Lasix) 40 mg ONCE ONCE IV ; Start 01/13/17 at 18:00; Stop at 18:01 TREMAINE RIOS MD Jan 13, 2017 17:50
[2017-01-13] MEDS ORDERED: FUROSEMIDE 40 MG INJ IV ONE ×2 (18:00)
[2017-01-13] MEDS: ATORVASTATIN 40 MG TAB PO SCH (21:00)
[2017-01-13] MEDS: INSULIN GLARGINE [LANtus] 3 ML PEN SC SCH (21:00)
[2017-01-14] VITALS (11 sets, daily range): BP systolic 118–132; BP diastolic 57–61; PULSE 71–83; RESP 16–22
[2017-01-14 05:38] LABS: BASOPHILS % 0.6 % (0.0-2.0); EOSINOPHILS # 0.5 10^3/ul (0.0-0.5); EOSINOPHILS % 6.8 % (0.0-7.0); HEMATOCRIT 21.2 % (37.0-47.0); HEMOGLOBIN 7.3 g/dl (12.0-16.0); LYMPHOCYTES # 2.3 10^3/ul (0.8-2.9); LYMPHOCYTES % 34.1 % (15.0-51.0); MEAN CORPUSCULAR HEMOGLOBIN 32.6 pg (29.0-33.0); MEAN CORPUSCULAR HGB CONC 34.4 g/dl (32.0-37.0); MEAN CORPUSCULAR VOLUME 94.6 fl (82.0-101.0); MEAN PLATELET VOLUME 10.2 fl (7.4-10.4); MONOCYTE # 0.5 10^3/ul (0.3-0.9); MONOCYTES % 8.2 % (0.0-11.0); NEUTROPHIL # 3.3 10^3/ul (1.6-7.5); PLATELET COUNT 225 10^3/UL (140-415); RED BLOOD COUNT 2.24 10^6/ul (4.20-5.40); RED CELL DISTRIBUTION WIDTH 12.5 % (11.5-14.5); WHITE BLOOD COUNT 6.6 10^3/ul (4.8-10.8)
[2017-01-14] MEDS: FUROSEMIDE 40 MG INJ IV SCH ×3 (06:00→17:22)
[2017-01-14 06:38] LABS: CALCIUM 8.7 mg/dl (8.4-10.2); CREATININE 6.03 mg/dl (0.44-1.00); POTASSIUM 4.3 mmol/L (3.5-5.1)
[2017-01-14] MEDS: INSULIN ASPART [NOVOLOG] 3 ML PEN SC SCH ×4 (07:35→21:00)
[2017-01-14] MEDS: ASPIRIN (EC) 81 MG TAB PO SCH (09:41)
[2017-01-14] MEDS: ISOSORBIDE MONONITRATE(SR)30 MG TAB PO SCH (09:42)
[2017-01-14] MEDS: NIFEdipine (XL) 30 MG TAB PO SCH (09:42)
[2017-01-14] MEDS ORDERED: ACETAMINOPHEN 325 MG TAB PO ONE (17:30)
[2017-01-14] MEDS ORDERED: DIPHENHYDRAMINE 25 MG CAP PO ONE (17:30)
--- NOTE | 2017-01-14 17:34 | PN ---
Date/Time of Note Date/Time of Note DATE: 01/14/17 TIME: 17:34 Assessment/Plan VTE Prophylaxis VTE Prophylaxis Intervention: ambulation Lines/Catheters IV Catheter Type (from Nrs): Saline Lock Central line still needed: No Assessment/Plan Problems: (1) Acute exacerbation of CHF (congestive heart failure) Status: Acute Comment: clinically improved with treatment though no I's and O's recorded yet. Qualifiers: Congestive heart failure type: diastolic Qualified Code: I50.33 - Acute on chronic diastolic congestive heart failure (2) Anemia in chronic kidney disease Status: Chronic Comment: Not improving with procrit , will transfuse today and janell H/H in am (3) Acute on chronic renal failure Status: Acute Comment: History of needing HD temporarily but family request holding off on this until absolutely necessary. Will continue diuresis and start transfusion . Monitor bun/creatinine for now. Qualifiers: Acute renal failure type: unspecified Chronic kidney disease stage: unspecified stage Qualified Code: N17.9 - Acute renal failure superimposed on chronic kidney disease, unspecified CKD stage, unspecified acute renal failure type Subjective 24 Hr Interval Summary Free Text/Dictation Patient feels better but still has sob with ambulating. Wants to eat food brougt in by family. Exam/Review of Systems Vital Signs Vitals Vital Signs Date Time Temp Pulse Resp B/P Pulse Ox O2 Delivery O2 Flow Rate FiO2 01/14/17 16:05 71 01/14/17 11:46 98.0 16 128/60 95 01/14/17 11:10 Nasal Cannula 3.0 Exam Constitutional: alert, oriented Psych: no complaints Head: atraumatic, normocephalic ENMT: mucosa pink and moist, nl external ears & nose Respiratory: crackles/rales Cardiovascular: regular rate and rhythm Gastrointestinal: nl liver, spleen, soft Extremities: edema Results Result Diagram: 01/14/17 0426 01/14/17 0426 Results 24 hrs Laboratory Tests Test 01/13/17 18:16 01/14/17 00:11 01/14/17 04:26 01/14/17 08:10 Bedside Glucose 130 130 112 White Blood Count 6.6 Red Blood Count 2.24 L Hemoglobin 7.3 L Hematocrit 21.2 L Mean Corpuscular Volume 94.6 Mean Corpuscular Hemoglobin 32.6 Mean Corpuscular Hemoglobin Concent 34.4 Red Cell Distribution Width 12.5 Platelet Count 225 Mean Platelet Volume 10.2 Neutrophils % 50.0 Lymphocytes % 34.1 Monocytes % 8.2 Eosinophils % 6.8 Basophils % 0.6 Nucleated Red Blood Cells % 0.0 Neutrophils # 3.3 Lymphocytes # 2.3 Monocytes # 0.5 Eosinophils # 0.5 Basophils # 0.0 Nucleated Red Blood Cells # 0.0 Sodium Level 139 Potassium Level 4.3 Chloride Level 106 Carbon Dioxide Level 19 L Anion Gap 18 H Blood Urea Nitrogen 65 H Creatinine 6.03 H Glucose Level 113 Calcium Level 8.7 Test 01/14/17 11:47 01/14/17 17:20 Bedside Glucose 167 149 Medications Medications Current Medications Aspirin (Halfprin) 81 mg DAILY PO Last administered on 01/14/17 09:41; Admin Dose 81 MG; Start 01/13/17 at 09:00 Atorvastatin Calcium (Lipitor) 40 mg QHS PO ; Start 01/13/17 at 21:00 Carvedilol (Coreg) 25 mg BID PO Last administered on 01/14/17 08:35; Admin Dose 25 MG; Start 01/13/17 at 09:00 Insulin Glargine (Lantus) 10 unit QHS SC ; Start 01/13/17 at 21:00 Isosorbide Mononitrate (Imdur) 30 mg DAILY PO Last administered on 01/14/17 09:42; Admin Dose 30 MG; Start 01/13/17 at 09:00 Nifedipine (Procardia Xl) 30 mg DAILY PO Last administered on 01/14/17 09:42 ; Admin Dose 30 MG; Start 01/13/17 at 09:00 Miscellaneous Information 1 ea NOTE XX ; Start 01/13/17 at 01:30 Glucose (Glutose) 15 gm Q15M PRN PO DECREASED GLUCOSE; Start 01/13/17 at 01:30 Glucose (Glutose) 22.5 gm Q15M PRN PO DECREASED GLUCOSE; Start 01/13/17 at 01: 30 Dextrose (D50w Syringe) 25 ml Q15M PRN IV DECREASED GLUCOSE; Start 01/13/17 at 01:30 Dextrose (D50w Syringe) 50 ml Q15M PRN IV DECREASED GLUCOSE; Start 01/13/17 at 01:30 Glucagon (Glucagen) 1 mg Q15M PRN IM DECREASED GLUCOSE; Start 01/13/17 at 01: 30 Glucose (Glutose) 15 gm Q15M PRN BUCCAL DECREASED GLUCOSE; Start 01/13/17 at 01:30 Diphenhydramine HCl (Benadryl) 25 mg ONCE ONCE PO ; Start 01/14/17 at 17:30; Stop 01/14/17 at 17:31; Status UNV Acetaminophen (Tylenol Tab) 325 mg ONCE ONCE PO ; Start 01/14/17 at 17:30; Stop 01/14/17 at 17:31; Status UNV TREMAINE RIOS MD Jan 14, 2017 17:34
[2017-01-14] MEDS: ATORVASTATIN 40 MG TAB PO SCH (21:06)
[2017-01-14] MEDS: INSULIN GLARGINE [LANtus] 3 ML PEN SC SCH (21:13)
[2017-01-15] VITALS (10 sets, daily range): BP systolic 124–141; BP diastolic 54–66; PULSE 69–77; RESP 16–18
[2017-01-15] MEDS: FUROSEMIDE 40 MG INJ IV SCH ×2 (06:31→17:04)
--- NOTE | 2017-01-15 07:38 | RADRPT ---
Echocardiogram Report Patient Name: LATA PARRA Gender: Female Date: 1935 Study Date: 13-Jan-2017 Manager Retail: Aura Santiago [facility] Location: [facility] Ref. Physician: ARI LARSEN Quality: Good Procedures: Transthoracic echocardiogram with complete 2D, M-Mode, and doppler examination. Indications: Congestive Heart Failure. 2D/M Mode Doppler Measurement Value Normal Ranges Measurement Value Normal Ranges LVIDd 2D 5.0 3.5 - 5.6 cm NICOLAS Vmax 1.5 cm2 LVIDs 2D 2.5 2.1 - 4.1 cm NICOLAS VTI 1.5 cm2 FS 2D 49.3 % AV Mean Darinel 1.7 m/sec LVPWd 2D 0.9 0.6 - 1.1 cm AV Mean PG 13.0 mmHg IVSd 2D 1.0 0.6 - 1.1 cm AV Peak Darinel 2.3 m/sec IVS/LVPW 2D 1.2 AV Peak PG 21.0 mmHg AoR Diam 2D 2.4 2.0 - 3.7 cm AV VTI 57.6 cm LA/Ao 2D 1 0 - 1 LVOT Mean Darinel 0.9 m/sec EDV 2D 127.0 cm3 LVOT Mean PG 3.0 mmHg ESV 2D 16.6 cm3 LVOT Peak Darinel 1.3 m/sec LA Dimen 2D 3.3 2.3 - 4.0 cm LVOT Peak PG 6.0 mmHg LVOT Diam 1.9 cm LVOT VTI 30.1 cm LVOT Area 2.8 cm2 MV E Peak Darinel 1.2 m/sec MV A Peak Darinel 1.3 m/sec MV E/A 0.9 MV Decel Time 151 msec MV E/A 0.9 TR Peak Darinel 2.5 m/sec TR Peak PG 26.0 mmHg RVSP 41.0 mmHg Findings Left Ventricle: Normal left ventricular systolic function. Normal left ventricular cavity size. Normal left ventricular wall thickness. Ejection fraction is visually estimated at 60 %. Tissue Doppler/Mitral Doppler indices are consistent with impaired relaxation (Stage I diastolic dysfunction). Right Ventricle: Normal right ventricular size. Normal right ventricular systolic function. Left Atrium: The left atrium is normal in size. Right Atrium: The right atrium is normal in size. Mitral Valve: Mitral valve leaflets appear mildly thickened. Mild mitral annular calcification. Mild mitral valve regurgitation. Aortic Valve: Aortic valve Max velocity 2.31 m/sec. Max PG 21.00 mmHg. Mean PG 13.00 mmHg. Aortic sclerosis without stenosis. Trace aortic valve regurgitation. Tricuspid Valve: Normal appearance of the tricuspid valve. Estimated peak PA systolic pressure 41 mmHg. There is mild tricuspid regurgitation. Pulmonic Valve: Normal pulmonic valve appearance. There is trace pulmonic regurgitation. Pericardium: Normal pericardium with no significant pericardial effusion. Aorta: Normal aortic root. IVC: Dilated IVC without respiratory collapse consistent with elevated right atrial pressure. Conclusions 1.Normal left ventricular systolic function. Normal left ventricular cavity size. Normal left ventricular wall thickness. Ejection fraction is visually estimated at 60 %. Tissue Doppler/Mitral Doppler indices are consistent with impaired relaxation (Stage I diastolic dysfunction). 2.Mitral valve leaflets appear mildly thickened. Mild mitral annular calcification. Mild mitral valve regurgitation. 3.Aortic valve Max velocity 2.31 m/sec. Max PG 21.00 mmHg. Mean PG 13.00 mmHg. Aortic sclerosis without stenosis. Trace aortic valve regurgitation. 4.Normal appearance of the tricuspid valve. Estimated peak PA systolic pressure 41 mmHg. There is mild tricuspid regurgitation. 5.Normal pulmonic valve appearance. There is trace pulmonic regurgitation. 6.Normal pericardium with no significant pericardial effusion. Electronically Signed By: Anupama Gaspar 15-Jan-2017 07:37:54 -0800 Patient Name: LATA PARRA Study Date: 13-Jan-2017 [id number]
[2017-01-15] MEDS: INSULIN ASPART [NOVOLOG] 3 ML PEN SC SCH ×4 (08:00→21:00)
[2017-01-15 08:28] LABS: BASOPHILS % 0.6 % (0.0-2.0); EOSINOPHILS # 0.4 10^3/ul (0.0-0.5); EOSINOPHILS % 6.5 % (0.0-7.0); HEMOGLOBIN 10.8 g/dl (12.0-16.0); LYMPHOCYTES # 2.2 10^3/ul (0.8-2.9); LYMPHOCYTES % 33.3 % (15.0-51.0); MEAN CORPUSCULAR HEMOGLOBIN 31.5 pg (29.0-33.0); MEAN CORPUSCULAR HGB CONC 34.8 g/dl (32.0-37.0); MEAN CORPUSCULAR VOLUME 90.4 fl (82.0-101.0); MEAN PLATELET VOLUME 10.3 fl (7.4-10.4); MONOCYTE # 0.5 10^3/ul (0.3-0.9); MONOCYTES % 7.6 % (0.0-11.0); NEUTROPHIL # 3.4 10^3/ul (1.6-7.5); NEUTROPHILS % 51.7 % (39.0-77.0); NUCLEATED RED BLOOD CELLS% 0.3 /100WBC (0.0-0.0); PLATELET COUNT 222 10^3/UL (140-415); RED BLOOD COUNT 3.43 10^6/ul (4.20-5.40); RED CELL DISTRIBUTION WIDTH 13.6 % (11.5-14.5); WHITE BLOOD COUNT 6.5 10^3/ul (4.8-10.8)
[2017-01-15] MEDS: ASPIRIN (EC) 81 MG TAB PO SCH (08:30)
[2017-01-15] MEDS: ISOSORBIDE MONONITRATE(SR)30 MG TAB PO SCH (08:30)
[2017-01-15] MEDS: NIFEdipine (XL) 30 MG TAB PO SCH (08:30)
[2017-01-15 08:58] LABS: CREATININE 5.78 mg/dl (0.44-1.00)
[2017-01-15] MEDS: LEVALBUTEROL (NEB) 1.25 MG/0.5 ML AMP HHN PRN (09:27)
--- NOTE | 2017-01-15 13:27 | PN ---
Date/Time of Note Date/Time of Note DATE: 01/15/17 TIME: 13:25 Assessment/Plan VTE Prophylaxis VTE Prophylaxis Intervention: SCD's Lines/Catheters IV Catheter Type (from [facility]): Saline Lock Urinary Cath still in place: No Assessment/Plan Assessment/Plan Acute decompensated diastolic congestive heart failure Preserved ejection fraction echocardiogram December 2015 CKD with history of hemodialysis in the past Hypertension Diabetes -Patient with improvement in symptoms with IV Lasix, would continue as long as ok from her renal status > possibly change to po lasix in am -continue antihypertensive medication regimen and if needed, would adjust dosing based on blood pressure trend. Patient to be seen by our nephrology colleagues as well. Subjective 24 Hr Interval Summary Free Text/Dictation The patient doing better but some sob today Exam/Review of Systems Vital Signs Vitals Vital Signs Date Time Temp Pulse Resp B/P Pulse Ox O2 Delivery O2 Flow Rate FiO2 01/15/17 12:46 72 01/15/17 11:32 98.0 16 125/59 95 01/15/17 09:32 2.0 01/15/17 09:32 Nasal Cannula Intake and Output 01/14/17 01/14/17 01/15/17 15:00 23:00 07:00 Intake Total 550 ml Balance 550 ml Results Result Diagram: 01/15/17 0802 01/15/17 0802 Results 24 hrs Laboratory Tests Test 01/14/17 17:20 01/14/17 21:09 01/15/17 08:02 01/15/17 08:26 Bedside Glucose 149 172 90 White Blood Count 6.5 Red Blood Count 3.43 #L Hemoglobin 10.8 #L Hematocrit 31.0 #L Mean Corpuscular Volume 90.4 Mean Corpuscular Hemoglobin 31.5 Mean Corpuscular Hemoglobin Concent 34.8 Red Cell Distribution Width 13.6 Platelet Count 222 Mean Platelet Volume 10.3 Neutrophils % 51.7 Lymphocytes % 33.3 Monocytes % 7.6 Eosinophils % 6.5 Basophils % 0.6 Nucleated Red Blood Cells % 0.3 H Neutrophils # 3.4 Lymphocytes # 2.2 Monocytes # 0.5 Eosinophils # 0.4 Basophils # 0.0 Nucleated Red Blood Cells # 0.0 Sodium Level 139 Potassium Level 4.0 Chloride Level 106 Carbon Dioxide Level 20 L Anion Gap 17 H Blood Urea Nitrogen 65 H Creatinine 5.78 H Glucose Level 86 Calcium Level 9.0 Test 01/15/17 11:45 Bedside Glucose 132 Medications Medications Current Medications Aspirin (Halfprin) 81 mg DAILY PO Last administered on 01/15/17 08:30; Admin Dose 81 MG; Start 01/13/17 at 09:00 Atorvastatin Calcium (Lipitor) 40 mg QHS PO Last administered on 01/14/17 21: 06; Admin Dose 40 MG; Start 01/13/17 at 21:00 Carvedilol (Coreg) 25 mg BID PO Last administered on 01/15/17 08:30; Admin Dose 25 MG; Start 01/13/17 at 09:00 Insulin Glargine (Lantus) 10 unit QHS SC Last administered on 01/14/17 21:13 ; Admin Dose 10 UNIT; Start 01/13/17 at 21:00 Isosorbide Mononitrate (Imdur) 30 mg DAILY PO Last administered on 01/15/17 08:30; Admin Dose 30 MG; Start 01/13/17 at 09:00 Nifedipine (Procardia Xl) 30 mg DAILY PO Last administered on 01/15/17 08:30 ; Admin Dose 30 MG; Start 01/13/17 at 09:00 Miscellaneous Information 1 ea NOTE XX ; Start 01/13/17 at 01:30 Glucose (Glutose) 15 gm Q15M PRN PO DECREASED GLUCOSE; Start 01/13/17 at 01:30 Glucose (Glutose) 22.5 gm Q15M PRN PO DECREASED GLUCOSE; Start 01/13/17 at 01: 30 Dextrose (D50w Syringe) 25 ml Q15M PRN IV DECREASED GLUCOSE; Start 01/13/17 at 01:30 Dextrose (D50w Syringe) 50 ml Q15M PRN IV DECREASED GLUCOSE; Start 01/13/17 at 01:30 Glucagon (Glucagen) 1 mg Q15M PRN IM DECREASED GLUCOSE; Start 01/13/17 at 01: 30 Glucose (Glutose) 15 gm Q15M PRN BUCCAL DECREASED GLUCOSE; Start 01/13/17 at 01:30 AROLDO SPAULDING MD Jan 15, 2017 13:27
--- NOTE | 2017-01-15 16:06 | PN ---
Date/Time of Note Date/Time of Note DATE: 01/15/17 TIME: 16:02 Assessment/Plan VTE Prophylaxis VTE Prophylaxis Intervention: ambulation Lines/Catheters IV [facility]from [facility] Saline Lock Urinary Cath still in place: No Assessment/Plan Problems: (1) Acute exacerbation of CHF (congestive heart failure) Status: Acute Comment: improving clinically on current meds but still has dyspnea on exertion. Qualifiers: Congestive heart failure type: diastolic Qualified Code: I50.33 - Acute on chronic diastolic congestive heart failure (2) Anemia in chronic kidney disease Status: Acute Comment: improved after 2 units PRBC's. (3) Acute on chronic renal failure Status: Acute Comment: expect improved renal perfusion with higher H/H and improved heart function. start gentle hydration. Follow BUN/cr. Consider HD only with persistent azotemia Qualifiers: Acute renal failure type: unspecified Chronic kidney disease stage: unspecified stage Qualified Code: N17.9 - Acute renal failure superimposed on chronic kidney disease, unspecified CKD stage, unspecified acute renal failure type (4) Diabetes mellitus Status: Chronic (5) Gout Status: Chronic (6) Hyperlipemia Status: Chronic (7) Hypertension Status: Chronic Subjective 24 Hr Interval Summary Free Text/Dictation Patient feels much better but still gets some sob with ambulation. Exam/Review of Systems Vital Signs Vitals Vital Signs Date Time Temp Pulse Resp B/P Pulse Ox O2 Delivery O2 Flow Rate FiO2 01/15/17 15:38 98.3 77 16 127/59 94 01/15/17 09:32 2.0 01/15/17 09:32 Nasal Cannula Intake and Output 01/14/17 01/14/17 01/15/17 15:00 23:00 07:00 Intake Total 550 ml Balance 550 ml Exam Constitutional: alert, oriented Neck: non-tender, supple Respiratory: clear to auscultation, normal air movement Cardiovascular: regular rate and rhythm Gastrointestinal: non-tender, soft Extremities: edema Results Result Diagram: 01/15/17 0802 01/15/17 0802 Results 24 hrs Laboratory Tests Test 01/14/17 17:20 01/14/17 21:09 01/15/17 08:02 01/15/17 08:26 Bedside Glucose 149 172 90 White Blood Count 6.5 Red Blood Count 3.43 #L Hemoglobin 10.8 #L Hematocrit 31.0 #L Mean Corpuscular Volume 90.4 Mean Corpuscular Hemoglobin 31.5 Mean Corpuscular Hemoglobin Concent 34.8 Red Cell Distribution Width 13.6 Platelet Count 222 Mean Platelet Volume 10.3 Neutrophils % 51.7 Lymphocytes % 33.3 Monocytes % 7.6 Eosinophils % 6.5 Basophils % 0.6 Nucleated Red Blood Cells % 0.3 H Neutrophils # 3.4 Lymphocytes # 2.2 Monocytes # 0.5 Eosinophils # 0.4 Basophils # 0.0 Nucleated Red Blood Cells # 0.0 Sodium Level 139 Potassium Level 4.0 Chloride Level 106 Carbon Dioxide Level 20 L Anion Gap 17 H Blood Urea Nitrogen 65 H Creatinine 5.78 H Glucose Level 86 Calcium Level 9.0 Test 01/15/17 11:45 Bedside Glucose 132 Medications Medications Current Medications Aspirin (Halfprin) 81 mg DAILY PO Last administered on 01/15/17 08:30; Admin Dose 81 MG; Start 01/13/17 at 09:00 Atorvastatin Calcium (Lipitor) 40 mg QHS PO Last administered on 01/14/17 21: 06; Admin Dose 40 MG; Start 01/13/17 at 21:00 Carvedilol (Coreg) 25 mg BID PO Last administered on 01/15/17 08:30; Admin Dose 25 MG; Start 01/13/17 at 09:00 Insulin Glargine (Lantus) 10 unit QHS SC Last administered on 01/14/17 21:13 ; Admin Dose 10 UNIT; Start 01/13/17 at 21:00 Isosorbide Mononitrate (Imdur) 30 mg DAILY PO Last administered on 01/15/17 08:30; Admin Dose 30 MG; Start 01/13/17 at 09:00 Nifedipine (Procardia Xl) 30 mg DAILY PO Last administered on 01/15/17 08:30 ; Admin Dose 30 MG; Start 01/13/17 at 09:00 Miscellaneous Information 1 ea NOTE XX ; Start 01/13/17 at 01:30 Glucose (Glutose) 15 gm Q15M PRN PO DECREASED GLUCOSE; Start 01/13/17 at 01:30 Glucose (Glutose) 22.5 gm Q15M PRN PO DECREASED GLUCOSE; Start 01/13/17 at 01: 30 Dextrose (D50w Syringe) 25 ml Q15M PRN IV DECREASED GLUCOSE; Start 01/13/17 at 01:30 Dextrose (D50w Syringe) 50 ml Q15M PRN IV DECREASED GLUCOSE; Start 01/13/17 at 01:30 Glucagon (Glucagen) 1 mg Q15M PRN IM DECREASED GLUCOSE; Start 01/13/17 at 01: 30 Glucose (Glutose) 15 gm Q15M PRN BUCCAL DECREASED GLUCOSE; Start 01/13/17 at 01:30 TREMAINE RIOS MD Jan 15, 2017 16:06
[2017-01-15] MEDS ORDERED: SOD CHLORIDE 0.9% 1,000 ML IV SCH (16:30)
[2017-01-15] MEDS: ATORVASTATIN 40 MG TAB PO SCH (21:23)
[2017-01-15] MEDS: INSULIN GLARGINE [LANtus] 3 ML PEN SC SCH (21:34)
[2017-01-16] VITALS (12 sets, daily range): BP systolic 123–141; BP diastolic 58–64; PULSE 69–78; RESP 16–20
[2017-01-16] MEDS: FUROSEMIDE 40 MG INJ IV SCH ×2 (06:43→17:10)
[2017-01-16] MEDS: INSULIN ASPART [NOVOLOG] 3 ML PEN SC SCH ×4 (07:54→19:59)
[2017-01-16] MEDS: ISOSORBIDE MONONITRATE(SR)30 MG TAB PO SCH (08:29)
[2017-01-16] MEDS: NIFEdipine (XL) 30 MG TAB PO SCH (08:29)
[2017-01-16] MEDS: ASPIRIN (EC) 81 MG TAB PO SCH (08:29)
[2017-01-16 08:53] LABS: BASOPHILS % 0.4 % (0.0-2.0); EOSINOPHILS # 0.3 10^3/ul (0.0-0.5); EOSINOPHILS % 4.5 % (0.0-7.0); HEMATOCRIT 33.4 % (37.0-47.0); HEMOGLOBIN 11.8 g/dl (12.0-16.0); LYMPHOCYTES # 2.6 10^3/ul (0.8-2.9); LYMPHOCYTES % 36.1 % (15.0-51.0); MEAN CORPUSCULAR HEMOGLOBIN 31.5 pg (29.0-33.0); MEAN CORPUSCULAR HGB CONC 35.3 g/dl (32.0-37.0); MEAN CORPUSCULAR VOLUME 89.1 fl (82.0-101.0); MEAN PLATELET VOLUME 10.1 fl (7.4-10.4); MONOCYTE # 0.3 10^3/ul (0.3-0.9); MONOCYTES % 4.8 % (0.0-11.0); NEUTROPHIL # 3.8 10^3/ul (1.6-7.5); NEUTROPHILS % 53.8 % (39.0-77.0); NUCLEATED RED BLOOD CELLS% 0.3 /100WBC (0.0-0.0); PLATELET COUNT 265 10^3/UL (140-415); RED BLOOD COUNT 3.75 10^6/ul (4.20-5.40); RED CELL DISTRIBUTION WIDTH 14.1 % (11.5-14.5); WHITE BLOOD COUNT 7.1 10^3/ul (4.8-10.8)
--- NOTE | 2017-01-16 09:03 | RADRPT ---
PROCEDURE: XR Chest. CLINICAL INDICATION: Congestive heart failure . Follow-up TECHNIQUE: Single frontal chest x-ray. COMPARISON: CR CHEST 05/01/2016; CR CHEST 04/29/2016; CR CHEST 04/26/2016; CR CHEST 04/23/2016 FINDINGS: Cardiomegaly with hilar vascular prominence is present. . Mild bibasilar atelectasis appears improve d. There are no new infiltrates, edema, or effusions.. Calcific atherosclerosis of the aorta is pr esent.. The osseous structures are intact. IMPRESSION: Cardiomegaly with hilar vascular prominence. Improved bibasilar atelectatic changes.. RPTAT: AA .Cecil Wilhelm MD, MD Date Time Electronically viewed and signed by .Cecil Wilhelm MD, on 01/16/2017 09:02 .L/
[2017-01-16 09:15] LABS: CALCIUM 9.5 mg/dl (8.4-10.2); CREATININE 6.06 mg/dl (0.44-1.00); POTASSIUM 4.4 mmol/L (3.5-5.1)
--- NOTE | 2017-01-16 11:14 | CONS ---
DATE OF ADMISSION: 01/12/2017 DATE OF CONSULTATION: NEPHROLOGY CONSULTATION REASON FOR CONSULTATION: The patient is an 81-year-old female for whom renal consultation has been requested for CKD 5 and congestive heart failure. HISTORY OF PRESENT ILLNESS: The patient was admitted on 01/12/2017 for increasing shortness of hodan th in the preceding 3 days. On admission, her BNP was 4860. Sodium 136, potassium 4.7, chloride 10 3, bicarb 19 with BUN of 56 and creatinine 5.59. Her serum calcium was 9.4, no phosphorus obtained. Troponin was 0.015 and her hemoglobin was 8.5 with hematocrit 24.4. Since being in the hospital, she has been transfused, diuresed with IV Lasix and in the last 24 hours she has 1990 in and 1550 ou t. She states that she has not been urinating much, however. Most recent labs on 01/13/2017 with l abs today pending showed a sodium 140, potassium 4.3, chloride 106 and bicarb 20 with BUN 56 and cre atinine 5.86. I have just received this morning's labs with a sodium of 142, potassium 4.4, chlorid e 106, bicarb 22, BUN 70, creatinine 6.6 and glucose 86. The patient states that she is definitely less short of breath. Her hemoglobin after transfusion is up to 11.8 with a hematocrit of 33.4 and a chest x-ray shows cardiomegaly with hilar vascular prominence and improved bibasilar atelectatic c hanges. CURRENT MEDICATIONS: Include: 1. Isosorbide 30 mg q. 24 hours. 2. PhosLo 667 mg with meals. 3. Nifedipine ER 30 mg daily. 4. Atorvastatin 40 daily. 5. Baby aspirin 81 mg daily. 6. Lantus 12 units subQ at bedtime. 7. Allopurinol 100 daily. 8. Lasix 20 p.o. daily. 9. Carvedilol 25 mg b.i.d. ALLERGIES: . PAST SURGICAL HISTORY: Right kidney nephrectomy, bilateral cataract removal. HABITS: She neither smokes nor drinks. FAMILY HISTORY: No cardiovascular disease. REVIEW OF SYSTEMS. GENERAL: She feels weak and tired. HEENT: Denies headaches, change in vision or hearing, sore throat or trouble swallowing. CARDIOPULMONARY: She has minimal cough and she is less short of breath. She has no chest pain or c hest pressure. GASTROINTESTINAL: She has a decreased appetite. She has no diarrhea, no constipation. GENITOURINARY: Less urine output than usual. No dysuria or urgency. NEUROLOGICAL: No syncope, no seizure. PHYSICAL EXAMINATION: VITAL SIGNS: Temperature 98, blood pressure 140/60, pulse 78. HEENT: Normocephalic. EXTREMITIES: Intact. Sclerae anicteric. LUNGS: Clear. HEART: Regular without rub. There is a 2/6 aortic systolic murmur. Heart sounds are somewhat dist ant. ABDOMEN: Obese. No organomegaly. EXTREMITIES: No peripheral edema. NEUROLOGIC: Oriented and alert, able to move upper and lower extremities. IMPRESSION: 1. Chronic kidney disease 5. 2. Anemia, status post transfusion. 3. Congestive heart failure -- improved. RECOMMEND: Physical therapy for ambulation. Phosphorus level to be sure phosphate binders are suff iciently correcting her hyperphosphatemia. The patient is already on Epogen. A decision will have to be made about further dialysis. She is slightly hypervolemic at the present time so continue diu resis as indicated. Dictated By: OBEY VEE MD BL/NTS Conf#: [id number] DID#: [id number] CC: LAURA RUIZ MD;*EndCC*
--- NOTE | 2017-01-16 14:24 | CONS ---
Date/Time of Note Date/Time of Note DATE: 01/16/17 TIME: 14:19 Consult Date/Type/Reason Admit Date/Time Jan 12, 2017 at 21:51 Initial Consult Date Type of Consultation: cv Subjective cardiology follow up note (covering Dr Gaspar/ [facility]) S: Discussed with staff and rhythm strip was reviewed. Patient remains sinus rhythm. Denies any chest pain or pressure to me. However she still complaining of shortness of breath. Said he has been slowly improving. NO BLEEDING O: General: no acute distress HEENT: NC/AT. pupils are equal. round. NECK: + JVD. no stridor. CV: RRR. systolic murmur; no gallop or rubs. PULM: no wheezing . + rhonchi at base. GI: SOFT, NT, ND, no rebound or guarding Extremity: + B/L LE edema. no clubbing. neuro: awake and alert, OX3. Psych: calm and pleasant rectal: deferred Objective Vital Signs Date Time Temp Pulse Resp B/P Pulse Ox O2 Delivery O2 Flow Rate FiO2 01/16/17 12:17 71 01/16/17 11:33 98.0 16 123/60 98 01/16/17 08:00 Nasal Cannula 2.0 Intake and Output 01/15/17 01/15/17 01/16/17 15:00 23:00 07:00 Intake Total 400 ml 500 ml 1000 ml Output Total 700 ml 850 ml Balance 400 ml -200 ml 150 ml Results/Medications Result Diagram: 01/16/1718 01/16/17 0817 Results 24 hrs Laboratory Tests Test 01/15/17 17:00 01/15/17 21:21 01/16/17 07:37 01/16/17 08:17 Bedside Glucose 125 150 85 Sodium Level 142 Potassium Level 4.4 Chloride Level 106 Carbon Dioxide Level 22 Anion Gap 18 H Blood Urea Nitrogen 70 H Creatinine 6.06 H Glucose Level 86 Calcium Level 9.5 Phosphorus Level 6.2 H Test 01/16/17 08:18 01/16/17 11:45 White Blood Count 7.1 Red Blood Count 3.75 L Hemoglobin 11.8 L Hematocrit 33.4 L Mean Corpuscular Volume 89.1 Mean Corpuscular Hemoglobin 31.5 Mean Corpuscular Hemoglobin Concent 35.3 Red Cell Distribution Width 14.1 Platelet Count 265 Mean Platelet Volume 10.1 Neutrophils % 53.8 Lymphocytes % 36.1 Monocytes % 4.8 Eosinophils % 4.5 Basophils % 0.4 Nucleated Red Blood Cells % 0.3 H Neutrophils # 3.8 Lymphocytes # 2.6 Monocytes # 0.3 Eosinophils # 0.3 Basophils # 0.0 Nucleated Red Blood Cells # 0.0 Bedside Glucose 169 Medications Current Medications Aspirin (Halfprin) 81 mg DAILY PO Last administered on 01/16/17 08:29; Admin Dose 81 MG; Start 01/13/17 at 09:00 Atorvastatin Calcium (Lipitor) 40 mg QHS PO Last administered on 01/15/17 21: 23; Admin Dose 40 MG; Start 01/13/17 at 21:00 Carvedilol (Coreg) 25 mg BID PO Last administered on 01/16/17 08:28; Admin Dose 25 MG; Start 01/13/17 at 09:00 Insulin Glargine (Lantus) 10 unit QHS SC Last administered on 01/15/17 21:34 ; Admin Dose 10 UNIT; Start 01/13/17 at 21:00 Isosorbide Mononitrate (Imdur) 30 mg DAILY PO Last administered on 01/16/17 08:29; Admin Dose 30 MG; Start 01/13/17 at 09:00 Nifedipine (Procardia Xl) 30 mg DAILY PO Last administered on 01/16/17 08:29 ; Admin Dose 30 MG; Start 01/13/17 at 09:00 Miscellaneous Information 1 ea NOTE XX ; Start 01/13/17 at 01:30 Glucose (Glutose) 15 gm Q15M PRN PO DECREASED GLUCOSE; Start 01/13/17 at 01:30 Glucose (Glutose) 22.5 gm Q15M PRN PO DECREASED GLUCOSE; Start 01/13/17 at 01: 30 Dextrose (D50w Syringe) 25 ml Q15M PRN IV DECREASED GLUCOSE; Start 01/13/17 at 01:30 Dextrose (D50w Syringe) 50 ml Q15M PRN IV DECREASED GLUCOSE; Start 01/13/17 at 01:30 Glucagon (Glucagen) 1 mg Q15M PRN IM DECREASED GLUCOSE; Start 01/13/17 at 01: 30 Glucose 15 gm 15 gm Q15M PRN BUCCAL DECREASED GLUCOSE; Start 11/15/17 at 01:30 Sodium Chloride (NS) 1,000 ml @ 50 mls/hr Q20H IV Last administered on t 17:04; Admin Dose 50 MLS/HR; Start 01/15/17 at 16:30; Status Future Hold Assessment/Plan Chief Complaint/Hosp Course 1. fluid overload/ CHF: due to renal failure/ diastolic heart failure 2. renal failure: CKD 3. HTN 4. Anemia s/ p transfusion. 5. DM: Recommendations: Patient is currently on IV Lasix to be managed and adjusted per renal recommendations. given her severe chronic kidney disease hemodialysis may be considered. I will defer this decision to our nephrology consults/colleagues Patient is currently not on MALI inhibitor due to her renal failure. Blood pressure remained stable we will continue the current regimen. DM management as per IM Thank you CATY ZHEGN MD [facility] Problems: CATY ZHENG MD Jan 16, 2017 14:23
[2017-01-16] MEDS: ATORVASTATIN 40 MG TAB PO SCH (19:59)
[2017-01-16] MEDS: INSULIN GLARGINE [LANtus] 3 ML PEN SC SCH (20:04)
--- NOTE | 2017-01-16 22:38 | PN ---
DATE: 01/16/2017 SUBJECTIVE: The patient feels somewhat better but still out of breath. OBJECTIVE: VITAL SIGNS: Temperature 98.2, pulse 71 and regular, respirations 20, blood pressure 141/64, oxygen saturation 95% on 2 liter nasal cannula oxygen. CHEST: Clear to auscultation bilaterally with decreased breath sounds in the bases, but no crackles noted. HEART: Regular rate and rhythm. ABDOMEN: Soft, nontender. EXTREMITIES: No cyanosis, clubbing. Trace edema. NEUROLOGIC: Nonfocal. LABORATORY DATA: Hemoglobin of 11.8, hematocrit of 33.4, platelets of 265, white blood cell count 7 .1. Chest x-ray dated 01/16/2017 shows cardiomegaly with hilar vascular prominence, improved bibasilar a telectatic changes. ASSESSMENT AND PLAN 1. Acute on chronic diastolic heart failure, improved. Will continue with current plan of action. The patient may need hemodialysis if kidney function continues to worsen. 2. Acute on chronic kidney disease stage V. Will continue to monitor and hold off on hemodialysis unless absolutely necessary as patient is producing some urine at this point. We will continue to f ollow BUN and creatinine as well as phosphorus and calcium. 3. Diabetes, stable. Continue with medications, sliding scale. 4. Anemia secondary to chronic kidney disease, improved after transfusion. We will continue to mon itor. Dictated By: NIKKI PAYNE MD SR/NTS Conf#: [id number] DID#: [id number]
[2017-01-17] VITALS (12 sets, daily range): BP systolic 117–149; BP diastolic 54–97; PULSE 69–103; RESP 17–20
[2017-01-17] MEDS: FUROSEMIDE 40 MG INJ IV SCH ×2 (06:46→17:29)
[2017-01-17] MEDS: INSULIN ASPART [NOVOLOG] 3 ML PEN SC SCH ×4 (07:28→20:48)
[2017-01-17] MEDS: ISOSORBIDE MONONITRATE(SR)30 MG TAB PO SCH (08:06)
[2017-01-17] MEDS: ASPIRIN (EC) 81 MG TAB PO SCH (08:06)
[2017-01-17] MEDS: NIFEdipine (XL) 30 MG TAB PO SCH (08:07)
--- NOTE | 2017-01-17 10:39 | PN ---
Date/Time of Note Date/Time of Note DATE: 01/17/17 TIME: 10:35 Assessment/Plan VTE Prophylaxis VTE Prophylaxis Intervention: ambulation, other (ambulatory]) Lines/Catheters IV C[facility]ter Type (from [facility]): Saline Lock Urinary Cath still in place: No Assessment/Plan Problems: (1) Congestive heart failure Status: Acute Qualifiers: Congestive heart failure type: diastolic Congestive heart failure chronicity: acute on chronic Qualified Code: I50.33 - Acute on chronic diastolic congestive heart failure (2) Anemia Status: Acute Qualifiers: Anemia type: unspecified type Qualified Code: D64.9 - Anemia, unspecified type Assessment/Plan Negative i and o and improved but clearly ckd 5 and continuous renal replacement to be reviewed with daughter. Subjective 24 Hr Interval Summary Constitutional: other (no sob at rest but slight on walking to bathroom. Discussed advanced renal failure and she wants her daughter to help her decide tomorrow about dialysis.) Exam/Review of Systems Vital Signs Vitals Vital Signs Date Time Temp Pulse Resp B/P Pulse Ox O2 Delivery O2 Flow Rate FiO2 01/17/17 08:10 98.3 81 17 117/54 95 01/17/17 08:00 Nasal Cannula 2.0 Intake and Output 01/16/17 01/16/17 01/17/17 15:00 23:00 07:00 Intake Total 860 ml 500 ml Output Total 900 ml 950 ml Balance -40 ml -450 ml Exam Constitutional: alert, oriented Neck: supple Respiratory: other (right clear and left base rales) Cardiovascular: other (no rub), regular rate and rhythm Results Result Diagram: 01/16/1718 01/16/1717 Results 24 hrs Laboratory Tests Test 01/16/17 11:45 01/16/17 17:07 01/16/17 19:57 01/17/17 07:27 Bedside Glucose 169 146 163 91 Medications Medications Current Medications Aspirin (Halfprin) 81 mg DAILY PO Last administered on 01/17/17 08:06; Admin Dose 81 MG; Start 01/13/17 at 09:00 Atorvastatin Calcium (Lipitor) 40 mg QHS PO Last administered on 01/16/17 19: 59; Admin Dose 40 MG; Start 01/13/17 at 21:00 Carvedilol (Coreg) 25 mg BID PO Last administered on 01/17/17 08:06; Admin Dose 25 MG; Start 01/13/17 at 09:00 Insulin Glargine (Lantus) 10 unit QHS SC Last administered on 01/16/17 20:04 ; Admin Dose 10 UNIT; Start 01/13/17 at 21:00 Isosorbide Mononitrate (Imdur) 30 mg DAILY PO Last administered on 01/17/17 08:06; Admin Dose 30 MG; Start 01/13/17 at 09:00 Nifedipine (Procardia Xl) 30 mg DAILY PO Last administered on 01/17/17 08:07 ; Admin Dose 30 MG; Start 01/13/17 at 09:00 Miscellaneous Information 1 ea NOTE XX ; Start 01/13/17 at 01:30 Glucose (Glutose) 15 gm Q15M PRN PO DECREASED GLUCOSE; Start 01/13/17 at 01:30 Glucose (Glutose) 22.5 gm Q15M PRN PO DECREASED GLUCOSE; Start 01/13/17 at 01: 30 Dextrose (D50w Syringe) 25 ml Q15M PRN IV DECREASED GLUCOSE; Start 01/13/17 at 01:30 Dextrose (D50w Syringe) 50 ml Q15M PRN IV DECREASED GLUCOSE; Start 01/13/17 at 01:30 Glucagon (Glucagen) 1 mg Q15M PRN IM DECREASED GLUCOSE; Start 01/13/17 at 01: 30 Glucose 15 gm 15 gm Q15M PRN BUCCAL DECREASED GLUCOSE; Start 01/13/17 at 01:30 Sodium Chloride (NS) 1,000 ml @ 50 mls/hr Q20H IV Last administered on 17:04; Admin Dose 50 MLS/HR; Start 01/15/17 at 16:30; Status Future Hold OBEY VEE MD Jan 17, 2017 10:39
--- NOTE | 2017-01-17 12:49 | CONS ---
Date/Time of Note Date/Time of Note DATE: 01/17/17 TIME: 12:47 Consult Date/Type/Reason Admit Date/Time Jan 12, 2017 at 21:51 Type of Consultation: cv Subjective cardiology follow up note (covering Dr Gaspar/ [facility]) S: Discussed with staff and rhythm strip was reviewed. Patient remains sinus rhythm. Denies any chest pain or pressure to me. she still complaining of shortness of breath. but it is slowly improving. NO BLEEDING d/w Dr Solis O: General: no acute distress HEENT: NC/AT. pupils are equal. round. NECK: + JVD. no stridor. CV: RRR. systolic murmur; no gallop or rubs. PULM: no wheezing . + rhonchi at base. GI: SOFT, NT, ND, no rebound or guarding Extremity: + B/L LE edema. no clubbing. neuro: awake and alert, OX3. Psych: calm and pleasant rectal: deferred Objective Vital Signs Date Time Temp Pulse Resp B/P Pulse Ox O2 Delivery O2 Flow Rate FiO2 01/17/17 12:10 98.0 66 20 133/62 95 01/17/17 08:00 Nasal Cannula 2.0 Intake and Output 01/16/17 01/16/17 01/17/17 15:00 23:00 07:00 Intake Total 860 ml 500 ml Output Total 900 ml 950 ml Balance -40 ml -450 ml Results/Medications Result Diagram: 01/16/1718 01/16/17 0817 Results 24 hrs Laboratory Tests Test 01/16/17 17:07 01/16/17 19:57 01/17/17 07:27 01/17/17 11:29 Bedside Glucose 146 163 91 178 Medications Current Medications Aspirin (Halfprin) 81 mg DAILY PO Last administered on 01/17/17 08:06; Admin Dose 81 MG; Start 01/13/17 at 09:00 Atorvastatin Calcium (Lipitor) 40 mg QHS PO Last administered on 01/16/17 19: 59; Admin Dose 40 MG; Start 01/13/17 at 21:00 Carvedilol (Coreg) 25 mg BID PO Last administered on 01/17/17 08:06; Admin Dose 25 MG; Start 01/13/17 at 09:00 Insulin Glargine (Lantus) 10 unit QHS SC Last administered on 01/16/17 20:04 ; Admin Dose 10 UNIT; Start 01/13/17 at 21:00 Isosorbide Mononitrate (Imdur) 30 mg DAILY PO Last administered on 01/17/17 08:06; Admin Dose 30 MG; Start 01/13/17 at 09:00 Nifedipine (Procardia Xl) 30 mg DAILY PO Last administered on 01/17/17 08:07 ; Admin Dose 30 MG; Start 01/13/17 at 09:00 Miscellaneous Information 1 ea NOTE XX ; Start 01/13/17 at 01:30 Glucose (Glutose) 15 gm Q15M PRN PO DECREASED GLUCOSE; Start 01/13/17 at 01:30 Glucose (Glutose) 22.5 gm Q15M PRN PO DECREASED GLUCOSE; Start 01/13/17 at 01: 30 Dextrose (D50w Syringe) 25 ml Q15M PRN IV DECREASED GLUCOSE; Start 01/13/17 at 01:30 Dextrose (D50w Syringe) 50 ml Q15M PRN IV DECREASED GLUCOSE; Start 01/13/17 at 01:30 Glucagon (Glucagen) 1 mg Q15M PRN IM DECREASED GLUCOSE; Start 01/13/17 at 01: 30 Glucose 15 gm 15 gm Q15M PRN BUCCAL DECREASED GLUCOSE; Start 01/13/17 at 01:30 Sodium Chloride (NS) 1,000 ml @ 50 mls/hr Q20H IV Last administered on 17:04; Admin Dose 50 MLS/HR; Start 01/15/17 at 16:30; Status Future Hold Assessment/Plan Chief Complaint/Hosp Course 1. fluid overload/ CHF: due to renal failure/ diastolic heart failure 2. renal failure: CKD 3. HTN 4. Anemia s/ p transfusion. 5. DM: Recommendations: Patient is currently on IV Lasix to be managed and adjusted per renal recommendations. given her severe chronic kidney disease hemodialysis may be considered. I will defer this decision to our nephrology consults/colleagues Patient is currently not on MALI inhibitor due to her renal failure. Blood pressure remained stable. We will continue the current regimen. DM management as per IM DR Gaspar or associates will follow with you tomorrow Thank you CATY ZHENG MD [facility] Problems: CATY ZHENG MD Jan 17, 2017 12:49
[2017-01-17] MEDS: ATORVASTATIN 40 MG TAB PO SCH (20:48)
[2017-01-17] MEDS: INSULIN GLARGINE [LANtus] 3 ML PEN SC SCH (21:02)
[2017-01-18] VITALS (12 sets, daily range): BP systolic 121–149; BP diastolic 60–72; PULSE 64–79; RESP 16–20
--- NOTE | 2017-01-18 00:02 | PN ---
DATE: 01/17/2017 MEDICAL PROGRESS NOTE SUBJECTIVE: The patient is still short of breath with minimal exertion, otherwise no complaints. OBJECTIVE: VITAL SIGNS: Temperature 97.5, pulse 74, blood pressure 149/97, oxygen saturation 95% on 2 liter na milvia cannula oxygen. CHEST: Decreased breath sounds, bilateral bases, otherwise clear. HEART: Regular rate and rhythm. ABDOMEN: Soft, nontender. EXTREMITIES: 1+ bilateral lower extremity edema. NEUROLOGIC: Nonfocal. ASSESSMENT AND PLAN: 1. [id number] diastolic heart failure, stable, but persistent. The patient is still deciding on possible dialysis. The patient is supposed to talk with her daughter in order to determine whet her or not to proceed with this tomorrow. Will continue with current medications at this point, but patient may need dialysis in order to improve her fluid overload. 2. Acute on chronic kidney disease stage V, remains stable, but patient is not improving any furthe r and needs to decide whether or not to proceed with dialysis and talk with her daughter over this. Will defer to renal on this and will check BUN, creatinine and phosphorus the morning. 3. Diabetes, stable. Continue medications, sliding scale. 4. Anemia. Will recheck CBC, but this is stable after transfusion. Dictated By: NIKKI PAYNE MD SR/NTS Conf#: [id number] DID#: [id number] CC: SARA SANCHEZ MD;*End*
[2017-01-18 06:49] LABS: BASOPHILS % 0.6 % (0.0-2.0); EOSINOPHILS # 0.4 10^3/ul (0.0-0.5); EOSINOPHILS % 7.4 % (0.0-7.0); HEMATOCRIT 31.1 % (37.0-47.0); HEMOGLOBIN 10.9 g/dl (12.0-16.0); LYMPHOCYTES # 2.4 10^3/ul (0.8-2.9); LYMPHOCYTES % 43.6 % (15.0-51.0); MEAN CORPUSCULAR HEMOGLOBIN 31.2 pg (29.0-33.0); MEAN CORPUSCULAR VOLUME 89.1 fl (82.0-101.0); MEAN PLATELET VOLUME 9.9 fl (7.4-10.4); MONOCYTE # 0.3 10^3/ul (0.3-0.9); MONOCYTES % 5.9 % (0.0-11.0); NEUTROPHIL # 2.3 10^3/ul (1.6-7.5); NEUTROPHILS % 42.3 % (39.0-77.0); PLATELET COUNT 270 10^3/UL (140-415); RED BLOOD COUNT 3.49 10^6/ul (4.20-5.40); RED CELL DISTRIBUTION WIDTH 13.6 % (11.5-14.5); WHITE BLOOD COUNT 5.4 10^3/ul (4.8-10.8)
[2017-01-18] MEDS: FUROSEMIDE 40 MG INJ IV SCH ×2 (06:51→17:32)
[2017-01-18] MEDS: INSULIN ASPART [NOVOLOG] 3 ML PEN SC SCH ×4 (07:41→22:00)
[2017-01-18 08:03] LABS: CALCIUM 9.2 mg/dl (8.4-10.2); CREATININE 5.73 mg/dl (0.44-1.00); PHOSPHORUS 6.8 mg/dl (2.5-4.9)
--- NOTE | 2017-01-18 08:38 | CONS ---
Date/Time of Note Date/Time of Note DATE: 01/18/17 TIME: 08:35 Assessment/Plan Assessment/Plan Chief Complaint/Hosp Course 1. Chronic kidney disease due to 1 functioning kidney and diabetic nephropathy in the remaining kidney. This patient was on hemodialysis for about a week in April 2016 . She was dialyzed for several treatments via a femoral catheter. She then improved and the catheter was removed and she was sent home and was followed as an outpatient. She came in last week with increasing shortness of breath, renal failure, congestive heart failure, anemia. Her BUN and creatinine are elevated to a level which is higher than when she started dialysis last time. I will discuss starting hemodialysis with the patient and her daughter today . 2. Congestive heart failure 3. Anemia of chronic kidney disease 4. Type 2 diabetes mellitus Problems: Consultation Date/Type/Reason Admit Date/Time Jan 12, 2017 at 21:51 Initial Consult Date Type of Consultation: Nephrology 24 HR Interval Summary Free Text/Dictation She is awake and alert. She is sitting up in a chair. She does complain of some shortness of breath. Exam/Review of Systems Vital Signs Vitals Vital Signs Date Time Temp Pulse Resp B/P Pulse Ox O2 Delivery O2 Flow Rate FiO2 01/18/17 08:12 98.2 75 20 131/63 90 01/18/17 00:27 2.0 01/17/17 19:30 Nasal Cannula Intake and Output 01/17/17 01/17/17 01/18/17 15:00 23:00 07:00 Intake Total 1000 ml 600 ml Output Total 600 ml 700 ml Balance 400 ml -100 ml Exam Constitutional: alert, frail, oriented Respiratory: crackles/rales, diminished breath sounds Cardiovascular: edema, regular rate and rhythm Gastrointestinal: soft Extremities: edema Results Result Diagram: 01/18/17 0628 01/18/1728 Results 24 hrs Laboratory Tests Test 01/17/17 11:29 01/17/17 17:28 01/17/17 20:46 01/18/17 06:28 Bedside Glucose 178 139 137 White Blood Count 5.4 # Red Blood Count 3.49 L Hemoglobin 10.9 L Hematocrit 31.1 L Mean Corpuscular Volume 89.1 Mean Corpuscular Hemoglobin 31.2 Mean Corpuscular Hemoglobin Concent 35.0 Red Cell Distribution Width 13.6 Platelet Count 270 Mean Platelet Volume 9.9 Neutrophils % 42.3 Lymphocytes % 43.6 Monocytes % 5.9 Eosinophils % 7.4 H Basophils % 0.6 Nucleated Red Blood Cells % 0.0 Neutrophils # 2.3 Lymphocytes # 2.4 Monocytes # 0.3 Eosinophils # 0.4 Basophils # 0.0 Nucleated Red Blood Cells # 0.0 Sodium Level 141 Potassium Level 4.0 Chloride Level 107 Carbon Dioxide Level 21 Anion Gap 17 H Blood Urea Nitrogen 66 H Creatinine 5.73 H Glucose Level 105 Calcium Level 9.2 Phosphorus Level 6.8 H Test 01/18/17 07:41 Bedside Glucose 101 Medications Medications Current Medications Aspirin (Halfprin) 81 mg DAILY PO Last administered on 01/17/17 08:06; Admin Dose 81 MG; Start 01/13/17 at 09:00 Atorvastatin Calcium (Lipitor) 40 mg QHS PO Last administered on 01/17/17 20: 48; Admin Dose 40 MG; Start 01/13/17 at 21:00 Carvedilol (Coreg) 25 mg BID PO Last administered on 01/17/17 20:48; Admin Dose 25 MG; Start 01/13/17 at 09:00 Insulin Glargine (Lantus) 10 unit QHS SC Last administered on 01/17/17 21:02 ; Admin Dose 10 UNIT; Start 01/13/17 at 21:00 Isosorbide Mononitrate (Imdur) 30 mg DAILY PO Last administered on 01/17/17 08:06; Admin Dose 30 MG; Start 01/13/17 at 09:00 Nifedipine (Procardia Xl) 30 mg DAILY PO Last administered on 01/17/17 08:07 ; Admin Dose 30 MG; Start 01/13/17 at 09:00 Miscellaneous Information 1 ea NOTE XX ; Start 01/13/17 at 01:30 Glucose (Glutose) 15 gm Q15M PRN PO DECREASED GLUCOSE; Start 01/13/17 at 01:30 Glucose (Glutose) 22.5 gm Q15M PRN PO DECREASED GLUCOSE; Start 01/13/17 at 01: 30 Dextrose (D50w Syringe) 25 ml Q15M PRN IV DECREASED GLUCOSE; Start 01/13/17 at 01:30 Dextrose (D50w Syringe) 50 ml Q15M PRN IV DECREASED GLUCOSE; Start 01/13/17 at 01:30 Glucagon (Glucagen) 1 mg Q15M PRN IM DECREASED GLUCOSE; Start 01/13/17 at 01: 30 Glucose 15 gm 15 gm Q15M PRN BUCCAL DECREASED GLUCOSE; Start 01/13/17 at 01:30 Sodium Chloride (NS) 1,000 ml @ 50 mls/hr Q20H IV Last administered on t 17:04; Admin Dose 50 MLS/HR; Start 01/15/17 at 16:30; Status Future Hold HOPE DOW MD Jan 18, 2017 08:38
[2017-01-18] MEDS: ISOSORBIDE MONONITRATE(SR)30 MG TAB PO SCH (09:15)
[2017-01-18] MEDS: NIFEdipine (XL) 30 MG TAB PO SCH (09:15)
[2017-01-18] MEDS: ASPIRIN (EC) 81 MG TAB PO SCH (09:15)
--- NOTE | 2017-01-18 12:58 | PN ---
Date/Time of Note Date/Time of Note DATE: 01/18/17 TIME: 12:51 Assessment/Plan VTE Prophylaxis VTE Prophylaxis Intervention: SCD's Lines/Catheters [facility] Urinary Cath still in place: No Assessment/Plan Assessment/Plan 1. fluid overload/ CHF: due to renal failure/ diastolic heart failure 2. renal failure: CKD 3. HTN 4. Anemia s/ p transfusion. 5. DM: Recommendations: Patient is currently on IV Lasix to be managed and adjusted per renal recommendations. given her severe chronic kidney disease hemodialysis may be considered. I will defer this decision to our nephrology consults/colleagues Patient is currently not on MALI inhibitor due to her renal failure. Blood pressure remained stable. We will continue the current regimen. DM management as per IM Subjective 24 Hr Interval Summary Free Text/Dictation The patient with no change Exam/Review of Systems Vital Signs Vitals Vital Signs Date Time Temp Pulse Resp B/P Pulse Ox O2 Delivery O2 Flow Rate FiO2 01/18/17 12:03 98.0 73 20 121/72 95 01/18/17 08:42 2.0 01/18/17 08:00 Nasal Cannula Intake and Output 01/17/17 01/17/17 01/18/17 15:00 23:00 07:00 Intake Total 1000 ml 600 ml Output Total 600 ml 700 ml Balance 400 ml -100 ml Results Result Diagram: 01/18/1728 01/18/17627 Results 24 hrs Laboratory Tests Test 01/17/17 17:28 01/17/17 20:46 01/18/17 06:28 01/18/17 07:41 Bedside Glucose 139 137 101 White Blood Count 5.4 # Red Blood Count 3.49 L Hemoglobin 10.9 L Hematocrit 31.1 L Mean Corpuscular Volume 89.1 Mean Corpuscular Hemoglobin 31.2 Mean Corpuscular Hemoglobin Concent 35.0 Red Cell Distribution Width 13.6 Platelet Count 270 Mean Platelet Volume 9.9 Neutrophils % 42.3 Lymphocytes % 43.6 Monocytes % 5.9 Eosinophils % 7.4 H Basophils % 0.6 Nucleated Red Blood Cells % 0.0 Neutrophils # 2.3 Lymphocytes # 2.4 Monocytes # 0.3 Eosinophils # 0.4 Basophils # 0.0 Nucleated Red Blood Cells # 0.0 Sodium Level 141 Potassium Level 4.0 Chloride Level 107 Carbon Dioxide Level 21 Anion Gap 17 H Blood Urea Nitrogen 66 H Creatinine 5.73 H Glucose Level 105 Calcium Level 9.2 Phosphorus Level 6.8 H Test 01/18/17 11:44 Bedside Glucose 134 Medications Medications Current Medications Aspirin (Halfprin) 81 mg DAILY PO Last administered on 01/18/17 09:15; Admin Dose 81 MG; Start 01/13/17 at 09:00 Atorvastatin Calcium (Lipitor) 40 mg QHS PO Last administered on 01/17/17 20: 48; Admin Dose 40 MG; Start 01/13/17 at 21:00 Carvedilol (Coreg) 25 mg BID PO Last administered on 01/18/17 09:16; Admin Dose 25 MG; Start 01/13/17 at 09:00 Insulin Glargine (Lantus) 10 unit QHS SC Last administered on 01/17/17 21:02 ; Admin Dose 10 UNIT; Start 01/13/17 at 21:00 Isosorbide Mononitrate (Imdur) 30 mg DAILY PO Last administered on 01/18/17 09:15; Admin Dose 30 MG; Start 01/13/17 at 09:00 Nifedipine (Procardia Xl) 30 mg DAILY PO Last administered on 01/18/17 09:15 ; Admin Dose 30 MG; Start 01/13/17 at 09:00 Miscellaneous Information 1 ea NOTE XX ; Start 01/13/17 at 01:30 Glucose (Glutose) 15 gm Q15M PRN PO DECREASED GLUCOSE; Start 01/13/17 at 01:30 Glucose (Glutose) 22.5 gm Q15M PRN PO DECREASED GLUCOSE; Start 01/13/17 at 01: 30 Dextrose (D50w Syringe) 25 ml Q15M PRN IV DECREASED GLUCOSE; Start 01/13/17 at 01:30 Dextrose (D50w Syringe) 50 ml Q15M PRN IV DECREASED GLUCOSE; Start 01/13/17 at 01:30 Glucagon (Glucagen) 1 mg Q15M PRN IM DECREASED GLUCOSE; Start 01/13/17 at 01: 30 Glucose 15 gm 15 gm Q15M PRN BUCCAL DECREASED GLUCOSE; Start 01/13/17 at 01:30 Sodium Chloride (NS) 1,000 ml @ 50 mls/hr Q20H IV Last administered on 17:04; Admin Dose 50 MLS/HR; Start 01/15/17 at 16:30; Status Future Hold AROLDO SPAULDING MD Jan 18, 2017 12:58
--- NOTE | 2017-01-18 16:11 | PN ---
Date/Time of Note Date/Time of Note DATE: 01/18/17 TIME: 16:11 Assessment/Plan VTE Prophylaxis VTE Prophylaxis Intervention: ambulation Lines/Catheters [facility] Saline Lock Urinary Cath still in place: No Assessment/Plan Problems: (1) Chronic kidney disease (CKD) stage G4/A1, severely decreased glomerular filtration rate (GFR) between 15-29 mL/min/1.73 square meter and albuminuria creatinine ratio less than 30 mg/g Status: Chronic Comment: OK to start hemodialysis since BUN/ creatinine not improving. (2) Anemia Status: Acute Comment: stable after transfusion. Qualifiers: Anemia type: unspecified type Qualified Code: D64.9 - Anemia, unspecified type (3) Acute exacerbation of CHF (congestive heart failure) Status: Acute Comment: Patient diuresing well on IV lasix. Qualifiers: Congestive heart failure type: diastolic Qualified Code: I50.33 - Acute on chronic diastolic congestive heart failure Subjective 24 Hr Interval Summary Free Text/Dictation Discussed with patient and patient's family who agrees to get emergency dialysis. Exam/Review of Systems Vital Signs Vitals Vital Signs Date Time Temp Pulse Resp B/P Pulse Ox O2 Delivery O2 Flow Rate FiO2 01/18/17 15:49 98.1 67 18 129/60 98 01/18/17 08:42 2.0 01/18/17 08:00 Nasal Cannula Intake and Output 01/17/17 01/17/17 01/18/17 14:59 22:59 06:59 Intake Total 1000 ml 600 ml Output Total 600 ml 700 ml Balance 400 ml -100 ml Exam Constitutional: alert, oriented Psych: nl mood/affect, no complaints Head: atraumatic, normocephalic Eyes: nl conjunctiva, nl sclera Neck: non-tender, supple Respiratory: clear to auscultation, normal air movement Cardiovascular: regular rate and rhythm Gastrointestinal: soft Musculoskeletal: nl extremities to inspection Extremities: edema Results Result Diagram: 01/18/1762701/18/17627 Results 24 hrs Laboratory Tests Test 01/17/17 17:28 01/17/17 20:46 01/18/17 06:28 01/18/17 07:41 Bedside Glucose 139 137 101 White Blood Count 5.4 # Red Blood Count 3.49 L Hemoglobin 10.9 L Hematocrit 31.1 L Mean Corpuscular Volume 89.1 Mean Corpuscular Hemoglobin 31.2 Mean Corpuscular Hemoglobin Concent 35.0 Red Cell Distribution Width 13.6 Platelet Count 270 Mean Platelet Volume 9.9 Neutrophils % 42.3 Lymphocytes % 43.6 Monocytes % 5.9 Eosinophils % 7.4 H Basophils % 0.6 Nucleated Red Blood Cells % 0.0 Neutrophils # 2.3 Lymphocytes # 2.4 Monocytes # 0.3 Eosinophils # 0.4 Basophils # 0.0 Nucleated Red Blood Cells # 0.0 Sodium Level 141 Potassium Level 4.0 Chloride Level 107 Carbon Dioxide Level 21 Anion Gap 17 H Blood Urea Nitrogen 66 H Creatinine 5.73 H Glucose Level 105 Calcium Level 9.2 Phosphorus Level 6.8 H Test 01/18/17 11:44 Bedside Glucose 134 Medications Medications Current Medications Aspirin (Halfprin) 81 mg DAILY PO Last administered on 01/18/17 09:15; Admin Dose 81 MG; Start 01/13/17 at 09:00 Atorvastatin Calcium (Lipitor) 40 mg QHS PO Last administered on 01/17/17 20: 48; Admin Dose 40 MG; Start 01/13/17 at 21:00 Carvedilol (Coreg) 25 mg BID PO Last administered on 01/18/17 09:16; Admin Dose 25 MG; Start 01/13/17 at 09:00 Insulin Glargine (Lantus) 10 unit QHS SC Last administered on 01/17/17 21:02 ; Admin Dose 10 UNIT; Start 01/13/17 at 21:00 Isosorbide Mononitrate (Imdur) 30 mg DAILY PO Last administered on 01/18/17 09:15; Admin Dose 30 MG; Start 01/13/17 at 09:00 Nifedipine (Procardia Xl) 30 mg DAILY PO Last administered on 01/18/17 09:15 ; Admin Dose 30 MG; Start 01/13/17 at 09:00 Miscellaneous Information 1 ea NOTE XX ; Start 01/13/17 at 01:30 Glucose (Glutose) 15 gm Q15M PRN PO DECREASED GLUCOSE; Start 01/13/17 at 01:30 Glucose (Glutose) 22.5 gm Q15M PRN PO DECREASED GLUCOSE; Start 01/13/17 at 01: 30 Dextrose (D50w Syringe) 25 ml Q15M PRN IV DECREASED GLUCOSE; Start 01/13/17 at 01:30 Dextrose (D50w Syringe) 50 ml Q15M PRN IV DECREASED GLUCOSE; Start 01/13/17 at 01:30 Glucagon (Glucagen) 1 mg Q15M PRN IM DECREASED GLUCOSE; Start 01/13/17 at 01: 30 Glucose 15 gm 15 gm Q15M PRN BUCCAL DECREASED GLUCOSE; Start 01/13/17 at 01:30 Sodium Chloride (NS) 1,000 ml @ 50 mls/hr Q20H IV Last administered on t 17:04; Admin Dose 50 MLS/HR; Start 01/15/17 at 16:30; Status Future Hold TREMAINE RIOS MD Jan 18, 2017 16:11
[2017-01-18] MEDS: INSULIN GLARGINE [LANtus] 3 ML PEN SC SCH (22:14)
[2017-01-18] MEDS: ATORVASTATIN 40 MG TAB PO SCH (22:17)
[2017-01-19] VITALS (23 sets, daily range): BP systolic 100–150; BP diastolic 57–79; PULSE 67–87; RESP 16–19
[2017-01-19] MEDS: FUROSEMIDE 40 MG INJ IV SCH ×3 (06:16→17:22)
[2017-01-19] MEDS: INSULIN ASPART [NOVOLOG] 3 ML PEN SC SCH ×4 (07:41→21:00)
--- NOTE | 2017-01-19 08:06 | CONS ---
Date/Time of Note Date/Time of Note DATE: 01/19/17 TIME: 08:02 Assessment/Plan Assessment/Plan Chief Complaint/Hosp Course 1. Chronic kidney disease due to 1 functioning kidney and diabetic nephropathy in the remaining kidney. This patient was on hemodialysis for about a week in April 2016 . She was dialyzed for several treatments via a femoral catheter. She then improved and the catheter was removed and she was sent home and was followed as an outpatient. She came in last week with increasing shortness of breath, renal failure, congestive heart failure, anemia. Her BUN and creatinine are elevated to a level which is higher than when she started dialysis last time. I spoke to the daughter this morning. I recommended to her that the patient start hemodialysis. The daughter and the patient agree. She wants a temporary femoral catheter placed to see if the patient responds to dialysis. I have called Dr. Asher to place a femoral catheter. And then the patient will have hemodialysis starting today and probably again tomorrow. 2. Congestive heart failure 3. Anemia of chronic kidney disease 4. Type 2 diabetes mellitus Problems: Consultation Date/Type/Reason Admit Date/Time Jan 12, 2017 at 21:51 Type of Consultation: Nephrology 24 HR Interval Summary Free Text/Dictation Patient is awake and alert. She does have some cough and some shortness of breath. Exam/Review of Systems Vital Signs Vitals Vital Signs Date Time Temp Pulse Resp B/P Pulse Ox O2 Delivery O2 Flow Rate FiO2 01/19/17 07:45 97.9 77 18 136/59 97 01/19/17 04:00 Nasal Cannula 2.0 Intake and Output 01/18/17 01/18/17 01/19/17 15:00 23:00 07:00 Intake Total 1000 ml 360 ml Output Total 1200 ml 1300 ml Balance -200 ml -940 ml Exam Constitutional: alert, frail, oriented Respiratory: crackles/rales Cardiovascular: regular rate and rhythm Musculoskeletal: nl extremities to inspection Results Result Diagram: 01/18/1762701/18/17627 Results 24 hrs Laboratory Tests Test 01/18/17 11:44 01/18/17 17:12 01/18/17 22:01 01/19/17 06:17 Bedside Glucose 134 159 124 Lab Scanned Report BLOOD TRANSFUSION Test 01/19/17 07:40 Bedside Glucose 79 Medications Medications Current Medications Aspirin (Halfprin) 81 mg DAILY PO Last administered on 01/18/17 09:15; Admin Dose 81 MG; Start 01/13/17 at 09:00 Atorvastatin Calcium (Lipitor) 40 mg QHS PO Last administered on 01/18/17 22: 17; Admin Dose 40 MG; Start 01/13/17 at 21:00 Carvedilol (Coreg) 25 mg BID PO Last administered on 01/18/17 22:17; Admin Dose 25 MG; Start 01/13/17 at 09:00 Insulin Glargine (Lantus) 10 unit QHS SC Last administered on 01/18/17 22:14 ; Admin Dose 10 UNIT; Start 01/13/17 at 21:00 Isosorbide Mononitrate (Imdur) 30 mg DAILY PO Last administered on 01/18/17 09:15; Admin Dose 30 MG; Start 01/13/17 at 09:00 Nifedipine (Procardia Xl) 30 mg DAILY PO Last administered on 01/18/17 09:15 ; Admin Dose 30 MG; Start 01/13/17 at 09:00 Miscellaneous Information 1 ea NOTE XX ; Start 01/13/17 at 01:30 Glucose (Glutose) 15 gm Q15M PRN PO DECREASED GLUCOSE; Start 01/13/17 at 01:30 Glucose (Glutose) 22.5 gm Q15M PRN PO DECREASED GLUCOSE; Start 01/13/17 at 01: 30 Dextrose (D50w Syringe) 25 ml Q15M PRN IV DECREASED GLUCOSE; Start 01/13/17 at 01:30 Dextrose (D50w Syringe) 50 ml Q15M PRN IV DECREASED GLUCOSE; Start 01/13/17 at 01:30 Glucagon (Glucagen) 1 mg Q15M PRN IM DECREASED GLUCOSE; Start 01/13/17 at 01: 30 Glucose 15 gm 15 gm Q15M PRN BUCCAL DECREASED GLUCOSE; Start 01/13/17 at 01:30 Sodium Chloride (NS) 1,000 ml @ 50 mls/hr Q20H IV Last administered on 17:04; Admin Dose 50 MLS/HR; Start 01/15/17 at 16:30; Status Future Hold HOPE DOW MD Jan 19, 2017 08:05
[2017-01-19] MEDS: ISOSORBIDE MONONITRATE(SR)30 MG TAB PO SCH (08:40)
[2017-01-19] MEDS: ASPIRIN (EC) 81 MG TAB PO SCH (08:40)
[2017-01-19] MEDS: CALCIUM ACETATE 667 MG CAP PO SCH ×3 (08:40→17:22)
[2017-01-19 09:26] LABS: BASOPHILS % 0.5 % (0.0-2.0); EOSINOPHILS # 0.4 10^3/ul (0.0-0.5); HEMATOCRIT 33.6 % (37.0-47.0); HEMOGLOBIN 11.7 g/dl (12.0-16.0); LYMPHOCYTES # 2.5 10^3/ul (0.8-2.9); LYMPHOCYTES % 41.9 % (15.0-51.0); MEAN CORPUSCULAR HEMOGLOBIN 31.3 pg (29.0-33.0); MEAN CORPUSCULAR HGB CONC 34.8 g/dl (32.0-37.0); MEAN CORPUSCULAR VOLUME 89.8 fl (82.0-101.0); MEAN PLATELET VOLUME 10.1 fl (7.4-10.4); MONOCYTE # 0.5 10^3/ul (0.3-0.9); MONOCYTES % 7.9 % (0.0-11.0); NEUTROPHIL # 2.5 10^3/ul (1.6-7.5); NEUTROPHILS % 42.5 % (39.0-77.0); PLATELET COUNT 289 10^3/UL (140-415); RED BLOOD COUNT 3.74 10^6/ul (4.20-5.40); RED CELL DISTRIBUTION WIDTH 13.7 % (11.5-14.5)
[2017-01-19 09:41] LABS: ALBUMIN 3.8 g/dl (3.3-4.9); ALBUMIN/GLOBULIN RATIO 0.9; BILIRUBIN,INDIRECT 0.2 mg/dl (0-1.1); BILIRUBIN,TOTAL 0.2 mg/dl (0.2-1.3); CALCIUM 9.5 mg/dl (8.4-10.2); CREATININE 5.88 mg/dl (0.44-1.00)
[2017-01-19] MEDS: NIFEdipine (XL) 30 MG TAB PO SCH (12:07)
[2017-01-19] MEDS ORDERED: ACETAMINOPHEN 325 MG TAB PO PRN (16:00)
--- NOTE | 2017-01-19 16:08 | CONS ---
Date/Time of Note Date/Time of Note DATE: 01/19/17 TIME: 16:06 Assessment/Plan Assessment/Plan Additional Assessment/Plan Acute decompensated diastolic congestive heart failure Preserved ejection fraction MARKEL with hx of CKD with history of hemodialysis in the past Hypertension Diabetes -pt planned to restart HD, catheter placed. BP trend stable. Consultation Date/Type/Reason Admit Date/Time Jan 12, 2017 at 21:51 Initial Consult Date Type of Consultation: cv 24 HR Interval Summary Free Text/Dictation sob is better, no cp Exam/Review of Systems Vital Signs Vitals Vital Signs Date Time Temp Pulse Resp B/P Pulse Ox O2 Delivery O2 Flow Rate FiO2 01/19/17 13:24 67 01/19/17 12:19 97.9 19 136/63 96 01/19/17 08:00 Nasal Cannula 2.0 Intake and Output 01/18/17 01/18/17 01/19/17 15:00 23:00 07:00 Intake Total 1000 ml 360 ml Output Total 1200 ml 1300 ml Balance -200 ml -940 ml Exam nad Constitutional: alert, obese, oriented Respiratory: other (course bs, no wheeze) Cardiovascular: other (s1s2), regular rate and rhythm Gastrointestinal: bowel sounds, non-tender, soft Extremities: edema Results Result Diagram: 01/19/17 0738 01/19/17 0738 Results 24 hrs Laboratory Tests Test 01/18/17 17:12 01/18/17 22:01 01/19/17 06:17 01/19/17 07:38 Bedside Glucose 159 124 Lab Scanned Report BLOOD TRANSFUSION White Blood Count 6.0 Red Blood Count 3.74 L Hemoglobin 11.7 L Hematocrit 33.6 L Mean Corpuscular Volume 89.8 Mean Corpuscular Hemoglobin 31.3 Mean Corpuscular Hemoglobin Concent 34.8 Red Cell Distribution Width 13.7 Platelet Count 289 Mean Platelet Volume 10.1 Neutrophils % 42.5 Lymphocytes % 41.9 Monocytes % 7.9 Eosinophils % 7.0 Basophils % 0.5 Nucleated Red Blood Cells % 0.0 Neutrophils # 2.5 Lymphocytes # 2.5 Monocytes # 0.5 Eosinophils # 0.4 Basophils # 0.0 Nucleated Red Blood Cells # 0.0 Sodium Level 141 Potassium Level 4.0 Chloride Level 106 Carbon Dioxide Level 23 Anion Gap 16 Blood Urea Nitrogen 69 H Creatinine 5.88 H Glucose Level 74 Calcium Level 9.5 Total Bilirubin 0.2 Direct Bilirubin 0.00 Indirect Bilirubin 0.2 Aspartate Amino Transf (AST/SGOT) 26 Alanine Aminotransferase (ALT/SGPT) 27 Alkaline Phosphatase 86 Total Protein 8.0 Albumin 3.8 Globulin 4.20 H Albumin/Globulin Ratio 0.90 Test 01/19/17 07:40 01/19/17 11:38 Bedside Glucose 79 105 Medications Medications Current Medications Aspirin (Halfprin) 81 mg DAILY PO Last administered on 01/19/17 08:40; Admin Dose 81 MG; Start 01/13/17 at 09:00 Atorvastatin Calcium (Lipitor) 40 mg QHS PO Last administered on 01/18/17 22: 17; Admin Dose 40 MG; Start 01/13/17 at 21:00 Carvedilol (Coreg) 25 mg BID PO Last administered on 01/19/17 08:40; Admin Dose 25 MG; Start 01/13/17 at 09:00 Insulin Glargine (Lantus) 10 unit QHS SC Last administered on 01/18/17 22:14 ; Admin Dose 10 UNIT; Start 01/13/17 at 21:00 Isosorbide Mononitrate (Imdur) 30 mg DAILY PO Last administered on 01/19/17 08:40; Admin Dose 30 MG; Start 01/13/17 at 09:00 Nifedipine (Procardia Xl) 30 mg DAILY PO Last administered on 01/19/17 12:07 ; Admin Dose 30 MG; Start 01/13/17 at 09:00 Miscellaneous Information 1 ea NOTE XX ; Start 01/13/17 at 01:30 Glucose (Glutose) 15 gm Q15M PRN PO DECREASED GLUCOSE; Start 01/13/17 at 01:30 Glucose (Glutose) 22.5 gm Q15M PRN PO DECREASED GLUCOSE; Start 01/13/17 at 01: 30 Dextrose (D50w Syringe) 25 ml Q15M PRN IV DECREASED GLUCOSE; Start 01/13/17 at 01:30 Dextrose (D50w Syringe) 50 ml Q15M PRN IV DECREASED GLUCOSE; Start 01/13/17 at 01:30 Glucagon (Glucagen) 1 mg Q15M PRN IM DECREASED GLUCOSE; Start 01/13/17 at 01: 30 Glucose 15 gm 15 gm Q15M PRN BUCCAL DECREASED GLUCOSE; Start 01/13/17 at 01:30 Sodium Chloride (NS) 1,000 ml @ 50 mls/hr Q20H IV Last administered on t 17:04; Admin Dose 50 MLS/HR; Start 01/15/17 at 16:30; Status Future Hold Acetaminophen (Tylenol Tab) 650 mg Q6H PRN PO PAIN AND OR ELEVATED TEMP; Start 01/19/17 at 16:00 Dariel Juarez DO Jan 19, 2017 16:08
--- NOTE | 2017-01-19 16:49 | PN ---
Date/Time of Note Date/Time of Note DATE: 01/19/17 TIME: 16:49 Assessment/Plan VTE Prophylaxis VTE Prophylaxis Intervention: ambulation Lines/Catheters IV Catheter Type (from [facility]): Saline Lock Central line still needed: Yes Urinary Cath still in place: No Assessment/Plan Assessment/Plan (1) Acute on chronic kidney disease Status: Chronic Comment: start hemodialysis per Nephrology. (2) Anemia Status: Acute Comment: stable after transfusion. (3) Acute exacerbation of CHF (congestive heart failure) Status: Acute Comment: Patient diuresing well on IV lasix. Subjective 24 Hr Interval Summary Free Text/Dictation Patient complains of pain of left femoral area after catheter placement. Exam/Review of Systems Vital Signs Vitals Vital Signs Date Time Temp Pulse Resp B/P Pulse Ox O2 Delivery O2 Flow Rate FiO2 01/19/17 16:40 75 01/19/17 16:10 98.0 18 123/57 93 01/19/17 08:00 Nasal Cannula 2.0 Intake and Output 01/18/17 01/18/17 01/19/17 15:00 23:00 07:00 Intake Total 1000 ml 360 ml Output Total 1200 ml 1300 ml Balance -200 ml -940 ml Exam Constitutional: alert, oriented Head: atraumatic, normocephalic Eyes: nl conjunctiva ENMT: mucosa pink and moist, nl external ears & nose Neck: non-tender, supple Respiratory: crackles/rales Gastrointestinal: non-tender, soft Musculoskeletal: nl extremities to inspection Results Result Diagram: 01/19/17 0738 01/19/17 0738 Results 24 hrs Laboratory Tests Test 01/18/17 17:12 01/18/17 22:01 01/19/17 06:17 01/19/17 07:38 Bedside Glucose 159 124 Lab Scanned Report BLOOD TRANSFUSION White Blood Count 6.0 Red Blood Count 3.74 L Hemoglobin 11.7 L Hematocrit 33.6 L Mean Corpuscular Volume 89.8 Mean Corpuscular Hemoglobin 31.3 Mean Corpuscular Hemoglobin Concent 34.8 Red Cell Distribution Width 13.7 Platelet Count 289 Mean Platelet Volume 10.1 Neutrophils % 42.5 Lymphocytes % 41.9 Monocytes % 7.9 Eosinophils % 7.0 Basophils % 0.5 Nucleated Red Blood Cells % 0.0 Neutrophils # 2.5 Lymphocytes # 2.5 Monocytes # 0.5 Eosinophils # 0.4 Basophils # 0.0 Nucleated Red Blood Cells # 0.0 Sodium Level 141 Potassium Level 4.0 Chloride Level 106 Carbon Dioxide Level 23 Anion Gap 16 Blood Urea Nitrogen 69 H Creatinine 5.88 H Glucose Level 74 Calcium Level 9.5 Total Bilirubin 0.2 Direct Bilirubin 0.00 Indirect Bilirubin 0.2 Aspartate Amino Transf (AST/SGOT) 26 Alanine Aminotransferase (ALT/SGPT) 27 Alkaline Phosphatase 86 Total Protein 8.0 Albumin 3.8 Globulin 4.20 H Albumin/Globulin Ratio 0.90 Test 01/19/17 07:40 01/19/17 11:38 Bedside Glucose 79 105 Medications Medications Current Medications Aspirin (Halfprin) 81 mg DAILY PO Last administered on 01/19/17 08:40; Admin Dose 81 MG; Start 01/13/17 at 09:00 Atorvastatin Calcium (Lipitor) 40 mg QHS PO Last administered on 01/18/17 22: 17; Admin Dose 40 MG; Start 01/13/17 at 21:00 Carvedilol (Coreg) 25 mg BID PO Last administered on 01/19/17 08:40; Admin Dose 25 MG; Start 01/13/17 at 09:00 Insulin Glargine (Lantus) 10 unit QHS SC Last administered on 01/18/17 22:14 ; Admin Dose 10 UNIT; Start 01/13/17 at 21:00 Isosorbide Mononitrate (Imdur) 30 mg DAILY PO Last administered on 01/19/17 08:40; Admin Dose 30 MG; Start 01/13/17 at 09:00 Nifedipine (Procardia Xl) 30 mg DAILY PO Last administered on 01/19/17 12:07 ; Admin Dose 30 MG; Start 01/13/17 at 09:00 Miscellaneous Information 1 ea NOTE XX ; Start 01/13/17 at 01:30 Glucose (Glutose) 15 gm Q15M PRN PO DECREASED GLUCOSE; Start 01/13/17 at 01:30 Glucose (Glutose) 22.5 gm Q15M PRN PO DECREASED GLUCOSE; Start 01/13/17 at 01: 30 Dextrose (D50w Syringe) 25 ml Q15M PRN IV DECREASED GLUCOSE; Start 01/13/17 at 01:30 Dextrose (D50w Syringe) 50 ml Q15M PRN IV DECREASED GLUCOSE; Start 01/13/17 at 01:30 Glucagon (Glucagen) 1 mg Q15M PRN IM DECREASED GLUCOSE; Start 01/13/17 at 01: 30 Glucose 15 gm 15 gm Q15M PRN BUCCAL DECREASED GLUCOSE; Start 01/13/17 at 01:30 Sodium Chloride (NS) 1,000 ml @ 50 mls/hr Q20H IV Last administered on 17:04; Admin Dose 50 MLS/HR; Start 01/15/17 at 16:30; Status Future Hold Acetaminophen (Tylenol Tab) 650 mg Q6H PRN PO PAIN AND OR ELEVATED TEMP Last administered on 01/19/17 16:05; Admin Dose 650 MG; Start 01/19/17 at 16:00 TREMAINE RIOS MD Jan 19, 2017 16:49
--- NOTE | 2017-01-19 20:40 | OPR ---
DATE OF OPERATION: 01/19/2017 PREOPERATIVE DIAGNOSIS: Renal failure. POSTOPERATIVE DIAGNOSIS: Renal failure. OPERATION PERFORMED: Left femoral hemodialysis catheter placement. SURGEON: William Asher MD ANESTHESIA: Local. CONSENT: Risks, benefits, complications, alternative therapies explained to the patient and the [facility] sherita, consent obtained. OPERATIVE TECHNIQUE: The patient was placed in supine position, prepped and draped in usual sterile fashion, 1% lidocaine was used throughout the operation for local anesthesia. Access was gained in the left common femoral vein. Guidewire was advanced through without any difficulty. Subcutaneous tissues dilated. A 20 cm dialysis catheter advanced over guidewire, secured to skin using silk sut ures. Both ports of the catheter were aspirated and injected using saline solution. The patient to lerated procedure well. Dictated By: WILLIAM HUGGINS/ELENI Conf#: [id number] DID#: [id number]
[2017-01-19] MEDS: ATORVASTATIN 40 MG TAB PO SCH (22:20)
[2017-01-19] MEDS: INSULIN GLARGINE [LANtus] 3 ML PEN SC SCH (22:47)
[2017-01-20] VITALS (18 sets, daily range): BP systolic 110–163; BP diastolic 55–71; PULSE 65–77; RESP 16–18
[2017-01-20] MEDS: FUROSEMIDE 40 MG INJ IV SCH ×2 (06:36→18:06)
[2017-01-20] MEDS: INSULIN ASPART [NOVOLOG] 3 ML PEN SC SCH ×4 (08:00→21:00)
--- NOTE | 2017-01-20 08:31 | CONS ---
Date/Time of Note Date/Time of Note DATE: 01/20/17 TIME: 08:26 Assessment/Plan Assessment/Plan Chief Complaint/Hosp Course 1. Chronic kidney disease due to 1 functioning kidney and diabetic nephropathy in the remaining kidney. This patient was on hemodialysis for about a week in April 2016 . She was dialyzed for several treatments via a femoral catheter. Her renal function improved and the catheter was removed and she was sent home and was followed as an outpatient. She came in last week with increasing shortness of breath, renal failure, congestive heart failure, anemia. Her BUN and creatinine are elevated to a level which is higher than when she started dialysis last time. I spoke to the daughter this morning. I recommended to her that the patient start hemodialysis. The daughter and the patient agree. She wants a temporary femoral catheter placed to see if the patient responds to dialysis. The patient is doing better overall. I will order a hemodialysis treatment for today. Next dialysis tentatively in 2 days. I will check lab tests tomorrow and a chest x-ray tomorrow. 2. Congestive heart failure , improved 3. Anemia of chronic kidney disease 4. Type 2 diabetes mellitus Problems: Consultation Date/Type/Reason Admit Date/Time Jan 12, 2017 at 21:51 Type of Consultation: cv 24 HR Interval Summary Free Text/Dictation She is awake and alert. She had a hemodialysis treatment yesterday which is the first dialysis she has had in 7 months. The dialysis was done via a left femoral catheter. Constitutional: improved, no complaints Exam/Review of Systems Vital Signs Vitals Vital Signs Date Time Temp Pulse Resp B/P Pulse Ox O2 Delivery O2 Flow Rate FiO2 01/20/17 08:25 71 01/20/17 07:33 98.2 16 151/68 97 01/20/17 03:43 2.0 01/19/17 20:00 Nasal Cannula Intake and Output 01/19/17 01/19/17 01/20/17 15:00 23:00 07:00 Intake Total 1220 ml 180 ml Output Total 2900 ml 1000 ml Balance -1680 ml -820 ml Exam Constitutional: alert, frail, oriented Neck: non-tender, supple Respiratory: clear to auscultation, normal air movement Cardiovascular: regular rate and rhythm Gastrointestinal: nl liver, spleen, non-tender, soft Musculoskeletal: nl extremities to inspection Results Result Diagram: 01/19/17 0738 01/19/17 0738 Results 24 hrs Laboratory Tests Test 01/19/17 11:38 01/19/17 17:06 01/19/17 22:40 Bedside Glucose 105 120 105 Medications Medications Current Medications Aspirin (Halfprin) 81 mg DAILY PO Last administered on 01/19/17 08:40; Admin Dose 81 MG; Start 01/13/17 at 09:00 Atorvastatin Calcium (Lipitor) 40 mg QHS PO Last administered on 01/19/17 22: 20; Admin Dose 40 MG; Start 01/13/17 at 21:00 Carvedilol (Coreg) 25 mg BID PO Last administered on 01/19/17 22:20; Admin Dose 25 MG; Start 01/13/17 at 09:00 Insulin Glargine (Lantus) 10 unit QHS SC Last administered on 01/19/17 22:47 ; Admin Dose 10 UNIT; Start 01/13/17 at 21:00 Isosorbide Mononitrate (Imdur) 30 mg DAILY PO Last administered on 01/19/17 08:40; Admin Dose 30 MG; Start 01/13/17 at 09:00 Nifedipine (Procardia Xl) 30 mg DAILY PO Last administered on 01/19/17 12:07 ; Admin Dose 30 MG; Start 01/13/17 at 09:00 Miscellaneous Information 1 ea NOTE XX ; Start 01/13/17 at 01:30 Glucose (Glutose) 15 gm Q15M PRN PO DECREASED GLUCOSE; Start 01/13/17 at 01:30 Glucose (Glutose) 22.5 gm Q15M PRN PO DECREASED GLUCOSE; Start 01/13/17 at 01: 30 Dextrose (D50w Syringe) 25 ml Q15M PRN IV DECREASED GLUCOSE; Start 01/13/17 at 01:30 Dextrose (D50w Syringe) 50 ml Q15M PRN IV DECREASED GLUCOSE; Start 01/13/17 at 01:30 Glucagon (Glucagen) 1 mg Q15M PRN IM DECREASED GLUCOSE; Start 01/13/17 at 01: 30 Glucose 15 gm 15 gm Q15M PRN BUCCAL DECREASED GLUCOSE; Start 01/13/17 at 01:30 Sodium Chloride (NS) 1,000 ml @ 50 mls/hr Q20H IV Last administered on 17:04; Admin Dose 50 MLS/HR; Start 01/15/17 at 16:30; Status Future Hold Acetaminophen (Tylenol Tab) 650 mg Q6H PRN PO PAIN AND OR ELEVATED TEMP Last administered on 01/19/17t 16:05; Admin Dose 650 MG; Start 01/19/17 at 16:00 HOPE DOW MD Jan 20, 2017 08:31
[2017-01-20] MEDS: ASPIRIN (EC) 81 MG TAB PO SCH (08:39)
[2017-01-20] MEDS: CALCIUM ACETATE 667 MG CAP PO SCH ×3 (08:39→17:31)
[2017-01-20] MEDS: ISOSORBIDE MONONITRATE(SR)30 MG TAB PO SCH (09:00)
[2017-01-20] MEDS: NIFEdipine (XL) 30 MG TAB PO SCH (09:00)
--- NOTE | 2017-01-20 09:56 | CONS ---
Date/Time of Note Date/Time of Note DATE: 01/20/17 TIME: 09:55 Assessment/Plan Assessment/Plan Additional Assessment/Plan Acute decompensated diastolic congestive heart failure Preserved ejection fraction MARKEL with hx of CKD with history of hemodialysis in the past Hypertension Diabetes -Patient status post restarting hemodialysis yesterday with improvement in symptoms of shortness of breath. Fluid management via hemodialysis as per our nephrology colleagues. Blood pressure trend remains stable. Consultation Date/Type/Reason Admit Date/Time Jan 12, 2017 at 21:51 Type of Consultation: cv 24 HR Interval Summary Free Text/Dictation Patient feeling better today, had hemodialysis yesterday and shortness of breath is better, denies chest pain Exam/Review of Systems Vital Signs Vitals Vital Signs Date Time Temp Pulse Resp B/P Pulse Ox O2 Delivery O2 Flow Rate FiO2 01/20/17 08:25 71 01/20/17 07:33 98.2 16 151/68 97 01/20/17 03:43 2.0 01/19/17 20:00 Nasal Cannula Intake and Output 01/19/17 01/19/17 01/20/17 15:00 23:00 07:00 Intake Total 1220 ml 180 ml Output Total 2900 ml 1000 ml Balance -1680 ml -820 ml Exam Eating breakfast Constitutional: alert, obese, oriented Head: normocephalic Respiratory: other (Coarse breath sounds bilaterally, no wheezing) Cardiovascular: other (S1-S2 heard), regular rate and rhythm Gastrointestinal: bowel sounds, non-tender, soft Extremities: edema Results Result Diagram: 01/19/17 0738 01/19/17 0738 Results 24 hrs Laboratory Tests Test 01/19/17 11:38 01/19/17 17:06 01/19/17 22:40 01/20/17 08:27 Bedside Glucose 105 120 105 72 Medications Medications Current Medications Aspirin (Halfprin) 81 mg DAILY PO Last administered on 01/20/17 08:39; Admin Dose 81 MG; Start 01/13/17 at 09:00 Atorvastatin Calcium (Lipitor) 40 mg QHS PO Last administered on 01/19/17 22: 20; Admin Dose 40 MG; Start 01/13/17 at 21:00 Carvedilol (Coreg) 25 mg BID PO Last administered on 01/19/17 22:20; Admin Dose 25 MG; Start 01/13/17 at 09:00 Insulin Glargine (Lantus) 10 unit QHS SC Last administered on 01/19/17 22:47 ; Admin Dose 10 UNIT; Start 01/13/17 at 21:00 Isosorbide Mononitrate (Imdur) 30 mg DAILY PO Last administered on 01/19/17 08:40; Admin Dose 30 MG; Start 01/13/17 at 09:00 Nifedipine (Procardia Xl) 30 mg DAILY PO Last administered on 01/19/17 12:07 ; Admin Dose 30 MG; Start 01/13/17 at 09:00 Miscellaneous Information 1 ea NOTE XX ; Start 01/13/17 at 01:30 Glucose (Glutose) 15 gm Q15M PRN PO DECREASED GLUCOSE; Start 01/13/17 at 01:30 Glucose (Glutose) 22.5 gm Q15M PRN PO DECREASED GLUCOSE; Start 01/13/17 at 01: 30 Dextrose (D50w Syringe) 25 ml Q15M PRN IV DECREASED GLUCOSE; Start 01/13/17 at 01:30 Dextrose (D50w Syringe) 50 ml Q15M PRN IV DECREASED GLUCOSE; Start 01/13/17 at 01:30 Glucagon (Glucagen) 1 mg Q15M PRN IM DECREASED GLUCOSE; Start 01/13/17 at 01: 30 Glucose 15 gm 15 gm Q15M PRN BUCCAL DECREASED GLUCOSE; Start 01/13/17 at 01:30 Sodium Chloride (NS) 1,000 ml @ 50 mls/hr Q20H IV Last administered on 17:04; Admin Dose 50 MLS/HR; Start 01/15/17 at 16:30; Status Future Hold Acetaminophen (Tylenol Tab) 650 mg Q6H PRN PO PAIN AND OR ELEVATED TEMP Last administered on 01/19/17 16:05; Admin Dose 650 MG; Start 01/19/17 at 16:00 Dariel Juarez DO Jan 20, 2017 09:56
--- NOTE | 2017-01-20 16:45 | PN ---
Date/Time of Note Date/Time of Note DATE: 01/20/17 TIME: 16:44 Assessment/Plan VTE Prophylaxis VTE Prophylaxis Intervention: ambulation Lines/Catheters [facility] KELLI CATH Urinary Cath still in place: No Assessment/Plan Problems: (1) Congestive heart failure Status: Acute Comment: diuresing well with lasix, also getting fluid removal with dialysis. Qualifiers: Congestive heart failure type: diastolic Congestive heart failure chronicity: acute on chronic Qualified Code: I50.33 - Acute on chronic diastolic congestive heart failure (2) ESRD (end stage renal disease) on dialysis Status: Chronic Comment: Recheck bmp in am. (3) Anemia Status: Chronic Comment: improved after transfusion and epogen injection. Qualifiers: Anemia type: due to chronic kidney disease (4) Diabetes mellitus Status: Chronic Comment: stable on lantus. Subjective 24 Hr Interval Summary Free Text/Dictation patient s/p 2 hemodialysis sessions, would like to go home. Exam/Review of Systems Vital Signs Vitals Vital Signs Date Time Temp Pulse Resp B/P Pulse Ox O2 Delivery O2 Flow Rate FiO2 01/20/17 16:27 69 01/20/17 16:01 98.2 16 141/65 96 01/20/17 08:00 Nasal Cannula 2.0 Intake and Output 01/19/17 01/19/17 01/20/17 14:59 22:59 06:59 Intake Total 1220 ml 180 ml Output Total 2900 ml 1000 ml Balance -1680 ml -820 ml Exam Constitutional: alert, oriented Head: atraumatic, normocephalic Eyes: nl conjunctiva, nl sclera ENMT: nl external ears & nose Respiratory: clear to auscultation, normal air movement Cardiovascular: regular rate and rhythm Gastrointestinal: non-tender, soft Extremities: edema Results Result Diagram: 01/19/17 0738 01/19/17 0738 Results 24 hrs Laboratory Tests Test 01/19/17 17:06 01/19/17 22:40 01/20/17 08:27 01/20/17 11:58 Bedside Glucose 120 105 72 168 Medications Medications Current Medications Aspirin (Halfprin) 81 mg DAILY PO Last administered on 01/20/17t 08:39; Admin Dose 81 MG; Start 01/13/17 at 09:00 Atorvastatin Calcium (Lipitor) 40 mg QHS PO Last administered on 01/19/17 22: 20; Admin Dose 40 MG; Start 01/13/17 at 21:00 Carvedilol (Coreg) 25 mg BID PO Last administered on 01/19/17 22:20; Admin Dose 25 MG; Start 01/13/17 at 09:00 Insulin Glargine (Lantus) 10 unit QHS SC Last administered on 01/19/17 22:47 ; Admin Dose 10 UNIT; Start 01/13/17 at 21:00 Isosorbide Mononitrate (Imdur) 30 mg DAILY PO Last administered on 01/19/17 08:40; Admin Dose 30 MG; Start 01/13/17 at 09:00 Nifedipine (Procardia Xl) 30 mg DAILY PO Last administered on 01/19/17 12:07 ; Admin Dose 30 MG; Start 01/13/17 at 09:00 Miscellaneous Information 1 ea NOTE XX ; Start 01/13/17 at 01:30 Glucose (Glutose) 15 gm Q15M PRN PO DECREASED GLUCOSE; Start 01/13/17 at 01:30 Glucose (Glutose) 22.5 gm Q15M PRN PO DECREASED GLUCOSE; Start 01/13/17 at 01: 30 Dextrose (D50w Syringe) 25 ml Q15M PRN IV DECREASED GLUCOSE; Start 01/13/17 at 01:30 Dextrose (D50w Syringe) 50 ml Q15M PRN IV DECREASED GLUCOSE; Start 01/13/17 at 01:30 Glucagon (Glucagen) 1 mg Q15M PRN IM DECREASED GLUCOSE; Start 01/13/17 at 01: 30 Glucose 15 gm 15 gm Q15M PRN BUCCAL DECREASED GLUCOSE; Start 01/13/17 at 01:30 Sodium Chloride (NS) 1,000 ml @ 50 mls/hr Q20H IV Last administered on 17:04; Admin Dose 50 MLS/HR; Start 01/15/17 at 16:30; Status Future Hold Acetaminophen (Tylenol Tab) 650 mg Q6H PRN PO PAIN AND OR ELEVATED TEMP Last administered on 01/19/17 16:05; Admin Dose 650 MG; Start 01/19/17 at 16:00 TREMAINE RIOS MD Jan 20, 2017 16:45
[2017-01-20] MEDS: ATORVASTATIN 40 MG TAB PO SCH (21:19)
[2017-01-20] MEDS: INSULIN GLARGINE [LANtus] 3 ML PEN SC SCH (21:21)
[2017-01-21] VITALS (12 sets, daily range): BP systolic 136–167; BP diastolic 67–72; PULSE 63–70; RESP 18–19
[2017-01-21] MEDS: FUROSEMIDE 40 MG INJ IV SCH (05:49)
[2017-01-21 08:00] LABS: BASOPHILS % 0.5 % (0.0-2.0); EOSINOPHILS # 0.4 10^3/ul (0.0-0.5); EOSINOPHILS % 7.1 % (0.0-7.0); HEMATOCRIT 37.3 % (37.0-47.0); HEMOGLOBIN 12.6 g/dl (12.0-16.0); LYMPHOCYTES # 2.3 10^3/ul (0.8-2.9); MEAN CORPUSCULAR HEMOGLOBIN 30.8 pg (29.0-33.0); MEAN CORPUSCULAR HGB CONC 33.8 g/dl (32.0-37.0); MEAN CORPUSCULAR VOLUME 91.2 fl (82.0-101.0); MEAN PLATELET VOLUME 10.2 fl (7.4-10.4); MONOCYTE # 0.5 10^3/ul (0.3-0.9); MONOCYTES % 7.8 % (0.0-11.0); NEUTROPHIL # 2.6 10^3/ul (1.6-7.5); NEUTROPHILS % 45.4 % (39.0-77.0); PLATELET COUNT 227 10^3/UL (140-415); RED BLOOD COUNT 4.09 10^6/ul (4.20-5.40); RED CELL DISTRIBUTION WIDTH 13.9 % (11.5-14.5); WHITE BLOOD COUNT 5.8 10^3/ul (4.8-10.8)
[2017-01-21] MEDS: INSULIN ASPART [NOVOLOG] 3 ML PEN SC SCH ×4 (08:00→21:43)
[2017-01-21 08:33] LABS: ALBUMIN 3.8 g/dl (3.3-4.9); ALBUMIN/GLOBULIN RATIO 0.82; BILIRUBIN,INDIRECT 0.2 mg/dl (0-1.1); BILIRUBIN,TOTAL 0.2 mg/dl (0.2-1.3); CALCIUM 9.6 mg/dl (8.4-10.2); CREATININE 3.77 mg/dl (0.44-1.00); TOTAL PROTEIN 8.4 g/dl (6.1-8.1)
[2017-01-21] MEDS: NIFEdipine (XL) 30 MG TAB PO SCH ×3 (09:00→21:38)
[2017-01-21] MEDS: ISOSORBIDE MONONITRATE(SR)30 MG TAB PO SCH ×2 (09:00→11:50)
[2017-01-21] MEDS: ASPIRIN (EC) 81 MG TAB PO SCH (09:04)
[2017-01-21] MEDS: CALCIUM ACETATE 667 MG CAP PO SCH ×3 (09:04→17:13)
--- NOTE | 2017-01-21 09:55 | RADRPT ---
PROCEDURE: XR Chest. CLINICAL INDICATION: Shortness of breath. TECHNIQUE: Single frontal view. COMPARISON: 01/16/2017. FINDINGS: The lungs are clear. The heart size is normal. There is calcification in the aorta consistent with atherosclerosis. There is no pleural effusion. There is no pneumothorax. IMPRESSION: 1. Atherosclerosis. 2. Otherwise normal chest radiograph. RPTAT: QQ .Soren Das MD, MD Date Time Electronically viewed and signed by .Soren Das MD, MD on 01/21/2017 09:54 .R/
--- NOTE | 2017-01-21 13:05 | PN ---
Date/Time of Note Date/Time of Note DATE: 01/21/17 TIME: 13:03 Assessment/Plan VTE Prophylaxis VTE Prophylaxis Intervention: ambulation Lines/Catheters IV [facility] Type [facility]from [facility] Irine[facility] Cath Central line still needed: Yes Urinary Cath still in place: No Assessment/Plan Problems: (1) ESRD (end stage renal disease) on dialysis Status: Chronic Comment: improving BUN/creatinine. Agree with HD tomorrow. (2) Anemia in chronic kidney disease Status: Resolved (3) Acute exacerbation of CHF (congestive heart failure) Status: Acute Comment: improving with diuresis and hemodialysis. Qualifiers: Congestive heart failure type: diastolic Qualified Code: I50.33 - Acute on chronic diastolic congestive heart failure (4) Diabetes mellitus Status: Chronic Comment: stable on insulin. (5) Hypertension Status: Chronic Comment: controlled on meds. Subjective 24 Hr Interval Summary Free Text/Dictation Patient with no complaints. Exam/Review of Systems Vital Signs Vitals Vital Signs Date Time Temp Pulse Resp B/P Pulse Ox O2 Delivery O2 Flow Rate FiO2 01/21/17 12:29 63 01/21/17 11:30 98.3 19 146/67 96 01/21/17 08:41 3.0 01/20/17 08:00 Nasal Cannula Intake and Output 01/20/17 01/20/17 01/21/17 15:00 23:00 07:00 Intake Total 500 ml 400 ml 240 ml Output Total 2500 ml 550 ml 450 ml Balance -2000 ml -150 ml -210 ml Exam Constitutional: alert, oriented Head: atraumatic, normocephalic Eyes: nl conjunctiva, nl sclera ENMT: mucosa pink and moist, nl external ears & nose Neck: non-tender, supple Respiratory: crackles/rales Cardiovascular: regular rate and rhythm Gastrointestinal: non-tender, soft Extremities: normal pulses, other (no edema) Results Result Diagram: 01/21/17 0704 01/21/17 0704 Results 24 hrs Laboratory Tests Test 01/20/17 17:08 01/20/17 20:33 01/21/17 07:04 01/21/17 08:14 Bedside Glucose 159 162 82 White Blood Count 5.8 Red Blood Count 4.09 L Hemoglobin 12.6 Hematocrit 37.3 Mean Corpuscular Volume 91.2 Mean Corpuscular Hemoglobin 30.8 Mean Corpuscular Hemoglobin Concent 33.8 Red Cell Distribution Width 13.9 Platelet Count 227 # Mean Platelet Volume 10.2 Neutrophils % 45.4 Lymphocytes % 39.0 Monocytes % 7.8 Eosinophils % 7.1 H Basophils % 0.5 Nucleated Red Blood Cells % 0.0 Neutrophils # 2.6 Lymphocytes # 2.3 Monocytes # 0.5 Eosinophils # 0.4 Basophils # 0.0 Nucleated Red Blood Cells # 0.0 Sodium Level 141 Potassium Level 4.0 Chloride Level 101 Carbon Dioxide Level 28 Anion Gap 16 Blood Urea Nitrogen 30 #H Creatinine 3.77 #H Glucose Level 85 Calcium Level 9.6 Total Bilirubin 0.2 Direct Bilirubin 0.00 Indirect Bilirubin 0.2 Aspartate Amino Transf (AST/SGOT) 28 Alanine Aminotransferase (ALT/SGPT) 30 Alkaline Phosphatase 87 Total Protein 8.4 H Albumin 3.8 Globulin 4.60 H Albumin/Globulin Ratio 0.82 Test 01/21/17 11:47 Bedside Glucose 173 Medications Medications Current Medications Aspirin (Halfprin) 81 mg DAILY PO Last administered on 01/21/17 09:04; Admin Dose 81 MG; Start 01/13/17 at 09:00 Atorvastatin Calcium (Lipitor) 40 mg QHS PO Last administered on 01/20/17 21: 19; Admin Dose 40 MG; Start 01/13/17 at 21:00 Carvedilol (Coreg) 25 mg BID PO Last administered on 01/21/17 11:50; Admin Dose 25 MG; Start 01/13/17 at 09:00 Insulin Glargine (Lantus) 10 unit QHS SC Last administered on 01/20/17 21:21 ; Admin Dose 10 UNIT; Start 01/13/17 at 21:00 Isosorbide Mononitrate (Imdur) 30 mg DAILY PO Last administered on 01/21/17 11:50; Admin Dose 30 MG; Start 01/13/17 at 09:00 Nifedipine (Procardia Xl) 30 mg DAILY PO Last administered on 01/21/17 11:50 ; Admin Dose 30 MG; Start 01/13/17 at 09:00 Miscellaneous Information 1 ea NOTE XX ; Start 01/13/17 at 01:30 Glucose (Glutose) 15 gm Q15M PRN PO DECREASED GLUCOSE; Start 01/13/17 at 01:30 Glucose (Glutose) 22.5 gm Q15M PRN PO DECREASED GLUCOSE; Start 01/13/17 at 01: 30 Dextrose (D50w Syringe) 25 ml Q15M PRN IV DECREASED GLUCOSE; Start 01/13/17 at 01:30 Dextrose (D50w Syringe) 50 ml Q15M PRN IV DECREASED GLUCOSE; Start 01/13/17 at 01:30 Glucagon (Glucagen) 1 mg Q15M PRN IM DECREASED GLUCOSE; Start 01/13/17 at 01: 30 Glucose 15 gm 15 gm Q15M PRN BUCCAL DECREASED GLUCOSE; Start 01/13/17 at 01:30 Sodium Chloride (NS) 1,000 ml @ 50 mls/hr Q20H IV Last administered on 17:04; Admin Dose 50 MLS/HR; Start 01/15/17 at 16:30; Status Future Hold Acetaminophen (Tylenol Tab) 650 mg Q6H PRN PO PAIN AND OR ELEVATED TEMP Last administered on 01/19/17 16:05; Admin Dose 650 MG; Start 01/19/17 at 16:00 TREMAINE RIOS MD Jan 21, 2017 13:05
--- NOTE | 2017-01-21 14:05 | CONS ---
Date/Time of Note Date/Time of Note DATE: 01/21/17 TIME: 14:03 Assessment/Plan Assessment/Plan Additional Assessment/Plan 1. Chronic kidney disease due to 1 functioning kidney and diabetic nephropathy in the remaining kidney. This patient was on hemodialysis for about a week in April 2016 . She was dialyzed for several treatments via a femoral catheter. Her renal function improved and the catheter was removed and she was sent home and was followed as an outpatient. She came in last week with increasing shortness of breath, renal failure, congestive heart failure, anemia and was admitted and started back on hd x 2. today she feels much better. will arrange for hd again in am and on wednesday 2. Congestive heart failure , improved 3. Anemia of chronic kidney disease 4. Type 2 diabetes mellitus: on iss Consultation Date/Type/Reason Admit Date/Time Jan 12, 2017 at 21:51 Initial Consult Date Type of Consultation: cv 24 HR Interval Summary Free Text/Dictation feels ok. no issues Exam/Review of Systems Vital Signs Vitals Vital Signs Date Time Temp Pulse Resp B/P Pulse Ox O2 Delivery O2 Flow Rate FiO2 01/21/17 12:29 63 01/21/17 11:30 98.3 19 146/67 96 01/21/17 08:41 3.0 01/20/17 08:00 Nasal Cannula Intake and Output 01/20/17 01/20/17 01/21/17 15:00 23:00 07:00 Intake Total 500 ml 400 ml 240 ml Output Total 2500 ml 550 ml 450 ml Balance -2000 ml -150 ml -210 ml Exam Constitutional: alert, oriented, well developed Psych: no complaints Head: normocephalic Eyes: nl conjunctiva Neck: non-tender, supple Respiratory: clear to auscultation Cardiovascular: edema, nl pulses, regular rate and rhythm Gastrointestinal: non-tender, soft Results Result Diagram: 01/21/17 0704 01/21/17 0704 Results 24 hrs Laboratory Tests Test 01/20/17 17:08 01/20/17 20:33 01/21/17 07:04 01/21/17 08:14 Bedside Glucose 159 162 82 White Blood Count 5.8 Red Blood Count 4.09 L Hemoglobin 12.6 Hematocrit 37.3 Mean Corpuscular Volume 91.2 Mean Corpuscular Hemoglobin 30.8 Mean Corpuscular Hemoglobin Concent 33.8 Red Cell Distribution Width 13.9 Platelet Count 227 # Mean Platelet Volume 10.2 Neutrophils % 45.4 Lymphocytes % 39.0 Monocytes % 7.8 Eosinophils % 7.1 H Basophils % 0.5 Nucleated Red Blood Cells % 0.0 Neutrophils # 2.6 Lymphocytes # 2.3 Monocytes # 0.5 Eosinophils # 0.4 Basophils # 0.0 Nucleated Red Blood Cells # 0.0 Sodium Level 141 Potassium Level 4.0 Chloride Level 101 Carbon Dioxide Level 28 Anion Gap 16 Blood Urea Nitrogen 30 #H Creatinine 3.77 #H Glucose Level 85 Calcium Level 9.6 Total Bilirubin 0.2 Direct Bilirubin 0.00 Indirect Bilirubin 0.2 Aspartate Amino Transf (AST/SGOT) 28 Alanine Aminotransferase (ALT/SGPT) 30 Alkaline Phosphatase 87 Total Protein 8.4 H Albumin 3.8 Globulin 4.60 H Albumin/Globulin Ratio 0.82 Test 01/21/17 11:47 Bedside Glucose 173 Medications Medications Current Medications Aspirin (Halfprin) 81 mg DAILY PO Last administered on 01/21/17 09:04; Admin Dose 81 MG; Start 01/13/17 at 09:00 Atorvastatin Calcium (Lipitor) 40 mg QHS PO Last administered on 01/20/17 21: 19; Admin Dose 40 MG; Start 01/13/17 at 21:00 Carvedilol (Coreg) 25 mg BID PO Last administered on 01/21/17 11:50; Admin Dose 25 MG; Start 01/13/17 at 09:00 Insulin Glargine (Lantus) 10 unit QHS SC Last administered on 01/20/17 21:21 ; Admin Dose 10 UNIT; Start 01/13/17 at 21:00 Isosorbide Mononitrate (Imdur) 30 mg DAILY PO Last administered on 01/21/17 11:50; Admin Dose 30 MG; Start 01/13/17 at 09:00 Nifedipine (Procardia Xl) 30 mg DAILY PO Last administered on 01/21/17 11:50 ; Admin Dose 30 MG; Start 01/13/17 at 09:00 Miscellaneous Information 1 ea NOTE XX ; Start 01/13/17 at 01:30 Glucose (Glutose) 15 gm Q15M PRN PO DECREASED GLUCOSE; Start 01/13/17 at 01:30 Glucose (Glutose) 22.5 gm Q15M PRN PO DECREASED GLUCOSE; Start 01/13/17 at 01: 30 Dextrose (D50w Syringe) 25 ml Q15M PRN IV DECREASED GLUCOSE; Start 01/13/17 at 01:30 Dextrose (D50w Syringe) 50 ml Q15M PRN IV DECREASED GLUCOSE; Start 01/13/17 at 01:30 Glucagon (Glucagen) 1 mg Q15M PRN IM DECREASED GLUCOSE; Start 01/13/17 at 01: 30 Glucose 15 gm 15 gm Q15M PRN BUCCAL DECREASED GLUCOSE; Start 01/13/17 at 01:30 Sodium Chloride (NS) 1,000 ml @ 50 mls/hr Q20H IV Last administered on 17:04; Admin Dose 50 MLS/HR; Start 01/15/17 at 16:30; Status Future Hold Acetaminophen (Tylenol Tab) 650 mg Q6H PRN PO PAIN AND OR ELEVATED TEMP Last administered on 01/19/17 16:05; Admin Dose 650 MG; Start 01/19/17 at 16:00 TIFFANIE ROSALES MD Jan 21, 2017 14:05
--- NOTE | 2017-01-21 14:44 | CONS ---
Date/Time of Note Date/Time of Note DATE: 01/21/17 TIME: 14:42 Assessment/Plan Assessment/Plan Additional Assessment/Plan Acute decompensated diastolic congestive heart failure Preserved ejection fraction MARKEL with hx of CKD, restarted hemodialysis Hypertension Diabetes -Patient status post restarting hemodialysis with improvement in symptoms of shortness of breath. Fluid management via hemodialysis as per our nephrology colleagues. Blood pressure trend on the higher end, would increase Procardia to twice daily dosing with holding parameters. Consultation Date/Type/Reason Admit Date/Time Jan 12, 2017 at 21:51 Type of Consultation: cv 24 HR Interval Summary Free Text/Dictation Overall feeling better, denies shortness of breath or dizziness Exam/Review of Systems Vital Signs Vitals Vital Signs Date Time Temp Pulse Resp B/P Pulse Ox O2 Delivery O2 Flow Rate FiO2 01/21/17 12:29 63 01/21/17 11:30 98.3 19 146/67 96 01/21/17 08:41 3.0 01/20/17 08:00 Nasal Cannula Intake and Output 01/20/17 01/20/17 01/21/17 15:00 23:00 07:00 Intake Total 500 ml 400 ml 240 ml Output Total 2500 ml 550 ml 450 ml Balance -2000 ml -150 ml -210 ml Exam No apparent distress, sitting in chair Constitutional: alert, obese, oriented Head: normocephalic Respiratory: other (Coarse breath sounds bilaterally, no wheezing) Cardiovascular: other (S1-S2 heard), regular rate and rhythm Gastrointestinal: bowel sounds, non-tender, soft Extremities: edema Results Result Diagram: 01/21/17 0704 01/21/17 0704 Results 24 hrs Laboratory Tests Test 01/20/17 17:08 01/20/17 20:33 01/21/17 07:04 01/21/17 08:14 Bedside Glucose 159 162 82 White Blood Count 5.8 Red Blood Count 4.09 L Hemoglobin 12.6 Hematocrit 37.3 Mean Corpuscular Volume 91.2 Mean Corpuscular Hemoglobin 30.8 Mean Corpuscular Hemoglobin Concent 33.8 Red Cell Distribution Width 13.9 Platelet Count 227 # Mean Platelet Volume 10.2 Neutrophils % 45.4 Lymphocytes % 39.0 Monocytes % 7.8 Eosinophils % 7.1 H Basophils % 0.5 Nucleated Red Blood Cells % 0.0 Neutrophils # 2.6 Lymphocytes # 2.3 Monocytes # 0.5 Eosinophils # 0.4 Basophils # 0.0 Nucleated Red Blood Cells # 0.0 Sodium Level 141 Potassium Level 4.0 Chloride Level 101 Carbon Dioxide Level 28 Anion Gap 16 Blood Urea Nitrogen 30 #H Creatinine 3.77 #H Glucose Level 85 Calcium Level 9.6 Total Bilirubin 0.2 Direct Bilirubin 0.00 Indirect Bilirubin 0.2 Aspartate Amino Transf (AST/SGOT) 28 Alanine Aminotransferase (ALT/SGPT) 30 Alkaline Phosphatase 87 Total Protein 8.4 H Albumin 3.8 Globulin 4.60 H Albumin/Globulin Ratio 0.82 Test 01/21/17 11:47 Bedside Glucose 173 Medications Medications Current Medications Aspirin (Halfprin) 81 mg DAILY PO Last administered on 01/21/17 09:04; Admin Dose 81 MG; Start 01/13/17 at 09:00 Atorvastatin Calcium (Lipitor) 40 mg QHS PO Last administered on 01/20/17 21: 19; Admin Dose 40 MG; Start 01/13/17 at 21:00 Carvedilol (Coreg) 25 mg BID PO Last administered on 01/21/17 11:50; Admin Dose 25 MG; Start 01/13/17 at 09:00 Insulin Glargine (Lantus) 10 unit QHS SC Last administered on 01/20/17 21:21 ; Admin Dose 10 UNIT; Start 01/13/17 at 21:00 Isosorbide Mononitrate (Imdur) 30 mg DAILY PO Last administered on 01/21/17 11:50; Admin Dose 30 MG; Start 01/13/17 at 09:00 Nifedipine (Procardia Xl) 30 mg DAILY PO Last administered on 01/21/17 11:50 ; Admin Dose 30 MG; Start 01/13/17 at 09:00 Miscellaneous Information 1 ea NOTE XX ; Start 01/13/17 at 01:30 Glucose (Glutose) 15 gm Q15M PRN PO DECREASED GLUCOSE; Start 01/13/17 at 01:30 Glucose (Glutose) 22.5 gm Q15M PRN PO DECREASED GLUCOSE; Start 01/13/17 at 01: 30 Dextrose (D50w Syringe) 25 ml Q15M PRN IV DECREASED GLUCOSE; Start 01/13/17 at 01:30 Dextrose (D50w Syringe) 50 ml Q15M PRN IV DECREASED GLUCOSE; Start 01/13/17 at 01:30 Glucagon (Glucagen) 1 mg Q15M PRN IM DECREASED GLUCOSE; Start 01/13/17 at 01: 30 Glucose 15 gm 15 gm Q15M PRN BUCCAL DECREASED GLUCOSE; Start 01/13/17 at 01:30 Sodium Chloride (NS) 1,000 ml @ 50 mls/hr Q20H IV Last administered on 17:04; Admin Dose 50 MLS/HR; Start 01/15/17 at 16:30; Status Future Hold Acetaminophen (Tylenol Tab) 650 mg Q6H PRN PO PAIN AND OR ELEVATED TEMP Last administered on 01/19/17 16:05; Admin Dose 650 MG; Start 01/19/17 at 16:00 Dariel Juarez DO Jan 21, 2017 14:44
[2017-01-21] MEDS: FUROSEMIDE 40 MG TAB PO SCH (17:13)
[2017-01-21] MEDS: ATORVASTATIN 40 MG TAB PO SCH (21:37)
[2017-01-21] MEDS: INSULIN GLARGINE [LANtus] 3 ML PEN SC SCH (21:41)
[2017-01-22] VITALS (20 sets, daily range): BP systolic 99–160; BP diastolic 50–74; PULSE 63–75; RESP 17–19
[2017-01-22] MEDS: FUROSEMIDE 40 MG TAB PO SCH ×2 (05:52→18:12)
[2017-01-22 07:30] LABS: BASOPHILS % 0.4 % (0.0-2.0); EOSINOPHILS # 0.5 10^3/ul (0.0-0.5); EOSINOPHILS % 7.3 % (0.0-7.0); HEMATOCRIT 37.7 % (37.0-47.0); HEMOGLOBIN 12.6 g/dl (12.0-16.0); LYMPHOCYTES # 2.8 10^3/ul (0.8-2.9); LYMPHOCYTES % 38.1 % (15.0-51.0); MEAN CORPUSCULAR HEMOGLOBIN 30.7 pg (29.0-33.0); MEAN CORPUSCULAR HGB CONC 33.4 g/dl (32.0-37.0); MEAN CORPUSCULAR VOLUME 91.7 fl (82.0-101.0); MEAN PLATELET VOLUME 9.9 fl (7.4-10.4); MONOCYTE # 0.5 10^3/ul (0.3-0.9); MONOCYTES % 6.8 % (0.0-11.0); NEUTROPHIL # 3.4 10^3/ul (1.6-7.5); NEUTROPHILS % 47.3 % (39.0-77.0); PLATELET COUNT 223 10^3/UL (140-415); RED BLOOD COUNT 4.11 10^6/ul (4.20-5.40); RED CELL DISTRIBUTION WIDTH 13.8 % (11.5-14.5); WHITE BLOOD COUNT 7.2 10^3/ul (4.8-10.8)
[2017-01-22 07:46] LABS: ALBUMIN 3.8 g/dl (3.3-4.9); ALBUMIN/GLOBULIN RATIO 0.9; BILIRUBIN,INDIRECT 0.2 mg/dl (0-1.1); BILIRUBIN,TOTAL 0.2 mg/dl (0.2-1.3); CALCIUM 9.7 mg/dl (8.4-10.2); CREATININE 4.74 mg/dl (0.44-1.00); POTASSIUM 4.4 mmol/L (3.5-5.1)
[2017-01-22] MEDS: INSULIN ASPART [NOVOLOG] 3 ML PEN SC SCH ×4 (08:00→22:09)
[2017-01-22] MEDS: ISOSORBIDE MONONITRATE(SR)30 MG TAB PO SCH (09:00)
[2017-01-22] MEDS: NIFEdipine (XL) 30 MG TAB PO SCH ×2 (09:00→20:44)
[2017-01-22] MEDS: ASPIRIN (EC) 81 MG TAB PO SCH (09:08)
[2017-01-22] MEDS: CALCIUM ACETATE 667 MG CAP PO SCH ×3 (09:08→20:43)
--- NOTE | 2017-01-22 12:14 | CONS ---
Date/Time of Note Date/Time of Note DATE: 01/22/17 TIME: 12:10 Assessment/Plan Assessment/Plan Additional Assessment/Plan 1. Chronic kidney disease due to 1 functioning kidney and diabetic nephropathy in the remaining kidney. This patient was on hemodialysis for about a week in April 2016 and now admitted with fluid overload. She was dialyzed for several treatments via a femoral catheter and is much improved. She is scheduled for hd again today and then on Wednesday if she is not discharged. 2. Congestive heart failure , improved 3. Anemia of chronic kidney disease 4. Type 2 diabetes mellitus: on iss Consultation Date/Type/Reason Admit Date/Time Jan 12, 2017 at 21:51 Initial Consult Date Type of Consultation: nephrology 24 HR Interval Summary Free Text/Dictation alert, up in chair, no complaints. Exam/Review of Systems Vital Signs Vitals Vital Signs Date Time Temp Pulse Resp B/P Pulse Ox O2 Delivery O2 Flow Rate FiO2 01/22/17 11:58 98.1 77 19 127/68 95 01/22/17 11:03 3.0 01/20/17 08:00 Nasal Cannula Intake and Output 01/21/17 01/21/17 01/22/17 14:59 22:59 06:59 Intake Total 500 ml 120 ml Balance 500 ml 120 ml Exam Constitutional: alert Neck: No jvd Respiratory: clear to auscultation Cardiovascular: regular rate and rhythm Extremities: No edema Results Result Diagram: 01/22/17 0626 01/22/17 0626 Results 24 hrs Laboratory Tests Test 01/21/17 17:09 01/21/17 21:33 01/22/17 06:26 01/22/17 09:07 Bedside Glucose 144 199 93 White Blood Count 7.2 # Red Blood Count 4.11 L Hemoglobin 12.6 Hematocrit 37.7 Mean Corpuscular Volume 91.7 Mean Corpuscular Hemoglobin 30.7 Mean Corpuscular Hemoglobin Concent 33.4 Red Cell Distribution Width 13.8 Platelet Count 223 Mean Platelet Volume 9.9 Neutrophils % 47.3 Lymphocytes % 38.1 Monocytes % 6.8 Eosinophils % 7.3 H Basophils % 0.4 Nucleated Red Blood Cells % 0.0 Neutrophils # 3.4 Lymphocytes # 2.8 Monocytes # 0.5 Eosinophils # 0.5 Basophils # 0.0 Nucleated Red Blood Cells # 0.0 Sodium Level 138 Potassium Level 4.4 Chloride Level 99 Carbon Dioxide Level 28 Anion Gap 15 Blood Urea Nitrogen 46 #H Creatinine 4.74 H Glucose Level 101 Calcium Level 9.7 Total Bilirubin 0.2 Direct Bilirubin 0.00 Indirect Bilirubin 0.2 Aspartate Amino Transf (AST/SGOT) 26 Alanine Aminotransferase (ALT/SGPT) 36 Alkaline Phosphatase 84 Total Protein 8.0 Albumin 3.8 Globulin 4.20 H Albumin/Globulin Ratio 0.90 Medications Medications Current Medications Aspirin (Halfprin) 81 mg DAILY PO Last administered on 01/22/17 09:08; Admin Dose 81 MG; Start 01/13/17 at 09:00 Atorvastatin Calcium (Lipitor) 40 mg QHS PO Last administered on 01/21/17 21: 37; Admin Dose 40 MG; Start 01/13/17 at 21:00 Carvedilol (Coreg) 25 mg BID PO Last administered on 01/21/17 21:37; Admin Dose 25 MG; Start 01/13/17 at 09:00 Insulin Glargine (Lantus) 10 unit QHS SC Last administered on 01/21/17 21:41 ; Admin Dose 10 UNIT; Start 01/13/17 at 21:00 Isosorbide Mononitrate (Imdur) 30 mg DAILY PO Last administered on 01/21/17 11:50; Admin Dose 30 MG; Start 01/13/17 at 09:00 Miscellaneous Information 1 ea NOTE XX ; Start 01/13/17 at 01:30 Glucose (Glutose) 15 gm Q15M PRN PO DECREASED GLUCOSE; Start 01/13/17 at 01:30 Glucose (Glutose) 22.5 gm Q15M PRN PO DECREASED GLUCOSE; Start 01/13/17 at 01: 30 Dextrose (D50w Syringe) 25 ml Q15M PRN IV DECREASED GLUCOSE; Start 01/13/17 at 01:30 Dextrose (D50w Syringe) 50 ml Q15M PRN IV DECREASED GLUCOSE; Start 01/13/17 at 01:30 Glucagon (Glucagen) 1 mg Q15M PRN IM DECREASED GLUCOSE; Start 01/13/17 at 01: 30 Glucose 15 gm 15 gm Q15M PRN BUCCAL DECREASED GLUCOSE; Start 01/13/17 at 01:30 Sodium Chloride (NS) 1,000 ml @ 50 mls/hr Q20H IV Last administered on 17:04; Admin Dose 50 MLS/HR; Start 01/15/17 at 16:30; Status Future Hold Acetaminophen (Tylenol Tab) 650 mg Q6H PRN PO PAIN AND OR ELEVATED TEMP Last administered on 01/19/17 16:05; Admin Dose 650 MG; Start 01/19/17 at 16:00 Nifedipine (Procardia Xl) 30 mg BID PO Last administered on 01/21/17 21:38; Admin Dose 30 MG; Start 01/21/17 at 21:00 LUCIANO MCCLENDON MD Jan 22, 2017 12:14
--- NOTE | 2017-01-22 12:44 | PN ---
Date/Time of Note Date/Time of Note DATE: 01/22/17 TIME: 12:44 Assessment/Plan VTE Prophylaxis VTE Prophylaxis Intervention: ambulation Lines/Catheters [facility] Irine[facility] Cath Urinary Cath still in place: No Assessment/Plan Assessment/Plan (1) ESRD (end stage renal disease) on dialysis Status: Chronic Comment: improving BUN/creatinine. Continue hemodialysis today and probably Wednesday if the BUN/creatinine does not return to baseline tomorrow. (2) Anemia in chronic kidney disease Status: Resolved after transfusion and Epogen. (3) Acute exacerbation of CHF (congestive heart failure) Status: Acute Comment: improving with diuresis and hemodialysis. Qualifiers: Congestive heart failure type: diastolic Qualified Code: I50.33 - Acute on chronic diastolic congestive heart failure (4) Diabetes mellitus Status: Chronic Comment: stable on insulin. (5) Hypertension Status: Chronic Comment: controlled on meds. Exam/Review of Systems Vital Signs Vitals Vital Signs Date Time Temp Pulse Resp B/P Pulse Ox O2 Delivery O2 Flow Rate FiO2 01/22/17 11:58 98.1 77 19 127/68 95 01/22/17 11:03 3.0 01/20/17 08:00 Nasal Cannula Intake and Output 01/21/17 01/21/17 01/22/17 15:00 23:00 07:00 Intake Total 500 ml 120 ml Balance 500 ml 120 ml Results Result Diagram: 01/22/1726 01/22/17 0626 Results 24 hrs Laboratory Tests Test 01/21/17 17:09 01/21/17 21:33 01/22/17 06:26 01/22/17 09:07 Bedside Glucose 144 199 93 White Blood Count 7.2 # Red Blood Count 4.11 L Hemoglobin 12.6 Hematocrit 37.7 Mean Corpuscular Volume 91.7 Mean Corpuscular Hemoglobin 30.7 Mean Corpuscular Hemoglobin Concent 33.4 Red Cell Distribution Width 13.8 Platelet Count 223 Mean Platelet Volume 9.9 Neutrophils % 47.3 Lymphocytes % 38.1 Monocytes % 6.8 Eosinophils % 7.3 H Basophils % 0.4 Nucleated Red Blood Cells % 0.0 Neutrophils # 3.4 Lymphocytes # 2.8 Monocytes # 0.5 Eosinophils # 0.5 Basophils # 0.0 Nucleated Red Blood Cells # 0.0 Sodium Level 138 Potassium Level 4.4 Chloride Level 99 Carbon Dioxide Level 28 Anion Gap 15 Blood Urea Nitrogen 46 #H Creatinine 4.74 H Glucose Level 101 Calcium Level 9.7 Total Bilirubin 0.2 Direct Bilirubin 0.00 Indirect Bilirubin 0.2 Aspartate Amino Transf (AST/SGOT) 26 Alanine Aminotransferase (ALT/SGPT) 36 Alkaline Phosphatase 84 Total Protein 8.0 Albumin 3.8 Globulin 4.20 H Albumin/Globulin Ratio 0.90 Test 01/22/17 12:27 Bedside Glucose 176 Medications Medications Current Medications Aspirin (Halfprin) 81 mg DAILY PO Last administered on 01/22/17 09:08; Admin Dose 81 MG; Start 01/13/17 at 09:00 Atorvastatin Calcium (Lipitor) 40 mg QHS PO Last administered on 01/21/17 21: 37; Admin Dose 40 MG; Start 01/13/17 at 21:00 Carvedilol (Coreg) 25 mg BID PO Last administered on 01/21/17 21:37; Admin Dose 25 MG; Start 01/13/17 at 09:00 Insulin Glargine (Lantus) 10 unit QHS SC Last administered on 01/21/17 21:41 ; Admin Dose 10 UNIT; Start 01/13/17 at 21:00 Isosorbide Mononitrate (Imdur) 30 mg DAILY PO Last administered on 01/21/17 11:50; Admin Dose 30 MG; Start 01/13/17 at 09:00 Miscellaneous Information 1 ea NOTE XX ; Start 01/13/17 at 01:30 Glucose (Glutose) 15 gm Q15M PRN PO DECREASED GLUCOSE; Start 01/13/17 at 01:30 Glucose (Glutose) 22.5 gm Q15M PRN PO DECREASED GLUCOSE; Start 01/13/17 at 01: 30 Dextrose (D50w Syringe) 25 ml Q15M PRN IV DECREASED GLUCOSE; Start 01/13/17 at 01:30 Dextrose (D50w Syringe) 50 ml Q15M PRN IV DECREASED GLUCOSE; Start 01/13/17 at 01:30 Glucagon (Glucagen) 1 mg Q15M PRN IM DECREASED GLUCOSE; Start 01/13/17 at 01: 30 Glucose 15 gm 15 gm Q15M PRN BUCCAL DECREASED GLUCOSE; Start 01/13/17 at 01:30 Sodium Chloride (NS) 1,000 ml @ 50 mls/hr Q20H IV Last administered on 17:04; Admin Dose 50 MLS/HR; Start 01/15/17 at 16:30; Status Future Hold Acetaminophen (Tylenol Tab) 650 mg Q6H PRN PO PAIN AND OR ELEVATED TEMP Last administered on 01/19/17 16:05; Admin Dose 650 MG; Start 01/19/17 at 16:00 Nifedipine (Procardia Xl) 30 mg BID PO Last administered on 01/21/17 21:38; Admin Dose 30 MG; Start 01/21/17 at 21:00 TREMAINE RIOS MD Jan 22, 2017 12:44
--- NOTE | 2017-01-22 13:08 | CONS ---
Date/Time of Note Date/Time of Note DATE: 01/22/17 TIME: 13:07 Assessment/Plan Assessment/Plan Additional Assessment/Plan Acute decompensated diastolic congestive heart failure Preserved ejection fraction MARKEL with hx of CKD, restarted hemodialysis Hypertension Diabetes -Patient status post restarting hemodialysis with improvement in symptoms of shortness of breath. Fluid management via hemodialysis as per our nephrology colleagues. Blood pressure trend overall improved, continue antihypertensives with holding parameters. Consultation Date/Type/Reason Admit Date/Time Jan 12, 2017 at 21:51 Type of Consultation: cv 24 HR Interval Summary Free Text/Dictation Denies shortness of breath, overall continues to feel better Exam/Review of Systems Vital Signs Vitals Vital Signs Date Time Temp Pulse Resp B/P Pulse Ox O2 Delivery O2 Flow Rate FiO2 01/22/17 12:46 72 01/22/17 11:58 98.1 19 127/68 95 01/22/17 11:03 3.0 01/20/17 08:00 Nasal Cannula Intake and Output 01/21/17 01/21/17 01/22/17 15:00 23:00 07:00 Intake Total 500 ml 120 ml Balance 500 ml 120 ml Exam No apparent distress Constitutional: alert, obese, oriented Head: normocephalic Respiratory: other (Coarse breath sounds bilaterally, no wheezing) Cardiovascular: other (S1-S2 heard), regular rate and rhythm Gastrointestinal: bowel sounds, non-tender, soft Extremities: edema Results Result Diagram: 01/22/17 0626 01/22/17 0626 Results 24 hrs Laboratory Tests Test 01/21/17 17:09 01/21/17 21:33 01/22/17 06:26 01/22/17 09:07 Bedside Glucose 144 199 93 White Blood Count 7.2 # Red Blood Count 4.11 L Hemoglobin 12.6 Hematocrit 37.7 Mean Corpuscular Volume 91.7 Mean Corpuscular Hemoglobin 30.7 Mean Corpuscular Hemoglobin Concent 33.4 Red Cell Distribution Width 13.8 Platelet Count 223 Mean Platelet Volume 9.9 Neutrophils % 47.3 Lymphocytes % 38.1 Monocytes % 6.8 Eosinophils % 7.3 H Basophils % 0.4 Nucleated Red Blood Cells % 0.0 Neutrophils # 3.4 Lymphocytes # 2.8 Monocytes # 0.5 Eosinophils # 0.5 Basophils # 0.0 Nucleated Red Blood Cells # 0.0 Sodium Level 138 Potassium Level 4.4 Chloride Level 99 Carbon Dioxide Level 28 Anion Gap 15 Blood Urea Nitrogen 46 #H Creatinine 4.74 H Glucose Level 101 Calcium Level 9.7 Total Bilirubin 0.2 Direct Bilirubin 0.00 Indirect Bilirubin 0.2 Aspartate Amino Transf (AST/SGOT) 26 Alanine Aminotransferase (ALT/SGPT) 36 Alkaline Phosphatase 84 Total Protein 8.0 Albumin 3.8 Globulin 4.20 H Albumin/Globulin Ratio 0.90 Test 01/22/17 12:27 Bedside Glucose 176 Medications Medications Current Medications Aspirin (Halfprin) 81 mg DAILY PO Last administered on 01/22/17 09:08; Admin Dose 81 MG; Start 01/13/17 at 09:00 Atorvastatin Calcium (Lipitor) 40 mg QHS PO Last administered on 01/21/17 21: 37; Admin Dose 40 MG; Start 01/13/17 at 21:00 Carvedilol (Coreg) 25 mg BID PO Last administered on 01/21/17 21:37; Admin Dose 25 MG; Start 01/13/17 at 09:00 Insulin Glargine (Lantus) 10 unit QHS SC Last administered on 01/21/17 21:41 ; Admin Dose 10 UNIT; Start 01/13/17 at 21:00 Isosorbide Mononitrate (Imdur) 30 mg DAILY PO Last administered on 01/21/17 11:50; Admin Dose 30 MG; Start 01/13/17 at 09:00 Miscellaneous Information 1 ea NOTE XX ; Start 01/13/17 at 01:30 Glucose (Glutose) 15 gm Q15M PRN PO DECREASED GLUCOSE; Start 01/13/17 at 01:30 Glucose (Glutose) 22.5 gm Q15M PRN PO DECREASED GLUCOSE; Start 01/13/17 at 01: 30 Dextrose (D50w Syringe) 25 ml Q15M PRN IV DECREASED GLUCOSE; Start 01/13/17 at 01:30 Dextrose (D50w Syringe) 50 ml Q15M PRN IV DECREASED GLUCOSE; Start 01/13/17 at 01:30 Glucagon (Glucagen) 1 mg Q15M PRN IM DECREASED GLUCOSE; Start 01/13/17 at 01: 30 Glucose 15 gm 15 gm Q15M PRN BUCCAL DECREASED GLUCOSE; Start 01/13/17 at 01:30 Sodium Chloride (NS) 1,000 ml @ 50 mls/hr Q20H IV Last administered on 17:04; Admin Dose 50 MLS/HR; Start 01/15/17 at 16:30; Status Future Hold Acetaminophen (Tylenol Tab) 650 mg Q6H PRN PO PAIN AND OR ELEVATED TEMP Last administered on 01/19/17 16:05; Admin Dose 650 MG; Start 01/19/17 at 16:00 Nifedipine (Procardia Xl) 30 mg BID PO Last administered on 01/21/17 21:38; Admin Dose 30 MG; Start 01/21/17 at 21:00 Dariel Juarez DO Jan 22, 2017 13:08
[2017-01-22] MEDS: ATORVASTATIN 40 MG TAB PO SCH (20:43)
[2017-01-22] MEDS: INSULIN GLARGINE [LANtus] 3 ML PEN SC SCH (22:06)
[2017-01-23] VITALS (12 sets, daily range): BP systolic 106–139; BP diastolic 54–63; PULSE 63–66; RESP 17–20
[2017-01-23] MEDS: FUROSEMIDE 40 MG TAB PO SCH ×2 (05:43→17:23)
[2017-01-23] MEDS: INSULIN ASPART [NOVOLOG] 3 ML PEN SC SCH ×4 (08:00→21:00)
[2017-01-23] MEDS: CALCIUM ACETATE 667 MG CAP PO SCH ×3 (08:13→17:23)
[2017-01-23] MEDS: ASPIRIN (EC) 81 MG TAB PO SCH (08:13)
[2017-01-23] MEDS: NIFEdipine (XL) 30 MG TAB PO SCH ×2 (08:13→21:00)
[2017-01-23] MEDS: ISOSORBIDE MONONITRATE(SR)30 MG TAB PO SCH (08:13)
--- NOTE | 2017-01-23 08:43 | PN ---
Date/Time of Note Date/Time of Note DATE: 01/23/17 TIME: 08:42 Assessment/Plan VTE Prophylaxis VTE Prophylaxis Intervention: SCD's Lines/Catheters IV Catheter Type (from Nrs): KELLI CATH Urinary Cath still in place: No Assessment/Plan Assessment/Plan Acute decompensated diastolic congestive heart failure Preserved ejection fraction MARKEL with hx of CKD, restarted hemodialysis Hypertension Diabetes -Patient status post restarting hemodialysis with improvement in symptoms of shortness of breath. Fluid management via hemodialysis as per our nephrology colleagues. Blood pressure trend overall improved, continue antihypertensives with holding parameters. Subjective 24 Hr Interval Summary Free Text/Dictation The patient with no complaints Exam/Review of Systems Vital Signs Vitals Vital Signs Date Time Temp Pulse Resp B/P Pulse Ox O2 Delivery O2 Flow Rate FiO2 01/23/17 07:52 98.7 68 18 134/62 97 01/23/17 01:02 3.0 01/20/17 08:00 Nasal Cannula Intake and Output 01/22/17 01/22/17 01/23/17 15:00 23:00 07:00 Intake Total 1300 ml 120 ml Output Total 1500 ml Balance -200 ml 120 ml Results Result Diagram: 01/22/17 0626 01/22/17 0626 Results 24 hrs Laboratory Tests Test 01/22/17 09:07 01/22/17 12:27 01/22/17 20:40 01/22/17 21:45 Bedside Glucose 93 176 59 L 198 Test 01/23/17 01:44 01/23/17 08:11 Bedside Glucose 112 88 Medications Medications Current Medications Aspirin (Halfprin) 81 mg DAILY PO Last administered on 01/23/17 08:13; Admin Dose 81 MG; Start 01/13/17 at 09:00 Atorvastatin Calcium (Lipitor) 40 mg QHS PO Last administered on 01/22/17 20: 43; Admin Dose 40 MG; Start 01/13/17 at 21:00 Carvedilol (Coreg) 25 mg BID PO Last administered on 01/23/17 08:12; Admin Dose 25 MG; Start 01/13/17 at 09:00 Insulin Glargine (Lantus) 10 unit QHS SC Last administered on 01/22/17 22:06 ; Admin Dose 10 UNIT; Start 01/13/17 at 21:00 Isosorbide Mononitrate (Imdur) 30 mg DAILY PO Last administered on 01/23/17 08:13; Admin Dose 30 MG; Start 01/13/17 at 09:00 Miscellaneous Information 1 ea NOTE XX ; Start 01/13/17 at 01:30 Glucose (Glutose) 15 gm Q15M PRN PO DECREASED GLUCOSE; Start 01/13/17 at 01:30 Glucose (Glutose) 22.5 gm Q15M PRN PO DECREASED GLUCOSE; Start 01/13/17 at 01: 30 Dextrose (D50w Syringe) 25 ml Q15M PRN IV DECREASED GLUCOSE; Start 01/13/17 at 01:30 Dextrose (D50w Syringe) 50 ml Q15M PRN IV DECREASED GLUCOSE; Start 01/13/17 at 01:30 Glucagon (Glucagen) 1 mg Q15M PRN IM DECREASED GLUCOSE; Start 01/13/17 at 01: 30 Glucose 15 gm 15 gm Q15M PRN BUCCAL DECREASED GLUCOSE; Start 01/13/17 at 01:30 Sodium Chloride (NS) 1,000 ml @ 50 mls/hr Q20H IV Last administered on 17:04; Admin Dose 50 MLS/HR; Start 01/15/17 at 16:30; Status Future Hold Acetaminophen (Tylenol Tab) 650 mg Q6H PRN PO PAIN AND OR ELEVATED TEMP Last administered on 01/19/17 16:05; Admin Dose 650 MG; Start 01/19/17 at 16:00 Nifedipine (Procardia Xl) 30 mg BID PO Last administered on 01/23/17 08:13; Admin Dose 30 MG; Start 01/21/17 at 21:00 AROLDO SPAULDING MD Jan 23, 2017 08:43
[2017-01-23 09:41] LABS: CALCIUM 9.3 mg/dl (8.4-10.2); CREATININE 4.25 mg/dl (0.44-1.00); POTASSIUM 4.3 mmol/L (3.5-5.1)
--- NOTE | 2017-01-23 13:14 | CONS ---
Date/Time of Note Date/Time of Note DATE: 01/23/17 TIME: 13:12 Assessment/Plan Assessment/Plan Chief Complaint/Hosp Course 1. Chronic kidney disease due to 1 functioning kidney and diabetic nephropathy in the remaining kidney. s/p dialysis yesterday. doing well. next HD planned for Wednesday. 2. Acute diastolic congestive heart failure , improved with HD 3. Anemia of chronic kidney disease 4. Type 2 diabetes mellitus: on iss Problems: Consultation Date/Type/Reason Admit Date/Time Jan 12, 2017 at 21:51 Type of Consultation: Nephrology 24 HR Interval Summary Free Text/Dictation Alert, denies SOB Exam/Review of Systems Vital Signs Vitals Vital Signs Date Time Temp Pulse Resp B/P Pulse Ox O2 Delivery O2 Flow Rate FiO2 01/23/17 12:00 63 01/23/17 11:59 97.2 17 114/55 97 01/23/17 01:02 3.0 01/20/17 08:00 Nasal Cannula Intake and Output 01/22/17 01/22/17 01/23/17 15:00 23:00 07:00 Intake Total 1300 ml 120 ml Output Total 1500 ml Balance -200 ml 120 ml Exam Constitutional: alert Neck: supple Respiratory: clear to auscultation Gastrointestinal: soft Extremities: No edema Results Result Diagram: 01/22/17 0626 01/23/17 0825 Results 24 hrs Laboratory Tests Test 01/22/17 20:40 01/22/17 21:45 01/23/17 01:44 01/23/17 08:11 Bedside Glucose 59 L 198 112 88 Test 01/23/17 08:25 01/23/17 11:13 Sodium Level 135 Potassium Level 4.3 Chloride Level 96 L Carbon Dioxide Level 26 Anion Gap 17 H Blood Urea Nitrogen 39 H Creatinine 4.25 H Glucose Level 91 Calcium Level 9.3 Bedside Glucose 236 H Medications Medications Current Medications Aspirin (Halfprin) 81 mg DAILY PO Last administered on 01/23/17 08:13; Admin Dose 81 MG; Start 01/13/17 at 09:00 Atorvastatin Calcium (Lipitor) 40 mg QHS PO Last administered on 01/22/17 20: 43; Admin Dose 40 MG; Start 01/13/17 at 21:00 Carvedilol (Coreg) 25 mg BID PO Last administered on 01/23/17 08:12; Admin Dose 25 MG; Start 01/13/17 at 09:00 Insulin Glargine (Lantus) 10 unit QHS SC Last administered on 01/22/17 22:06 ; Admin Dose 10 UNIT; Start 01/13/17 at 21:00 Isosorbide Mononitrate (Imdur) 30 mg DAILY PO Last administered on 01/23/17 08:13; Admin Dose 30 MG; Start 01/13/17 at 09:00 Miscellaneous Information 1 ea NOTE XX ; Start 01/13/17 at 01:30 Glucose (Glutose) 15 gm Q15M PRN PO DECREASED GLUCOSE; Start 01/13/17 at 01:30 Glucose (Glutose) 22.5 gm Q15M PRN PO DECREASED GLUCOSE; Start 01/13/17 at 01: 30 Dextrose (D50w Syringe) 25 ml Q15M PRN IV DECREASED GLUCOSE; Start 01/13/17 at 01:30 Dextrose (D50w Syringe) 50 ml Q15M PRN IV DECREASED GLUCOSE; Start 01/13/17 at 01:30 Glucagon (Glucagen) 1 mg Q15M PRN IM DECREASED GLUCOSE; Start 01/13/17 at 01: 30 Glucose 15 gm 15 gm Q15M PRN BUCCAL DECREASED GLUCOSE; Start 01/13/17 at 01:30 Sodium Chloride (NS) 1,000 ml @ 50 mls/hr Q20H IV Last administered on 17:04; Admin Dose 50 MLS/HR; Start 01/15/17 at 16:30; Status Future Hold Acetaminophen (Tylenol Tab) 650 mg Q6H PRN PO PAIN AND OR ELEVATED TEMP Last administered on 01/19/17 16:05; Admin Dose 650 MG; Start 01/19/17 at 16:00 Nifedipine (Procardia Xl) 30 mg BID PO Last administered on 01/23/17 08:13; Admin Dose 30 MG; Start 01/21/17 at 21:00 LUCIANO MCCLENDON MD Jan 23, 2017 13:14
--- NOTE | 2017-01-23 13:24 | PN ---
Date/Time of Note Date/Time of Note DATE: 01/23/17 TIME: 13:24 Assessment/Plan VTE Prophylaxis VTE Prophylaxis Intervention: LMWH Lines/Catheters IV Catheter Type (from [facility]): KELLI CATH Central line still needed: Yes Urinary Cath still in place: No Assessment/Plan Problems: (1) ESRD (end stage renal disease) on dialysis Status: Chronic Comment: on emergency dialysis with very slow improvment in BUN/ Cr. Next HD on Wednesday. (2) Congestive heart failure Status: Acute Comment: symptomatically improved on HD and lasix. Qualifiers: Congestive heart failure type: diastolic Congestive heart failure chronicity: acute on chronic Qualified Code: I50.33 - Acute on chronic diastolic congestive heart failure (3) Diabetes mellitus Status: Chronic Comment: stable on insulin. (4) Anemia Status: Chronic Comment: improved after treatment. Qualifiers: Anemia type: due to chronic kidney disease Subjective 24 Hr Interval Summary Constitutional: no complaints Exam/Review of Systems Vital Signs Vitals Vital Signs Date Time Temp Pulse Resp B/P Pulse Ox O2 Delivery O2 Flow Rate FiO2 01/23/17 12:00 63 01/23/17 11:59 97.2 17 114/55 97 01/23/17 01:02 3.0 01/20/17 08:00 Nasal Cannula Intake and Output 01/22/17 01/22/17 01/23/17 14:59 22:59 06:59 Intake Total 1300 ml 120 ml Output Total 1500 ml Balance -200 ml 120 ml Exam Constitutional: alert, oriented Head: normocephalic Respiratory: clear to auscultation, normal air movement Cardiovascular: nl pulses, regular rate and rhythm Gastrointestinal: non-tender, soft Musculoskeletal: nl extremities to inspection Results Result Diagram: 01/22/17 0626 01/23/17 0825 Results 24 hrs Laboratory Tests Test 01/22/17 20:40 01/22/17 21:45 01/23/17 01:44 01/23/17 08:11 Bedside Glucose 59 L 198 112 88 Test 01/23/17 08:25 01/23/17 11:13 Sodium Level 135 Potassium Level 4.3 Chloride Level 96 L Carbon Dioxide Level 26 Anion Gap 17 H Blood Urea Nitrogen 39 H Creatinine 4.25 H Glucose Level 91 Calcium Level 9.3 Bedside Glucose 236 H Medications Medications Current Medications Aspirin (Halfprin) 81 mg DAILY PO Last administered on 01/23/17 08:13; Admin Dose 81 MG; Start 01/13/17 at 09:00 Atorvastatin Calcium (Lipitor) 40 mg QHS PO Last administered on 01/22/17 20: 43; Admin Dose 40 MG; Start 01/13/17 at 21:00 Carvedilol (Coreg) 25 mg BID PO Last administered on 01/23/17 08:12; Admin Dose 25 MG; Start 01/13/17 at 09:00 Insulin Glargine (Lantus) 10 unit QHS SC Last administered on 01/22/17 22:06 ; Admin Dose 10 UNIT; Start 01/13/17 at 21:00 Isosorbide Mononitrate (Imdur) 30 mg DAILY PO Last administered on 01/23/17 08:13; Admin Dose 30 MG; Start 01/13/17 at 09:00 Miscellaneous Information 1 ea NOTE XX ; Start 01/13/17 at 01:30 Glucose (Glutose) 15 gm Q15M PRN PO DECREASED GLUCOSE; Start 01/13/17 at 01:30 Glucose (Glutose) 22.5 gm Q15M PRN PO DECREASED GLUCOSE; Start 01/13/17 at 01: 30 Dextrose (D50w Syringe) 25 ml Q15M PRN IV DECREASED GLUCOSE; Start 01/13/17 at 01:30 Dextrose (D50w Syringe) 50 ml Q15M PRN IV DECREASED GLUCOSE; Start 01/13/17 at 01:30 Glucagon (Glucagen) 1 mg Q15M PRN IM DECREASED GLUCOSE; Start 01/13/17 at 01: 30 Glucose 15 gm 15 gm Q15M PRN BUCCAL DECREASED GLUCOSE; Start 01/13/17 at 01:30 Sodium Chloride (NS) 1,000 ml @ 50 mls/hr Q20H IV Last administered on 17:04; Admin Dose 50 MLS/HR; Start 01/15/17 at 16:30; Status Future Hold Acetaminophen (Tylenol Tab) 650 mg Q6H PRN PO PAIN AND OR ELEVATED TEMP Last administered on 01/19/17 16:05; Admin Dose 650 MG; Start 01/19/17 at 16:00 Nifedipine (Procardia Xl) 30 mg BID PO Last administered on 01/23/17 08:13; Admin Dose 30 MG; Start 01/21/17 at 21:00 TREMAINE RIOS MD Jan 23, 2017 13:24
[2017-01-23] MEDS: ATORVASTATIN 40 MG TAB PO SCH (21:04)
[2017-01-23] MEDS: INSULIN GLARGINE [LANtus] 3 ML PEN SC SCH (21:06)
[2017-01-24] VITALS (12 sets, daily range): BP systolic 123–138; BP diastolic 59–69; PULSE 57–74; RESP 18–20
[2017-01-24] MEDS: FUROSEMIDE 40 MG TAB PO SCH ×2 (06:48→17:46)
[2017-01-24] MEDS: INSULIN ASPART [NOVOLOG] 3 ML PEN SC SCH ×4 (08:00→21:00)
[2017-01-24] MEDS: CALCIUM ACETATE 667 MG CAP PO SCH ×3 (09:08→17:44)
[2017-01-24] MEDS: ASPIRIN (EC) 81 MG TAB PO SCH (09:09)
[2017-01-24] MEDS: NIFEdipine (XL) 30 MG TAB PO SCH ×2 (09:09→21:17)
[2017-01-24] MEDS: ISOSORBIDE MONONITRATE(SR)30 MG TAB PO SCH (09:10)
--- NOTE | 2017-01-24 09:24 | PN ---
Date/Time of Note Date/Time of Note DATE: 01/24/17 TIME: 09:24 Assessment/Plan VTE Prophylaxis VTE Prophylaxis Intervention: SCD's Lines/Catheters IV Catheter Type (from Nrs): h/d access Urinary Cath still in place: No Assessment/Plan Assessment/Plan Acute decompensated diastolic congestive heart failure Preserved ejection fraction MARKEL with hx of CKD, restarted hemodialysis Hypertension Diabetes -Patient status post restarting hemodialysis with improvement in symptoms of shortness of breath. Fluid management via hemodialysis as per our nephrology colleagues. Blood pressure trend overall improved, continue antihypertensives with holding parameters. Subjective 24 Hr Interval Summary Free Text/Dictation the patient with no complaints Exam/Review of Systems Vital Signs Vitals Vital Signs Date Time Temp Pulse Resp B/P Pulse Ox O2 Delivery O2 Flow Rate FiO2 01/24/17 08:00 74 01/24/17 07:51 97.4 18 138/65 94 01/24/17 01:40 3.0 01/20/17 08:00 Nasal Cannula Intake and Output 01/23/17 01/23/17 01/24/17 14:59 22:59 06:59 Intake Total 600 ml Balance 600 ml Results Result Diagram: 01/22/17 0626 01/23/17 0825 Results 24 hrs Laboratory Tests Test 01/23/17 11:13 01/23/17 17:21 01/23/17 20:55 01/24/17 09:07 Bedside Glucose 236 H 185 142 97 Medications Medications Current Medications Aspirin (Halfprin) 81 mg DAILY PO Last administered on 01/24/17 09:09; Admin Dose 81 MG; Start 01/13/17 at 09:00 Atorvastatin Calcium (Lipitor) 40 mg QHS PO Last administered on 01/23/17 21: 04; Admin Dose 40 MG; Start 01/13/17 at 21:00 Carvedilol (Coreg) 25 mg BID PO Last administered on 01/24/17 09:09; Admin Dose 25 MG; Start 01/13/17 at 09:00 Insulin Glargine (Lantus) 10 unit QHS SC Last administered on 01/23/17 21:06 ; Admin Dose 10 UNIT; Start 01/13/17 at 21:00 Isosorbide Mononitrate (Imdur) 30 mg DAILY PO Last administered on 01/24/17 09:10; Admin Dose 30 MG; Start 01/13/17 at 09:00 Miscellaneous Information 1 ea NOTE XX ; Start 01/13/17 at 01:30 Glucose (Glutose) 15 gm Q15M PRN PO DECREASED GLUCOSE; Start 01/13/17 at 01:30 Glucose (Glutose) 22.5 gm Q15M PRN PO DECREASED GLUCOSE; Start 01/13/17 at 01: 30 Dextrose (D50w Syringe) 25 ml Q15M PRN IV DECREASED GLUCOSE; Start 01/13/17 at 01:30 Dextrose (D50w Syringe) 50 ml Q15M PRN IV DECREASED GLUCOSE; Start 01/13/17 at 01:30 Glucagon (Glucagen) 1 mg Q15M PRN IM DECREASED GLUCOSE; Start 01/13/17 at 01: 30 Glucose 15 gm 15 gm Q15M PRN BUCCAL DECREASED GLUCOSE; Start 01/13/17 at 01:30 Sodium Chloride (NS) 1,000 ml @ 50 mls/hr Q20H IV Last administered on 17:04; Admin Dose 50 MLS/HR; Start 01/15/17 at 16:30; Status Future Hold Acetaminophen (Tylenol Tab) 650 mg Q6H PRN PO PAIN AND OR ELEVATED TEMP Last administered on 01/19/17 16:05; Admin Dose 650 MG; Start 01/19/17 at 16:00 Nifedipine (Procardia Xl) 30 mg BID PO Last administered on 01/24/17 09:09; Admin Dose 30 MG; Start 01/21/17 at 21:00 AROLDO SPAULDING MD Jan 24, 2017 09:24
--- NOTE | 2017-01-24 10:47 | PN ---
Date/Time of Note Date/Time of Note DATE: 01/24/17 TIME: 10:47 Assessment/Plan VTE Prophylaxis VTE Prophylaxis Intervention: LMWH Lines/Catheters IV [facility] h/d access Urinary Cath still in place: No Assessment/Plan Assessment/Plan (1) ESRD (end stage renal disease) on dialysis Status: Chronic Comment: on emergency dialysis with very slow improvment in BUN/ Cr. Next HD tomorrow. (2) Congestive heart failure Status: Acute Comment: symptomatically improved on HD and lasix. Recheck CXR today. Qualifiers: Congestive heart failure type: diastolic Congestive heart failure chronicity: acute on chronic Qualified Code: I50.33 - Acute on chronic diastolic congestive heart failure (3) Diabetes mellitus Status: Chronic Comment: stable on insulin. (4) Anemia Status: Chronic Comment: improved after treatment. Qualifiers: Subjective 24 Hr Interval Summary Constitutional: no complaints Exam/Review of Systems Vital Signs Vitals Vital Signs Date Time Temp Pulse Resp B/P Pulse Ox O2 Delivery O2 Flow Rate FiO2 01/24/17 08:00 74 01/24/17 07:51 97.4 18 138/65 94 01/24/17 01:40 3.0 01/20/17 08:00 Nasal Cannula Intake and Output 01/23/17 01/23/17 01/24/17 14:59 22:59 06:59 Intake Total 600 ml Balance 600 ml Exam Constitutional: alert, oriented Head: normocephalic ENMT: mucosa pink and moist, nl external ears & nose Respiratory: crackles/rales, other (decreased crackles, now only at bases.) Cardiovascular: regular rate and rhythm Gastrointestinal: soft Musculoskeletal: nl extremities to inspection Results Result Diagram: 01/22/17 0626 01/23/17 0825 Results 24 hrs Laboratory Tests Test 01/23/17 11:13 01/23/17 17:21 01/23/17 20:55 01/24/17 09:07 Bedside Glucose 236 H 185 142 97 Medications Medications Current Medications Aspirin (Halfprin) 81 mg DAILY PO Last administered on 01/24/17 09:09; Admin Dose 81 MG; Start 01/13/17 at 09:00 Atorvastatin Calcium (Lipitor) 40 mg QHS PO Last administered on 01/23/17 21: 04; Admin Dose 40 MG; Start 01/13/17 at 21:00 Carvedilol (Coreg) 25 mg BID PO Last administered on 01/24/17 09:09; Admin Dose 25 MG; Start 01/13/17 at 09:00 Insulin Glargine (Lantus) 10 unit QHS SC Last administered on 01/23/17 21:06 ; Admin Dose 10 UNIT; Start 01/13/17 at 21:00 Isosorbide Mononitrate (Imdur) 30 mg DAILY PO Last administered on 01/24/17 09:10; Admin Dose 30 MG; Start 01/13/17 at 09:00 Miscellaneous Information 1 ea NOTE XX ; Start 01/13/17 at 01:30 Glucose (Glutose) 15 gm Q15M PRN PO DECREASED GLUCOSE; Start 01/13/17 at 01:30 Glucose (Glutose) 22.5 gm Q15M PRN PO DECREASED GLUCOSE; Start 01/13/17 at 01: 30 Dextrose (D50w Syringe) 25 ml Q15M PRN IV DECREASED GLUCOSE; Start 01/13/17 at 01:30 Dextrose (D50w Syringe) 50 ml Q15M PRN IV DECREASED GLUCOSE; Start 01/13/17 at 01:30 Glucagon (Glucagen) 1 mg Q15M PRN IM DECREASED GLUCOSE; Start 01/13/17 at 01: 30 Glucose 15 gm 15 gm Q15M PRN BUCCAL DECREASED GLUCOSE; Start 01/13/17 at 01:30 Sodium Chloride (NS) 1,000 ml @ 50 mls/hr Q20H IV Last administered on 17:04; Admin Dose 50 MLS/HR; Start 01/15/17 at 16:30; Status Future Hold Acetaminophen (Tylenol Tab) 650 mg Q6H PRN PO PAIN AND OR ELEVATED TEMP Last administered on 01/19/17 16:05; Admin Dose 650 MG; Start 01/19/17 at 16:00 Nifedipine (Procardia Xl) 30 mg BID PO Last administered on 01/24/17 09:09; Admin Dose 30 MG; Start 01/21/17 at 21:00 TREMAINE RIOS MD Jan 24, 2017 10:47
--- NOTE | 2017-01-24 13:57 | CONS ---
Date/Time of Note Date/Time of Note DATE: 01/24/17 TIME: 13:56 Assessment/Plan Assessment/Plan Chief Complaint/Hosp Course 1. Chronic kidney disease due to 1 functioning kidney and diabetic nephropathy in the remaining kidney. s/p dialysis Wednesday. doing well. next HD planned for tomorrow. 2. Acute diastolic congestive heart failure , improved with HD 3. Anemia of chronic kidney disease 4. Type 2 diabetes mellitus: on iss Problems: Consultation Date/Type/Reason Admit Date/Time Jan 12, 2017 at 21:51 Type of Consultation: Nephrology 24 HR Interval Summary Free Text/Dictation Up eating lunch, no SOB Exam/Review of Systems Vital Signs Vitals Vital Signs Date Time Temp Pulse Resp B/P Pulse Ox O2 Delivery O2 Flow Rate FiO2 01/24/17 12:00 62 01/24/17 11:49 98.0 18 133/63 96 01/24/17 01:40 3.0 01/20/17 08:00 Nasal Cannula Intake and Output 01/23/17 01/23/17 01/24/17 15:00 23:00 07:00 Intake Total 600 ml 850 ml Output Total 350 ml Balance 600 ml 500 ml Exam Constitutional: alert Neck: supple, No jvd Respiratory: clear to auscultation Cardiovascular: regular rate and rhythm Gastrointestinal: soft Extremities: No edema Results Result Diagram: 01/22/17 0626 01/23/17 0825 Results 24 hrs Laboratory Tests Test 01/23/17 17:21 01/23/17 20:55 01/24/17 09:07 01/24/17 11:56 Bedside Glucose 185 142 97 130 Medications Medications Current Medications Aspirin (Halfprin) 81 mg DAILY PO Last administered on 01/24/17 09:09; Admin Dose 81 MG; Start 01/13/17 at 09:00 Atorvastatin Calcium (Lipitor) 40 mg QHS PO Last administered on 01/23/17 21: 04; Admin Dose 40 MG; Start 01/13/17 at 21:00 Carvedilol (Coreg) 25 mg BID PO Last administered on 01/24/17 09:09; Admin Dose 25 MG; Start 01/13/17 at 09:00 Insulin Glargine (Lantus) 10 unit QHS SC Last administered on 01/23/17 21:06 ; Admin Dose 10 UNIT; Start 01/13/17 at 21:00 Isosorbide Mononitrate (Imdur) 30 mg DAILY PO Last administered on 01/24/17 09:10; Admin Dose 30 MG; Start 01/13/17 at 09:00 Miscellaneous Information 1 ea NOTE XX ; Start 01/13/17 at 01:30 Glucose (Glutose) 15 gm Q15M PRN PO DECREASED GLUCOSE; Start 01/13/17 at 01:30 Glucose (Glutose) 22.5 gm Q15M PRN PO DECREASED GLUCOSE; Start 01/13/17 at 01: 30 Dextrose (D50w Syringe) 25 ml Q15M PRN IV DECREASED GLUCOSE; Start 01/13/17 at 01:30 Dextrose (D50w Syringe) 50 ml Q15M PRN IV DECREASED GLUCOSE; Start 01/13/17 at 01:30 Glucagon (Glucagen) 1 mg Q15M PRN IM DECREASED GLUCOSE; Start 01/13/17 at 01: 30 Glucose 15 gm 15 gm Q15M PRN BUCCAL DECREASED GLUCOSE; Start 01/13/17 at 01:30 Sodium Chloride (NS) 1,000 ml @ 50 mls/hr Q20H IV Last administered on 17:04; Admin Dose 50 MLS/HR; Start 01/15/17 at 16:30; Status Future Hold Acetaminophen (Tylenol Tab) 650 mg Q6H PRN PO PAIN AND OR ELEVATED TEMP Last administered on 01/19/17 16:05; Admin Dose 650 MG; Start 01/19/17 at 16:00 Nifedipine (Procardia Xl) 30 mg BID PO Last administered on 01/24/17 09:09; Admin Dose 30 MG; Start 01/21/17 at 21:00 LUCIANO MCCLENDON MD Jan 24, 2017 13:57
[2017-01-24] MEDS: ENOXAPARIN 80 MG/0.8 ML SYG SC SCH (17:44)
[2017-01-24] MEDS: ATORVASTATIN 40 MG TAB PO SCH (21:17)
[2017-01-24] MEDS: INSULIN GLARGINE [LANtus] 3 ML PEN SC SCH (21:21)
[2017-01-25] VITALS (16 sets, daily range): BP systolic 111–142; BP diastolic 45–68; PULSE 63–72; RESP 18–20
[2017-01-25] MEDS: FUROSEMIDE 40 MG TAB PO SCH ×2 (06:00→17:02)
--- NOTE | 2017-01-25 06:27 | RADRPT ---
PROCEDURE: XR Chest. CLINICAL INDICATION: CHF TECHNIQUE: PA and lateral views of the chest were obtained. COMPARISON: Chest x-ray dated 01/21/[address] chest dated 04/22/2016 FINDINGS: There is mild coarsening of the interstitial markings. No focal airspace opacification, pleural effu jennifer or pneumothorax is seen. There is a 1.3 cm nodule within the left upper lobe. The cardiomediast inal silhouette is within normal limits for size. Calcifications are seen within the aortic arch. T he osseous structures are unremarkable. IMPRESSION: 1. Chronic-appearing interstitial changes. No significant interval change. 2. 1.3 cm nodule in the left upper lobe. Follow-up CT of the chest is recommended to evaluate for i nterval growth. 3. Aortic atherosclerosis. RPTAT: HH .Jennifer Conti MD, Date Time Electronically viewed and signed by .Jennifer Conti MD, on 01/25/2017 06:27 .G/
[2017-01-25 07:23] LABS: BASOPHILS % 0.4 % (0.0-2.0); EOSINOPHILS # 0.3 10^3/ul (0.0-0.5); EOSINOPHILS % 6.5 % (0.0-7.0); HEMOGLOBIN 10.7 g/dl (12.0-16.0); LYMPHOCYTES # 1.7 10^3/ul (0.8-2.9); LYMPHOCYTES % 35.3 % (15.0-51.0); MEAN CORPUSCULAR HGB CONC 34.5 g/dl (32.0-37.0); MEAN CORPUSCULAR VOLUME 89.9 fl (82.0-101.0); MEAN PLATELET VOLUME 10.3 fl (7.4-10.4); MONOCYTE # 0.3 10^3/ul (0.3-0.9); MONOCYTES % 6.3 % (0.0-11.0); NEUTROPHIL # 2.5 10^3/ul (1.6-7.5); NEUTROPHILS % 51.1 % (39.0-77.0); PLATELET COUNT 154 10^3/UL (140-415); RED BLOOD COUNT 3.45 10^6/ul (4.20-5.40); RED CELL DISTRIBUTION WIDTH 13.2 % (11.5-14.5); WHITE BLOOD COUNT 4.8 10^3/ul (4.8-10.8)
[2017-01-25 07:48] LABS: ALBUMIN 3.8 g/dl (3.3-4.9); ALBUMIN/GLOBULIN RATIO 1.02; BILIRUBIN,INDIRECT 0.1 mg/dl (0-1.1); BILIRUBIN,TOTAL 0.1 mg/dl (0.2-1.3); CALCIUM 8.6 mg/dl (8.4-10.2); CREATININE 3.26 mg/dl (0.44-1.00); POTASSIUM 3.5 mmol/L (3.5-5.1); TOTAL PROTEIN 7.5 g/dl (6.1-8.1)
[2017-01-25] MEDS: INSULIN ASPART SC SCH ×3 (08:00→17:07)
[2017-01-25] MEDS: [UNRECOGNIZED DRUG - OTHER] SC SCH ×3 (08:00→17:07)
[2017-01-25] MEDS: CALCIUM ACETATE 667 MG CAP PO SCH ×3 (08:29→17:05)
[2017-01-25] MEDS: ASPIRIN (EC) 81 MG TAB PO SCH (08:30)
[2017-01-25] MEDS: ISOSORBIDE MONONITRATE(SR)30 MG TAB PO SCH (08:30)
[2017-01-25] MEDS: NIFEdipine (XL) 30 MG TAB PO SCH ×2 (08:30→22:11)
--- NOTE | 2017-01-25 08:50 | CONS ---
Date/Time of Note Date/Time of Note DATE: 01/25/17 TIME: 08:46 Assessment/Plan Assessment/Plan Chief Complaint/Hosp Course 1. Chronic kidney disease due to 1 functioning kidney and diabetic nephropathy in the remaining kidney. This patient was on hemodialysis for about a week in April 2016 . She was dialyzed for several treatments via a femoral catheter. Her renal function improved and the catheter was removed and she was sent home and was followed as an outpatient. She came in last week with increasing shortness of breath, renal failure, congestive heart failure, anemia. She started hemodialysis last week and seemed to tolerate the dialysis well. An attempt was made today to do hemodialysis; however, her left femoral catheter was not working well. It could be thrombosed. An attempt will be made to insert Activase to try and improve catheter function. Will reorder hemodialysis for tomorrow. 2. Congestive heart failure , improved 3. Anemia of chronic kidney disease 4. Type 2 diabetes mellitus Problems: Consultation Date/Type/Reason Admit Date/Time Jan 12, 2017 at 21:51 Type of Consultation: Nephrology 24 HR Interval Summary Free Text/Dictation She is awake and alert. She denies shortness of breath. An attempt was made to dialyze her today; however, the femoral catheter was not working well. Constitutional: no complaints Exam/Review of Systems Vital Signs Vitals Vital Signs Date Time Temp Pulse Resp B/P Pulse Ox O2 Delivery O2 Flow Rate FiO2 01/25/17 08:28 71 01/25/17 07:42 98.3 18 122/61 94 01/25/17 01:50 3.0 Intake and Output 01/24/17 01/24/17 01/25/17 15:00 23:00 07:00 Intake Total 400 ml 550 ml Output Total 400 ml Balance 400 ml 150 ml Exam Constitutional: alert, frail Respiratory: clear to auscultation, normal air movement Cardiovascular: regular rate and rhythm Gastrointestinal: non-tender, soft Musculoskeletal: nl extremities to inspection Results Result Diagram: 01/25/17 0655 01/25/17 0655 Results 24 hrs Laboratory Tests Test 01/24/17 09:07 01/24/17 11:56 01/24/17 17:43 01/24/17 20:51 Bedside Glucose 97 130 144 167 Test 01/25/17 06:55 01/25/17 08:28 White Blood Count 4.8 # Red Blood Count 3.45 L Hemoglobin 10.7 L Hematocrit 31.0 L Mean Corpuscular Volume 89.9 Mean Corpuscular Hemoglobin 31.0 Mean Corpuscular Hemoglobin Concent 34.5 Red Cell Distribution Width 13.2 Platelet Count 154 # Mean Platelet Volume 10.3 Neutrophils % 51.1 Lymphocytes % 35.3 Monocytes % 6.3 Eosinophils % 6.5 Basophils % 0.4 Nucleated Red Blood Cells % 0.0 Neutrophils # 2.5 Lymphocytes # 1.7 Monocytes # 0.3 Eosinophils # 0.3 Basophils # 0.0 Nucleated Red Blood Cells # 0.0 Sodium Level 138 Potassium Level 3.5 Chloride Level 96 L Carbon Dioxide Level 28 Anion Gap 18 H Blood Urea Nitrogen 44 H Creatinine 3.26 H Glucose Level 146 # Calcium Level 8.6 Total Bilirubin 0.1 L Direct Bilirubin 0.00 Indirect Bilirubin 0.1 Aspartate Amino Transf (AST/SGOT) 23 Alanine Aminotransferase (ALT/SGPT) 27 Alkaline Phosphatase 79 Total Protein 7.5 Albumin 3.8 Globulin 3.70 H Albumin/Globulin Ratio 1.02 Bedside Glucose 108 Medications Medications Current Medications Aspirin (Halfprin) 81 mg DAILY PO Last administered on 01/25/17 08:30; Admin Dose 81 MG; Start 01/13/17 at 09:00 Atorvastatin Calcium (Lipitor) 40 mg QHS PO Last administered on 01/24/17 21: 17; Admin Dose 40 MG; Start 01/13/17 at 21:00 Carvedilol (Coreg) 25 mg BID PO Last administered on 01/25/17 08:30; Admin Dose 25 MG; Start 01/13/17 at 09:00 Insulin Glargine (Lantus) 10 unit QHS SC Last administered on 01/24/17 21:21 ; Admin Dose 10 UNIT; Start 01/13/17 at 21:00 Isosorbide Mononitrate (Imdur) 30 mg DAILY PO Last administered on 01/25/17 08:30; Admin Dose 30 MG; Start 01/13/17 at 09:00 Miscellaneous Information 1 ea NOTE XX ; Start 01/13/17 at 01:30 Glucose (Glutose) 15 gm Q15M PRN PO DECREASED GLUCOSE; Start 01/13/17 at 01:30 Glucose (Glutose) 22.5 gm Q15M PRN PO DECREASED GLUCOSE; Start 01/13/17 at 01: 30 Dextrose (D50w Syringe) 25 ml Q15M PRN IV DECREASED GLUCOSE; Start 01/13/17 at 01:30 Dextrose (D50w Syringe) 50 ml Q15M PRN IV DECREASED GLUCOSE; Start 01/13/17 at 01:30 Glucagon (Glucagen) 1 mg Q15M PRN IM DECREASED GLUCOSE; Start 01/13/17 at 01: 30 Glucose 15 gm 15 gm Q15M PRN BUCCAL DECREASED GLUCOSE; Start 01/13/17 at 01:30 Sodium Chloride (NS) 1,000 ml @ 50 mls/hr Q20H IV Last administered on 17:04; Admin Dose 50 MLS/HR; Start 01/15/17 at 16:30; Status Future Hold Acetaminophen (Tylenol Tab) 650 mg Q6H PRN PO PAIN AND OR ELEVATED TEMP Last administered on 01/19/17 16:05; Admin Dose 650 MG; Start 01/19/17 at 16:00 Nifedipine (Procardia Xl) 30 mg BID PO Last administered on 01/25/17 08:30; Admin Dose 30 MG; Start 01/21/17 at 21:00 Enoxaparin Sodium (Lovenox) 70 mg Q24H SC Last administered on 01/24/17 17:44 ; Admin Dose 70 MG; Start 01/24/17 at 16:30 HOPE DOW MD Jan 25, 2017 08:50
[2017-01-25] MEDS ORDERED: ALTEPLASE (CATHFLO) 2 MG INJ CATHETER ONE (09:00)
--- NOTE | 2017-01-25 14:36 | CONS ---
Date/Time of Note Date/Time of Note DATE: 01/25/17 TIME: 14:34 Assessment/Plan Assessment/Plan Additional Assessment/Plan Acute decompensated diastolic congestive heart failure Preserved ejection fraction MARKEL with hx of CKD, restarted hemodialysis Hypertension Diabetes -Patient status post restarting hemodialysis with improvement in symptoms of shortness of breath but currently issues with hemodialysis catheter. Blood pressure trend overall improved, continue antihypertensives with holding parameters. Consultation Date/Type/Reason Admit Date/Time Jan 12, 2017 at 21:51 Type of Consultation: cv 24 HR Interval Summary Free Text/Dictation Denies shortness of breath, unable to perform hemodialysis as per patient secondary possibly dysfunctional catheter Exam/Review of Systems Vital Signs Vitals Vital Signs Date Time Temp Pulse Resp B/P Pulse Ox O2 Delivery O2 Flow Rate FiO2 01/25/17 12:27 63 01/25/17 11:59 97.4 18 112/52 95 01/25/17 01:50 3.0 Intake and Output 01/24/17 01/24/17 01/25/17 14:59 22:59 06:59 Intake Total 850 ml 400 ml 1050 ml Output Total 350 ml 900 ml Balance 500 ml 400 ml 150 ml Exam Sitting in chair, no apparent distress Constitutional: alert, oriented Head: normocephalic Respiratory: other (Coarse breath sounds bilaterally, no wheezing) Cardiovascular: other (S1-S2 heard), regular rate and rhythm Gastrointestinal: bowel sounds, non-tender, soft Extremities: edema (Trace) Results Result Diagram: 01/25/17 0655 01/25/17 0655 Results 24 hrs Laboratory Tests Test 01/24/17 17:43 01/24/17 20:51 01/25/17 06:55 01/25/17 08:28 Bedside Glucose 144 167 108 White Blood Count 4.8 # Red Blood Count 3.45 L Hemoglobin 10.7 L Hematocrit 31.0 L Mean Corpuscular Volume 89.9 Mean Corpuscular Hemoglobin 31.0 Mean Corpuscular Hemoglobin Concent 34.5 Red Cell Distribution Width 13.2 Platelet Count 154 # Mean Platelet Volume 10.3 Neutrophils % 51.1 Lymphocytes % 35.3 Monocytes % 6.3 Eosinophils % 6.5 Basophils % 0.4 Nucleated Red Blood Cells % 0.0 Neutrophils # 2.5 Lymphocytes # 1.7 Monocytes # 0.3 Eosinophils # 0.3 Basophils # 0.0 Nucleated Red Blood Cells # 0.0 Sodium Level 138 Potassium Level 3.5 Chloride Level 96 L Carbon Dioxide Level 28 Anion Gap 18 H Blood Urea Nitrogen 44 H Creatinine 3.26 H Glucose Level 146 # Calcium Level 8.6 Total Bilirubin 0.1 L Direct Bilirubin 0.00 Indirect Bilirubin 0.1 Aspartate Amino Transf (AST/SGOT) 23 Alanine Aminotransferase (ALT/SGPT) 27 Alkaline Phosphatase 79 Total Protein 7.5 Albumin 3.8 Globulin 3.70 H Albumin/Globulin Ratio 1.02 Test 01/25/17 12:16 Bedside Glucose 213 Medications Medications Current Medications Aspirin (Halfprin) 81 mg DAILY PO Last administered on 01/25/17 08:30; Admin Dose 81 MG; Start 01/13/17 at 09:00 Atorvastatin Calcium (Lipitor) 40 mg QHS PO Last administered on 01/24/17 21: 17; Admin Dose 40 MG; Start 01/13/17 at 21:00 Carvedilol (Coreg) 25 mg BID PO Last administered on 01/25/17 08:30; Admin Dose 25 MG; Start 01/13/17 at 09:00 Insulin Glargine (Lantus) 10 unit QHS SC Last administered on 01/24/17 21:21 ; Admin Dose 10 UNIT; Start 01/13/17 at 21:00 Isosorbide Mononitrate (Imdur) 30 mg DAILY PO Last administered on 01/25/17 08:30; Admin Dose 30 MG; Start 01/13/17 at 09:00 Miscellaneous Information 1 ea NOTE XX ; Start 01/13/17 at 01:30 Glucose (Glutose) 15 gm Q15M PRN PO DECREASED GLUCOSE; Start 01/13/17 at 01:30 Glucose (Glutose) 22.5 gm Q15M PRN PO DECREASED GLUCOSE; Start 01/13/17 at 01: 30 Dextrose (D50w Syringe) 25 ml Q15M PRN IV DECREASED GLUCOSE; Start 01/13/17 at 01:30 Dextrose (D50w Syringe) 50 ml Q15M PRN IV DECREASED GLUCOSE; Start 01/13/17 at 01:30 Glucagon (Glucagen) 1 mg Q15M PRN IM DECREASED GLUCOSE; Start 01/13/17 at 01: 30 Glucose 15 gm 15 gm Q15M PRN BUCCAL DECREASED GLUCOSE; Start 01/13/17 at 01:30 Sodium Chloride (NS) 1,000 ml @ 50 mls/hr Q20H IV Last administered on 17:04; Admin Dose 50 MLS/HR; Start 01/15/17 at 16:30; Status Future Hold Acetaminophen (Tylenol Tab) 650 mg Q6H PRN PO PAIN AND OR ELEVATED TEMP Last administered on 01/19/17 16:05; Admin Dose 650 MG; Start 01/19/17 at 16:00 Nifedipine (Procardia Xl) 30 mg BID PO Last administered on 01/25/17 08:30; Admin Dose 30 MG; Start 01/21/17 at 21:00 Enoxaparin Sodium (Lovenox) 70 mg Q24H SC Last administered on 01/24/17 17:44 ; Admin Dose 70 MG; Start 01/24/17 at 16:30 Dariel Juarez DO Jan 25, 2017 14:36
--- NOTE | 2017-01-25 15:10 | PN ---
Date/Time of Note Date/Time of Note DATE: 01/25/17 TIME: 15:08 Assessment/Plan VTE Prophylaxis VTE Prophylaxis Intervention: LMWH Lines/Catheters IV Catheter Type (from Nrs): H/D ACCESS Central line still needed: Yes Urinary Cath still in place: No Assessment/Plan Problems: (1) Acute on chronic renal failure Status: Acute Comment: Plan to clear catheter and reschedule HD tomorrow per Renal. Qualifiers: Acute renal failure type: unspecified Chronic kidney disease stage: unspecified stage Qualified Code: N17.9 - Acute renal failure superimposed on chronic kidney disease, unspecified CKD stage, unspecified acute renal failure type (2) Acute exacerbation of CHF (congestive heart failure) Status: Acute Comment: Continue Lasix and HD . Qualifiers: Congestive heart failure type: diastolic Qualified Code: I50.33 - Acute on chronic diastolic congestive heart failure (3) Anemia Status: Chronic Qualifiers: Anemia type: due to chronic kidney disease (4) Diabetes mellitus Status: Chronic (5) Hypertension Status: Chronic (6) Pulmonary nodule, left Status: Chronic Comment: Left upper lobe nodule on cxr . Check chest CT without contrast. Subjective 24 Hr Interval Summary Free Text/Dictation Unable to do HD due to femoral catheter malfunction. Exam/Review of Systems Vital Signs Vitals Vital Signs Date Time Temp Pulse Resp B/P Pulse Ox O2 Delivery O2 Flow Rate FiO2 01/25/17 12:27 63 01/25/17 11:59 97.4 18 112/52 95 01/25/17 01:50 3.0 Intake and Output 01/24/17 01/24/17 01/25/17 15:00 23:00 07:00 Intake Total 400 ml 1050 ml Output Total 900 ml Balance 400 ml 150 ml Exam Constitutional: alert, oriented Head: atraumatic, normocephalic Neck: non-tender, supple Respiratory: crackles/rales, normal air movement Cardiovascular: nl pulses, regular rate and rhythm Gastrointestinal: non-tender, soft Musculoskeletal: nl extremities to inspection, other (left groin catheter site WNL) Results Result Diagram: 01/25/17 0655 01/25/17 0655 Results 24 hrs Laboratory Tests Test 01/24/17 17:43 01/24/17 20:51 01/25/17 06:55 01/25/17 08:28 Bedside Glucose 144 167 108 White Blood Count 4.8 # Red Blood Count 3.45 L Hemoglobin 10.7 L Hematocrit 31.0 L Mean Corpuscular Volume 89.9 Mean Corpuscular Hemoglobin 31.0 Mean Corpuscular Hemoglobin Concent 34.5 Red Cell Distribution Width 13.2 Platelet Count 154 # Mean Platelet Volume 10.3 Neutrophils % 51.1 Lymphocytes % 35.3 Monocytes % 6.3 Eosinophils % 6.5 Basophils % 0.4 Nucleated Red Blood Cells % 0.0 Neutrophils # 2.5 Lymphocytes # 1.7 Monocytes # 0.3 Eosinophils # 0.3 Basophils # 0.0 Nucleated Red Blood Cells # 0.0 Sodium Level 138 Potassium Level 3.5 Chloride Level 96 L Carbon Dioxide Level 28 Anion Gap 18 H Blood Urea Nitrogen 44 H Creatinine 3.26 H Glucose Level 146 # Calcium Level 8.6 Total Bilirubin 0.1 L Direct Bilirubin 0.00 Indirect Bilirubin 0.1 Aspartate Amino Transf (AST/SGOT) 23 Alanine Aminotransferase (ALT/SGPT) 27 Alkaline Phosphatase 79 Total Protein 7.5 Albumin 3.8 Globulin 3.70 H Albumin/Globulin Ratio 1.02 Test 01/25/17 12:16 Bedside Glucose 213 Medications Medications Current Medications Aspirin (Halfprin) 81 mg DAILY PO Last administered on 01/25/17 08:30; Admin Dose 81 MG; Start 01/13/17 at 09:00 Atorvastatin Calcium (Lipitor) 40 mg QHS PO Last administered on 01/24/17 21: 17; Admin Dose 40 MG; Start 01/13/17 at 21:00 Carvedilol (Coreg) 25 mg BID PO Last administered on 01/25/17 08:30; Admin Dose 25 MG; Start 01/13/17 at 09:00 Insulin Glargine (Lantus) 10 unit QHS SC Last administered on 01/24/17 21:21 ; Admin Dose 10 UNIT; Start 01/13/17 at 21:00 Isosorbide Mononitrate (Imdur) 30 mg DAILY PO Last administered on 01/25/17 08:30; Admin Dose 30 MG; Start 01/13/17 at 09:00 Miscellaneous Information 1 ea NOTE XX ; Start 01/13/17 at 01:30 Glucose (Glutose) 15 gm Q15M PRN PO DECREASED GLUCOSE; Start 01/13/17 at 01:30 Glucose (Glutose) 22.5 gm Q15M PRN PO DECREASED GLUCOSE; Start 01/13/17 at 01: 30 Dextrose (D50w Syringe) 25 ml Q15M PRN IV DECREASED GLUCOSE; Start 01/13/17 at 01:30 Dextrose (D50w Syringe) 50 ml Q15M PRN IV DECREASED GLUCOSE; Start 01/13/17 at 01:30 Glucagon (Glucagen) 1 mg Q15M PRN IM DECREASED GLUCOSE; Start 01/13/17 at 01: 30 Glucose 15 gm 15 gm Q15M PRN BUCCAL DECREASED GLUCOSE; Start 01/13/17 at 01:30 Sodium Chloride (NS) 1,000 ml @ 50 mls/hr Q20H IV Last administered on 17:04; Admin Dose 50 MLS/HR; Start 01/15/17 at 16:30; Status Future Hold Acetaminophen (Tylenol Tab) 650 mg Q6H PRN PO PAIN AND OR ELEVATED TEMP Last administered on 01/19/17 16:05; Admin Dose 650 MG; Start 01/19/17 at 16:00 Nifedipine (Procardia Xl) 30 mg BID PO Last administered on 01/25/17 08:30; Admin Dose 30 MG; Start 01/21/17 at 21:00 Enoxaparin Sodium (Lovenox) 70 mg Q24H SC Last administered on 01/24/17 17:44 ; Admin Dose 70 MG; Start 01/24/17 at 16:30 TREMAINE RIOS MD Jan 25, 2017 15:10
[2017-01-25] MEDS: ENOXAPARIN 80 MG/0.8 ML SYG SC SCH (17:08)
[2017-01-25] MEDS: ATORVASTATIN 40 MG TAB PO SCH (22:11)
[2017-01-25] MEDS: INSULIN GLARGINE [LANtus] 3 ML PEN SC SCH (22:20)
[2017-01-26] VITALS (19 sets, daily range): BP systolic 94–137; BP diastolic 49–68; PULSE 55–75; RESP 16–20
[2017-01-26] MEDS: FUROSEMIDE 40 MG TAB PO SCH ×3 (05:34→17:17)
--- NOTE | 2017-01-26 05:58 | RADRPT ---
PROCEDURE: CT chest without intravenous contrast CLINICAL INDICATION: Left pulmonary nodule. COMPARISON: CT chest 01/10/2016, 04/22/2016, chest plain film 01/24/2017. TECHNIQUE: Axial images of the chest with sagittal and coronal reconstructions. DOSE ESTIMATE: CTDI vol = 11.05 mGy. DLP = 415.99 mGy-cm. One or more of the following dose reduct ion techniques were used: automated exposure control, adjustment of the mA and/or kV according to pa tient size, or use of iterative reconstruction. DICOM images are available. FINDINGS: Lungs: Again demonstrated is a noncalcified slightly spiculated pulmonary nodule within the superior left lower lobe measuring 11 x 13 x 12 mm. Findings are grossly similar to CT chest dated 7. On CT chest dated 01/10/2016 this nodule measured approximately 9 x 9 mm in AP and transverse dim ensions respectively. Right apical and posterior upper lobe, bilateral lower lobe and right middle l obe scar is present. Pleura: Interval resolution of bilateral, right larger than left pleural effusions with right lower lobe consolidation or atelectasis the Airway: The central tracheobronchial tree is clear. Mediastinum and dania: Stable lower right paratracheal lymph node measuring 9 mm on axial image 30. S table fat-containing pretracheal lymph node measuring 9 mm on axial image 38. Vessels: Atherosclerotic calcifications involve the thoracic aorta and origin of the left subclavian artery. Heart: There is cardiomegaly without pericardial effusion. There are diffuse coronary arterial athe rosclerotic calcifications. Bones: Stable expansile lesion of the right anterolateral 8th rib is present on axial image 72 repre senting either the sequela of old fracture or fibrous dysplasia. Stable remote compression fractures of the thoracic spine . Soft tissues: Normal. Visualized neck: Normal. Visualized abdomen: Cholelithiasis without evidence of gallbladder distension, adjacent mesenteric i nflammatory changes or biliary ductal dilatation. Surgical absence of the right kidney. Additional comment: None. IMPRESSION: 1. Left lower lobe pulmonary nodule (superior segment) measuring 11 x 13 x [address] to CT chest dated 04/23/2016 but increased in size relative to CT chest of 01/10/2016 (9 x 9mm). Shreya nued radiology surveillance per Fleischner Society guidelines. 2. Resolved right lower lobe pneumonic consolidation and pleural effusion. 3. Stable mediastinal lymph nodes likely reactive in etiology. 4. Stable expansile lesion involving the right anterolateral eighth rib representing either the seq uela of old trauma or fibrous dysplasia. 5. Cholelithiasis. 6. Surgical absence of the right kidney. RPTAT: HRSR Kelley Zapata Physician Date Time Electronically viewed and signed by Kelley Zapata, Physician on 01/26/2017 05:58 RR/
[2017-01-26 07:13] LABS: BASOPHILS % 0.6 % (0.0-2.0); EOSINOPHILS # 0.4 10^3/ul (0.0-0.5); EOSINOPHILS % 6.1 % (0.0-7.0); HEMATOCRIT 30.7 % (37.0-47.0); HEMOGLOBIN 10.8 g/dl (12.0-16.0); LYMPHOCYTES # 2.8 10^3/ul (0.8-2.9); LYMPHOCYTES % 39.7 % (15.0-51.0); MEAN CORPUSCULAR HEMOGLOBIN 31.4 pg (29.0-33.0); MEAN CORPUSCULAR HGB CONC 35.2 g/dl (32.0-37.0); MEAN CORPUSCULAR VOLUME 89.2 fl (82.0-101.0); MEAN PLATELET VOLUME 10.1 fl (7.4-10.4); MONOCYTE # 0.5 10^3/ul (0.3-0.9); MONOCYTES % 6.7 % (0.0-11.0); NEUTROPHIL # 3.3 10^3/ul (1.6-7.5); NEUTROPHILS % 46.8 % (39.0-77.0); PLATELET COUNT 181 10^3/UL (140-415); RED BLOOD COUNT 3.44 10^6/ul (4.20-5.40); RED CELL DISTRIBUTION WIDTH 13.6 % (11.5-14.5); WHITE BLOOD COUNT 7.1 10^3/ul (4.8-10.8)
[2017-01-26 07:39] LABS: ALBUMIN 3.8 g/dl (3.3-4.9); ALBUMIN/GLOBULIN RATIO 1.08; BILIRUBIN,INDIRECT 0.1 mg/dl (0-1.1); BILIRUBIN,TOTAL 0.1 mg/dl (0.2-1.3); CALCIUM 8.9 mg/dl (8.4-10.2); CREATININE 5.19 mg/dl (0.44-1.00); POTASSIUM 4.5 mmol/L (3.5-5.1); TOTAL PROTEIN 7.3 g/dl (6.1-8.1)
[2017-01-26] MEDS: [UNRECOGNIZED DRUG - OTHER] SC SCH ×3 (08:00→17:17)
[2017-01-26] MEDS: CALCIUM ACETATE 667 MG CAP PO SCH ×4 (08:00→17:13)
[2017-01-26] MEDS: INSULIN ASPART SC SCH ×3 (08:00→17:17)
[2017-01-26] MEDS: ASPIRIN (EC) 81 MG TAB PO SCH (09:05)
[2017-01-26] MEDS: NIFEdipine (XL) 30 MG TAB PO SCH ×2 (09:06→20:48)
[2017-01-26] MEDS: ISOSORBIDE MONONITRATE(SR)30 MG TAB PO SCH (09:06)
--- NOTE | 2017-01-26 12:11 | CONS ---
Date/Time of Note Date/Time of Note DATE: 01/26/17 TIME: 12:10 Assessment/Plan Assessment/Plan Additional Assessment/Plan Acute decompensated diastolic congestive heart failure Preserved ejection fraction MARKEL with hx of CKD, restarted hemodialysis Hypertension Diabetes -Patient status post restarting hemodialysis on this admission with progressive improvement shortness of breath. Fluid management with diuretics and hemodialysis as per our nephrology colleagues. Blood pressure trend overall improved, continue antihypertensives with holding parameters. DC planning Consultation Date/Type/Reason Admit Date/Time Jan 12, 2017 at 21:51 Type of Consultation: cv 24 HR Interval Summary Free Text/Dictation Shortness of breath continues to improve. Denies chest pain Exam/Review of Systems Vital Signs Vitals Vital Signs Date Time Temp Pulse Resp B/P Pulse Ox O2 Delivery O2 Flow Rate FiO2 01/26/17 11:59 97.0 63 18 120/68 95 01/26/17 03:38 2.0 01/25/17 20:00 Nasal Cannula Intake and Output 01/25/17 01/25/17 01/26/17 15:00 23:00 07:00 Intake Total 675 ml Balance 675 ml Exam No apparent distress, sitting in chair Constitutional: alert, obese, oriented Head: normocephalic Respiratory: other (Coarse breath sounds bilaterally, no wheezing) Cardiovascular: other (S1-S2 heard), regular rate and rhythm Gastrointestinal: bowel sounds, non-tender, soft Extremities: edema Results Result Diagram: 01/26/17 0656 01/26/17 0656 Results 24 hrs Laboratory Tests Test 01/25/17 12:16 01/25/17 17:00 01/25/17 22:10 01/26/17 06:56 Bedside Glucose 213 145 134 White Blood Count 7.1 # Red Blood Count 3.44 L Hemoglobin 10.8 L Hematocrit 30.7 L Mean Corpuscular Volume 89.2 Mean Corpuscular Hemoglobin 31.4 Mean Corpuscular Hemoglobin Concent 35.2 Red Cell Distribution Width 13.6 Platelet Count 181 Mean Platelet Volume 10.1 Neutrophils % 46.8 Lymphocytes % 39.7 Monocytes % 6.7 Eosinophils % 6.1 Basophils % 0.6 Nucleated Red Blood Cells % 0.0 Neutrophils # 3.3 Lymphocytes # 2.8 Monocytes # 0.5 Eosinophils # 0.4 Basophils # 0.0 Nucleated Red Blood Cells # 0.0 Sodium Level 135 Potassium Level 4.5 Chloride Level 97 Carbon Dioxide Level 24 Anion Gap 19 H Blood Urea Nitrogen 71 H Creatinine 5.19 H Glucose Level 87 # Calcium Level 8.9 Total Bilirubin 0.1 L Direct Bilirubin 0.00 Indirect Bilirubin 0.1 Aspartate Amino Transf (AST/SGOT) 20 Alanine Aminotransferase (ALT/SGPT) 27 Alkaline Phosphatase 72 Total Protein 7.3 Albumin 3.8 Globulin 3.50 H Albumin/Globulin Ratio 1.08 Test 01/26/17 08:00 01/26/17 11:54 Bedside Glucose 131 153 Medications Medications Current Medications Aspirin (Halfprin) 81 mg DAILY PO Last administered on 01/26/17 09:05; Admin Dose 81 MG; Start 01/13/17 at 09:00 Atorvastatin Calcium (Lipitor) 40 mg QHS PO Last administered on 01/25/17 22: 11; Admin Dose 40 MG; Start 01/13/17 at 21:00 Carvedilol (Coreg) 25 mg BID PO Last administered on 01/26/17 09:07; Admin Dose 25 MG; Start 01/13/17 at 09:00 Insulin Glargine (Lantus) 10 unit QHS SC Last administered on 01/25/17 22:20 ; Admin Dose 10 UNIT; Start 01/13/17 at 21:00 Isosorbide Mononitrate (Imdur) 30 mg DAILY PO Last administered on 01/26/17 09:06; Admin Dose 30 MG; Start 01/13/17 at 09:00 Miscellaneous Information 1 ea NOTE XX ; Start 01/13/17 at 01:30 Glucose (Glutose) 15 gm Q15M PRN PO DECREASED GLUCOSE; Start 01/13/17 at 01:30 Glucose (Glutose) 22.5 gm Q15M PRN PO DECREASED GLUCOSE; Start 01/13/17 at 01: 30 Dextrose (D50w Syringe) 25 ml Q15M PRN IV DECREASED GLUCOSE; Start 01/13/17 at 01:30 Dextrose (D50w Syringe) 50 ml Q15M PRN IV DECREASED GLUCOSE; Start 01/13/17 at 01:30 Glucagon (Glucagen) 1 mg Q15M PRN IM DECREASED GLUCOSE; Start 01/13/17 at 01: 30 Glucose 15 gm 15 gm Q15M PRN BUCCAL DECREASED GLUCOSE; Start 01/13/17 at 01:30 Sodium Chloride (NS) 1,000 ml @ 50 mls/hr Q20H IV Last administered on 17:04; Admin Dose 50 MLS/HR; Start 01/15/17 at 16:30; Status Future Hold Acetaminophen (Tylenol Tab) 650 mg Q6H PRN PO PAIN AND OR ELEVATED TEMP Last administered on 01/19/17 16:05; Admin Dose 650 MG; Start 01/19/17 at 16:00 Nifedipine (Procardia Xl) 30 mg BID PO Last administered on 01/26/17 09:06; Admin Dose 30 MG; Start 01/21/17 at 21:00 Enoxaparin Sodium (Lovenox) 70 mg Q24H SC Last administered on 01/25/17 17:08 ; Admin Dose 70 MG; Start 01/24/17 at 16:30 Dariel Juarez DO Jan 26, 2017 12:11
--- NOTE | 2017-01-26 13:29 | CONS ---
Date/Time of Note Date/Time of Note DATE: 01/26/17 TIME: 13:23 Assessment/Plan Assessment/Plan Chief Complaint/Hosp Course 1. Chronic kidney disease due to 1 functioning kidney and diabetic nephropathy in the remaining kidney. This patient was on hemodialysis for about a week in April 2016 . She was dialyzed for several treatments via a femoral catheter. Her renal function improved and the catheter was removed and she was sent home and was followed as an outpatient. She came in last week with increasing shortness of breath, renal failure, congestive heart failure, anemia. She started hemodialysis last week and seemed to tolerate the dialysis well. An attempt was made today to do hemodialysis yesterday; however, her left femoral catheter was not working well. The catheter was thrombosed. Activase was inserted yesterday. She was able to be dialyzed today. I will discuss her case with Dr. Gan , her primary care physician , regarding discharge and/or further hemodialysis. 2. Congestive heart failure , improved 3. Anemia of chronic kidney disease 4. Type 2 diabetes mellitus Problems: Consultation Date/Type/Reason Admit Date/Time Jan 12, 2017 at 21:51 Type of Consultation: cv 24 HR Interval Summary Free Text/Dictation Patient is sitting in her room eating lunch. She is overall feeling better. She had a hemodialysis treatment this morning. 2 L of fluid were removed this morning with dialysis. Constitutional: improved, no complaints Exam/Review of Systems Vital Signs Vitals Vital Signs Date Time Temp Pulse Resp B/P Pulse Ox O2 Delivery O2 Flow Rate FiO2 01/26/17 11:59 97.0 63 18 120/68 95 01/26/17 03:38 2.0 01/25/17 20:00 Nasal Cannula Intake and Output 01/25/17 01/25/17 01/26/17 15:00 23:00 07:00 Intake Total 675 ml Balance 675 ml Exam Constitutional: alert, frail, oriented Respiratory: clear to auscultation, normal air movement Cardiovascular: regular rate and rhythm Gastrointestinal: soft Musculoskeletal: nl extremities to inspection Results Result Diagram: 01/26/17 0656 01/26/17 0656 Results 24 hrs Laboratory Tests Test 01/25/17 17:00 01/25/17 22:10 01/26/17 06:56 01/26/17 08:00 Bedside Glucose 145 134 131 White Blood Count 7.1 # Red Blood Count 3.44 L Hemoglobin 10.8 L Hematocrit 30.7 L Mean Corpuscular Volume 89.2 Mean Corpuscular Hemoglobin 31.4 Mean Corpuscular Hemoglobin Concent 35.2 Red Cell Distribution Width 13.6 Platelet Count 181 Mean Platelet Volume 10.1 Neutrophils % 46.8 Lymphocytes % 39.7 Monocytes % 6.7 Eosinophils % 6.1 Basophils % 0.6 Nucleated Red Blood Cells % 0.0 Neutrophils # 3.3 Lymphocytes # 2.8 Monocytes # 0.5 Eosinophils # 0.4 Basophils # 0.0 Nucleated Red Blood Cells # 0.0 Sodium Level 135 Potassium Level 4.5 Chloride Level 97 Carbon Dioxide Level 24 Anion Gap 19 H Blood Urea Nitrogen 71 H Creatinine 5.19 H Glucose Level 87 # Calcium Level 8.9 Total Bilirubin 0.1 L Direct Bilirubin 0.00 Indirect Bilirubin 0.1 Aspartate Amino Transf (AST/SGOT) 20 Alanine Aminotransferase (ALT/SGPT) 27 Alkaline Phosphatase 72 Total Protein 7.3 Albumin 3.8 Globulin 3.50 H Albumin/Globulin Ratio 1.08 Test 01/26/17 11:54 Bedside Glucose 153 Medications Medications Current Medications Aspirin (Halfprin) 81 mg DAILY PO Last administered on 01/26/17 09:05; Admin Dose 81 MG; Start 01/13/17 at 09:00 Atorvastatin Calcium (Lipitor) 40 mg QHS PO Last administered on 01/25/17 22: 11; Admin Dose 40 MG; Start 01/13/17 at 21:00 Carvedilol (Coreg) 25 mg BID PO Last administered on 01/26/17 09:07; Admin Dose 25 MG; Start 01/13/17 at 09:00 Insulin Glargine (Lantus) 10 unit QHS SC Last administered on 01/25/17 22:20 ; Admin Dose 10 UNIT; Start 01/13/17 at 21:00 Isosorbide Mononitrate (Imdur) 30 mg DAILY PO Last administered on 01/26/17 09:06; Admin Dose 30 MG; Start 01/13/17 at 09:00 Miscellaneous Information 1 ea NOTE XX ; Start 01/13/17 at 01:30 Glucose (Glutose) 15 gm Q15M PRN PO DECREASED GLUCOSE; Start 01/13/17 at 01:30 Glucose (Glutose) 22.5 gm Q15M PRN PO DECREASED GLUCOSE; Start 01/13/17 at 01: 30 Dextrose (D50w Syringe) 25 ml Q15M PRN IV DECREASED GLUCOSE; Start 01/13/17 at 01:30 Dextrose (D50w Syringe) 50 ml Q15M PRN IV DECREASED GLUCOSE; Start 01/13/17 at 01:30 Glucagon (Glucagen) 1 mg Q15M PRN IM DECREASED GLUCOSE; Start 01/13/17 at 01: 30 Glucose 15 gm 15 gm Q15M PRN BUCCAL DECREASED GLUCOSE; Start 01/13/17 at 01:30 Sodium Chloride (NS) 1,000 ml @ 50 mls/hr Q20H IV Last administered on 17:04; Admin Dose 50 MLS/HR; Start 01/15/17 at 16:30; Status Future Hold Acetaminophen (Tylenol Tab) 650 mg Q6H PRN PO PAIN AND OR ELEVATED TEMP Last administered on 01/19/17 16:05; Admin Dose 650 MG; Start 01/19/17 at 16:00 Nifedipine (Procardia Xl) 30 mg BID PO Last administered on 01/26/17 09:06; Admin Dose 30 MG; Start 01/21/17 at 21:00 Epoetin Viet (Epogen (Esrd)) 10,000 units TuThSa@17 SC ; Start 01/26/17 at 17: 00; Status HOPE CROWE MD Jan 26, 2017 13:29
[2017-01-26] MEDS: EPOETIN 10000 UNITS/1 ML INJ (ESRD) SC SCH (17:16)
--- NOTE | 2017-01-26 17:45 | PN ---
Date/Time of Note Date/Time of Note DATE: 01/26/17 TIME: 17:39 Assessment/Plan VTE Prophylaxis VTE Prophylaxis Intervention: LMWH Lines/Catheters IV C[facility]ter Type (from [facility]): Peripheral IV Urinary Cath still in place: No Assessment/Plan Assessment/Plan (1) Acute on chronic renal failure Status: Acute Comment: Recheck BUN/cr today and consider permanent HD if cr >4 Qualifiers: Acute renal failure type: unspecified Chronic kidney disease stage: unspecified stage Qualified Code: N17.9 - Acute renal failure superimposed on chronic kidney disease, unspecified CKD stage, unspecified acute renal failure type (2) Acute exacerbation of CHF (congestive heart failure) Status: Acute Comment: Hold lasix this pm and if pt getting dialysis . Qualifiers: Congestive heart failure type: diastolic Qualified Code: I50.33 - Acute on chronic diastolic congestive heart failure (3) Anemia Status: Chronic Qualifiers: Anemia type: due to chronic kidney disease (4) Diabetes mellitus Status: Chronic (5) Hypertension Status: Chronic (6) Pulmonary nodule, left Status: Chronic Comment: Left lower lobe nodule appears stable on chest CT Subjective 24 Hr Interval Summary Free Text/Dictation Patient feels well. No complaints. Family not ready for permacath or permanent HD, since the BUN/creat result from this am is an outlyer from the steadily improving BUN/cr of previous lab result. Exam/Review of Systems Vital Signs Vitals Vital Signs Date Time Temp Pulse Resp B/P Pulse Ox O2 Delivery O2 Flow Rate FiO2 01/26/17 16:05 55 01/26/17 15:57 97.3 18 99/51 95 01/26/17 03:38 2.0 01/25/17 20:00 Nasal Cannula Intake and Output 01/25/17 01/25/17 01/26/17 14:59 22:59 06:59 Intake Total 675 ml Balance 675 ml Exam Constitutional: alert, oriented ENMT: mucosa pink and moist, nl external ears & nose Respiratory: other (Minimal bibasilar crackles) Musculoskeletal: other (No ankle edema now) Results Result Diagram: 01/26/17 0656 01/26/17 0656 Results 24 hrs Laboratory Tests Test 01/25/17 22:10 01/26/17 06:56 01/26/17 08:00 01/26/17 11:54 Bedside Glucose 134 131 153 White Blood Count 7.1 # Red Blood Count 3.44 L Hemoglobin 10.8 L Hematocrit 30.7 L Mean Corpuscular Volume 89.2 Mean Corpuscular Hemoglobin 31.4 Mean Corpuscular Hemoglobin Concent 35.2 Red Cell Distribution Width 13.6 Platelet Count 181 Mean Platelet Volume 10.1 Neutrophils % 46.8 Lymphocytes % 39.7 Monocytes % 6.7 Eosinophils % 6.1 Basophils % 0.6 Nucleated Red Blood Cells % 0.0 Neutrophils # 3.3 Lymphocytes # 2.8 Monocytes # 0.5 Eosinophils # 0.4 Basophils # 0.0 Nucleated Red Blood Cells # 0.0 Sodium Level 135 Potassium Level 4.5 Chloride Level 97 Carbon Dioxide Level 24 Anion Gap 19 H Blood Urea Nitrogen 71 H Creatinine 5.19 H Glucose Level 87 # Calcium Level 8.9 Total Bilirubin 0.1 L Direct Bilirubin 0.00 Indirect Bilirubin 0.1 Aspartate Amino Transf (AST/SGOT) 20 Alanine Aminotransferase (ALT/SGPT) 27 Alkaline Phosphatase 72 Total Protein 7.3 Albumin 3.8 Globulin 3.50 H Albumin/Globulin Ratio 1.08 Test 01/26/17 17:11 Bedside Glucose 136 Medications Medications Current Medications Aspirin (Halfprin) 81 mg DAILY PO Last administered on 01/26/17 09:05; Admin Dose 81 MG; Start 01/13/17 at 09:00 Atorvastatin Calcium (Lipitor) 40 mg QHS PO Last administered on 01/25/17 22: 11; Admin Dose 40 MG; Start 01/13/17 at 21:00 Carvedilol (Coreg) 25 mg BID PO Last administered on 01/26/17 09:07; Admin Dose 25 MG; Start 01/13/17 at 09:00 Insulin Glargine (Lantus) 10 unit QHS SC Last administered on 01/25/17 22:20 ; Admin Dose 10 UNIT; Start 01/13/17 at 21:00 Isosorbide Mononitrate (Imdur) 30 mg DAILY PO Last administered on 01/26/17 09:06; Admin Dose 30 MG; Start 01/13/17 at 09:00 Miscellaneous Information 1 ea NOTE XX ; Start 01/13/17 at 01:30 Glucose (Glutose) 15 gm Q15M PRN PO DECREASED GLUCOSE; Start 01/13/17 at 01:30 Glucose (Glutose) 22.5 gm Q15M PRN PO DECREASED GLUCOSE; Start 01/13/17 at 01: 30 Dextrose (D50w Syringe) 25 ml Q15M PRN IV DECREASED GLUCOSE; Start 01/13/17 at 01:30 Dextrose (D50w Syringe) 50 ml Q15M PRN IV DECREASED GLUCOSE; Start 01/13/17 at 01:30 Glucagon (Glucagen) 1 mg Q15M PRN IM DECREASED GLUCOSE; Start 01/13/17 at 01: 30 Glucose 15 gm 15 gm Q15M PRN BUCCAL DECREASED GLUCOSE; Start 01/13/17 at 01:30 Sodium Chloride (NS) 1,000 ml @ 50 mls/hr Q20H IV Last administered on 17:04; Admin Dose 50 MLS/HR; Start 01/15/17 at 16:30; Status Future Hold Acetaminophen (Tylenol Tab) 650 mg Q6H PRN PO PAIN AND OR ELEVATED TEMP Last administered on 01/19/17 16:05; Admin Dose 650 MG; Start 01/19/17 at 16:00 Nifedipine (Procardia Xl) 30 mg BID PO Last administered on 01/26/17 09:06; Admin Dose 30 MG; Start 01/21/17 at 21:00 Epoetin Viet (Epogen (Esrd)) 10,000 units TuThSa@17 SC Last administered on 17:16; Admin Dose 10,000 UNITS; Start 01/26/17 at 17:00 TREMAINE RIOS MD Jan 26, 2017 17:45
[2017-01-26 19:16] LABS: CREATININE 4.54 mg/dl (0.44-1.00); POTASSIUM 5.6 mmol/L (3.5-5.1)
[2017-01-26] MEDS: ATORVASTATIN 40 MG TAB PO SCH (20:42)
[2017-01-26] MEDS: INSULIN GLARGINE [LANtus] 3 ML PEN SC SCH (20:44)
[2017-01-27] VITALS (20 sets, daily range): BP systolic 98–130; BP diastolic 54–84; PULSE 60–74; RESP 17–20
[2017-01-27] MEDS: FUROSEMIDE 40 MG TAB PO SCH (06:00)
[2017-01-27] MEDS: [UNRECOGNIZED DRUG - OTHER] SC SCH ×3 (07:55→17:25)
[2017-01-27] MEDS: INSULIN ASPART SC SCH ×3 (07:55→17:25)
[2017-01-27] MEDS: CALCIUM ACETATE 667 MG CAP PO SCH ×3 (08:00→17:26)
[2017-01-27 10:03] LABS: ALBUMIN 3.6 g/dl (3.3-4.9); ALBUMIN/GLOBULIN RATIO 1.09; CALCIUM 8.5 mg/dl (8.4-10.2); CREATININE 3.83 mg/dl (0.44-1.00); POTASSIUM 3.4 mmol/L (3.5-5.1); TOTAL PROTEIN 6.9 g/dl (6.1-8.1)
[2017-01-27] MEDS: ASPIRIN (EC) 81 MG TAB PO SCH (12:02)
[2017-01-27] MEDS: NIFEdipine (XL) 30 MG TAB PO SCH (12:03)
[2017-01-27] MEDS: ISOSORBIDE MONONITRATE(SR)30 MG TAB PO SCH (12:04)
--- NOTE | 2017-01-27 13:21 | CONS ---
Date/Time of Note Date/Time of Note DATE: 01/27/17 TIME: 13:20 Assessment/Plan Assessment/Plan Additional Assessment/Plan Acute decompensated diastolic congestive heart failure Preserved ejection fraction MARKEL with hx of CKD, restarted hemodialysis Hypertension Diabetes -Patient status post restarting hemodialysis on this admission with progressive improvement shortness of breath. Fluid management with diuretics and hemodialysis as per our nephrology colleagues. Blood pressure trend on the lower end, likely secondary to volume removal, would decrease Procardia to daily with holding parameters. Consultation Date/Type/Reason Admit Date/Time Jan 12, 2017 at 21:51 Type of Consultation: cv 24 HR Interval Summary Free Text/Dictation Denies shortness of breath or dizziness Exam/Review of Systems Vital Signs Vitals Vital Signs Date Time Temp Pulse Resp B/P Pulse Ox O2 Delivery O2 Flow Rate FiO2 01/27/17 12:33 2.0 01/27/17 12:24 72 01/27/17 11:41 97.4 18 123/58 99 01/27/17 08:00 Nasal Cannula Intake and Output 01/26/17 01/26/17 01/27/17 14:59 22:59 06:59 Intake Total 500 ml 1050 ml 700 ml Output Total 2500 ml Balance -2000 ml 1050 ml 700 ml Exam No apparent distress, sitting in chair Constitutional: alert, obese, oriented Head: normocephalic Respiratory: other (Coarse breath sounds bilaterally, no wheezing) Cardiovascular: other (S1-S2 heard), regular rate and rhythm Gastrointestinal: bowel sounds, non-tender, soft Extremities: edema Results Result Diagram: 01/26/17 0656 01/27/17 0904 Results 24 hrs Laboratory Tests Test 01/26/17 17:11 01/26/17 18:15 01/26/17 20:36 01/27/17 07:37 Bedside Glucose 136 151 91 Sodium Level 132 L Potassium Level 5.6 H Chloride Level 93 L Carbon Dioxide Level 25 Anion Gap 20 H Blood Urea Nitrogen 49 #H Creatinine 4.54 H Glucose Level 160 Calcium Level 9.0 Test 01/27/17 08:03 01/27/17 09:04 01/27/17 11:38 Bedside Glucose 94 106 Sodium Level 138 Potassium Level 3.4 #L Chloride Level 98 Carbon Dioxide Level 28 Anion Gap 15 Blood Urea Nitrogen 41 H Creatinine 3.83 H Glucose Level 122 Calcium Level 8.5 Total Bilirubin 0.0 L Direct Bilirubin 0.00 Indirect Bilirubin 0.0 Aspartate Amino Transf (AST/SGOT) 23 Alanine Aminotransferase (ALT/SGPT) 34 Alkaline Phosphatase 73 Total Protein 6.9 Albumin 3.6 Globulin 3.30 H Albumin/Globulin Ratio 1.09 Medications Medications Current Medications Aspirin (Halfprin) 81 mg DAILY PO Last administered on 01/27/17 12:02; Admin Dose 81 MG; Start 01/13/17 at 09:00 Atorvastatin Calcium (Lipitor) 40 mg QHS PO Last administered on 01/26/17 20: 42; Admin Dose 40 MG; Start 01/13/17 at 21:00 Carvedilol (Coreg) 25 mg BID PO Last administered on 01/27/17 12:05; Admin Dose 25 MG; Start 01/13/17 at 09:00 Insulin Glargine (Lantus) 10 unit QHS SC Last administered on 01/26/17 20:44 ; Admin Dose 10 UNIT; Start 01/13/17 at 21:00 Isosorbide Mononitrate (Imdur) 30 mg DAILY PO Last administered on 01/27/17 12:04; Admin Dose 30 MG; Start 01/13/17 at 09:00 Miscellaneous Information 1 ea NOTE XX ; Start 01/13/17 at 01:30 Glucose (Glutose) 15 gm Q15M PRN PO DECREASED GLUCOSE; Start 01/13/17 at 01:30 Glucose (Glutose) 22.5 gm Q15M PRN PO DECREASED GLUCOSE; Start 01/13/17 at 01: 30 Dextrose (D50w Syringe) 25 ml Q15M PRN IV DECREASED GLUCOSE; Start 01/13/17 at 01:30 Dextrose (D50w Syringe) 50 ml Q15M PRN IV DECREASED GLUCOSE; Start 01/13/17 at 01:30 Glucagon (Glucagen) 1 mg Q15M PRN IM DECREASED GLUCOSE; Start 01/13/17 at 01: 30 Glucose 15 gm 15 gm Q15M PRN BUCCAL DECREASED GLUCOSE; Start 01/13/17 at 01:30 Sodium Chloride (NS) 1,000 ml @ 50 mls/hr Q20H IV Last administered on 17:04; Admin Dose 50 MLS/HR; Start 01/15/17 at 16:30; Status Future Hold Acetaminophen (Tylenol Tab) 650 mg Q6H PRN PO PAIN AND OR ELEVATED TEMP Last administered on 01/19/17 16:05; Admin Dose 650 MG; Start 01/19/17 at 16:00 Nifedipine (Procardia Xl) 30 mg BID PO Last administered on 01/27/17 12:03; Admin Dose 30 MG; Start 01/21/17 at 21:00 Epoetin Viet (Epogen (Esrd)) 10,000 units TuThSa@17 SC Last administered on 17:16; Admin Dose 10,000 UNITS; Start 01/26/17 at 17:00 Dariel Juarez DO Jan 27, 2017 13:21
--- NOTE | 2017-01-27 16:15 | PN ---
Date/Time of Note Date/Time of Note DATE: 01/27/17 TIME: 16:15 Assessment/Plan VTE Prophylaxis VTE Prophylaxis Intervention: LMWH Lines/Catheters IV C[facility]ter Type (from [facility] Saline Lock Urinary Cath still in place: No Assessment/Plan Problems: (1) Acute on chronic renal failure Status: Acute Comment: improved after HD. Discuss with Dr. Mo, we will DC the Irineo catheter and send patient home on oral Lasix Qualifiers: Acute renal failure type: unspecified Chronic kidney disease stage: unspecified stage Qualified Code: N17.9 - Acute renal failure superimposed on chronic kidney disease, unspecified CKD stage, unspecified acute renal failure type (2) Congestive heart failure Status: Chronic Comment: Resume Lasix at 40 mg Q daily for now. Patient instructed to avoid salty food including fish sauce and soy sauce since this will cause increased water retention in the lungs and legs. Qualifiers: Congestive heart failure type: diastolic Congestive heart failure chronicity: acute on chronic Qualified Code: I50.33 - Acute on chronic diastolic congestive heart failure (3) Diabetes mellitus Status: Chronic (4) Hypertension Status: Chronic Subjective 24 Hr Interval Summary Free Text/Dictation since patient's creatinine has been improving again down to 3.8 this morning, patient's family is requesting no permacath placement and trial of the discontinuation of hemodialysis and resumption of oral Lasix to use at home Exam/Review of Systems Vital Signs Vitals Vital Signs Date Time Temp Pulse Resp B/P Pulse Ox O2 Delivery O2 Flow Rate FiO2 01/27/17 15:47 97.2 59 18 118/54 96 01/27/17 12:33 2.0 01/27/17 08:00 Nasal Cannula Intake and Output 01/26/17 01/26/17 01/27/17 15:00 23:00 07:00 Intake Total 500 ml 1050 ml 700 ml Output Total 2500 ml Balance -2000 ml 1050 ml 700 ml Exam Constitutional: alert, oriented Head: atraumatic, normocephalic ENMT: mucosa pink and moist, nl external ears & nose Respiratory: clear to auscultation Cardiovascular: nl pulses, regular rate and rhythm Neurological: nl mental status, nl speech Results Result Diagram: 01/26/17 0656 01/27/17 0904 Results 24 hrs Laboratory Tests Test 01/26/17 17:11 01/26/17 18:15 01/26/17 20:36 01/27/17 07:37 Bedside Glucose 136 151 91 Sodium Level 132 L Potassium Level 5.6 H Chloride Level 93 L Carbon Dioxide Level 25 Anion Gap 20 H Blood Urea Nitrogen 49 #H Creatinine 4.54 H Glucose Level 160 Calcium Level 9.0 Test 01/27/17 08:03 01/27/17 09:04 01/27/17 11:38 Bedside Glucose 94 106 Sodium Level 138 Potassium Level 3.4 #L Chloride Level 98 Carbon Dioxide Level 28 Anion Gap 15 Blood Urea Nitrogen 41 H Creatinine 3.83 H Glucose Level 122 Calcium Level 8.5 Total Bilirubin 0.0 L Direct Bilirubin 0.00 Indirect Bilirubin 0.0 Aspartate Amino Transf (AST/SGOT) 23 Alanine Aminotransferase (ALT/SGPT) 34 Alkaline Phosphatase 73 Total Protein 6.9 Albumin 3.6 Globulin 3.30 H Albumin/Globulin Ratio 1.09 Medications Medications Current Medications Aspirin (Halfprin) 81 mg DAILY PO Last administered on 01/27/17 12:02; Admin Dose 81 MG; Start 01/13/17 at 09:00 Atorvastatin Calcium (Lipitor) 40 mg QHS PO Last administered on 01/26/17 20: 42; Admin Dose 40 MG; Start 01/13/17 at 21:00 Carvedilol (Coreg) 25 mg BID PO Last administered on 01/27/17 12:05; Admin Dose 25 MG; Start 01/13/17 at 09:00 Insulin Glargine (Lantus) 10 unit QHS SC Last administered on 01/26/17 20:44 ; Admin Dose 10 UNIT; Start 01/13/17 at 21:00 Isosorbide Mononitrate (Imdur) 30 mg DAILY PO Last administered on 01/27/17 12:04; Admin Dose 30 MG; Start 01/13/17 at 09:00 Miscellaneous Information 1 ea NOTE XX ; Start 01/13/17 at 01:30 Glucose (Glutose) 15 gm Q15M PRN PO DECREASED GLUCOSE; Start 01/13/17 at 01:30 Glucose (Glutose) 22.5 gm Q15M PRN PO DECREASED GLUCOSE; Start 01/13/17 at 01: 30 Dextrose (D50w Syringe) 25 ml Q15M PRN IV DECREASED GLUCOSE; Start 01/13/17 at 01:30 Dextrose (D50w Syringe) 50 ml Q15M PRN IV DECREASED GLUCOSE; Start 01/13/17 at 01:30 Glucagon (Glucagen) 1 mg Q15M PRN IM DECREASED GLUCOSE; Start 01/13/17 at 01: 30 Glucose 15 gm 15 gm Q15M PRN BUCCAL DECREASED GLUCOSE; Start 01/13/17 at 01:30 Sodium Chloride (NS) 1,000 ml @ 50 mls/hr Q20H IV Last administered on 17:04; Admin Dose 50 MLS/HR; Start 01/15/17 at 16:30; Status Future Hold Acetaminophen (Tylenol Tab) 650 mg Q6H PRN PO PAIN AND OR ELEVATED TEMP Last administered on 01/19/17 16:05; Admin Dose 650 MG; Start 01/19/17 at 16:00 Epoetin Viet (Epogen (Esrd)) 10,000 units TuThSa@17 SC Last administered on 17:16; Admin Dose 10,000 UNITS; Start 01/26/17 at 17:00 Nifedipine (Procardia Xl) 30 mg DAILY PO ; Start 01/28/17 at 09:00 TREMAINE RIOS MD Jan 27, 2017 16:15
--- NOTE | 2017-01-27 19:03 | CONS ---
Date/Time of Note Date/Time of Note DATE: 01/27/17 TIME: 18:57 Assessment/Plan Assessment/Plan Chief Complaint/Hosp Course 1. Chronic kidney disease due to 1 functioning kidney and diabetic nephropathy in the remaining kidney. She came in last week with increasing shortness of breath, renal failure, congestive heart failure, anemia. She has been on dialysis for the past week. She was dialyzed 2 days ago. An attempt was made yesterday; however, her catheter was functioning poorly and Activase was inserted. She had a hemodialysis successfully done today. I have had discussions with Dr. Gan regarding the patient's renal recovery. We both feel that the patient will probably need further hemodialysis treatment; however, the family does not want her to start chronic dialysis at this time. The patient was in the hospital 7 months ago and we went through a very similar situation. She was dialyzed for a week then and was able to be off dialysis. The patient will probably be discharged tomorrow and will have labs done at home and followed by Dr. Gan. I did recommend that the patient have an internal jugular permacath placed and she continue chronic dialysis; however, the family has refused. 2. Congestive heart failure , improved 3. Anemia of chronic kidney disease, she is now on Epogen. 4. Type 2 diabetes mellitus Problems: Consultation Date/Type/Reason Admit Date/Time Jan 12, 2017 at 21:51 Type of Consultation: cv 24 HR Interval Summary Free Text/Dictation She has no complaints today. She is overall doing well. She is scheduled for dialysis today. Constitutional: improved, no complaints Exam/Review of Systems Vital Signs Vitals Vital Signs Date Time Temp Pulse Resp B/P Pulse Ox O2 Delivery O2 Flow Rate FiO2 01/27/17 16:19 60 01/27/17 15:47 97.2 18 118/54 96 01/27/17 12:33 2.0 01/27/17 08:00 Nasal Cannula Intake and Output 01/26/17 01/26/17 01/27/17 15:00 23:00 07:00 Intake Total 500 ml 1050 ml 700 ml Output Total 2500 ml Balance -2000 ml 1050 ml 700 ml Exam Constitutional: alert, frail, oriented Neck: non-tender, supple Respiratory: clear to auscultation, normal air movement Cardiovascular: regular rate and rhythm Gastrointestinal: soft Musculoskeletal: nl extremities to inspection Results Result Diagram: 01/26/17 0656 01/27/17 0904 Results 24 hrs Laboratory Tests Test 01/26/17 20:36 01/27/17 07:37 01/27/17 08:03 01/27/17 09:04 Bedside Glucose 151 91 94 Sodium Level 138 Potassium Level 3.4 #L Chloride Level 98 Carbon Dioxide Level 28 Anion Gap 15 Blood Urea Nitrogen 41 H Creatinine 3.83 H Glucose Level 122 Calcium Level 8.5 Total Bilirubin 0.0 L Direct Bilirubin 0.00 Indirect Bilirubin 0.0 Aspartate Amino Transf (AST/SGOT) 23 Alanine Aminotransferase (ALT/SGPT) 34 Alkaline Phosphatase 73 Total Protein 6.9 Albumin 3.6 Globulin 3.30 H Albumin/Globulin Ratio 1.09 Test 01/27/17 11:38 01/27/17 17:16 Bedside Glucose 106 158 Medications Medications Current Medications Aspirin (Halfprin) 81 mg DAILY PO Last administered on 01/27/17 12:02; Admin Dose 81 MG; Start 01/13/17 at 09:00 Atorvastatin Calcium (Lipitor) 40 mg QHS PO Last administered on 01/26/17 20: 42; Admin Dose 40 MG; Start 01/13/17 at 21:00 Carvedilol (Coreg) 25 mg BID PO Last administered on 01/27/17 12:05; Admin Dose 25 MG; Start 01/13/17 at 09:00 Insulin Glargine (Lantus) 10 unit QHS SC Last administered on 01/26/17 20:44 ; Admin Dose 10 UNIT; Start 01/13/17 at 21:00 Isosorbide Mononitrate (Imdur) 30 mg DAILY PO Last administered on 01/27/17 12:04; Admin Dose 30 MG; Start 01/13/17 at 09:00 Miscellaneous Information 1 ea NOTE XX ; Start 01/13/17 at 01:30 Glucose (Glutose) 15 gm Q15M PRN PO DECREASED GLUCOSE; Start 01/13/17 at 01:30 Glucose (Glutose) 22.5 gm Q15M PRN PO DECREASED GLUCOSE; Start 01/13/17 at 01: 30 Dextrose (D50w Syringe) 25 ml Q15M PRN IV DECREASED GLUCOSE; Start 01/13/17 at 01:30 Dextrose (D50w Syringe) 50 ml Q15M PRN IV DECREASED GLUCOSE; Start 01/13/17 at 01:30 Glucagon (Glucagen) 1 mg Q15M PRN IM DECREASED GLUCOSE; Start 01/13/17 at 01: 30 Glucose 15 gm 15 gm Q15M PRN BUCCAL DECREASED GLUCOSE; Start 01/13/17 at 01:30 Sodium Chloride (NS) 1,000 ml @ 50 mls/hr Q20H IV Last administered on 17:04; Admin Dose 50 MLS/HR; Start 01/15/17 at 16:30; Status Future Hold Acetaminophen (Tylenol Tab) 650 mg Q6H PRN PO PAIN AND OR ELEVATED TEMP Last administered on 01/19/17 16:05; Admin Dose 650 MG; Start 01/19/17 at 16:00 Epoetin Viet (Epogen (Esrd)) 10,000 units TuThSa@17 SC Last administered on 17:16; Admin Dose 10,000 UNITS; Start 01/26/17 at 17:00 Nifedipine (Procardia Xl) 30 mg DAILY PO ; Start 01/28/17 at 09:00 HOPE DOW MD Jan 27, 2017 19:03
[2017-01-27] MEDS: ATORVASTATIN 40 MG TAB PO SCH (20:27)
[2017-01-27] MEDS: INSULIN GLARGINE [LANtus] 3 ML PEN SC SCH (20:31)
[2017-01-28] VITALS (9 sets, daily range): BP systolic 105–135; BP diastolic 59–65; PULSE 59–67; RESP 17–20
[2017-01-28] MEDS: INSULIN ASPART SC SCH ×3 (07:38→17:27)
[2017-01-28] MEDS: [UNRECOGNIZED DRUG - OTHER] SC SCH ×3 (07:38→17:27)
[2017-01-28] MEDS: CALCIUM ACETATE 667 MG CAP PO SCH ×3 (07:39→17:28)
[2017-01-28 08:29] LABS: BASOPHILS % 0.5 % (0.0-2.0); EOSINOPHILS # 0.4 10^3/ul (0.0-0.5); EOSINOPHILS % 6.2 % (0.0-7.0); HEMATOCRIT 33.4 % (37.0-47.0); HEMOGLOBIN 11.1 g/dl (12.0-16.0); LYMPHOCYTES # 2.5 10^3/ul (0.8-2.9); MEAN CORPUSCULAR HEMOGLOBIN 30.4 pg (29.0-33.0); MEAN CORPUSCULAR HGB CONC 33.2 g/dl (32.0-37.0); MEAN CORPUSCULAR VOLUME 91.5 fl (82.0-101.0); MEAN PLATELET VOLUME 10.6 fl (7.4-10.4); MONOCYTE # 0.6 10^3/ul (0.3-0.9); MONOCYTES % 8.5 % (0.0-11.0); NEUTROPHILS % 46.6 % (39.0-77.0); PLATELET COUNT 172 10^3/UL (140-415); RED BLOOD COUNT 3.65 10^6/ul (4.20-5.40); RED CELL DISTRIBUTION WIDTH 13.3 % (11.5-14.5); WHITE BLOOD COUNT 6.5 10^3/ul (4.8-10.8)
[2017-01-28] MEDS: ISOSORBIDE MONONITRATE(SR)30 MG TAB PO SCH (08:38)
[2017-01-28] MEDS: ASPIRIN (EC) 81 MG TAB PO SCH (08:38)
[2017-01-28] MEDS ORDERED: NIFEdipine (XL) 30 MG TAB PO SCH (09:00)
[2017-01-28] MEDS ORDERED: FUROSEMIDE 40 MG TAB PO SCH (09:00)
[2017-01-28 09:02] LABS: ALBUMIN 3.7 g/dl (3.3-4.9); BILIRUBIN,INDIRECT 0.1 mg/dl (0-1.1); BILIRUBIN,TOTAL 0.1 mg/dl (0.2-1.3); CALCIUM 8.7 mg/dl (8.4-10.2); CREATININE 4.62 mg/dl (0.44-1.00); POTASSIUM 4.8 mmol/L (3.5-5.1); TOTAL PROTEIN 7.4 g/dl (6.1-8.1)
--- NOTE | 2017-01-28 09:58 | CONS ---
Date/Time of Note Date/Time of Note DATE: 01/28/17 TIME: 09:54 Assessment/Plan Assessment/Plan Chief Complaint/Hosp Course 1. Chronic kidney disease due to 1 functioning kidney and diabetic nephropathy in the remaining kidney. She came in last week with increasing shortness of breath, renal failure, congestive heart failure, anemia. She has been on dialysis for the past week. She was dialyzed yesterday. I have had discussions with Dr. Gan regarding the patient's renal recovery. We both feel that the patient will need further hemodialysis treatment; however, the family does not want her to start chronic dialysis at this time. The patient was in the hospital 7 months ago and we went through a very similar situation. She was dialyzed for a week then and was able to be off dialysis. The patient will probably be discharged today and will have labs done at home and followed by Dr. Gan. I did recommend that the patient have an internal jugular permacath placed now and she continue chronic dialysis; however, the family has refused. 2. Congestive heart failure , improved 3. Anemia of chronic kidney disease, she is now on Epogen. 4. Type 2 diabetes mellitus Problems: Consultation Date/Type/Reason Admit Date/Time Jan 12, 2017 at 21:51 Type of Consultation: cv 24 HR Interval Summary Free Text/Dictation Patient is awake and alert. She is sitting up eating breakfast. She says she feels well. She denies any chest pain or shortness of breath. Constitutional: improved, no complaints Exam/Review of Systems Vital Signs Vitals Vital Signs Date Time Temp Pulse Resp B/P Pulse Ox O2 Delivery O2 Flow Rate FiO2 01/28/17 08:20 67 01/28/17 08:07 98.7 17 135/63 99 01/28/17 07:44 Nasal Cannula 2.0 Intake and Output 01/27/17 01/27/17 01/28/17 15:00 23:00 07:00 Intake Total 400 ml 500 ml 100 ml Output Total 2400 ml Balance -2000 ml 500 ml 100 ml Exam Constitutional: alert, frail, oriented Respiratory: clear to auscultation Cardiovascular: regular rate and rhythm Musculoskeletal: nl extremities to inspection Results Result Diagram: 01/28/17 0720 01/28/17 0720 Results 24 hrs Laboratory Tests Test 01/27/17 11:38 01/27/17 17:16 01/27/17 20:29 01/28/17 07:20 Bedside Glucose 106 158 236 H White Blood Count 6.5 Red Blood Count 3.65 L Hemoglobin 11.1 L Hematocrit 33.4 L Mean Corpuscular Volume 91.5 Mean Corpuscular Hemoglobin 30.4 Mean Corpuscular Hemoglobin Concent 33.2 Red Cell Distribution Width 13.3 Platelet Count 172 Mean Platelet Volume 10.6 H Neutrophils % 46.6 Lymphocytes % 38.0 Monocytes % 8.5 Eosinophils % 6.2 Basophils % 0.5 Nucleated Red Blood Cells % 0.0 Neutrophils # 3.0 Lymphocytes # 2.5 Monocytes # 0.6 Eosinophils # 0.4 Basophils # 0.0 Nucleated Red Blood Cells # 0.0 Sodium Level 137 Potassium Level 4.8 Chloride Level 101 Carbon Dioxide Level 24 Anion Gap 17 H Blood Urea Nitrogen 55 H Creatinine 4.62 H Glucose Level 78 # Calcium Level 8.7 Total Bilirubin 0.1 L Direct Bilirubin 0.00 Indirect Bilirubin 0.1 Aspartate Amino Transf (AST/SGOT) 43 Alanine Aminotransferase (ALT/SGPT) 40 Alkaline Phosphatase 66 Total Protein 7.4 Albumin 3.7 Globulin 3.70 H Albumin/Globulin Ratio 1.00 Test 01/28/17 07:37 Bedside Glucose 76 Medications Medications Current Medications Aspirin (Halfprin) 81 mg DAILY PO Last administered on 01/28/17 08:38; Admin Dose 81 MG; Start 01/13/17 at 09:00 Atorvastatin Calcium (Lipitor) 40 mg QHS PO Last administered on 01/27/17 20: 27; Admin Dose 40 MG; Start 01/13/17 at 21:00 Carvedilol (Coreg) 25 mg BID PO Last administered on 01/28/17 08:37; Admin Dose 25 MG; Start 01/13/17 at 09:00 Insulin Glargine (Lantus) 10 unit QHS SC Last administered on 01/27/17 20:31 ; Admin Dose 10 UNIT; Start 01/13/17 at 21:00 Isosorbide Mononitrate (Imdur) 30 mg DAILY PO Last administered on 01/28/17 08:38; Admin Dose 30 MG; Start 01/13/17 at 09:00 Miscellaneous Information 1 ea NOTE XX ; Start 01/13/17 at 01:30 Glucose (Glutose) 15 gm Q15M PRN PO DECREASED GLUCOSE; Start 01/13/17 at 01:30 Glucose (Glutose) 22.5 gm Q15M PRN PO DECREASED GLUCOSE; Start 01/13/17 at 01: 30 Dextrose (D50w Syringe) 25 ml Q15M PRN IV DECREASED GLUCOSE; Start 01/13/17 at 01:30 Dextrose (D50w Syringe) 50 ml Q15M PRN IV DECREASED GLUCOSE; Start 01/13/17 at 01:30 Glucagon (Glucagen) 1 mg Q15M PRN IM DECREASED GLUCOSE; Start 01/13/17 at 01: 30 Glucose 15 gm 15 gm Q15M PRN BUCCAL DECREASED GLUCOSE; Start 01/13/17 at 01:30 Sodium Chloride (NS) 1,000 ml @ 50 mls/hr Q20H IV Last administered on 17:04; Admin Dose 50 MLS/HR; Start 01/15/17 at 16:30; Status Future Hold Acetaminophen (Tylenol Tab) 650 mg Q6H PRN PO PAIN AND OR ELEVATED TEMP Last administered on 01/19/17 16:05; Admin Dose 650 MG; Start 01/19/17 at 16:00 Epoetin Viet (Epogen (Esrd)) 10,000 units TuThSa@17 SC Last administered on 17:16; Admin Dose 10,000 UNITS; Start 01/26/17 at 17:00 Nifedipine (Procardia Xl) 30 mg DAILY PO Last administered on 01/28/17 08:38 ; Admin Dose 30 MG; Start 01/28/17 at 09:00 Furosemide (Lasix) 40 mg AM PO Last administered on 01/28/17 08:38; Admin Dose 40 MG; Start 01/28/17 at 09:00 HOPE DOW MD Jan 28, 2017 09:58
--- NOTE | 2017-01-28 13:00 | CONS ---
Date/Time of Note Date/Time of Note DATE: 01/28/17 TIME: 12:58 Assessment/Plan Assessment/Plan Additional Assessment/Plan Acute decompensated diastolic congestive heart failure Preserved ejection fraction MARKEL with hx of CKD, restarted hemodialysis Hypertension Diabetes -Patient status post restarting hemodialysis on this admission with progressive improvement shortness of breath. On review of medical chart, patient on plan for chronic hemodialysis, fluid management with diuretics as per our nephrology colleagues. Procardia dose was decreased secondary to blood pressure on the lower end, meds to be titrated as needed, blood pressure trend has improved. Consultation Date/Type/Reason Admit Date/Time Jan 12, 2017 at 21:51 Type of Consultation: cv 24 HR Interval Summary Free Text/Dictation Patient denies shortness of breath, chest pain Exam/Review of Systems Vital Signs Vitals Vital Signs Date Time Temp Pulse Resp B/P Pulse Ox O2 Delivery O2 Flow Rate FiO2 01/28/17 12:31 63 01/28/17 11:43 98.3 20 105/59 97 01/28/17 07:44 Nasal Cannula 2.0 Intake and Output 01/27/17 01/27/17 01/28/17 15:00 23:00 07:00 Intake Total 400 ml 500 ml 100 ml Output Total 2400 ml Balance -2000 ml 500 ml 100 ml Exam No apparent distress Constitutional: alert, obese, oriented Head: normocephalic Respiratory: other (Coarse breath sounds bilaterally, no wheezing) Cardiovascular: other (S1-S2 heard), regular rate and rhythm Gastrointestinal: bowel sounds, non-tender, soft Extremities: edema Results Result Diagram: 01/28/17 0720 01/28/17 0720 Results 24 hrs Laboratory Tests Test 01/27/17 17:16 01/27/17 20:29 01/28/17 07:20 01/28/17 07:37 Bedside Glucose 158 236 H 76 White Blood Count 6.5 Red Blood Count 3.65 L Hemoglobin 11.1 L Hematocrit 33.4 L Mean Corpuscular Volume 91.5 Mean Corpuscular Hemoglobin 30.4 Mean Corpuscular Hemoglobin Concent 33.2 Red Cell Distribution Width 13.3 Platelet Count 172 Mean Platelet Volume 10.6 H Neutrophils % 46.6 Lymphocytes % 38.0 Monocytes % 8.5 Eosinophils % 6.2 Basophils % 0.5 Nucleated Red Blood Cells % 0.0 Neutrophils # 3.0 Lymphocytes # 2.5 Monocytes # 0.6 Eosinophils # 0.4 Basophils # 0.0 Nucleated Red Blood Cells # 0.0 Sodium Level 137 Potassium Level 4.8 Chloride Level 101 Carbon Dioxide Level 24 Anion Gap 17 H Blood Urea Nitrogen 55 H Creatinine 4.62 H Glucose Level 78 # Calcium Level 8.7 Total Bilirubin 0.1 L Direct Bilirubin 0.00 Indirect Bilirubin 0.1 Aspartate Amino Transf (AST/SGOT) 43 Alanine Aminotransferase (ALT/SGPT) 40 Alkaline Phosphatase 66 Total Protein 7.4 Albumin 3.7 Globulin 3.70 H Albumin/Globulin Ratio 1.00 Test 01/28/17 11:37 Bedside Glucose 155 Medications Medications Current Medications Aspirin (Halfprin) 81 mg DAILY PO Last administered on 01/28/17 08:38; Admin Dose 81 MG; Start 01/13/17 at 09:00 Atorvastatin Calcium (Lipitor) 40 mg QHS PO Last administered on 01/27/17 20: 27; Admin Dose 40 MG; Start 01/13/17 at 21:00 Carvedilol (Coreg) 25 mg BID PO Last administered on 01/28/17 08:37; Admin Dose 25 MG; Start 01/13/17 at 09:00 Insulin Glargine (Lantus) 10 unit QHS SC Last administered on 01/27/17 20:31 ; Admin Dose 10 UNIT; Start 01/13/17 at 21:00 Isosorbide Mononitrate (Imdur) 30 mg DAILY PO Last administered on 01/28/17 08:38; Admin Dose 30 MG; Start 01/13/17 at 09:00 Miscellaneous Information 1 ea NOTE XX ; Start 01/13/17 at 01:30 Glucose (Glutose) 15 gm Q15M PRN PO DECREASED GLUCOSE; Start 01/13/17 at 01:30 Glucose (Glutose) 22.5 gm Q15M PRN PO DECREASED GLUCOSE; Start 01/13/17 at 01: 30 Dextrose (D50w Syringe) 25 ml Q15M PRN IV DECREASED GLUCOSE; Start 01/13/17 at 01:30 Dextrose (D50w Syringe) 50 ml Q15M PRN IV DECREASED GLUCOSE; Start 01/13/17 at 01:30 Glucagon (Glucagen) 1 mg Q15M PRN IM DECREASED GLUCOSE; Start 01/13/17 at 01: 30 Glucose 15 gm 15 gm Q15M PRN BUCCAL DECREASED GLUCOSE; Start 01/13/17 at 01:30 Sodium Chloride (NS) 1,000 ml @ 50 mls/hr Q20H IV Last administered on 17:04; Admin Dose 50 MLS/HR; Start 01/15/17 at 16:30; Status Future Hold Acetaminophen (Tylenol Tab) 650 mg Q6H PRN PO PAIN AND OR ELEVATED TEMP Last administered on 01/19/17 16:05; Admin Dose 650 MG; Start 01/19/17 at 16:00 Epoetin Viet (Epogen (Esrd)) 10,000 units TuThSa@17 SC Last administered on 17:16; Admin Dose 10,000 UNITS; Start 01/26/17 at 17:00 Nifedipine (Procardia Xl) 30 mg DAILY PO Last administered on 01/28/17 08:38 ; Admin Dose 30 MG; Start 01/28/17 at 09:00 Furosemide (Lasix) 40 mg AM PO Last administered on 01/28/17 08:38; Admin Dose 40 MG; Start 01/28/17 at 09:00 Dariel Juarez DO Jan 28, 2017 13:00
[2017-01-28] MEDS: EPOETIN 10000 UNITS/1 ML INJ (ESRD) SC SCH (16:23)
[2017-01-28] MEDS ORDERED: FURO40TA4 PO (17:52)
--- NOTE | 2017-01-28 21:42 | DS ---
Date/Time of Note Date/Time of Note DATE: 01/28/17 TIME: 21:08 Discharge Summary Admission/Discharge Info Admit Date/Time Jan 12, 2017 at 21:51 Discharge Date/Time Jan 28, 2017 at 19:17 Discharge Diagnosis 1. Acute on chronic congestive heart failure. 2. Acute on chronic renal failure. 3. Anemia of kidney disease. 4. Diabetes mellitus on insulin. 5. Hypertension 6. Superior left lower lobe lung nodule Patient Condition: Stable Consults cardiology Dr. Juarez and nephrology Dr. Mo Procedures Chest CT. Echocardiogram Emergency hemodialysis Hx of Present Illness Patient presents with progressive shortness of breath with intermittent wheezing. No fever or chills. No cough or congestion. Mild increased edema of the ankles. Her blood test show elevated BNP level and BUN/creatinine level with markedly low hemoglobin and hematocrit. Her chest x-ray was notable for pulmonary congestion. Patient was admitted for congestive heart failure and acute renal failure as well as severe anemia. Hospital Course patient was diuresed with IV Lasix and received Epogen as well as 2 units of PRBC with improvement in shortness of breath as well as anemia. However she continues to have difficulty ambulating due to dyspnea on exertion and her BUN/ creatinine continues to be elevated. Patient and family consented to emergency hemodialysis and she received a total of five sessions of hemodialysis with mild improvement in BUN/Cr levels. patient and family was advised to get permacath placed and start on hemodialysis as an outpatient but they did not want this and so we discontinue hemodialysis, removed the Irineo catheter when her creatinine came down to around 4.6 for discharge to home. Aleft long nidule was noted on chest x-ray as well as previous chest CT and a follow-up chest CT showed a stable nodule in the superior left lower lobe up about 1.3 cm in size. Radiology recommend that we follow this radiologically in another six months or a year. Home Meds Active Scripts Furosemide* (Furosemide*) 40 Mg Tablet, 40 MG PO AM for 30 Days, #30 TAB Prov:TREMAINE RIOS MD 01/28/17 Isosorbide Mononitrate* (Isosorbide Mononitrate*) 30 Mg Tab.er.24h, 30 MG PO DAILY for 30 Days, #30 TAB Prov:TREMAINE RIOS MD 01/13/16 Reported Medications Calcium Acetate* (Calcium Acetate*) 667 Mg Capsule, 667 MG PO WITH MEALS, #30 CAP 11/21/15 Nifedipine* (Nifedipine ER*) 30 Mg Tablet.sa, 30 MG PO DAILY, TAB.SA 11/21/15 Atorvastatin* (Atorvastatin*) 40 Mg Tablet, 40 MG PO QHS, #30 TAB 08/06/15 Aspirin* (Aspirin* EC) 81 Mg Tablet.dr, 81 MG PO DAILY, TAB 08/06/15 Insulin Glargine* (Lantus*) 100 Unit/Ml Soln, 10-12 UNIT SC QHS, #1 VIAL 08/06/15 Allopurinol* (Allopurinol*) 100 Mg Tablet, 100 MG PO QHS, TAB 04/27/14 Carvedilol* (Coreg*) 25 Mg Tablet, 25 MG PO BID, TAB 04/27/14 Discontinued Reported Medications Furosemide* (Lasix*) 20 Mg Tablet, 20 MG PO QAM, TAB 04/27/14 Follow-up Plan patient will be followed at home by [facility] service with blood test twice a week for basic metabolic panel and CBC. She's also to follow up with Dr Tremaine Rios in 1 to [address] Essence Tyson within the month. Primary Care Provider Tremaine Rios MD Time spent on discharge: < 30 minutes Pending Labs Laboratory Tests Test 01/28/17 07:20 01/28/17 07:37 01/28/17 11:37 01/28/17 17:08 White Blood Count 6.510^3/ul (4.8-10.8) Red Blood Count 3.6510^6/ul (4.20-5.40) Hemoglobin 11.1g/dl (12.0-16.0) Hematocrit 33.4% (37.0-47.0) Mean Corpuscular Volume 91.5fl (82.0-101.0) Mean Corpuscular Hemoglobin 30.4pg (29.0-33.0) Mean Corpuscular Hemoglobin Concent 33.2g/dl (32.0-37.0) Red Cell Distribution Width 13.3% (11.5-14.5) Platelet Count 01693^3/UL (140-415) Mean Platelet Volume 10.6fl (7.4-10.4) Neutrophils % 46.6% (39.0-77.0) Lymphocytes % 38.0% (15.0-51.0) Monocytes % 8.5% (0.0-11.0) Eosinophils % 6.2% (0.0-7.0) Basophils % 0.5% (0.0-2.0) Nucleated Red Blood Cells % 0.0/100WBC (0.0-0.0) Neutrophils # 3.010^3/ul (1.6-7.5) Lymphocytes # 2.510^3/ul (0.8-2.9) Monocytes # 0.610^3/ul (0.3-0.9) Eosinophils # 0.410^3/ul (0.0-0.5) Basophils # 0.010^3/ul (0.0-0.1) Nucleated Red Blood Cells # 0.010^3/ul (0.0-0.0) Sodium Level 137mmol/L (135-144) Potassium Level 4.8mmol/L (3.5-5.1) Chloride Level 101mmol/L (97-110) Carbon Dioxide Level 24mmol/L (21-31) Anion Gap 17 (8-16) Blood Urea Nitrogen 55mg/dl (7-20) Creatinine 4.62mg/dl (0.44-1.00) Glucose Level 78mg/dl (70-220) Calcium Level 8.7mg/dl (8.4-10.2) Total Bilirubin 0.1mg/dl (0.2-1.3) Direct Bilirubin 0.00mg/dl (0.00-0.20) Indirect Bilirubin 0.1mg/dl (0-1.1) Aspartate Amino Transf (AST/SGOT) 43IU/L (15-46) Alanine Aminotransferase (ALT/SGPT) 40IU/L (13-69) Alkaline Phosphatase 66IU/L (42-121) Total Protein 7.4g/dl (6.1-8.1) Albumin 3.7g/dl (3.3-4.9) Globulin 3.70g/dl (1.3-3.2) Albumin/Globulin Ratio 1.00 Bedside Glucose 76mg/dL (70-220) 155mg/dL (70-220) 122mg/dL (70-220) RIOSTREMAINE Sinha A MD Jan 28, 2017 21:29
== END 2017-01-28 19:17 | disposition home health service (06) | DRG 291 ==
LOC: E/R 15:01 → MS3 21:51 → MS4 01-13 01:07 → MS3 01-13 07:21 → MS4 01-14 11:19
PROVIDERS: ADMIT Specialist; ATTEND Internal Medicine
PROC: 30233N1 Transfusion of Nonautologous Red Blood Cells into Peripheral Vein, Percutaneous Approach (ICD-10-PCS; 2017-01-14)
PROC: 06HN33Z Insertion of Infusion Device into Left Femoral Vein, Percutaneous Approach (ICD-10-PCS; principal; 2017-01-19)
PROC: 5A1D70Z Performance of Urinary Filtration, Intermittent, Less than 6 Hours Per Day (ICD-10-PCS; 2017-01-19)
PROC: 5A1D70Z Performance of Urinary Filtration, Intermittent, Less than 6 Hours Per Day (ICD-10-PCS; 2017-01-20)
PROC: 5A1D70Z Performance of Urinary Filtration, Intermittent, Less than 6 Hours Per Day (ICD-10-PCS; 2017-01-22)
PROC: 5A1D70Z Performance of Urinary Filtration, Intermittent, Less than 6 Hours Per Day (ICD-10-PCS; 2017-01-25)
PROC: 5A1D70Z Performance of Urinary Filtration, Intermittent, Less than 6 Hours Per Day (ICD-10-PCS; 2017-01-26)
PROC: 5A1D70Z Performance of Urinary Filtration, Intermittent, Less than 6 Hours Per Day (ICD-10-PCS; 2017-01-27)
DX: I13.2 Hypertensive heart and chronic kidney disease with heart failure and with stage 5 chronic kidney disease, or end stage renal disease (principal); I50.33 Acute on chronic diastolic (congestive) heart failure; N17.9 Acute kidney failure, unspecified; D63.1 Anemia in chronic kidney disease; E11.21 Type 2 diabetes mellitus with diabetic nephropathy; N18.5 Chronic kidney disease, stage 5; E11.22 Type 2 diabetes mellitus with diabetic chronic kidney disease; M10.9 Gout, unspecified; E78.5 Hyperlipidemia, unspecified; R91.1 Solitary pulmonary nodule; Z79.82 Long term (current) use of aspirin; Z79.4 Long term (current) use of insulin
CPT/HCPCS: 36415; 36430; 71010; 71020; 71250; 80048; 80053; 82962; 83880; 84100; 84484; 84560; 85025; 85610; 85730; 86850; 86900; 86901; 86920; 90935; 93005; 93306; 94640; 94664; 96372; 96374; 97116; 97162; J1815; J1940; J2997; J7030; P9016; Q4081

== ENCOUNTER 2017-12-08 17:11 | Inpatient (IN) | END 2017-12-23 23:15 | disposition home or self-care (01) | DRG 264 ==

== ENCOUNTER 2018-07-29 06:11 | Day surgery (SDC) | payer MEDICARE, OTHER ==
[2018-07-29] VITALS (13 sets, daily range): BP systolic 138–190; BP diastolic 64–86; PULSE 66–88; RESP 12–18; Ht 154.9 cm; Wt 59.1 kg
[~2018-07-29] VITALS: Ht 154.9 cm; Wt 59.1 kg
[~2018-07-29 06:11] MED LIST changes: -ASPI-664 PO; -ATOR40TA68 PO; -CARV25TA97 PO; +CARV6.2579 PO; -FURO-110 PO; -ISOS30TA5 PO; -LANT3I SC; -NIFE30TA60 PO; +NIFE60TA2 PO
--- NOTE | 2018-07-29 07:16 | HPN ---
Date/Time of Note Date/Time of Note DATE: 07/29/18 TIME: 07:16 Interval H&P Admission Note Pt. seen H&P reviewed: No system changes VERONICA RODGERS MD July 29, 2018 07:16
[2018-07-29] MEDS ORDERED: LIDOCAINE 1% (MPF) 30 ML INJ ONE (07:39)
[2018-07-29] MEDS ORDERED: HEPARIN 1000 UNITS/ML 10 ML INJ ONE (07:39)
[2018-07-29] MEDS ORDERED: GELATIN SIZE 100 SPONGE ONE (07:39)
[2018-07-29] MEDS ORDERED: THROMBIN 5000 UNIT VIAL ONE (07:39)
--- NOTE | 2018-07-29 07:44 | PREAC ---
Date/Time of Note Date/Time of Note DATE: 07/29/18 TIME: 07:43 Anesthesia Eval and Record Evaluation Time Pre-Procedure Interview DATE: 07/29/18 TIME: 07:42 Age 83 Sex female NPO: 8 hrs Preoperative diagnosis esrd Planned procedure left av fistula creation Past Medical History Past Medical History: Includes Cardio: HTN Endo: Diabetes Musculoskeletal: Osteoarthritis, Other (gout) Renal: ESRD on dialysis Surgery & Anesthesia Issues No known issue Meds Anticoagulation: No Beta Anabel within 24 hr: Yes Active Scripts Nifedipine (Procardia Xl) 60 Mg Tab.er.24, 60 MG PO DAILY for 30 Days, #30 TAB Prov:TREMAINE RIOS MD 12/22/17 Carvedilol* (Carvedilol*) 6.25 Mg Tablet, 6.25 MG PO BID for 30 Days, #60 TAB Prov:TREMAINE RIOS MD 12/22/17 Reported Medications Calcium Acetate* (Calcium Acetate*) 667 Mg Capsule, 667 MG PO WITH MEAL DAILY, #30 CAP 12/08/17 Allopurinol* (Allopurinol*) 100 Mg Tablet, 100 MG PO DAILY, TAB 12/08/17 Meds reviewed: Yes Allergies Coded Allergies: ranolazine (Verified Allergy, Intermediate, 07/29/18) entered as told by Dr. Olivares Allergies Reviewed: Yes Labs/Studies Labs Reviewed: Reviewed by anesthesiologist test: N/A Studies: ECG Pre-procedure Exam Last vitals Vital Signs Date Temp Pulse Resp B/P (MAP) Pulse Ox O2 O2 Flow FiO2 Time Delivery Rate 07/29/18 97.5 66 18 166/84 98 Room Air 07:37 (111) Airway: Adequate mouth opening, Adequate thyromental dist Mallampati: Mallampati II Teeth: Normal Lung: Normal Heart: Normal ASA Physical Status ASA physical status: 3 Emergency: None Planned Anesthetic General/MAC: LMA Planned Pain Management Parenteral pain med Pre-operative Attestations Prior to commencing anesthesia and surgery, the patient was re-evaluated, there was verification of: *The patient's identity *The results of appropriate recent lab work and preoperative vital signs *The above evaluation not changing prior to induction *Anesthetic plan, risk benefits, alternative and complications discussed with patient/family; questions answered; patient/family understands, accepts and wishes to proceed. SARAH SARABIA July 29, 2018 07:44
[2018-07-29] MEDS ORDERED: LIDOCAINE 1% (MPF) 30 ML INJ INJ ONE (07:45)
[2018-07-29] MEDS ORDERED: HEPARIN 1000 UNITS/ML 10 ML INJ IRR ONE (08:00)
[2018-07-29] MEDS ORDERED: PROPOFOL 100 ML ONE (08:05)
[2018-07-29] MEDS ORDERED: ROCURONIUM 50 MG INJ ONE (08:05)
[2018-07-29] MEDS ORDERED: LIDOCAINE 2% (SDV) 5 ML INJ ONE (08:05)
[2018-07-29] MEDS ORDERED: FENTAnyl 50 MCG/ML VIAL ONE (08:15)
[2018-07-29] MEDS ORDERED: CEFAZOLIN 1 GM INJ ONE (08:16)
--- NOTE | 2018-07-29 09:18 | RADRPT ---
Vent Rate: 78 bpm RR Interval: 764 msec TX Interval: 182 msec QRS Duration: 76 msec QT Interval: 421 msec QTC Interval: 482 msec P-R-T [place]: 76 - 15 - 83 degrees Sinus rhythm.. Anterior infarct, age undetermined Electronically Signed By: Roni Mccormack
--- NOTE | 2018-07-29 09:30 | SIPON ---
Date/Time of Note Date/Time of Note DATE: 07/29/18 TIME: 09:29 Operative Report Preoperative Diagnosis ESRD Postoperative Diagnosis same Operation/Procedure Performed L arm AV graft creation Surgeon see signature line surgical assistant certified none Anesthesia: general Estimated blood loss: minimal Transfusion Required none Specimen none Grafts/Implants none Complications none VERONICA RODGERS MD July 29, 2018 09:30
[2018-07-29] MEDS ORDERED: NEOSTIGMINE 3 MG/3 ML SYRINGE ONE (09:35)
[2018-07-29] MEDS ORDERED: GLYCOPYRROLATE 0.4 MG INJ ONE (09:35)
--- NOTE | 2018-07-29 09:41 | PAC ---
Date/Time of Note Date/Time of Note DATE: 07/29/18 TIME: 09:41 Post-Anesthesia Notes Post-Anesthesia Note Last documented vital signs Vital Signs Date Temp Pulse Resp B/P (MAP) Pulse Ox O2 O2 Flow FiO2 Time Delivery Rate 07/29/18 97.5 66 18 166/84 98 Room Air 0941 (111) Activity: WNL Respiratory function: WNL Cardiovascular function: WNL Mental status: Baseline Pain reasonably controlled: Yes Hydration appropriate: Yes Nausea/Vomiting absent: Yes SARAH SARABIA July 29, 2018 09:41
[2018-07-29] MEDS ORDERED: hydrALAzine 20 MG INJ ONE (09:44)
[2018-07-29] MEDS ORDERED: METOCLOPRAMIDE 10 MG INJ IV PRN (10:00)
[2018-07-29] MEDS ORDERED: DIPHENHYDRAMINE 50 MG INJ IV PRN (10:00)
[2018-07-29] MEDS ORDERED: OXYCODONE/ACETAMINOPHEN (5/325) TAB PO PRN ×2 (10:00)
[2018-07-29] MEDS ORDERED: EPHEDrine 25 MG/5 ML SYG IV PRN (10:00)
[2018-07-29] MEDS ORDERED: MEPERIDINE 25 MG INJ IV PRN (10:00)
[2018-07-29] MEDS ORDERED: hydrALAzine 20 MG INJ IV PRN (10:00)
[2018-07-29] MEDS ORDERED: ALBUTEROL 0.083% (NEB) 2.5 MG/3 ML AMP HHN PRN (10:00)
[2018-07-29] MEDS ORDERED: ONDANSETRON 4 MG INJ IV PRN (10:00)
[2018-07-29] MEDS ORDERED: FENTAnyl 50 MCG/ML VIAL IV PRN ×3 (10:00)
[2018-07-29] MEDS ORDERED: LABETALOL HCL 20MG INJ IV PRN (10:00)
[2018-07-29] MEDS ORDERED: MIDAZOLAM 1 MG/ML 2 ML INJ IV PRN (10:00)
[2018-07-29] MEDS ORDERED: KETOROLAC 30 MG INJ IV PRN (10:00)
[2018-07-29] MEDS ORDERED: HYDROmorphONE 1 MG/5 ML IV SYRINGE IV PRN ×2 (10:00)
--- NOTE | 2018-07-29 13:44 | OPR ---
DATE OF OPERATION: 07/29/2018 PREOPERATIVE DIAGNOSIS: End-stage renal disease. POSTOPERATIVE DIAGNOSIS: End-stage renal disease. PROCEDURE PERFORMED: Creation of left upper arm AV graft. SURGEON: Veronica Meraz MD ANESTHESIA: Local with LMA. ESTIMATED BLOOD LOSS: Minimal. COMPLICATIONS: No intraprocedural complications. INDICATIONS: This is an 83-year-old diabetic, hypertensive woman with end-stage renal disease, has b een on dialysis for 6 months via PermCath. She had a previous failed left arm brachiobasilic fistula . She came in today for creation of a left upper arm AV graft. DESCRIPTION OF PROCEDURE: The patient was brought to the operating room and placed on the table in s upine position. Left arm was prepped and draped in the usual sterile fashion. I began by making an incision over the brachial artery just above the elbow. I dissected down to the brachial artery. It was small but soft and healthy. I dissected out several centimeter segment. I then went into the u pper arm and made an incision on the medial aspect of the upper arm. I dissected down through the sparks bcutaneous tissue and identified the axillary vein. It was a big vein. It was good size and patent. I then tunneled a 5 mm Artegraft between the 2 incisions using a large DeBakey clamp and then clamp ed the axillary vein proximally and distally. I made a 1.5 cm long anterior venotomy. I then spatul ated the upper end of the graft to fit the venotomy and anastomosed the upper end of graft to the venus e of vein using 6-0 Prolene suture in a running standard vascular surgical fashion. I removed the cl amps. I flushed it. There was good backflow. It flushed easily. I then clamped the brachial arter y proximally and distally. I made an anterior arteriotomy about 8 mm in length. I then just cut the lower end of graft and anastomosed the end of graft to the side of brachial artery, again usin g 6-0 Prolene suture in a running standard vascular surgical fashion. I removed the clamps. There w as excellent hemostasis. There was a good thrill, very strong. There is 2+ radial pulse. I then cl osed the skin incisions in 2 layers using an inner layer of 3-0 Vicryl and an outer layer of 4-0 Cataño cryl subcuticular suture. Sterile dressing was applied. The patient was then extubated in the opera ting room and transferred to recovery room in stable condition. She tolerated the procedure well wit hout any complications. Dictated By: VERONICA COLBY/ELENI Conf#: [id number] DID#: [id number] CC: WAI HERNANDEZ MD; TREMAINE RIOS MD;*End*
== END 2018-07-29 14:15 | disposition home or self-care (01) ==
LOC: SDS 06:11
PROVIDERS: ATTEND Surgery Vascular Surgery
DX: E11.22 Type 2 diabetes mellitus with diabetic chronic kidney disease (principal); I12.0 Hypertensive chronic kidney disease with stage 5 chronic kidney disease or end stage renal disease; N18.6 End stage renal disease; Z79.4 Long term (current) use of insulin; Z79.84 Long term (current) use of oral hypoglycemic drugs; M10.9 Gout, unspecified; Z93.6 Other artificial openings of urinary tract status
CPT/HCPCS: 36825; 82962; 84132; 93005; J0360; J0690; J1170; J1644; J2405; J2710; J3010

== ENCOUNTER 2018-08-01 22:37 | Emergency (ER) | payer MEDICARE, OTHER ==
[~2018-08-01] VITALS: Ht 152.4 cm; Wt 61.7 kg
[2018-08-01 22:44] VITALS: Ht 152.4 cm; Wt 61.7 kg
--- NOTE | 2018-08-01 23:29 | ERD ---
ER Documentation Chief Complaint Chief Complaint s/p fistula revison yesterday. pt. c/o itchiness at site. +clean and dry. HPI 83-year-old female status post AV fistula creation on the left upper extremity 4 days ago, presents to the emergency department, brought in by family, complaining of persistent local itching in the surgical incision area. Otherwise, no fever or chills, the patient had hemodialysis through a Irineo catheter today without complications. ROS All systems reviewed and are negative except as per history of present illness. Medications Home Meds Active Scripts Nifedipine (Procardia Xl) 60 Mg Tab.er.24, 60 MG PO DAILY for 30 Days, #30 TAB Prov:TREMAINE RIOS MD 12/22/17 Carvedilol* (Carvedilol*) 6.25 Mg Tablet, 6.25 MG PO BID for 30 Days, #60 TAB Prov:TREMAINE RIOS MD 12/22/17 Reported Medications Calcium Acetate* (Calcium Acetate*) 667 Mg Capsule, 667 MG PO WITH MEAL DAILY, #30 CAP 12/08/17 Allopurinol* (Allopurinol*) 100 Mg Tablet, 100 MG PO DAILY, TAB 12/08/17 Allergies Allergies: Coded Allergies: ranolazine (Verified Allergy, Intermediate, 07/29/18) entered as told by Dr. Olivares PMhx/Soc History of Surgery: Yes (av shunt creation to left arm) Anesthesia Reaction: No Hx Neurological Disorder: No Hx Respiratory Disorders: No Hx Cardiac Disorders: Yes (htn) Hx Psychiatric Problems: No Hx Miscellaneous Medical Probl: Yes (gout, esrd on hd m,w,f) Hx Alcohol Use: No Hx Substance Use: No Hx Tobacco Use: No FmHx Family History: diabetes Physical Exam Vitals Vital Signs Date Temp Pulse Resp B/P (MAP) Pulse Ox O2 O2 Flow FiO2 Time Delivery Rate 08/01/18 99.0 89 20 178/77 96 22:44 (110) Physical Exam Patient alert, oriented, vital signs stable. HEAD: Normocephalic, atraumatic. EYES: PERRLA, EOMI, Sclera and conjunctiva appear normal. NOSE: Clear and patent nostrils. EARS: Canals clear, tympanic membranes WNL. MOUTH: normal lips and tongue, no oral lesions. THROAT: Normal oropharynx, no tonsillar exudates. NECK: Supple, No lymphadenopathy. Full ROM without pain or tenderness. HEART: RRR, no rubs, murmurs, clicks or gallops. LUNGS: Clear to auscultation. ABDOMEN: Soft, non-tender without masses or hepatosplenomegaly. EXTREMITIES: Left upper extremity: AV fistula with adequate flow, no evidence of infection. Distal neurovascular exam intact BACK: Full ROM, no deformity, normal back exam NEURO: Cranial nerves grossly intact, no motor or sensory deficit SKIN: No rashes, no petechia. Procedures/MDM Status post left upper extremity AV fistula creation 3 days ago. Adequate pain control, no fever, no chills, good compliance with medications no side effects. The patient was evaluated for infection and neurovascular compromise. Patient is stable, with adequate healing process, no signs of infection, adequate thrill, okay to discharge home, medication adherence reinforced. The patient was instructed to follow up with the primary care provider in the next 48h. If symptoms persist, worsen or new symptoms develop, then patient should return to the ED immediately. Instructions explained and given directly by me to the patient with acknowledgment and demonstrated understanding. Disclaimer: Inadvertent spelling and grammatical errors are likely due to EHR/dictation software use and do not reflect on the overall quality of patient care. Also, please note that the electronic time recorded on this note does not necessarily reflect the actual time of the patient encounter. Departure Diagnosis: Primary Impression: AV fistula Additional Impressions: Encounter for postoperative wound check No infection or colonization with multidrug resistant organism Condition: Stable Additional Instructions: Thank you very much for allowing us to participate in your care. Your health and safety is our top priority at [facility]. Call your primary care doctor TOMORROW for an appointment during the next 2-4 days and bring all the information provided. Have prescriptions filled and follow precisely the directions on the label. If the symptoms get worse and your provider is unavailable, return to the Emergency Department immediately. DELMY HGOUE MD Aug 01, 2018 23:29
[2018-08-02 00:08] VITALS: BP 153/68; PULSE 81; RESP 18
== END 2018-08-02 00:09 | disposition home or self-care (01) ==
LOC: FTE 22:37
DX: T82.590A Other mechanical complication of surgically created arteriovenous fistula, initial encounter (principal); I12.0 Hypertensive chronic kidney disease with stage 5 chronic kidney disease or end stage renal disease; N18.6 End stage renal disease; Y71.2 Prosthetic and other implants, materials and accessory cardiovascular devices associated with adverse incidents; Z48.01 Encounter for change or removal of surgical wound dressing; Z99.2 Dependence on renal dialysis
CPT/HCPCS: 99282

== ENCOUNTER 2018-09-20 17:23 | Inpatient (IN) | payer MEDICARE, OTHER ==
[~2018-09-20] VITALS: Ht 167.6 cm; Wt 59.7 kg
[~2018-09-20 17:23] MED LIST changes: +AMOX1TAB10 PO; +CARV25TA79 PO; +LOSA50TA2 PO; +NIFE90TA PO
--- NOTE | 2018-09-20 17:29 | ERD ---
ER Documentation Chief Complaint Chief Complaint Shortness of breath HPI The patient is a 83-year-old female, presenting to the ER because she had acute dyspnea on exertion for the last 3 days. She went to her vascular surgeon Dr. Slade's office today to have correction of her recently created left upper extremity AV fistula; he had angioplasty due to stenosis. She became more dyspneic, O2 sat was 80% on RA, therefore she was put on 100% nonrebreather mask and sent to the ER by ambulance. She is awake, alert but moderately dyspneic, minimal history is obtained from the patient most of the history is obtained from. Her physician, medical record and EMS Acucheck was 140 per EMS Past medical history: Hypertension, chronic kidney disease on hemodialysis Wednesday and Wednesday, gout, anemia, hypertension, diabetes mellitus Past surgical history: Left upper extremity AV fistula, cataract ROS All systems reviewed and are negative except as per history of present illness. Medications Home Meds Active Scripts Nifedipine (Procardia Xl) 60 Mg Tab.er.24, 60 MG PO DAILY for 30 Days, #30 TAB Prov:TREMAINE RIOS MD 12/22/17 Reported Medications Carvedilol* (Carvedilol*) 25 Mg Tablet, 25 MG PO BID, #60 TAB 09/20/18 Calcium Acetate* (Calcium Acetate*) 667 Mg Capsule, 667 MG PO WITH MEAL DAILY, #30 CAP 12/08/17 Allopurinol* (Allopurinol*) 100 Mg Tablet, 100 MG PO DAILY, TAB 12/08/17 Discontinued Scripts Carvedilol* (Carvedilol*) 6.25 Mg Tablet, 6.25 MG PO BID for 30 Days, #60 TAB Prov:TRMEAINE RIOS MD 12/22/17 Allergies Allergies: Coded Allergies: ranolazine (Verified Allergy, Intermediate, 09/20/18) entered as told by Dr. Olivares PMhx/Soc History of Surgery: Yes (av shunt creation to left arm, both eyes cataract extraction) Anesthesia Reaction: No Hx Neurological Disorder: No Hx Respiratory Disorders: No Hx Cardiac Disorders: Yes (htn, chf) Hx Psychiatric Problems: No Hx Miscellaneous Medical Probl: Yes (gout, esrd on hd m,w,f) Hx Alcohol Use: No Hx Substance Use: No Hx Tobacco Use: No Physical Exam Vitals Vital Signs Date Temp Pulse Resp B/P (MAP) Pulse Ox O2 O2 Flow FiO2 Time Delivery Rate 09/20/18 85 96 50 17:59 09/20/18 Non 15 17:35 Rebreather 09/20/18 97.5 87 22 184/84 96 Non 17:35 (117) Rebreather 09/20/18 Non 15.0 17:35 Rebreather 09/20/18 97.5 87 22 184/84 99 17:28 (117) Physical Exam Const: Mild to moderate acute distress. Head: Atraumatic. Eyes: Normal Conjunctiva. ENT: Normal External Ears, Nose and Mouth. Neck: Full range of motion. No meningismus. Resp: Clear to auscultation bilaterally. Cardio: Tachypneic, bilateral expiratory wheezes Abd: Soft, non distended, normal bowel sounds, non tender. Skin: No petechiae or rashes. Back: No midline or flank tenderness. Ext: No cyanosis, or edema. Neur: Awake and alert. No focal deficit Psych: Normal Mood and Affect. Result Diagram: 09/20/18 1755 09/20/18 175 Results 24 hrs Laboratory Tests Test 09/20/18 17:55 09/20/18 19:00 09/20/18 19:11 09/20/18 19:13 White Blood 6.5 10^3/ul Count Red Blood Count 3.27 10^6/ul Hemoglobin 10.5 g/dl Hematocrit 31.6 % Mean Corpuscular 96.6 fl Volume Mean Corpuscular 32.1 pg Hemoglobin Mean Corpuscular 33.2 g/dl Hemoglobin Nallely nt Red Cell 13.9 % Distribution Width Platelet Count 295 10^3/UL Mean Platelet 9.4 fl Volume Immature 0.600 % Granulocytes % Neutrophils % 57.7 % Lymphocytes % 29.5 % Monocytes % 6.6 % Eosinophils % 5.1 % Basophils % 0.5 % Nucleated Red 0.0 /100WBC Blood Cells % Immature 0.040 10^3/ul Granulocytes # Neutrophils # 3.7 10^3/ul Lymphocytes # 1.9 10^3/ul Monocytes # 0.4 10^3/ul Eosinophils # 0.3 10^3/ul Basophils # 0.0 10^3/ul Nucleated Red 0.0 10^3/ul Blood Cells # Prothrombin Time 12.3 Sec Prothrombin Time 1.0 Ratio INR 0.90 International Normalized Ratio Activated 34.0 Sec Partial Thrombop last Time Sodium Level 138 mmol/L Potassium Level 4.4 mmol/L Chloride Level 96 mmol/L Carbon Dioxide 32 mmol/L Level Anion Gap 10 Blood Urea 20 mg/dl Nitrogen Creatinine 7.30 mg/dl Est Glomerular mL/min Filtrat Rate mL/min Glucose Level 146 mg/dl Calcium Level 10.6 mg/dl Troponin I 0.014 ng/ml Blood Gas Blood arterial Specimen Source Arterial Blood 09/20/2018 7:40:1 Date Drawn 9 PM Arterial Blood 7.446 pH (Temp corrected) Arterial Blood 40.6 mmhg pCO2 (Temp correct) Arterial Blood 63.1 mmHG pO2 (Temp corrected) Arterial Blood 27.3 mmol/L HCO3 Arterial Blood 3.1 mmol/L Base Excess Arterial Blood 92.2 mmHG Oxygen Saturatio n Marquez Test ACCEPTAB Arterial Blood Right Radial Gas Puncture Site Arterial 0.3 % Blood Carboxyhem oglobin Arterial Blood 0.1 % Methemoglobin Blood Gas A-a O2 247.7 mmHg Differential Oxyhemoglobin 91.8 % Percent Blood Gas 37.0 C Temperature Blood Gas 20.0 Respiration Rate Blood Gas Actual 22 Respiration Rate Blood Gas MASK - BIPAP Modality FiO2 50.0 % Blood Gas 1.0 Inspiratory Time Blood Gas 15/5 IPAP/EPAP Ratio Blood Gas AA Notified Whom Blood Gas 09/20/2018 7:51:2 Notified Time 4 PM POC Venous 0.3 mmol/L 0.3 mmol/L Lactate Test 09/20/18 19:18 POC Venous 0.6 mmol/L Lactate Current Medications Medications Dose Sig/Nahun Start Time Status Last (Trade) Ordered Route PRN Stop Time Admin Dose Reason Admin Vancomycin 250 ml @ ONCE ONCE 09/20/18 09/20/18 HCl 125 mls/hr IVPB 19:00 19:53 09/20/18 20:59 Piperacillin 50 ml @ ONCE ONCE 09/20/18 DC 09/20/18 Sod/ 100 mls/hr IVPB 19:00 19:53 Tazobactam 09/20/18 19:29 Sod Procedures/MDM [address] [address] Radiology Main Line: [phone] DIAGNOSTIC IMAGING REPORT Patient: LATA PARRA : 1935 Age: 83 Sex: F MR #: [id number] DOS: 09/20/181736 Ordering MD: ARI CHRISTIANSON MD Location: E/R Room/Bed: PROCEDURE: XR Chest. CLINICAL INDICATION: Shortness of breath TECHNIQUE: Single frontal view of the chest was obtained COMPARISON: 12/15/2017 FINDINGS: Enlargement of cardiac silhouette is again seen. Calcification in the aortic arch. Increased lung densities are seen at both lung bases right greater than left and in the left upper to mid lung appearing since previous study which could represent pulmonary infiltrates with consolidation in the lower lungs. There is no pleural effusion or pneumothorax seen. IMPRESSION: Enlargement of cardiac silhouette again seen. Increased lung densities are seen at both lung bases right greater than left and in the left upper to mid lung appearing since previous study which could represent pulmonary infiltrates with consolidation in the lower lungs. Follow-up is recommended to evaluate for the possibility of underlying neoplasm at the lung bases. RPTAT: HJES .Cecil Morrow MD MD Date Time Electronically viewed and signed by .Cecil Morrow MD, MD on 09/20/2018 18:50 .S/ CC: ARI CHRISTIANSON MD [phone] EKG: Read by emergency physician Rate/Rhythm: Normal Sinus Rhythm 84 beats/min QRS, ST, T-waves: No ST elevation, no T inversion, anterior Q's Impression: Abnormal EKG MEDICAL MAKING DECISION: The patient is a 83-year-old female, presenting with acute respiratory failure, clinically she presents as acute fluid overload, however the chest x-ray was read as bilateral pneumonia. She was treated with vancomycin IV and Zosyn IV for acute pneumonia. She was put on BiPAP and she was able to tolerate BiPAP well. The differential diagnoses considered include but are not limited to asthma, COPD, pneumonia, pulmonary embolus, pleural effusion, congestive heart failure. Critical Care: Time: 35 minutes excluding all billable procedures. Treatments/Evaluations: Close monitoring and treatment of unstable vital signs, cardiorespiratory, and neurologic status, while maintaining tight balance of fluid, respiratory, and cardiac interventions. Departure Diagnosis: Primary Impression: Respiratory failure, acute Additional Impressions: PNA (pneumonia) Hypercalcemia Anemia Condition: Critical Comments I discussed the findings with the patient. I notified the patient with Dr. Rios at 8pm via [id number] , who was made aware of the lab, the treatment, the patient condition. The patient is admitted to ICU Disclaimer: Inadvertent spelling and grammatical errors are likely due to EHR/dictation software use and do not reflect on the overall quality of patient care. Also, please note that the electronic time recorded on this note does not necessarily reflect the actual time of the patient encounter. ARI CHRISTIANSON MD Sep 20, 2018 17:29
[2018-09-20] MEDS ORDERED: VANCOMYCIN 1 GM (PMX) 250 ML IVPB ONE (19:00)
[2018-09-20] MEDS ORDERED: PIPER-TAZO 2.25 GM (PMX) 50 ML IVPB ONE (19:00)
[2018-09-20] MEDS ORDERED: FUROSEMIDE 40 MG INJ IV ONE (23:30)
[2018-09-20 23:49] VITALS: PULSE 88
[2018-09-20 23:51] VITALS: BP 158/113; PULSE 91; RESP 22
[2018-09-21] VITALS (46 sets, daily range): BP systolic 122–180; BP diastolic 48–97; PULSE 70–88; RESP 14–26; Ht 167.6 cm; Wt 59.7 kg
[2018-09-21] MEDS: CALCIUM ACETATE 667 MG CAP PO SCH (09:21)
[2018-09-21] MEDS: ALLOPURINOL 100 MG TAB PO SCH (09:23)
[2018-09-21] MEDS: NIFEdipine (XL) 60 MG TAB PO SCH (09:23)
--- NOTE | 2018-09-21 09:27 | CONS ---
DATE OF ADMISSION: 09/20/2018 DATE OF CONSULTATION: TYPE OF CONSULTATION: Renal consultation. Thank you, Dr. Gan, for asking me to participate in medical management of this patient. REASON FOR CONSULTATION: End-stage renal disease. I have known this patient for years. The patient has a history of chronic kidney disease due to long standing diabetic nephropathy. She has been on dialysis. She apparently did have a dialysis tunnele d catheter in and then had a left upper arm AV fistula created by Dr. Meraz. Yesterday she had a pro cedure done by Dr. Meraz to examine the AV fistula. He injected some dye. The patient prior to the procedure was having some shortness of breath and became more short of breath after the fistulogram y . She was transported to [facility] Emergency Room and is now in the ICU. The patient is awake and alert. She recognizes me. She says that she is feeling better since she h as oxygen on now. She has been on hemodialysis Wednesday, Wednesday and Wednesday and today being she is due for her routine hemodialysis. Her chest x-ray does show bilateral pulmonary infiltrates and an enlarged heart consistent with pulmonary edema. PAST MEDICAL HISTORY: Remarkable for: 1. Type 2 diabetes mellitus. 2. Hypertension. 3. History of congestive heart failure. 4. End-stage renal disease due to diabetic nephropathy. 5. Debility. CURRENT MEDICATIONS: Include the followin. Allopurinol 100 mg a day. 2. PhosLo 667 mg every morning. 3. Carvedilol 25 mg twice a day. 4. Nifedipine XL 60 mg a day. PAST SURGICAL HISTORY: Left upper arm AV fistula, cataract surgery. ALLERGIES: RANOLAZINE. PHYSICAL EXAMINATION: GENERAL: At this time reveals an elderly female in no apparent distress. She has nasal cannula oxyg en tube on. VITAL SIGNS: Pulse of 80, respirations 16, blood pressure 150/60, O2 saturation 100% on 4 liter nasa l cannula. HEENT: Head normocephalic. Eyes: Extraocular muscles intact. NOSE AND MOUTH: Normal. NECK: Supple. No neck vein distention. LUNGS: Diminished breath sounds bilaterally. HEART: Regular rhythm. No murmurs, gallops or rubs. ABDOMEN: Soft, nontender. EXTREMITIES: No peripheral edema. Left upper arm AV fistula with good bruit and thrill. IMPRESSION: 1. End-stage renal disease on maintenance hemodialysis. 2. Congestive heart failure with pulmonary edema due to fluid overload. 3. Hypertension. 4. Type 2 diabetes mellitus. PLAN: 1. Order emergent hemodialysis. 2. I notified Dr. Meraz of the patient's admission and he said that her left upper arm AV fistula is good to use. 3. Will possibly need a dialysis tomorrow depending on her situation. Dictated By: HOPE DOW MD ND/NTS Conf#: [id number] DID#: [id number] CC: TREMAINE GAN MD;*EndCC*
--- NOTE | 2018-09-21 12:21 | QN ---
Documentation Comment Breathing well with good sats on nasal cannula, no CP / SOB. She became SOB after L arm AV fistulagram yesterday in my office L arm AVG with good thrill - OK to use, remove suture from puncture site VERONICA RODGERS MD Sep 21, 2018 12:21
--- NOTE | 2018-09-21 15:15 | HP ---
Date/Time of Note Date/Time of Note DATE: 09/21/18 TIME: 14:45 Assessment/Plan VTE Prophylaxis [place] [facility] risk: 3 [place]CD applied [place] [facility] Yes Pharmacological prophylaxis: NA/contraindicated Pharm contraindication: renal impairment Lines/Catheters IV [facility] Type [facility]from [facility] Saline Lock Urinary Cath still in place: No Assessment/Plan Problems: (1) Shortness of breath Status: Acute Comment: Continue oxygen support and check chest CT scan. Will start antibiotics for possible pneumonia and give one dose of lasix for fluid overload although patient is quite oliguric and will probably need emergent hemodialysis today. Keep in ICU until after hemodialysis and if stable, will transfer to [facility]. (2) ESRD (end stage renal disease) Status: Chronic Comment: Hemodialysis per Renal consult Dr. Mo. Vascular access per Dr. Bey. (3) Diabetes mellitus Status: Chronic Comment: On no meds this past year. Blood sugar has been stable since admission . No accuchecks per previous discussion with family. (4) Hypertension Status: Chronic Comment: resume bp meds in am Result Diagram: 09/20/18 1755 09/20/18 1755 Results 24hrs Laboratory Tests Test 09/20/18 17:55 09/20/18 19:00 09/20/18 19:11 09/20/18 19:13 White Blood Count 6.5 Red Blood Count 3.27 L Hemoglobin 10.5 L Hematocrit 31.6 L Mean Corpuscular 96.6 Volume Mean Corpuscular 32.1 Hemoglobin Mean Corpuscular 33.2 Hemoglobin Concen t Red Cell 13.9 Distribution Width Platelet Count 295 Mean Platelet 9.4 Volume Immature 0.600 H Granulocytes % Neutrophils % 57.7 Lymphocytes % 29.5 Monocytes % 6.6 Eosinophils % 5.1 Basophils % 0.5 Nucleated Red 0.0 Blood Cells % Immature 0.040 H Granulocytes # Neutrophils # 3.7 Lymphocytes # 1.9 Monocytes # 0.4 Eosinophils # 0.3 Basophils # 0.0 Nucleated Red 0.0 Blood Cells # Prothrombin Time 12.3 Prothrombin Time 1.0 Ratio INR International 0.90 Normalized Ratio Activated 34.0 Partial Thrombopl ast Time Sodium Level 138 Potassium Level 4.4 Chloride Level 96 L Carbon Dioxide 32 H Level Anion Gap 10 Blood Urea 20 Nitrogen Creatinine 7.30 H Est Glomerular Filtrat Rate mL/min Glucose Level 146 Calcium Level 10.6 H Troponin I 0.014 Blood Gas Blood arterial Specimen Source Arterial Blood 09/20/2018 7:40:1 Date Drawn 9 PM Arterial Blood pH 7.446 (Temp corrected) Arterial Blood 40.6 pCO2 (Temp correct) Arterial Blood 63.1 L pO2 (Temp corrected) Arterial Blood 27.3 H HCO3 Arterial Blood 3.1 H Base Excess Arterial Blood 92.2 L Oxygen Saturation Marquez Test ACCEPTAB Arterial Blood Right Radial Gas Puncture Site Arterial 0.3 Blood Carboxyhemo globin Arterial Blood 0.1 Methemoglobin Blood Gas A-a O2 247.7 H Differential Oxyhemoglobin 91.8 L Percent Blood Gas 37.0 Temperature Blood Gas 20.0 Respiration Rate Blood Gas Actual 22 Respiration Rate Blood Gas MASK - BIPAP Modality FiO2 50.0 Blood Gas 1.0 Inspiratory Time Blood Gas 15/5 IPAP/EPAP Ratio Blood Gas AA Notified Whom Blood Gas 09/20/2018 7:51:2 Notified Time 4 PM POC Venous 0.3 L 0.3 L Lactate Test 09/20/18 19:18 09/20/18 22:44 POC Venous 0.6 Lactate Lactic Acid Level 0.7 HPI/ROS Admit Date/Time Admit Date/Time Sep 20, 2018 at 20:09 Hx of Present Illness 83 year old patient with end stage renal failure on chronic hemodialysis every MWF who developed worsening of her shortness of breath after an AV fistulogram at vascular lab and was sent to ER. Patient was noted to be hypoxic requiring bipap support in ER . Her chest xrays showed bibasilar infiltrates vs congestion. Patient is admitted for acute respiratory failure due to pneumonia vs fluid overload. PMH/Family/Social Past Medical History Medical History: congestive heart failure, diabetes, hypertension, h yperthyroid, renal disease Medications Current Medications Allopurinol (Zyloprim) 100 mg DAILY PO Last administered on 09/21/18at 09:23; Admin Dose 100 MG; Start 09/21/18 at 09:00 Calcium Acetate (Phoslo) 667 mg QAM PO Last administered on 09/21/18 09:21; Admin Dose 667 MG; Start 09/21/18 at 09:00 Carvedilol (Coreg) 25 mg BID PO Last administered on 09/21/18at 09:23; Admin Dose 25 MG; Start 09/21/18 at 09:00 Nifedipine (Procardia Xl) 60 mg DAILY PO Last administered on 09/21/18at 09:23; Admin Dose 60 MG; Start 09/21/18 at 09:00 Coded Allergies: ranolazine (Verified Allergy, Intermediate, 09/20/18) entered as told by Dr. Olivares Past Surgical History Past Surgical Hx: other Family History Significant Family History: diabetes Social History Alcohol Use: none Smoking Status: Never smoker Drug Use: none Exam/Review of Systems Vital Signs Vitals Vital Signs Date Temp Pulse Resp B/P (MAP) Pulse Ox O2 O2 Flow FiO2 Time Delivery Rate 09/21/18 71 19 149/72 99 Room Air 14:00 (97) 09/21/18 97.9 12:00 09/21/18 4.0 09:25 09/21/18 47 01:07 Intake and Output 09/20/18 09/20/18 09/21/18 1515:00 23:00 07:00 IntakeIntake Total 60 ml OutputOutput Total 150 ml BalanceBalance -90 ml Exam Constitutional: alert, oriented Head: normocephalic, atraumatic ENMT: nl external ears & nose Respiratory: clear to auscultation Cardiovascular: regular rate and rhythm Gastrointestinal: soft, non-tender Musculoskeletal: nl extremities to inspection TREMAINE RIOS MD Sep 21, 2018 14:59
[2018-09-22] VITALS (16 sets, daily range): BP systolic 121–166; BP diastolic 52–72; PULSE 63–73; RESP 18–20
[2018-09-22] MEDS: ALLOPURINOL 100 MG TAB PO SCH (08:23)
[2018-09-22] MEDS: CALCIUM ACETATE 667 MG CAP PO SCH (08:23)
[2018-09-22] MEDS: NIFEdipine (XL) 60 MG TAB PO SCH (08:31)
--- NOTE | 2018-09-22 08:36 | CONS ---
Assessment/Plan Assessment/Plan Hospital Course (Demo Recall) 1. End-stage renal disease on maintenance hemodialysis. I will do 2 hours of dry ultrafiltration today and 3 hours of hemodialysis tomorrow. 2. Congestive heart failure. Her chest x-ray is improved but still has evidence of congestive heart failure. 3. Hypertension 4. Type 2 diabetes mellitus Consultation Date/Type/Reason Admit Date/Time Sep 20, 2018 at 20:09 Initial Consult Date Type of Consult Nephrology Date/Time of Note DATE: 09/22/18 TIME: 08:33 24 HR Interval Summary Free Text/Dictation This patient is being seen in nephrologic follow-up. She had hemodialysis done yesterday and 1800 cc of fluid was removed. She is still requiring oxygen by nasal cannula. She is awake and alert. Constitutional: no complaints, improved Exam/Review of Systems Exam Vitals Vital Signs Date Temp Pulse Resp B/P (MAP) Pulse Ox O2 O2 Flow FiO2 Time Delivery Rate 09/22/18 Nasal 4.0 07:38 Cannula 09/22/18 98.8 73 20 149/61 97 07:18 (90) 09/21/18 47 01:07 Intake and Output 09/21/18 09/21/18 09/22/18 1414:59 22:59 06:59 IntakeIntake Total 220 ml 120 ml 240 ml OutputOutput Total 400 ml 2400 ml BalanceBalance -180 ml -2280 ml 240 ml Constitutional: alert, oriented, frail Respiratory: crackles/rales, diminished breath sounds Cardiovascular: regular rate and rhythm Gastrointestinal: soft, non-tender Musculoskeletal: nl extremities to inspection Results Result Diagram: 09/22/18 0742 09/22/18 0742 Results 24hrs Laboratory Tests Test 09/21/18 09:11 09/22/18 07:42 Hepatitis B Surface Antigen NEGATIVE White Blood Count 6.1 Red Blood Count 2.89 L Hemoglobin 9.4 L Hematocrit 28.0 L Mean Corpuscular Volume 96.9 Mean Corpuscular Hemoglobin 32.5 Mean Corpuscular Hemoglobin Concent 33.6 Red Cell Distribution Width 13.9 Platelet Count 257 Mean Platelet Volume 9.5 Immature Granulocytes % 0.200 Neutrophils % 54.5 Lymphocytes % 31.4 Monocytes % 8.5 Eosinophils % 5.1 Basophils % 0.3 Nucleated Red Blood Cells % 0.0 Immature Granulocytes # 0.010 Neutrophils # 3.3 Lymphocytes # 1.9 Monocytes # 0.5 Eosinophils # 0.3 Basophils # 0.0 Nucleated Red Blood Cells # 0.0 Sodium Level 140 Potassium Level 4.2 Chloride Level 101 Carbon Dioxide Level 29 Anion Gap 10 Blood Urea Nitrogen 16 Creatinine 5.37 H Est Glomerular Filtrat Rate mL/min Glucose Level 113 Calcium Level 9.3 Phosphorus Level 3.9 Magnesium Level 2.1 Total Bilirubin 0.4 Direct Bilirubin 0.00 Indirect Bilirubin 0.4 Aspartate Amino Transf (AST/SGOT) 20 Alanine Aminotransferase (ALT/SGPT) 19 Alkaline Phosphatase 55 Total Protein 7.0 Albumin 3.7 Globulin 3.30 H Albumin/Globulin Ratio 1.12 Medications Medication Current Medications Allopurinol (Zyloprim) 100 mg DAILY PO Last administered on 09/22/18 08:23; Admin Dose 100 MG; Start 09/21/18 at 09:00 Calcium Acetate (Phoslo) 667 mg QAM PO Last administered on 09/22/18 08:23; Admin Dose 667 MG; Start 09/21/18 at 09:00 Carvedilol (Coreg) 25 mg BID PO Last administered on 09/21/18at 20:20; Admin Dose 25 MG; Start 09/21/18 at 09:00 Nifedipine (Procardia Xl) 60 mg DAILY PO Last administered on 09/21/18 09:23; Admin Dose 60 MG; Start 09/21/18 at 09:00 Clonidine (Catapres) 0.1 mg TID PRN PO ELEVATED BLOOD PRESSURE; Start 09/21/18 at 20:00 HOPE DOW MD Sep 22, 2018 08:36
[2018-09-22] MEDS ORDERED: ALBUMIN HUMAN 25% 100 ML IV PRN (15:00)
[2018-09-22] MEDS: EPOETIN ALFA-EPBX (ESRD) 10,000 UNIT/ML VIAL SC SCH (17:17)
--- NOTE | 2018-09-22 18:48 | PN ---
Date/Time of Note Date/Time of Note DATE: 09/22/18 TIME: 18:38 Assessment/Plan VTE Prophylaxis Risk score [place]from [facility] [place] risk: 8 SCD applied (from [facility] [place] No SCD contraindicated: low risk/ambulating Pharmacological prophylaxis: NA/contraindicated Pharm contraindication: renal impairment Lines/Catheters IV Catheter Type (from [facility] Saline Lock Urinary Cath still in place: No Assessment/Plan Problems: (1) Fluid overload Status: Acute Comment: continue hemodialysis for fluid removal. (2) Shortness of breath Status: Acute Comment: Chest CT done yesterday and sent by fax showed no evidence of pneumonia, just congestion. continue Oxygen support until patient's hypoxia improves. (3) ESRD (end stage renal disease) Status: Chronic Comment: HD per Dr. Mo. (4) Anemia Status: Chronic Comment: Procrit c HD per renal guidance. (5) Diabetes mellitus Status: Chronic Comment: Blood sugar has been stable on no meds . No accuchecks per previous discussion with family. (6) Hypertension Status: Chronic Comment: controlled on current meds and HD. Result Diagram: 09/22/18 0742 09/22/18 0742 Results 24hrs Laboratory Tests Test 09/22/18 07:42 White Blood Count 6.1 Red Blood Count 2.89 L Hemoglobin 9.4 L Hematocrit 28.0 L Mean Corpuscular Volume 96.9 Mean Corpuscular Hemoglobin 32.5 Mean Corpuscular Hemoglobin Concent 33.6 Red Cell Distribution Width 13.9 Platelet Count 257 Mean Platelet Volume 9.5 Immature Granulocytes % 0.200 Neutrophils % 54.5 Lymphocytes % 31.4 Monocytes % 8.5 Eosinophils % 5.1 Basophils % 0.3 Nucleated Red Blood Cells % 0.0 Immature Granulocytes # 0.010 Neutrophils # 3.3 Lymphocytes # 1.9 Monocytes # 0.5 Eosinophils # 0.3 Basophils # 0.0 Nucleated Red Blood Cells # 0.0 Sodium Level 140 Potassium Level 4.2 Chloride Level 101 Carbon Dioxide Level 29 Anion Gap 10 Blood Urea Nitrogen 16 Creatinine 5.37 H Est Glomerular Filtrat Rate mL/min Glucose Level 113 Calcium Level 9.3 Phosphorus Level 3.9 Magnesium Level 2.1 Total Bilirubin 0.4 Direct Bilirubin 0.00 Indirect Bilirubin 0.4 Aspartate Amino Transf (AST/SGOT) 20 Alanine Aminotransferase (ALT/SGPT) 19 Alkaline Phosphatase 55 Total Protein 7.0 Albumin 3.7 Globulin 3.30 H Albumin/Globulin Ratio 1.12 Subjective 24 Hr Interval Summary Constitutional: no complaints Exam/Review of Systems Exam Vitals Vital Signs Date Temp Pulse Resp B/P (MAP) Pulse Ox O2 O2 Flow FiO2 Time Delivery Rate 09/22/18 68 16:48 09/22/18 98.0 18 134/59 96 Nasal 15:23 (84) Cannula 09/22/18 3.0 14:03 09/21/18 47 01:07 Intake and Output 09/21/18 09/21/18 09/22/18 1515:00 23:00 07:00 IntakeIntake Total 220 ml 120 ml 240 ml OutputOutput Total 400 ml 2400 ml BalanceBalance -180 ml -2280 ml 240 ml Exam Patient s/p hemodialysis yesterday with removal of almost 2 liters of fluid but still requires nasal o2 up to 4L to maintain pO2 at >92% . Constitutional: alert, oriented Head: normocephalic, atraumatic Respiratory: clear to auscultation Cardiovascular: regular rate and rhythm Gastrointestinal: soft, non-tender Musculoskeletal: other (Left upper arm bruit and ecchymotic) Results Results 24hrs Laboratory Tests Test 09/22/18 07:42 White Blood Count 6.1 Red Blood Count 2.89 L Hemoglobin 9.4 L Hematocrit 28.0 L Mean Corpuscular Volume 96.9 Mean Corpuscular Hemoglobin 32.5 Mean Corpuscular Hemoglobin Concent 33.6 Red Cell Distribution Width 13.9 Platelet Count 257 Mean Platelet Volume 9.5 Immature Granulocytes % 0.200 Neutrophils % 54.5 Lymphocytes % 31.4 Monocytes % 8.5 Eosinophils % 5.1 Basophils % 0.3 Nucleated Red Blood Cells % 0.0 Immature Granulocytes # 0.010 Neutrophils # 3.3 Lymphocytes # 1.9 Monocytes # 0.5 Eosinophils # 0.3 Basophils # 0.0 Nucleated Red Blood Cells # 0.0 Sodium Level 140 Potassium Level 4.2 Chloride Level 101 Carbon Dioxide Level 29 Anion Gap 10 Blood Urea Nitrogen 16 Creatinine 5.37 H Est Glomerular Filtrat Rate mL/min Glucose Level 113 Calcium Level 9.3 Phosphorus Level 3.9 Magnesium Level 2.1 Total Bilirubin 0.4 Direct Bilirubin 0.00 Indirect Bilirubin 0.4 Aspartate Amino Transf (AST/SGOT) 20 Alanine Aminotransferase (ALT/SGPT) 19 Alkaline Phosphatase 55 Total Protein 7.0 Albumin 3.7 Globulin 3.30 H Albumin/Globulin Ratio 1.12 Medications Medication Current Medications Allopurinol (Zyloprim) 100 mg DAILY PO Last administered on 09/22/18at 08:23; Admin Dose 100 MG; Start 09/21/18 at 09:00 Calcium Acetate (Phoslo) 667 mg QAM PO Last administered on 09/22/18at 08:23; Admin Dose 667 MG; Start 09/21/18 at 09:00 Carvedilol (Coreg) 25 mg BID PO Last administered on 09/21/18at 20:20; Admin Dose 25 MG; Start 09/21/18 at 09:00 Nifedipine (Procardia Xl) 60 mg DAILY PO Last administered on 09/21/18at 09:23; Admin Dose 60 MG; Start 09/21/18 at 09:00 Clonidine (Catapres) 0.1 mg TID PRN PO ELEVATED BLOOD PRESSURE; Start 09/21/18 at 20:00 Epoetin Viet-epbx (Retacrit (Esrd)) 10,000 unit TuThSa@1700 SC Last administered on 09/22/18at 17:17; Admin Dose 10,000 UNIT; Start 09/22/18 at 17:00 Albumin Human 100 ml @ 100 mls/hr DURING DIALYSIS PRN IV hypotension during hd today; Start 09/22/18 at 15:00; Stop 09/22/18 at 23:59 TREMAINE RIOS MD Sep 22, 2018 18:48
[2018-09-22] MEDS: ALBUTEROL 0.083% (NEB) 2.5 MG/3 ML AMP HHN SCH (23:15)
[2018-09-23] VITALS (21 sets, daily range): BP systolic 105–178; BP diastolic 57–73; PULSE 53–81; RESP 16–20
--- NOTE | 2018-09-23 07:52 | CONS ---
Assessment/Plan Assessment/Plan Hospital Course (Demo Recall) 1. End-stage renal disease on maintenance hemodialysis. I did 2 hours of dry ultrafiltration yesterday and 1500 cc of fluid was removed. She has a hemodialysis treatment ordered for today. We will see how she feels after dialysis today. She could potentially go home today or tomorrow depending on how she is feeling and her O2 saturation. 2. Congestive heart failure. Her chest x-ray is improved but still has evidence of congestive heart failure. 3. Hypertension 4. Type 2 diabetes mellitus Consultation Date/Type/Reason Admit Date/Time Sep 20, 2018 at 20:09 Initial Consult Date Type of Consult Nephrology Date/Time of Note DATE: 09/23/18 TIME: 07:50 24 HR Interval Summary Free Text/Dictation Patient is sitting up eating breakfast. She is awake and alert and conversant. She still has an oxygen cannula on her nose. Constitutional: no complaints, improved Exam/Review of Systems Exam Vitals Vital Signs Date Temp Pulse Resp B/P (MAP) Pulse Ox O2 O2 Flow FiO2 Time Delivery Rate 09/23/18 97.9 61 164/67 96 Nasal 07:29 (99) Cannula 09/23/18 3.0 05:18 09/23/18 18 04:00 09/21/18 47 01:07 Intake and Output 09/22/18 09/22/18 09/23/18 1515:00 23:00 07:00 IntakeIntake Total 600 ml OutputOutput Total 201 ml 1900 ml BalanceBalance 399 ml -1900 ml Constitutional: alert, frail Neck: supple, non-tender Respiratory: diminished breath sounds Cardiovascular: regular rate and rhythm Gastrointestinal: soft, non-tender Musculoskeletal: nl extremities to inspection Results Result Diagram: 09/23/18 0444 09/22/18 0742 Results 24hrs Laboratory Tests Test 09/23/18 04:44 White Blood Count 5.6 Red Blood Count 2.73 L Hemoglobin 9.0 L Hematocrit 26.2 L Mean Corpuscular Volume 96.0 Mean Corpuscular Hemoglobin 33.0 Mean Corpuscular Hemoglobin Concent 34.4 Red Cell Distribution Width 13.8 Platelet Count 258 Mean Platelet Volume 9.6 Immature Granulocytes % 0.200 Neutrophils % 49.4 Lymphocytes % 35.8 Monocytes % 8.7 Eosinophils % 5.7 Basophils % 0.2 Nucleated Red Blood Cells % 0.0 Immature Granulocytes # 0.010 Neutrophils # 2.8 Lymphocytes # 2.0 Monocytes # 0.5 Eosinophils # 0.3 Basophils # 0.0 Nucleated Red Blood Cells # 0.0 Medications Medication Current Medications Allopurinol (Zyloprim) 100 mg DAILY PO Last administered on 09/22/18 08:23; Admin Dose 100 MG; Start 09/21/18 at 09:00 Calcium Acetate (Phoslo) 667 mg QAM PO Last administered on 09/22/18 08:23; Admin Dose 667 MG; Start 09/21/18 at 09:00 Carvedilol (Coreg) 25 mg BID PO Last administered on 09/22/18 20:11; Admin Dose 25 MG; Start 09/21/18 at 09:00 Nifedipine (Procardia Xl) 60 mg DAILY PO Last administered on 09/21/18 09:23; Admin Dose 60 MG; Start 09/21/18 at 09:00 Clonidine (Catapres) 0.1 mg TID PRN PO ELEVATED BLOOD PRESSURE; Start 09/21/18 at 20:00 Epoetin Viet-epbx (Retacrit (Esrd)) 10,000 unit TuThSa@1700 SC Last administered on 09/22/18 17:17; Admin Dose 10,000 UNIT; Start 09/22/18 at 17:00 Albuterol (Proventil 0.083% (Neb)) 1.25 mg Q8H RESP THERAPY HHN Last administe red on 09/22/18at 23:15; Admin Dose 1.25 MG; Start 09/23/18 at 00:00 HOPE DOW MD Sep 23, 2018 07:52
[2018-09-23] MEDS ORDERED: ALBUMIN HUMAN 25% 100 ML IV PRN (08:00)
[2018-09-23] MEDS: NIFEdipine (XL) 60 MG TAB PO SCH (08:15)
[2018-09-23] MEDS: ALLOPURINOL 100 MG TAB PO SCH (08:16)
[2018-09-23] MEDS: CALCIUM ACETATE 667 MG CAP PO SCH (08:16)
[2018-09-23] MEDS: ALBUTEROL 0.083% (NEB) 2.5 MG/3 ML AMP HHN SCH ×3 (08:52→23:41)
--- NOTE | 2018-09-23 09:18 | QN ---
Documentation Comment No c/o. Breathing comfortably. No SOB. L arm AVG with good thrill and working well - f/u with me in the office next week to remove suture in AVG VERONICA RODGERS MD Sep 23, 2018 09:18
--- NOTE | 2018-09-23 14:17 | PN ---
Date/Time of Note Date/Time of Note DATE: 09/23/18 TIME: 14:13 Assessment/Plan VTE Prophylaxis Risk score (from Ns)>0 risk: 6 SCD applied (from [facility] [place] SCD contraindicated: low risk/ambulating Pharmacological prophylaxis: NA/contraindicated Pharm contraindication: renal impairment Lines/Catheters IV Catheter Type (from [facility] Saline Lock Urinary Cath still in place: No Assessment/Plan Assessment/Plan (1) Hypoxia/ respiratory failure Status: Acute Comment: Patient still hypoxic on room air despite > 5 liters of fluid removal. Chest xray today showed mild perihilar patchy consolidations, left lung base consolidation and small bilateral pleural effusion. Chest CT done on 09/21 and sent by fax to ICU per nursing showed no evidence of pneumonia but report in not on [employer]. Called radiology to locate the report . For now, since procalcitonin is mildly elevated, will resume antibiotics for possible pneumonia, continue respiratory treatments and oxygen support. Patient has history of pulmonary angiospasm with Ranexa, will check PFT's and may consider decreasing carvedilol if obstructive disease is seen. (2) Hypertension Status: Chronic Comment: Blood pressure elevated the past 24 hours, consider increase nifedipine to 90mg (3) ESRD (end stage renal disease) Status: Chronic Comment: HD per Dr. Mo. (4) Anemia Status: Chronic Comment: Procrit c HD per renal guidance. (5) Diabetes mellitus Status: Chronic Comment: Blood sugar has been stable on no meds . No accuchecks per previous discussion with family. Result Diagram: 09/23/18 0444 09/22/18 0742 Results 24hrs Laboratory Tests Test 09/23/18 04:44 White Blood Count 5.6 Red Blood Count 2.73 L Hemoglobin 9.0 L Hematocrit 26.2 L Mean Corpuscular Volume 96.0 Mean Corpuscular Hemoglobin 33.0 Mean Corpuscular Hemoglobin Concent 34.4 Red Cell Distribution Width 13.8 Platelet Count 258 Mean Platelet Volume 9.6 Immature Granulocytes % 0.200 Neutrophils % 49.4 Lymphocytes % 35.8 Monocytes % 8.7 Eosinophils % 5.7 Basophils % 0.2 Nucleated Red Blood Cells % 0.0 Immature Granulocytes # 0.010 Neutrophils # 2.8 Lymphocytes # 2.0 Monocytes # 0.5 Eosinophils # 0.3 Basophils # 0.0 Nucleated Red Blood Cells # 0.0 Iron Level 43 Total Iron Binding Capacity 200 L Percent Iron Saturation 22 Ferritin 707.0 H Procalcitonin 0.28 H Subjective 24 Hr Interval Summary Free Text/Dictation Patient feels well s/p hemodialysis with removal of 2 liters of fluid, wants to go home. Exam/Review of Systems Exam Vitals Vital Signs Date Temp Pulse Resp B/P (MAP) Pulse Ox O2 O2 Flow FiO2 Time Delivery Rate 09/23/18 67 14:05 09/23/18 98.4 178/58 94 Nasal 11:21 (98) Cannula 09/23/18 18 3.0 10:40 09/21/18 47 01:07 Intake and Output 09/22/18 09/22/18 09/23/18 1515:00 23:00 07:00 IntakeIntake Total 600 ml OutputOutput Total 201 ml 1900 ml BalanceBalance 399 ml -1900 ml Exam Patient appears comfortable and saturating at 98% on 3 liters but desaturates to 86% on room air at rest. Constitutional: alert, oriented Head: normocephalic, atraumatic ENMT: nl external ears & nose Respiratory: clear to auscultation Cardiovascular: regular rate and rhythm Gastrointestinal: soft Musculoskeletal: other Results Results 24hrs Laboratory Tests Test 09/23/18 04:44 White Blood Count 5.6 Red Blood Count 2.73 L Hemoglobin 9.0 L Hematocrit 26.2 L Mean Corpuscular Volume 96.0 Mean Corpuscular Hemoglobin 33.0 Mean Corpuscular Hemoglobin Concent 34.4 Red Cell Distribution Width 13.8 Platelet Count 258 Mean Platelet Volume 9.6 Immature Granulocytes % 0.200 Neutrophils % 49.4 Lymphocytes % 35.8 Monocytes % 8.7 Eosinophils % 5.7 Basophils % 0.2 Nucleated Red Blood Cells % 0.0 Immature Granulocytes # 0.010 Neutrophils # 2.8 Lymphocytes # 2.0 Monocytes # 0.5 Eosinophils # 0.3 Basophils # 0.0 Nucleated Red Blood Cells # 0.0 Iron Level 43 Total Iron Binding Capacity 200 L Percent Iron Saturation 22 Ferritin 707.0 H Procalcitonin 0.28 H Medications Medication Current Medications Allopurinol (Zyloprim) 100 mg DAILY PO Last administered on 09/23/18at 08:16; Admin Dose 100 MG; Start 09/21/18 at 09:00 Calcium Acetate (Phoslo) 667 mg QAM PO Last administered on 09/23/18 08:16; Admin Dose 667 MG; Start 09/21/18 at 09:00 Carvedilol (Coreg) 25 mg BID PO Last administered on 09/22/18at 20:11; Admin Dose 25 MG; Start 09/21/18 at 09:00 Nifedipine (Procardia Xl) 60 mg DAILY PO Last administered on 09/21/18at 09:23; Admin Dose 60 MG; Start 09/21/18 at 09:00 Clonidine (Catapres) 0.1 mg TID PRN PO ELEVATED BLOOD PRESSURE; Start 09/21/18 at 20:00 Epoetin Viet-epbx (Retacrit (Esrd)) 10,000 unit TuThSa@1700 SC Last administered on 09/22/18at 17:17; Admin Dose 10,000 UNIT; Start 09/22/18 at 17:00 Albuterol (Proventil 0.083% (Neb)) 1.25 mg Q8H RESP THERAPY HHN Last administered on 09/23/18at 08:52; Admin Dose 1.25 MG; Start 09/23/18 at 00:00 Albumin Human 100 ml @ 100 mls/hr DURING DIALYSIS PRN IV BLOOD PRESSURE SUPPORT; Start 09/23/18 at 08:00 TREMAINE RIOS MD Sep 23, 2018 14:17
[2018-09-23] MEDS: PIPER-TAZO 2.25 GM (PMX) 50 ML IVPB SCH (21:33)
[2018-09-24] VITALS (8 sets, daily range): BP systolic 97–199; BP diastolic 53–91; PULSE 62–66; RESP 16–20
[2018-09-24] MEDS: PIPER-TAZO 2.25 GM (PMX) 50 ML IVPB SCH ×3 (05:47→21:34)
[2018-09-24] MEDS ORDERED: hydrALAzine 20 MG INJ IV ONE (07:00)
[2018-09-24] MEDS: ALBUTEROL 0.083% (NEB) 2.5 MG/3 ML AMP HHN SCH ×2 (07:36→15:35)
[2018-09-24] MEDS: CALCIUM ACETATE 667 MG CAP PO SCH (08:06)
[2018-09-24] MEDS: ALLOPURINOL 100 MG TAB PO SCH (08:06)
[2018-09-24] MEDS ORDERED: NIFEdipine (XL) 60 MG TAB PO SCH (09:00)
--- NOTE | 2018-09-24 16:16 | CONS ---
Assessment/Plan Assessment/Plan Assessment/Plan (Daily) 1. End-stage renal disease on maintenance hemodialysis. s/p hd x 3/ better with improved o2 sats. plan hd in am 2. Congestive heart failureimproved. hd in am 3. Hypertension: bp low. cont to monitor 4. Type 2 diabetes mellitus 5- anemia: on epogen 6- ? pna: on abx Consultation Date/Type/Reason Admit Date/Time Sep 20, 2018 at 20:09 Initial Consult Date Date/Time of Note DATE: 09/24/18 TIME: 16:12 24 HR Interval Summary Free Text/Dictation weak but comfortable with no sob Exam/Review of Systems Exam Vitals Vital Signs Date Temp Pulse Resp B/P (MAP) Pulse Ox O2 O2 Flow FiO2 Time Delivery Rate 09/24/18 98 2.0 15:36 09/24/18 68 18 Nasal 15:35 Cannula 09/24/18 98.0 97/53 (68) 15:21 09/24/18 21 07:36 Intake and Output 09/23/18 09/23/18 09/24/18 1515:00 23:00 07:00 IntakeIntake Total 600 ml 350 ml OutputOutput Total 2200 ml 1 ml BalanceBalance -2200 ml 599 ml 350 ml Constitutional: alert, frail Psych: no complaints Head: normocephalic Eyes: nl conjunctiva Neck: supple, non-tender Respiratory: diminished breath sounds Cardiovascular: regular rate and rhythm, edema Gastrointestinal: soft Results Result Diagram: 09/24/18 0449 09/24/18 0449 Results 24hrs Laboratory Tests Test 09/24/18 04:49 White Blood Count 5.9 Red Blood Count 2.91 L Hemoglobin 9.2 L Hematocrit 27.7 L Mean Corpuscular Volume 95.2 Mean Corpuscular Hemoglobin 31.6 Mean Corpuscular Hemoglobin Concent 33.2 Red Cell Distribution Width 13.8 Platelet Count 250 Mean Platelet Volume 9.3 Immature Granulocytes % 0.500 H Neutrophils % 46.5 Lymphocytes % 36.8 Monocytes % 9.5 Eosinophils % 6.5 Basophils % 0.2 Nucleated Red Blood Cells % 0.0 Immature Granulocytes # 0.030 Neutrophils # 2.7 Lymphocytes # 2.2 Monocytes # 0.6 Eosinophils # 0.4 Basophils # 0.0 Nucleated Red Blood Cells # 0.0 Sodium Level 135 Potassium Level 4.3 Chloride Level 96 L Carbon Dioxide Level 31 Anion Gap 8 Blood Urea Nitrogen 26 H Creatinine 5.54 H Est Glomerular Filtrat Rate mL/min Glucose Level 114 Calcium Level 9.2 Total Bilirubin 0.3 Direct Bilirubin 0.00 Indirect Bilirubin 0.3 Aspartate Amino Transf (AST/SGOT) 24 Alanine Aminotransferase (ALT/SGPT) 14 Alkaline Phosphatase 48 Total Protein 7.1 Albumin 3.6 Globulin 3.50 H Albumin/Globulin Ratio 1.02 Medications Medication Current Medications Allopurinol (Zyloprim) 100 mg DAILY PO Last administered on 09/24/18 08:06; Admin Dose 100 MG; Start 09/21/18 at 09:00 Calcium Acetate (Phoslo) 667 mg QAM PO Last administered on 09/24/18 08:06; Admin Dose 667 MG; Start 09/21/18 at 09:00 Carvedilol (Coreg) 25 mg BID PO Last administered on 09/24/18 08:06; Admin Dose 25 MG; Start 09/21/18 at 09:00 Clonidine (Catapres) 0.1 mg TID PRN PO ELEVATED BLOOD PRESSURE Last administered on 09/24/18 04:44; Admin Dose 0.1 MG; Start 09/21/18 at 20:00 Epoetin Viet-epbx (Retacrit (Esrd)) 10,000 unit TuThSa@1700 SC Last administered on 09/22/18 17:17; Admin Dose 10,000 UNIT; Start 09/22/18 at 17:00 Albuterol (Proventil 0.083% (Neb)) 1.25 mg Q8H RESP THERAPY HHN Last administered on 09/24/18 15:35; Admin Dose 1.25 MG; Start 09/23/18 at 00:00 Albumin Human 100 ml @ 100 mls/hr DURING DIALYSIS PRN IV BLOOD PRESSURE SUPPORT; Start 09/23/18 at 08:00 Nifedipine (Procardia Xl) 90 mg DAILY PO Last administered on 09/24/18 08:06; Admin Dose 90 MG; Start 09/24/18 at 09:00 Piperacillin Sod/ Tazobactam Sod 50 ml @ 100 mls/hr Q8 IVPB Last administered on 09/24/18 13:59; Admin Dose 100 MLS/HR; Start 09/23/18 at 22:00 TIFFANIE ROSALES MD Sep 24, 2018 16:16
[2018-09-24] MEDS: EPOETIN ALFA-EPBX (ESRD) 10,000 UNIT/ML VIAL SC SCH (16:54)
--- NOTE | 2018-09-24 17:33 | PN ---
Date/Time of Note Date/Time of Note DATE: 09/24/18 TIME: 17:33 Assessment/Plan VTE Prophylaxis Risk score (from Ns)>0 risk: 6 SCD applied (from [facility] [place]): Yes Pharmacological prophylaxis: NA/contraindicated Pharm contraindication: renal impairment Lines/Catheters IV Catheter Type (from [facility]): Saline Lock Urinary Cath still in place: No Assessment/Plan Assessment/Plan (1) Hypertension Status: Chronic Comment: Blood pressure now low due to clonidine, hydralazine and increase in nifedipine to 90mg this am. Will reduce nifedipine back to 60mg and consider hydralazine po if elevated bp recurs. (2) Hypoxia/ respiratory failure Status: Acute Comment: Patient still hypoxic on room air despite > 5 liters of fluid removal. Still unable to locate chest CT done on 09-20-2018. Will re-order chest CT for tomorrow. Continue antibiotics for possible pneumonia, continue respiratory treatments and oxygen support. Patient has history of pulmonary angiospasm with Ranexa, will check PFT's and may consider decreasing carvedilol if obstructive disease is seen. (3) ESRD (end stage renal disease) Status: Chronic Comment: HD per Dr. Mo. (4) Anemia Status: Chronic Comment: Procrit c HD per renal guidance. (5) Diabetes mellitus Status: Chronic Comment: Blood sugar has been stable on no meds . No accuchecks per previous discussion with family. Result Diagram: 09/24/189 09/24/189 Results 24hrs Laboratory Tests Test 09/24/18 04:49 White Blood Count 5.9 Red Blood Count 2.91 L Hemoglobin 9.2 L Hematocrit 27.7 L Mean Corpuscular Volume 95.2 Mean Corpuscular Hemoglobin 31.6 Mean Corpuscular Hemoglobin Concent 33.2 Red Cell Distribution Width 13.8 Platelet Count 250 Mean Platelet Volume 9.3 Immature Granulocytes % 0.500 H Neutrophils % 46.5 Lymphocytes % 36.8 Monocytes % 9.5 Eosinophils % 6.5 Basophils % 0.2 Nucleated Red Blood Cells % 0.0 Immature Granulocytes # 0.030 Neutrophils # 2.7 Lymphocytes # 2.2 Monocytes # 0.6 Eosinophils # 0.4 Basophils # 0.0 Nucleated Red Blood Cells # 0.0 Sodium Level 135 Potassium Level 4.3 Chloride Level 96 L Carbon Dioxide Level 31 Anion Gap 8 Blood Urea Nitrogen 26 H Creatinine 5.54 H Est Glomerular Filtrat Rate mL/min Glucose Level 114 Calcium Level 9.2 Total Bilirubin 0.3 Direct Bilirubin 0.00 Indirect Bilirubin 0.3 Aspartate Amino Transf (AST/SGOT) 24 Alanine Aminotransferase (ALT/SGPT) 14 Alkaline Phosphatase 48 Total Protein 7.1 Albumin 3.6 Globulin 3.50 H Albumin/Globulin Ratio 1.02 Subjective 24 Hr Interval Summary Free Text/Dictation Patient had very high bp this am despite clonidine po requiring hydralazine IV which brought her sbp down to 98. Patient complains of mild dizziness when bp went below 100 Exam/Review of Systems Exam Vitals Vital Signs Date Temp Pulse Resp B/P (MAP) Pulse Ox O2 O2 Flow FiO2 Time Delivery Rate 09/24/18 98 2.0 15:36 09/24/18 68 18 Nasal 15:35 Cannula 09/24/18 98.0 97/53 (68) 15:21 09/24/18 21 07:36 Intake and Output 09/23/18 09/23/18 09/24/18 1515:00 23:00 07:00 IntakeIntake Total 600 ml 350 ml OutputOutput Total 2200 ml 1 ml BalanceBalance -2200 ml 599 ml 350 ml Constitutional: alert, oriented Head: normocephalic, atraumatic ENMT: nl external ears & nose Respiratory: clear to auscultation Cardiovascular: regular rate and rhythm Gastrointestinal: soft, non-tender Musculoskeletal: nl extremities to inspection Results Results 24hrs Laboratory Tests Test 09/24/18 04:49 White Blood Count 5.9 Red Blood Count 2.91 L Hemoglobin 9.2 L Hematocrit 27.7 L Mean Corpuscular Volume 95.2 Mean Corpuscular Hemoglobin 31.6 Mean Corpuscular Hemoglobin Concent 33.2 Red Cell Distribution Width 13.8 Platelet Count 250 Mean Platelet Volume 9.3 Immature Granulocytes % 0.500 H Neutrophils % 46.5 Lymphocytes % 36.8 Monocytes % 9.5 Eosinophils % 6.5 Basophils % 0.2 Nucleated Red Blood Cells % 0.0 Immature Granulocytes # 0.030 Neutrophils # 2.7 Lymphocytes # 2.2 Monocytes # 0.6 Eosinophils # 0.4 Basophils # 0.0 Nucleated Red Blood Cells # 0.0 Sodium Level 135 Potassium Level 4.3 Chloride Level 96 L Carbon Dioxide Level 31 Anion Gap 8 Blood Urea Nitrogen 26 H Creatinine 5.54 H Est Glomerular Filtrat Rate mL/min Glucose Level 114 Calcium Level 9.2 Total Bilirubin 0.3 Direct Bilirubin 0.00 Indirect Bilirubin 0.3 Aspartate Amino Transf (AST/SGOT) 24 Alanine Aminotransferase (ALT/SGPT) 14 Alkaline Phosphatase 48 Total Protein 7.1 Albumin 3.6 Globulin 3.50 H Albumin/Globulin Ratio 1.02 Medications Medication Current Medications Allopurinol (Zyloprim) 100 mg DAILY PO Last administered on 09/24/18 08:06; Admin Dose 100 MG; Start 09/21/18 at 09:00 Calcium Acetate (Phoslo) 667 mg QAM PO Last administered on 09/24/18 08:06; Admin Dose 667 MG; Start 09/21/18 at 09:00 Carvedilol (Coreg) 25 mg BID PO Last administered on 09/24/18 08:06; Admin Dose 25 MG; Start 09/21/18 at 09:00 Clonidine (Catapres) 0.1 mg TID PRN PO ELEVATED BLOOD PRESSURE Last administered on 09/24/18 04:44; Admin Dose 0.1 MG; Start 09/21/18 at 20:00 Epoetin Viet-epbx (Retacrit (Esrd)) 10,000 unit TuThSa@1700 SC Last administered on 09/24/18 16:54; Admin Dose 10,000 UNIT; Start 09/22/18 at 17:00 Albuterol (Proventil 0.083% (Neb)) 1.25 mg Q8H RESP THERAPY HHN Last administered on 09/24/18 15:35; Admin Dose 1.25 MG; Start 09/23/18 at 00:00 Albumin Human 100 ml @ 100 mls/hr DURING DIALYSIS PRN IV BLOOD PRESSURE SUPPORT; Start 09/23/18 at 08:00 Nifedipine (Procardia Xl) 90 mg DAILY PO Last administered on 09/24/18 08:06; Admin Dose 90 MG; Start 09/24/18 at 09:00 Piperacillin Sod/ Tazobactam Sod 50 ml @ 100 mls/hr Q8 IVPB Last administered on 09/24/18 13:59; Admin Dose 100 MLS/HR; Start 09/23/18 at 22:00 TREMAINE RIOS MD Sep 24, 2018 17:33
[2018-09-25] VITALS (19 sets, daily range): BP systolic 91–153; BP diastolic 48–75; PULSE 60–70; RESP 16–20
[2018-09-25] MEDS: PIPER-TAZO 2.25 GM (PMX) 50 ML IVPB SCH ×2 (05:15→13:30)
[2018-09-25] MEDS: CALCIUM ACETATE 667 MG CAP PO SCH (08:08)
[2018-09-25] MEDS: ALLOPURINOL 100 MG TAB PO SCH (08:08)
[2018-09-25] MEDS: ALBUTEROL 0.083% (NEB) 2.5 MG/3 ML AMP HHN SCH ×3 (08:13→15:43)
[2018-09-25] MEDS ORDERED: NIFEdipine (XL) 60 MG TAB PO SCH (09:00)
--- NOTE | 2018-09-25 12:58 | CONS ---
Assessment/Plan Assessment/Plan Assessment/Plan (Daily) 1. End-stage renal disease on maintenance hemodialysis. s/p hd x 3/ better with improved o2 sats. currently on hd and will likley need hd qod 2. Congestive heart failure:improved.still requiring o2. cxr better. hd today 3. Hypertension: bp was low, now better 4. Type 2 diabetes mellitus 5- anemia: on epogen 6- ? pna: on abx Consultation Date/Type/Reason Admit Date/Time Sep 20, 2018 at 20:09 Initial Consult Date Date/Time of Note DATE: 09/25/18 TIME: 12:56 24 HR Interval Summary Free Text/Dictation doing well. on hd. bp stable and has no complaints Exam/Review of Systems Exam Vitals Vital Signs Date Temp Pulse Resp B/P (MAP) Pulse Ox O2 O2 Flow FiO2 Time Delivery Rate 09/25/18 65 11:45 09/25/18 16 131/57 98 Nasal 2.0 11:30 (81) Cannula 09/25/18 98.3 11:17 09/24/18 21 07:36 Intake and Output 09/24/18 09/24/18 09/25/18 1515:00 23:00 07:00 IntakeIntake Total 250 ml 300 ml 400 ml OutputOutput Total 1 ml BalanceBalance 249 ml 300 ml 400 ml Constitutional: alert, oriented Psych: no complaints Head: normocephalic Neck: supple, non-tender Respiratory: diminished breath sounds Cardiovascular: regular rate and rhythm, edema Gastrointestinal: soft Results Result Diagram: 09/25/18 0459 09/25/18 0459 Results 24hrs Laboratory Tests Test 09/25/18 04:59 White Blood Count 6.2 Red Blood Count 2.79 L Hemoglobin 9.1 L Hematocrit 26.2 L Mean Corpuscular Volume 93.9 Mean Corpuscular Hemoglobin 32.6 Mean Corpuscular Hemoglobin Concent 34.7 Red Cell Distribution Width 13.4 Platelet Count 271 Mean Platelet Volume 9.6 Immature Granulocytes % 0.300 Neutrophils % 43.0 Lymphocytes % 42.1 Monocytes % 8.6 Eosinophils % 5.7 Basophils % 0.3 Nucleated Red Blood Cells % 0.0 Immature Granulocytes # 0.020 Neutrophils # 2.7 Lymphocytes # 2.6 Monocytes # 0.5 Eosinophils # 0.4 Basophils # 0.0 Nucleated Red Blood Cells # 0.0 Sodium Level 134 L Potassium Level 4.5 Chloride Level 94 L Carbon Dioxide Level 27 Anion Gap 13 Blood Urea Nitrogen 39 #H Creatinine 7.75 #H Est Glomerular Filtrat Rate mL/min Glucose Level 99 Calcium Level 9.4 Total Bilirubin 0.3 Direct Bilirubin 0.00 Indirect Bilirubin 0.3 Aspartate Amino Transf (AST/SGOT) 19 Alanine Aminotransferase (ALT/SGPT) 15 Alkaline Phosphatase 51 Total Protein 7.0 Albumin 3.8 Globulin 3.20 Albumin/Globulin Ratio 1.18 Procalcitonin < 0.02 Medications Medication Current Medications Allopurinol (Zyloprim) 100 mg DAILY PO Last administered on 09/25/18 08:08; Admin Dose 100 MG; Start 09/21/18 at 09:00 Calcium Acetate (Phoslo) 667 mg QAM PO Last administered on 09/25/18 08:08; Admin Dose 667 MG; Start 09/21/18 at 09:00 Carvedilol (Coreg) 25 mg BID PO Last administered on 09/24/18at 21:34; Admin Dose 25 MG; Start 09/21/18 at 09:00 Clonidine (Catapres) 0.1 mg TID PRN PO ELEVATED BLOOD PRESSURE Last administered on 09/24/18at 04:44; Admin Dose 0.1 MG; Start 09/21/18 at 20:00 Epoetin Viet-epbx (Retacrit (Esrd)) 10,000 unit TuThSa@1700 SC Last administered on 09/24/18at 16:54; Admin Dose 10,000 UNIT; Start 09/22/18 at 17:00 Albuterol (Proventil 0.083% (Neb)) 1.25 mg Q8H RESP THERAPY HHN Last administered on 09/25/18at 08:13; Admin Dose 1.25 MG; Start 09/23/18 at 00:00 Albumin Human 100 ml @ 100 mls/hr DURING DIALYSIS PRN IV BLOOD PRESSURE SUPPORT; Start 09/23/18 at 08:00 Piperacillin Sod/ Tazobactam Sod 50 ml @ 100 mls/hr Q8 IVPB Last administered on 09/25/18at 05:15; Admin Dose 100 MLS/HR; Start 09/23/18 at 22:00 Nifedipine (Procardia Xl) 60 mg DAILY PO ; Start 09/25/18 at 09:00 TIFFANIE ROSALES MD Sep 25, 2018 12:58
--- NOTE | 2018-09-25 15:59 | DS ---
Date/Time of Note Date/Time of Note DATE: 09/25/18 TIME: 15:48 Discharge Summary Admission/Discharge Info Admit Date/Time Sep 20, 2018 at 20:09 Discharge Date/Time August at 15:48 Discharge Diagnosis (1) Respiratory failure/ Hypoxia (2) Fluid overload (3) ESRD (end stage renal disease) (4) Hypertension (5) Diabetes mellitus (6) Anemia Patient Condition: Good Consults Nephrology Dr. Mo, Vascular surgery Dr. Bey Procedures Hemodialysis with ultrafiltration, Chest CT without contrast Hx of Present Illness 83 year old patient with end stage renal failure on chronic hemodialysis every MWF who developed worsening of her shortness of breath after an AV fistulogram at vascular lab and was sent to ER. Patient was noted to be hypoxic requiring bipap support in ER . Her chest xrays showed bibasilar infiltrates vs congestion. Patient was admitted for acute respiratory failure due to pneumonia vs fluid overload. Hospital Course Patient was monitored in ICU for 24 hours, she received IV antibiotics and hemodialysis with ultrafiltration for removal of fluids and gradually improved. When chest CT was negative for pneumonia and procalcitonin level was within norm al limits, antibiotics was discontinued. When her O2 saturation was 96% on room air , we are able to discharge her to home. Home Meds Active Scripts Nifedipine (Procardia Xl) 60 Mg Tab.er.24, 60 MG PO DAILY for 30 Days, #30 TAB Prov:TREMAINE GAN MD 12/22/17 Reported Medications Carvedilol* (Carvedilol*) 25 Mg Tablet, 25 MG PO BID, #60 TAB 09/20/18 Calcium Acetate* (Calcium Acetate*) 667 Mg Capsule, 667 MG PO WITH MEAL DAILY, #30 CAP 12/08/17 Allopurinol* (Allopurinol*) 100 Mg Tablet, 100 MG PO DAILY, TAB 12/08/17 Discontinued Scripts Carvedilol* (Carvedilol*) 6.25 Mg Tablet, 6.25 MG PO BID for 30 Days, #60 TAB Prov:TREMAINE GAN MD 12/22/17 Follow-up Plan Follow up with Dr. Gan next week Resume HD on MWF as before. Primary Care Provider Tremaine Gan MD Time spent on discharge: > 30 minutes Pending Labs Laboratory Tests Test 09/25/18 04:59 White Blood Count 6.2 10^3/ul (4.8-10.8) Red Blood Count 2.79 10^6/ul (4.20-5.40) Hemoglobin 9.1 g/dl (12.0-16.0) Hematocrit 26.2 % (37.0-47.0) Mean Corpuscular Volume 93.9 fl (82.0-101.0) Mean Corpuscular Hemoglobin 32.6 pg (29.0-33.0) Mean Corpuscular Hemoglobin Concent 34.7 g/dl (32.0-37.0) Red Cell Distribution Width 13.4 % (11.5-14.5) Platelet Count 271 10^3/UL (140-415) Mean Platelet Volume 9.6 fl (7.4-10.4) Immature Granulocytes % 0.300 % (0.001-0.429) Neutrophils % 43.0 % (39.0-77.0) Lymphocytes % 42.1 % (15.0-51.0) Monocytes % 8.6 % (0.0-11.0) Eosinophils % 5.7 % (0.0-7.0) Basophils % 0.3 % (0.0-2.0) Nucleated Red Blood Cells % 0.0 /100WBC (0.0-0.0) Immature Granulocytes # 0.020 10^3/ul (0.0-0.031) Neutrophils # 2.7 10^3/ul (1.6-7.5) Lymphocytes # 2.6 10^3/ul (0.8-2.9) Monocytes # 0.5 10^3/ul (0.3-0.9) Eosinophils # 0.4 10^3/ul (0.0-0.5) Basophils # 0.0 10^3/ul (0.0-0.1) Nucleated Red Blood Cells # 0.0 10^3/ul (0.0-0.0) Sodium Level 134 mmol/L (135-144) Potassium Level 4.5 mmol/L (3.5-5.1) Chloride Level 94 mmol/L (97-110) Carbon Dioxide Level 27 mmol/L (21-31) Anion Gap 13 (5-13) Blood Urea Nitrogen 39 mg/dl (7-20) Creatinine 7.75 mg/dl (0.44-1.00) Est Glomerular Filtrat Rate mL/min mL/min (>60) Glucose Level 99 mg/dl (70-220) Calcium Level 9.4 mg/dl (8.4-10.2) Total Bilirubin 0.3 mg/dl (0.2-1.3) Direct Bilirubin 0.00 mg/dl (0.00-0.20) Indirect Bilirubin 0.3 mg/dl (0-1.1) Aspartate Amino Transf (AST/SGOT) 19 IU/L (15-46) Alanine Aminotransferase (ALT/SGPT) 15 IU/L (13-69) Alkaline Phosphatase 51 IU/L (42-121) Total Protein 7.0 g/dl (6.1-8.1) Albumin 3.8 g/dl (3.3-4.9) Globulin 3.20 g/dl (1.3-3.2) Albumin/Globulin Ratio 1.18 Procalcitonin < 0.02 ng/mL (0.00-0.10) TREMAINE GAN MD Sep 25, 2018 15:58
== END 2018-09-25 19:19 | disposition home or self-care (01) | DRG 189 ==
LOC: E/R 17:23 → ICU 20:09 → 6WM 09-21 19:05
PROVIDERS: ADMIT Internal Medicine; ATTEND Internal Medicine
PROC: 5A1D70Z Performance of Urinary Filtration, Intermittent, Less than 6 Hours Per Day (ICD-10-PCS; 2018-09-21)
PROC: 5A1D70Z Performance of Urinary Filtration, Intermittent, Less than 6 Hours Per Day (ICD-10-PCS; 2018-09-22)
PROC: 5A1D70Z Performance of Urinary Filtration, Intermittent, Less than 6 Hours Per Day (ICD-10-PCS; principal; 2018-09-25)
DX: J96.01 Acute respiratory failure with hypoxia (principal); N18.6 End stage renal disease; J18.9 Pneumonia, unspecified organism; I13.2 Hypertensive heart and chronic kidney disease with heart failure and with stage 5 chronic kidney disease, or end stage renal disease; E11.21 Type 2 diabetes mellitus with diabetic nephropathy; E11.22 Type 2 diabetes mellitus with diabetic chronic kidney disease; I50.9 Heart failure, unspecified; D63.1 Anemia in chronic kidney disease; Z99.2 Dependence on renal dialysis; Z79.4 Long term (current) use of insulin
CPT/HCPCS: 36415; 36600; 71045; 71250; 80048; 80053; 82728; 82803; 83540; 83605; 83735; 84100; 84145; 84484; 85025; 85610; 85730; 87081; 87340; 90935; 93005; 94640; 94660; 94664; 96365; 96366; 96368; J0360; J1940; J2543; J3370; Q5105

== ENCOUNTER 2018-10-07 04:21 | Inpatient (IN) | payer MEDICARE, OTHER ==
[~2018-10-07] VITALS: Ht 152.4 cm; Wt 80.0 kg
[~2018-10-07 04:21] MED LIST changes: -CARV6.2579 PO
[2018-10-07 04:23] VITALS: Ht 152.4 cm; Wt 80.0 kg
[2018-10-13 11:30] VITALS: BP 145/64; PULSE 73; RESP 18
== END 2018-10-13 16:35 | disposition home health service (06) | DRG 291 ==
LOC: E/R 04:21 → TEL 05:52 → CANRESERV 07:57 → EDBEDREQ 12:20 → EDBEDREQSVC 12:20 → EDBEDREQ 12:49
PROVIDERS: ADMIT Internal Medicine; ATTEND Internal Medicine
PROC: 5A09357 Assistance with Respiratory Ventilation, Less than 24 Consecutive Hours, Continuous Positive Airway Pressure (ICD-10-PCS; principal; 2018-10-07)
PROC: 4A033R1 Measurement of Arterial Saturation, Peripheral, Percutaneous Approach (ICD-10-PCS; 2018-10-07)
PROC: 5A1D70Z Performance of Urinary Filtration, Intermittent, Less than 6 Hours Per Day (ICD-10-PCS; 2018-10-10)
DX: I13.2 Hypertensive heart and chronic kidney disease with heart failure and with stage 5 chronic kidney disease, or end stage renal disease (principal); J18.9 Pneumonia, unspecified organism; N18.6 End stage renal disease; I50.33 Acute on chronic diastolic (congestive) heart failure; J96.01 Acute respiratory failure with hypoxia; E11.22 Type 2 diabetes mellitus with diabetic chronic kidney disease; E11.21 Type 2 diabetes mellitus with diabetic nephropathy; D63.1 Anemia in chronic kidney disease; I16.0 Hypertensive urgency; M10.9 Gout, unspecified; E11.40 Type 2 diabetes mellitus with diabetic neuropathy, unspecified; E03.9 Hypothyroidism, unspecified; Z99.2 Dependence on renal dialysis
CPT/HCPCS: 36415; 36600; 71045; 80048; 82550; 82553; 82803; 82962; 83605; 83735; 84100; 84145; 84484; 85025; 85610; 85730; 90935; 93005; 93306; 94660; 96374; 97116; 97162; 97530; J1815; J2543; P9047; Q5105